=== PATIENT | female | born 1945 | race Caucasian/White ===

== ENCOUNTER 2016-12-24 16:52 | Observation (INO) | payer MEDICARE ==
[2016-12-24] MEDS ORDERED: NS 0.9% 1000 ML* 1,000 ML IV ONE (17:32)
[2016-12-24 18:03] LABS: Hematocrit 44 % (35-47); Hemoglobin 14.5 g/dl (12.0-16.0); Mean Corpuscular HGB Conc 33 g/dl (31-36); Mean Corpuscular Hemoglobin 28 pg (27-31); Mean Corpuscular Volume 85 fL (80-97); Mean Platelet Volume 8 um3 (7.4-10.4); Red Blood Count 5.19 10^6/ul (4.0-5.4); Red Cell Distribution Width 13 % (10.5-15); White Blood Count 16.7 10^3/ul (3.5-10.8)
[2016-12-24 18:29] LABS: Albumin 3.4 g/dL (3.2-5.2); BUN/Creatinine Ratio 20.8 (8-20); C Reactive Protein 51.4 mg/L (< 5.00); Calcium 8.9 mg/dL (8.6-10.3); Potassium 3.7 mmol/L (3.5-5.0); Total Bilirubin 0.5 mg/dL (0.2-1.0); Total Protein 7.4 g/dL (6.4-8.9)
[2016-12-24 18:31] LABS: Troponin I 0.01 ng/mL (<0.04)
--- NOTE | 2016-12-24 18:54 | RAD ---
Indication: Shortness of breath. Comparison is made with previous exam dated August 31, 2016. 2 views of the chest including dual energy PA views demonstrates no mediastinal shift. Heart is of normal size and configuration. Moderate-sized left pleural effusion is noted. Right lung field is clear. IMPRESSION: Small to moderate-sized left pleural effusion is noted. No definite pneumonia is identified.
[2016-12-24] MEDS ORDERED: Iodixanol* (CONTRAST) 320 MG/ML 100 ML SDV IV ONE (19:01)
--- NOTE | 2016-12-24 19:44 | RAD ---
Indication: Shortness of breath, tachycardia. Contrast: Administered 69.8 ml of VISAPAQUE 320 mgi/ml. CTA of the chest was performed after IV contrast administration. Coronal and sagittal reconstructed images were obtained. The pulmonary arterial tree is well opacified. There are no filling defects present to suggest pulmonary embolus. No mediastinal or hilar adenopathy is noted. The heart demonstrates no pericardial effusion. Trachea and major bronchi appear patent. Lung talley demonstrate no evidence of alveolar consolidation. Moderate-sized left pleural effusion with left lower lobe atelectasis is noted. The heart demonstrates no pericardial effusion. The axilla demonstrates no evidence of abnormal adenopathy. The visualized abdominal organs are grossly unremarkable. IMPRESSION: NO EVIDENCE OF PULMONARY EMBOLUS IS NOTED. MODERATE-SIZED LEFT PLEURAL EFFUSION WITH LEFT BASILAR ATELECTASIS. NO FOCAL AREAS OF CONSOLIDATION IS NOTED.
[2016-12-24] MEDS ORDERED: Acetaminop/Codeine 30 MG TAB* 1 TAB (300 MG/30 MG) PO PRN (20:31)
[2016-12-24] MEDS ORDERED: ALPRAZolam TAB* 0.25 MG PO PRN (20:31)
[2016-12-24] MEDS ORDERED: Acetaminophen TAB* 325 MG PO PRN (20:31)
[2016-12-24] MEDS ORDERED: Albuterol HFA INHALER* 8 gm MDI INH PRN (20:31)
[2016-12-24] MEDS ORDERED: Dextrose 50% Syringe 50 ML* 25 GM/50 ML SYRINGE IV PUSH PRN (20:32)
[2016-12-24] MEDS: Insulin GLARGINE(*) 1 UNITS UNIT SUBCUT SCH (22:00)
[2016-12-24] MEDS: Heparin VIAL(*) 5000 UNITS/ML VIAL (FIVE THOUSAND) SUBCUT SCH (22:03)
[2016-12-25 02:06] LABS: Urine Bilirubin Negative (Negative); Urine Glucose 1+(50 mg/dL) (Negative); Urine Nitrite Negative (Negative)
--- NOTE | 2016-12-25 02:34 | HP ---
HOSPITAL MEDICINE HISTORY AND PHYSICAL: DATE OF ADMISSION: 12/24/16 PRIMARY CARE PHYSICIAN: Trey Perez MD ATTENDING PHYSICIAN: Go August MD* (dictation provided by Caryl Lux NP) CHIEF COMPLAINT: Chest pain and shortness of breath. HISTORY OF PRESENT ILLNESS: Ms. Gonsalves is a 71-year-old female with a past medical history of depression, anxiety, insulin-dependent diabetes, and hypothyroidism as well as concern for asthma versus COPD who presents today to the hospital with concern for chest pain and shortness of breath. Ms. Gonsalves was last seen in our hospital in August 2016 at which time, she had concern for tachycardia. During that hospitalization, she had a cardiac stress test that was normal. On consultation with Dr. Decker, there was no clear etiology for her tachycardia determined and patient has continued to follow with Dr. Perez and Dr. Decker since that time. She reports that she has had ongoing shortness of breath. She is a bit of a difficult historian but it seems that the shortness of breath has been a longstanding issue for her. She has seen Dr. ePrez and followed up with Pulmonology. Per her report, she does believe that she has a mild case of COPD. She went to see Dr. Perez 2 weeks ago to review the most recent Pulmonology report. She states that since that time, she has been in "bed." She states she has been having significant shortness of breath with any activity. She also reports chest pain. There is pain into her left side and arm. Description of the pain is hard to elicit, but she says that she does have pain with deep inspiration in the middle of her chest. She also has pain in her left back and shoulder with deep inspiration. She also has pain with palpation around the left shoulder and left anterior wall of the chest. She says the pain is fairly constant. It seems that the pain was probably worse earlier over this past 2 weeks and seems to be better but she is continuing to complain of pain in the emergency room. At this time, it is primarily with deep inspiration in her left back and then with palpation along the anterior chest wall. She denies any cough. She denies any fever. She states she has been having poor oral intake, but has not had no nausea, vomiting, or diarrhea. Her last bowel movement was today. In the emergency room, Ms. Tafoya has leukocytosis with a white blood cell count of 16.7. I will note, however, that her white blood cell count has been elevated over the past few years, but this is highest that we have seen. Hemoglobin and hematocrit are within normal limits. She did have an elevated D - dimer greater than 1050 and then went on for a CT of the chest, which did not show any pulmonary embolism or other infiltrate, process, or mass in the lungs, but did show a left-sided pleural effusion that was mild. Her labs showed an elevated BUN and creatinine with acute kidney injury, which is mild and a mild lactic acidosis of 2.3. Her CRP is also mildly elevated at 51.40. PAST MEDICAL HISTORY: 1. Asthma versus COPD. 2. Depression. 3. Hypertension. 4. Hyperlipidemia. 5. Type 2 diabetes, insulin dependent. 6. Hypothyroidism. 7. History of tachycardia in August 2016, no clear etiology determined. MEDICATIONS: 1. Advair daily. 2. Venlafaxine 150 mg p.o. q.a.m. 3. Levothyroxine 75 mcg p.o. q.a.m. 4. Levemir insulin 15 units subcutaneously b.i.d. 5. Diltiazem CD 180 mg p.o. daily. 6. Bupropion XL 150 mg p.o. daily. 7. Albuterol sulfate 1 puff inhaled q.6 hours p.r.n. 8. Tylenol p.r.n. 9. Tylenol with Codeine p.r.n. 10. Alprazolam 0.25 mg p.o. b.i.d. p.r.n. ALLERGIES: To ASPIRIN, DOXYCYCLINE, SULFA DRUGS, and NSAIDs. FAMILY HISTORY: The patient reports that her mom related to an undiagnosed vulvar cancer and her dad related to heart attack. SOCIAL HISTORY: No reported alcohol, tobacco, or drug use. She lives alone and states that her sister, Lisa, would be the health care proxy. REVIEW OF SYSTEMS: A 14-point review of systems was completed with Ms. Tafoya and all those not mentioned above were negative. PHYSICAL EXAM: GENERAL: Ms. Tafoya is lying in the bed. She is in no acute distress. She is calm and cooperative to my examination. VITAL SIGNS: Temperature 97.5, heart rate 104, respiratory rate 25, O2 saturation 97% on room air, and blood pressure 115/69. LUNGS: Clear to auscultation bilaterally with no accessory muscle use and good aeration. HEART: S1, S2. No murmur, rub, or gallop and regular. ABDOMEN: The abdomen is soft and nontender with bowel sounds positive x4. EXTREMITIES: No cyanosis or edema. NEUROLOGIC: She is alert and oriented x3. She moves all extremities equally. There is no facial asymmetry or focal weakness. Extraocular movements are intact. SKIN: Intact. DIAGNOSTIC STUDIES/LAB DATA: Sodium 135, potassium 3.7, chloride 98, serum bicarbonate 26, BUN 26, creatinine 1.25, glucose 258, and lactic acid 2.3. Troponin 0.01. CRP 51.40. WBC 16.7, hemoglobin 14.5, hematocrit 44, and platelet count 497. D-dimer greater than 1050. Chest, thorax CTA is read as follows: "Moderate sized left pleural effusion with left basilar atelectasis. No focal areas of consolidation are noted." Chest x-ray shows the following: " Rimop-[id number] sized left pleural effusion is noted. No definite pneumonia is identified." EKG, the patient has T-wave inversions in V2 through V6. These inversions were present on V2, V3 at least and then previous EKG were more pronounced in the 4 through 6 leads. She also has a more pronounced in inversion in 2, 3, and aVF. ASSESSMENT: Ms. Tafoya is a 71-year-old female with a past medical history of diabetes, hypertension, and chronic obstructive pulmonary disease who presents today to the emergency room with concern for her [id number] shortness of breath and chest pain. Our plans are for inpatient admission as I expect her length of stay to be greater than 2 days for the followin. Chest pain with shortness of breath: I do not have a clear etiology for these symptoms as in part her description of the symptoms are difficult to interpret. She does have some EKG changes with some T-wave inversions. She has a normal troponin. Clearly this could be related to acute coronary syndrome. Plan to repeat troponins x2. I will have another EKG at 2100 hours along with her second troponin. She also has a new pleural effusion. She has no known history of congestive heart failure. I will order a transthoracic echocardiogram. This could also could be related to infection. She does have an elevated white blood cell count, but this is hard to interpret given her white blood cell count has been elevated in the past. She also has a mild elevation in her CRP. This has been elevated somewhat in the past but again not to this level. She has no fever and reports no fever at home. She has no cough. At this point, I am not convinced that antibiotics are due. It may be necessary to obtain to do a diagnostic thoracentesis with Interventional Radiology, which would be available on Tuesday. She has no evidence of chronic obstructive pulmonary disease exacerbation. There is no clear evidence of any pneumonia based on the CTA. The pleural effusion could be related to carcinoma. I do note that back in August it was noted that the patient had had a significant weight loss over the past couple of years. 2. Type 2 diabetes: I am going to proceed with Lantus at a slightly lower dose given that her oral intake has been very poor. She will have lispro sliding scale, insulin with meals. She will have a consistent carbohydrate diet. 3. Hypothyroidism: Continue levothyroxine. 4. Anxiety/depression: Continue bupropion, venlafaxine, and alprazolam. 5. DVT prophylaxis: With heparin subcu. 6. Disposition: To telemetry floor. TIME SPENT: Approximately 60 minutes was spent in the admission of this patient , more than half of the time was spent with the patient at the bedside reviewing the events leading up to this hospitalization, performing the physical examination, and reviewing my plan of care. CARYL LUX NP CC: Dr. Perez* [id number]/CPS #: [id number] JAIMIE
[2016-12-25] MEDS ORDERED: Levothyroxine TAB* 75 MCG TAB PO SCH (06:00)
[2016-12-25] MEDS: Heparin VIAL(*) 5000 UNITS/ML VIAL (FIVE THOUSAND) SUBCUT SCH (06:10)
[2016-12-25] MEDS: Insulin LISPRO* 1 UNITS UNIT SUBCUT SCH ×2 (07:47→12:32)
[2016-12-25] MEDS: Insulin GLARGINE(*) 1 UNITS UNIT SUBCUT SCH (08:44)
--- NOTE | 2016-12-25 08:53 | ED ---
Jean Claude Bullock Matthew, scribed for Evelio Campos MD on 12/24/16 at 1728 . Shortness of Breath - HPI Summary HPI Summary: A 71 y/o female presents to the ED with SOB since a week ago. The SOB is worse with minimal exertion. Associated symptoms include left lateral chest pain that is worse with sitting up and exertion. The pain is described as pressure. She's also c/o of sharp left shoulder pain that worsens when she sits up. The patient has been in bed the last week from the pain and SOB. She denies cough and wheezing. She states that she's had a full cardiac work-up in the past, which returned normal. She was seen by Dr. Perez who was unable to elucidate her condition. - History of Current Complaint Chief Complaint: EDRespiratoryDistress Time Seen by Provider: 12/24/16 17:24 Hx Obtained From: Patient Onset/Duration: Gradual Onset, Lasting Weeks - 1, Still Present Timing: Constant Current Severity: Moderate Dyspnea At: Exertion Associated Signs & Symptoms: Negative - Allergy/Home Medications Allergies/Adverse Reactions: Allergies Allergy/AdvReac Type Severity Reaction Status Date / Time Aspirin [ASA] Allergy Severe Anaphylatic Verified 09/16/15 18:17 Shock Doxycycline Allergy Severe Anaphylatic Verified 09/16/15 18:17 Shock Sulfa Drugs Allergy Severe Anaphylatic Verified 09/16/15 18:17 Shock NSAIDs AdvReac Intermediate Bleeding Verified 09/16/15 18:17 PMH/Surg Hx/FS Hx/Imm Hx Endocrine/Hematology History: Reports: Hx Diabetes, Hx Thyroid Disease - hypothyroidism Denies: Hx Anemia Cardiovascular History: Reports: Hx Angina, Hx Hypercholesterolemia, Hx Hypertension Denies: Hx Coronary Artery Disease, Hx Myocardial Infarction, Hx Valvular Heart Disease Respiratory History: Reports: Hx Asthma Denies: Hx Chronic Obstructive Pulmonary Disease (COPD) GI History: Reports: Hx Gall Bladder Disease - removed, Hx Gastroesophageal Reflux Disease Denies: Hx Hiatal Hernia, Hx Jaundice History: Reports: Other Problems/Disorders - HX OF BLADDER INFECTIONS, NONE NOW Musculoskeletal History: Reports: Hx Arthritis, Hx Back Problems - C spine herniated disc, Hx Bursitis - HX OF LEFT SHOULDER, Hx Tendonitis - HX OF LEFT SHOULDER, Other Musculoskeletal History - R knee arthroscopy Sensory History: Reports: Hx Cataracts - BILATERAL, Hx Contacts or Glasses - GLASSES Denies: Hx Hearing Aid Opthamlomology History: Reports: Hx Cataracts - BILATERAL, Hx Contacts or Glasses - GLASSES Neurological History: Reports: Hx Headaches - tension headaches, Other Neuro Impairments/Disorders - peripheral neuropathy in feet Psychiatric History: Reports: Hx Anxiety, Hx Depression Denies: Hx Eating Disorder, Hx of Violent Episodes Against Others - Cancer History Hx Chemotherapy: No Hx Radiation Therapy: No - Surgical History Surgery Procedure, Year, and Place: Cholecystectomy, ruptured ovarian cyst, appendix out at same time, COMPLETE HYSTERECTOMY Hx Anesthesia Reactions: No Infectious Disease History: No Infectious Disease History: Denies: Traveled Outside the [place] in Last 30 Days - Family History Known Family History: Positive: Cardiac Disease - father's side - Social History Alcohol Use: None Substance Use Type: Reports: None Smoking Status (MU): Never Smoked Tobacco Review of Systems Constitutional: Negative Eyes: Negative ENT: Negative Positive: Chest Pain Positive: Shortness Of Breath Gastrointestinal: Negative Genitourinary: Negative Positive: Myalgia - left shoulder pain Skin: Negative Neurological: Negative Psychological: Normal All Other Systems Reviewed And Are Negative: Yes Physical Exam Vital Signs On Initial Exam: Initial Vitals Temp Pulse Resp BP Pulse Ox 97.5 F 119 18 122/97 97 12/24/16 16:54 12/24/16 16:54 12/24/16 16:54 12/24/16 16:54 12/24/16 16:54 Diagnostics - Vital Signs Vital Signs Temp Pulse Resp BP Pulse Ox 12/24/16 17:01 97.5 F 119 18 122/91 97 12/24/16 16:54 97.5 F 119 18 122/97 97 - Laboratory Lab Results: Lab Results 12/24/16 12/24/16 12/24/16 Range/Units 17:53 17:53 17:53 WBC 16.7 H (3.5-10.8) 10^3/ul RBC 5.19 (4.0-5.4) 10^6/ul Hgb 14.5 (12.0-16.0) g/dl Hct 44 (35-47) % MCV 85 (80-97) fL MCH 28 (27-31) pg MCHC 33 (31-36) g/dl RDW 13 (10.5-15) % Plt Count 497 H (150-450) 10^3/ul MPV 8 (7.4-10.4) um3 Neut % (Auto) 80.4 (38-83) % Lymph % (Auto) 13.1 L (25-47) % [place] % (Auto) 4.4 (1-9) % Eos % (Auto) 1.3 (0-6) % Baso % (Auto) 0.8 (0-2) % Absolute Neuts (auto) 13.4 H (1.5-7.7) 10^3/ul Absolute Lymphs (auto) 2.2 (1.0-4.8) 10^3/ul Absolute Monos (auto) 0.7 (0-0.8) 10^3/ul Absolute Eos (auto) 0.2 (0-0.6) 10^3/ul Absolute Basos (auto) 0.1 (0-0.2) 10^3/ul Absolute Nucleated RBC 0.01 10^3/ul Nucleated RBC % 0.1 APTT (26.0-36.3) seconds D-Dimer, Quantitative (Less Than 230) ng/mL Sodium 135 (133-145) mmol/L Potassium 3.7 (3.5-5.0) mmol/L Chloride 98 L (101-111) mmol/L Carbon Dioxide 26 (22-32) mmol/L Anion Gap 11 (2-11) mmol/L BUN 26 H (6-24) mg/dL Creatinine 1.25 H (0.51-0.95) mg/dL Est GFR ( Amer) 54.0 (>60) Est GFR (Non-Af Amer) 42.0 (>60) BUN/Creatinine Ratio 20.8 H (8-20) Glucose 258 H (70-100) mg/dL Lactic Acid 2.3 H* (0.5-2.0) mmol/L Calcium 8.9 (8.6-10.3) mg/dL Total Bilirubin 0.50 (0.2-1.0) mg/dL AST 33 (13-39) U/L ALT 33 (7-52) U/L Alkaline Phosphatase 73 (34-104) U/L Total Creatine Kinase 41 (10-223) U/L CK-MB (CK-2) 2.2 (0.6-6.3) ng/mL Troponin I 0.01 (<0.04) ng/mL C-Reactive Protein 51.40 H (< 5.00) mg/L B-Natriuretic Peptide ( - 100) pg/mL Total Protein 7.4 (6.4-8.9) g/dL Albumin 3.4 (3.2-5.2) g/dL Globulin 4.0 (2-4) g/dL Albumin/Globulin Ratio 0.9 L (1-3) 12/24/16 12/24/16 Range/Units 17:53 17:53 WBC (3.5-10.8) 10^3/ul RBC (4.0-5.4) 10^6/ul Hgb (12.0-16.0) g/dl Hct (35-47) % MCV (80-97) fL MCH (27-31) pg MCHC (31-36) g/dl RDW (10.5-15) % Plt Count (150-450) 10^3/ul MPV (7.4-10.4) um3 Neut % (Auto) (38-83) % Lymph % (Auto) (25-47) % [place] % (Auto) (1-9) % Eos % (Auto) (0-6) % Baso % (Auto) (0-2) % Absolute Neuts (auto) (1.5-7.7) 10^3/ul Absolute Lymphs (auto) (1.0-4.8) 10^3/ul Absolute Monos (auto) (0-0.8) 10^3/ul Absolute Eos (auto) (0-0.6) 10^3/ul Absolute Basos (auto) (0-0.2) 10^3/ul Absolute Nucleated RBC 10^3/ul Nucleated RBC % APTT 27.8 (26.0-36.3) seconds D-Dimer, Quantitative > 1050 H (Less Than 230) ng/mL Sodium (133-145) mmol/L Potassium (3.5-5.0) mmol/L Chloride (101-111) mmol/L Carbon Dioxide (22-32) mmol/L Anion Gap (2-11) mmol/L BUN (6-24) mg/dL Creatinine (0.51-0.95) mg/dL Est GFR ( Amer) (>60) Est GFR (Non-Af Amer) (>60) BUN/Creatinine Ratio (8-20) Glucose (70-100) mg/dL Lactic Acid (0.5-2.0) mmol/L Calcium (8.6-10.3) mg/dL Total Bilirubin (0.2-1.0) mg/dL AST (13-39) U/L ALT (7-52) U/L Alkaline Phosphatase (34-104) U/L Total Creatine Kinase (10-223) U/L CK-MB (CK-2) (0.6-6.3) ng/mL Troponin I (<0.04) ng/mL C-Reactive Protein (< 5.00) mg/L B-Natriuretic Peptide 116 H ( - 100) pg/mL Total Protein (6.4-8.9) g/dL Albumin (3.2-5.2) g/dL Globulin (2-4) g/dL Albumin/Globulin Ratio (1-3) Result Diagrams: 12/24/16 17:53 12/24/16 17:53 Lab Statement: Any lab studies that have been ordered have been reviewed, and results considered in the medical decision making process. - Radiology CXR Xray Interpretation: Positive (See Comments) - IMPRESSION: Small to moderate- sized left pleural effusion is noted. No definite pneumonia is identified. Radiology Interpretation Completed By: Radiologist - EKG 17:04 Cardiac Rate: Tachycardia - 108 bpm EKG Rhythm: Sinus Tachycardia EKG Interpretation: TWI in II,III,AvF, V2-V6; No STEMI; Normal [place] EKG Comparison: Other - TWI in V2-V6, which is more pronounced than previous EKGs Course/Dx - Course Assessment/Plan: A 71 y/o female presents to the ED with SOB since a week ago. The SOB is worse with minimal exertion. Associated symptoms include left lateral chest pain that is worse with sitting up and exertion. The pain is described as pressure. She's also c/o of sharp left shoulder pain that worsens when she sits up. The patient has been in bed the last week from the pain and SOB. She denies cough and wheezing. She states that she's had a full cardiac work-up in the past, which returned normal. She was seen by Dr. Perez who was unable to elucidate her condition. WBC of 16.7. Pt count of 497. Chloride 98, BUN 20.8, Creatinine 1.25 , Glucose 258, lactic acid 2.3, BNP 116, CRP 51.4, CXR shows no acute cardiopulmonary pathology except left sided pleural effusion. In the ED course, the patient continues to be tachycardic and c/o of SOB. Because of the D-dimer, SOB on excretion I decided to do a Chest CT to r/o PE. The patient is awaiting the chest CT therefore the patient will be signed out to DR. Aquino pending CT and further assessment. - Diagnoses Differential Diagnosis/HQI/PQRI: Positive: Bronchitis, CHF, Chest Wall Pain, COPD Exacerbation, Pneumonia, Pulmonary Embolism Provider Diagnoses: Chest pain, SOB (shortness of breath) Discharge - Discharge Plan Condition: Guarded Disposition: ADMITTED TO [facility] Discharge Disposition Comment: The patient is signed out to Dr. Aquino pending Chest CT. The documentation as recorded by the Jean Claude hawkins Matthew accurately reflects the service I personally performed and the decisions made by , Evelio Campos MD.
[2016-12-25] MEDS ORDERED: Diltiazem CD CAP* 180 MG PO SCH (09:00)
[2016-12-25] MEDS ORDERED: Venlafaxine EXT RELEASE CAP* 75 MG PO SCH (09:00)
[2016-12-25 11:42] VITALS: BP 126/60
--- NOTE | 2016-12-25 12:05 | PN ---
Subjective - Subjective Reason for Note: Discharge Note History: DISCHARGE SUMMARY She was bought in for observation overnight to rule out acute CO. She presented with atypical chest pain. She has had no further chest pain overnight. She denies coughing/sputum. She has her usual dyspnea. She has managed to walk this morning. She has a normal appetite. Active Problems: Active Problems Atypical chest pain (Acute) R07.89 Type 2 diabetes mellitus, uncontrolled (Chronic) E11.65 Current Medications: Current Medications Acetaminophen (Tylenol Tab*) 650 mg PO Q4H PRN PRN Reason: HEADACHE Acetaminophen/Codeine Phosphate (Tylenol/Codeine 30 Mg Tab*) 1 tab PO Q6H PRN PRN Reason: PAIN Albuterol (Ventolin Hfa Inhaler*) 1 puff INH Q6HR PRN PRN Reason: SHORTNESS OF BREATH Alprazolam (Xanax Tab*) 0.25 mg PO BID PRN PRN Reason: ANXIETY Dextrose (D50w Syringe 50 Ml*) 12.5 gm IV PUSH .FOR FS < 60 - SS PRN PRN Reason: FS < 60 Diltiazem HCl (Cardizem Cd Cap*) 180 mg PO DAILY [facility] Last Admin: 12/25/16 08:44 Dose: 180 mg Heparin Sodium (Porcine) (Heparin Vial(*)) 5,000 units SUBCUT Q8HR [facility] Last Admin: 12/25/16 06:10 Dose: 5,000 units Insulin Glargine (Lantus(*)) 40 units SUBCUT BID [facility] Last Admin: 12/25/16 08:44 Dose: 40 units Insulin Human Lispro (Humalog*) 0 units SUBCUT AC [facility] PRN Reason: Protocol Last Admin: 12/25/16 07:47 Dose: Not Given Levothyroxine Sodium (Synthroid Tab*) 75 mcg PO DAILY@0600 [facility] Last Admin: 12/25/16 06:08 Dose: 75 mcg Venlafaxine HCl (Effexor Xr Cap*) 150 mg PO QAM [facility] Last Admin: 12/25/16 08:44 Dose: 150 mg Home Medications: Home Medications Medication Instructions Recorded Confirmed Type Levothyroxine TAB* [Synthroid 75 75 mcg PO QAM 07/18/12 12/24/16 History MCG TAB*] Venlafaxine EXT RELEASE CAP* 150 mg PO QAM 07/18/12 12/24/16 History [Effexor Xr CAP*] ALPRAZolam TAB* [Xanax TAB*] 0.25 mg PO BID PRN #0 09/16/15 12/24/16 History Acetaminophen TAB* [Tylenol TAB*] 650 mg PO Q4H PRN #0 tab 09/20/15 12/24/16 Rx Acetaminop/Codeine 30 MG TAB* 1 tab PO Q6H PRN 08/23/16 12/24/16 History [Tylenol/Codeine 30 MG TAB*] Albuterol Sulfate [Proventil Hfa] 1 puff INH Q6HR PRN 08/23/16 12/24/16 History Bupropion XL* [Wellbutrin XL *] 150 mg PO DAILY 08/23/16 12/24/16 History Insulin Detemir (NF) [Levemir (NF)] 50 unit SUBCUT BID MDD 120 units 08/23/16 History Diltiazem HCl Coated Beads 180 mg PO DAILY #90 cap 08/25/16 12/24/16 Rx [Diltiazem Cd] Fluticas/Salmet 115/21 HFA(NF) 1 puff INH BID 12/24/16 12/24/16 History [Advair HFA 115/21 (NF)] Allergies: Allergies Allergy/AdvReac Type Severity Reaction Status Date / Time Aspirin [ASA] Allergy Severe Anaphylatic Verified 09/16/15 18:17 Shock Doxycycline Allergy Severe Anaphylatic Verified 09/16/15 18:17 Shock Sulfa Drugs Allergy Severe Anaphylatic Verified 09/16/15 18:17 Shock NSAIDs AdvReac Intermediate Bleeding Verified 09/16/15 18:17 Objective - Vital Signs Vital Signs: Vital Signs 12/24/16 12/24/16 12/24/16 20:30 20:39 21:00 Temperature Pulse Rate 75 74 72 Respiratory 17 17 17 Rate Blood Pressure 131/82 129/69 (mmHg) O2 Sat by Pulse 97 96 96 Oximetry 12/24/16 12/24/16 12/25/16 21:23 23:09 03:13 Temperature 98.4 F 98.3 F 98.4 F Pulse Rate 77 74 65 Respiratory 20 20 20 Rate Blood Pressure 149/72 132/62 109/51 (mmHg) O2 Sat by Pulse 100 98 94 Oximetry 12/25/16 12/25/16 12/25/16 07:48 08:00 11:12 Temperature 97.6 F 97.0 F Pulse Rate 62 71 Respiratory 20 20 20 Rate Blood Pressure 113/56 126/60 (mmHg) O2 Sat by Pulse 95 96 Oximetry - Intake and Output Intake and Output: Intake & Output 12/22/16 12/23/16 12/24/16 12/25/16 11:59 11:59 11:59 11:59 Intake Total 1217 Output Total 900 Balance 317 Weight 153 lb 3.2 oz Intake: IV Fluids 1097 LR 391 NS (0.9%) 706 Oral 120 Output: Urine 900 Other: # Bowel Movements 0 Estimated Stool Amount Medium ADLs: Meal Record Start: 12/24/16 21: 23 Freq: DAILY@0900,1400,1800 Status: Active Created 12/24/16 21:23 System (Rec: 12/24/16 21:23 System [email or web address]) Document 12/25/16 09:02 [id number] (Rec: 12/25/16 09:02 [id number] [email or web address]) Intake and Output Start: 12/24/16 21: 23 Freq: DAILY@0600,1400,2200 Status: Active Created 12/24/16 21:23 System (Rec: 12/24/16 21:23 System [id number]) Document 12/25/16 05:31 [id number] (Rec: 12/25/16 05:33 [id number] [place] [id number]) - Physical Exam General: No Cyanosis, No Jaundice, No Lymphadenopathy, No Clubbing Lungs and Chest: Yes: Chest Expansion Full, Chest Expansion Symetrica, Percussion Note Resonant, Vessicular Breath Sounds. No: Crackles, Wheezes, Respiratory Distress, Use of Accessory Muscles Heart Rate and Rhythm: Regular JVP: Not Elevated Additional Cardiovascular: Yes: Normal Heart Sounds. No: Heart Murmur, Carotid Bruits, Pedal Edema Abdominal Exam: Yes: Soft. No: Distention, Abdominal Mass, Abdominal Tenderness , Bowel Sounds Present - Extremities Cranial Nerves II-XII Intact: Yes Limbs: Normal Power, Normal Tone - Neuro Orientation: A/O x3 Speech: Normal Results - Results Lab Results: Laboratory Results - last 24 hr 12/24/16 12/24/1612/25/17 21:04 21:04 00:30 POC Glucose (mg/dL) Lactic Acid 1.3 Troponin I 0.01 0.01 Urine Color Urine Appearance Urine pH Ur Specific [place] Urine Protein Urine Ketones Urine Blood Urine Nitrate Urine Bilirubin Urine Urobilinogen Ur Leukocyte Esterase Urine Glucose Urine Ascorbic Acid 12/25/16 12/25/16 12/25/16 01:55 07:40 11:39 POC Glucose (mg/dL) 109 H 171 H Lactic Acid Troponin I Urine Color Yellow Urine Appearance Clear Urine pH 5.0 Ur Specific [place] 1.043 H Urine Protein Negative Urine Ketones Trace H Urine Blood Negative Urine Nitrate Negative Urine Bilirubin Negative Urine Urobilinogen Negative Ur Leukocyte Esterase Negative Urine Glucose 1+(50 mg/dl) H Urine Ascorbic Acid * H Radiology Results: Patient Name: HOMERO BILL Medical Record#: [id number] Ordering Physician: Evelio Campos MD Acct.#: [id number] : 1945 Age: 71 Sex: F Location: EMERGENCY DEPARTMENT Exam Date: 12/24/161856 ADM Status: [facility] ER Order Information: CTA CHEST Accession Number: [id number] CPT: 01185 Indication: Shortness of breath, tachycardia. Contrast: Administered 69.8 ml of VISAPAQUE 320 mgi/ml. CTA of the chest was performed after IV contrast administration. Coronal and sagittal reconstructed images were obtained. The pulmonary arterial tree is well opacified. There are no filling defects present to suggest pulmonary embolus. No mediastinal or hilar adenopathy is noted. The heart demonstrates no pericardial effusion. Trachea and major bronchi appear patent. Lung talley demonstrate no evidence of alveolar consolidation. Moderate-sized left pleural effusion with left lower lobe atelectasis is noted. The heart demonstrates no pericardial effusion. The axilla demonstrates no evidence of abnormal adenopathy. The visualized abdominal organs are grossly unremarkable. IMPRESSION: NO EVIDENCE OF PULMONARY EMBOLUS IS NOTED. MODERATE-SIZED LEFT PLEURAL EFFUSION WITH LEFT BASILAR ATELECTASIS. NO FOCAL AREAS OF CONSOLIDATION IS NOTED. <Electronically signed by Katiuska Lai MD in [place]> 12/24/161939 Dictated By: Katiuska Lai MD Dictated Date/Time: 12/24/161939 Transcribed Date/Time: 12/24/161937 Copy to: CC:Trey Perez MD; Evelio Campos MD Imaging - [facility] Imaging - [facility] Imaging - [facility] [address] [place], [place] [address] [place] [id number] [place] [id number] ph ([phone]) ph ([phone]) ph ([phone]) EKG Report: Sinus tachycardia: rate 108 OR 126 QTc 499 QRS axis 54 Widespread T wave inversions in lateral leads. This is chronic. Assessment - Problem List Assessment: Patient Problems Atypical chest pain (Acute) Type 2 diabetes mellitus, uncontrolled (Chronic) Asthma (Chronic) Depression (Chronic) Dyspnea on exertion (Chronic) Hyperlipidemia (Chronic) Hypertension (Chronic) Hypothyroidism (Chronic) Plan: Atypical chest pain (Acute) She has had risk stratification: troponin I series negative, CTA negative. She had a recent stress test. I don't think her pain was cardiac. She has a left pleural effusion - I will follow this up as an outpatient. Type 2 diabetes mellitus, uncontrolled (Chronic) stable Asthma (Chronic) not exacerbated Depression (Chronic) ongoing Dyspnea on exertion (Chronic) ongoing - she has seen cardiology and pulmonology - no obvious reversible cause Hyperlipidemia (Chronic) continue current Rx Hypertension (Chronic) continue current Rx Hypothyroidism (Chronic) continue current Rx I discussed the above with the patient. She is feeling fine today and I have discharged her. She will follow with me as an outpatient for the pleural effusion.
== END 2016-12-25 13:20 | disposition home or self-care (01) ==
LOC: ED 16:52 → MEDTELE 20:28 → INTOOBSV 20:28
PROVIDERS: ADMIT Hospitalist; ATTEND Internal Medicine
DX: R07.9 Chest pain, unspecified (principal); R06.02 Shortness of breath; I10 Essential (primary) hypertension; E78.5 Hyperlipidemia, unspecified; E11.9 Type 2 diabetes mellitus without complications; Z79.4 Long term (current) use of insulin; E03.9 Hypothyroidism, unspecified; J45.909 Unspecified asthma, uncomplicated; Z79.899 Other long term (current) drug therapy; R00.0 Tachycardia, unspecified; R94.31 Abnormal electrocardiogram [ECG] [EKG]
CPT/HCPCS: 36415; 71020; 71275; 80053; 81003; 82550; 82553; 83605; 83880; 84484; 85025; 85379; 85730; 86140; 87040; 93005; 96360; 96372; 99285; A9270-GY; G0378; J1644; Q9967

== ENCOUNTER 2017-07-28 13:24 | Inpatient (IN) | payer BC ==
[2017-07-28] MEDS ORDERED: Heparin for STEMI(*) 5,000 UNITS/ML 1 ML VIAL IV ONE ×2 (13:32→13:35)
[2017-07-28] MEDS ORDERED: Ticagrelor* 90 MG TAB PO ONE ×2 (13:32→14:30)
[2017-07-28] MEDS ORDERED: Nitroglycerin TAB 0.4 MG* 0.4 MG TAB ONE (13:35)
[2017-07-28] MEDS ORDERED: Iohexol 350 (CONTRAST) 200 ML MDV IV ONE (13:39)
[2017-07-28] MEDS ORDERED: Heparin 2 UNITS/ML IVPREMIX* 2,000 ML IV ONE (13:39)
[2017-07-28] MEDS ORDERED: Lidocaine 1% INJ* 10 MG/ML 30 ML SDV ONE (13:40)
[2017-07-28] MEDS ORDERED: Iodixanol* (CONTRAST) 320 MG/ML 100 ML SDV ONE ×2 (13:41→15:06)
[2017-07-28] MEDS ORDERED: Ondansetron INJ* 2 MG/ML VIAL IV ONE (13:41)
[2017-07-28] MEDS ORDERED: Ondansetron INJ* 2 MG/ML VIAL ONE (13:42)
[2017-07-28] MEDS ORDERED: nitroGLYCERIN DRIP* 25,000 MCG/250 ML BTL ONE (13:45)
[2017-07-28] MEDS ORDERED: Heparin(*) 1000 UNIT/ML 10 ML VIAL CATH LAB IV ONE (13:45)
[2017-07-28] MEDS ORDERED: VERAPAMIL 2.5 MG/ML 4 ML VIAL ONE (13:45)
[2017-07-28 13:48] LABS: Hematocrit 46 % (35-47); Hemoglobin 15.4 g/dl (12.0-16.0); Mean Corpuscular HGB Conc 34 g/dl (31-36); Mean Corpuscular Hemoglobin 29 pg (27-31); Mean Corpuscular Volume 87 fL (80-97); Mean Platelet Volume 9 um3 (7.4-10.4); Red Blood Count 5.25 10^6/ul (4.0-5.4); Red Cell Distribution Width 14 % (10.5-15); White Blood Count 15.3 10^3/ul (3.5-10.8)
[2017-07-28 14:03] LABS: Albumin 4.1 g/dL (3.2-5.2); BUN/Creatinine Ratio 20.5 (8-20); Calcium 10.2 mg/dL (8.6-10.3); EGFR African American 41.8 (>60); EGFR Non-African American 32.5 (>60); Globulin 4.7 g/dL (2-4); Potassium 4.6 mmol/L (3.5-5.0); Total Bilirubin 0.6 mg/dL (0.2-1.0); Total Protein 8.8 g/dL (6.4-8.9)
[2017-07-28] MEDS ORDERED: fentaNYL* 50 MCG/ML 2 ML VIAL (100 MCG VIAL) ONE (14:04)
[2017-07-28] MEDS ORDERED: Midazolam* 1 MG/ML 5 ML VIAL (5 MG) ONE (14:04)
[2017-07-28 14:07] LABS: Troponin I 2.01 ng/mL (<0.04)
[2017-07-28] MEDS ORDERED: Eptifibatide IV (Load dose)(*) 2 MG/ML 10 ml VIAL ONE (14:55)
[2017-07-28] MEDS ORDERED: Eptifibatide (*) 100 ML ONE (15:04)
[2017-07-28] MEDS ORDERED: Nitroglycerin TAB 0.4 MG* 0.4 MG TAB SL PRN (15:37)
[2017-07-28] MEDS ORDERED: Acetaminophen TAB* 325 MG PO PRN (15:43)
[2017-07-28] MEDS ORDERED: NS 0.9% 1000 ML* 1,000 ML IV SCH (15:45)
[2017-07-28] MEDS ORDERED: Albuterol HFA INHALER* 8 gm MDI INH PRN (15:53)
[2017-07-28] MEDS ORDERED: Acetaminop/Codeine 30 MG TAB* 1 TAB (300 MG/30 MG) PO PRN (15:53)
[2017-07-28] MEDS ORDERED: ALPRAZolam TAB* 0.25 MG PO PRN (15:53)
[2017-07-28] MEDS: Eptifibatide (*) 100 ML IV SCH (17:56)
[2017-07-28] MEDS: Atorvastatin* 80 MG TAB PO SCH (18:20)
[2017-07-28] MEDS: Metoprolol Tartrate TAB* 25 MG PO SCH (18:20)
--- NOTE | 2017-07-28 19:00 | ED ---
Kwadwo Bullock Angela, scribed for Evelio Campos MD on 07/28/17 at 1332 . HPI Chest Pain - HPI Summary HPI Summary: This pt is a 71 y/o female presenting to [facility] via EMS from PCP's office c/o chest pain that began today at 11:30 AM. She describes her pain as non- radiating constant mid sternal and pressure pain. Pt rates her pain 6/10 in severity. Pt additionally c/o diaphoresis, dizziness, SOB, and nausea. She denies vomiting. Per EMS, chest pain is aggravated with deep breaths. Pt reports that she has had chest pain for 3 years but notes this is different. Usually she notes her chest pain is on the left side. Pt states she was discharged from the hospital 2 weeks ago on 07/10. She was admitted to the hospital on 07/02 with a diagnosis of sepsis, UTI vs pneumonia, her symptoms included chest pain and SOB. Pt was put on oral antibiotics. Pt saw Dr. marion 1 week ago in his office for a follow up. Pt denies any PMHx of heart attacks. Pt is not on any anticoagulants or NTG. PMHx includes diabetes, HTN, osteoporosis. Allergies include aspirin. - History of Current Complaint Hx Obtained From: Patient, EMS Onset/Duration: Started Hours Ago, Still Present Timing: Lasting Hours Current Severity: Moderate Pain Intensity: 6 Pain Scale Used: 0-10 Numeric Chest Pain Location: Mid Sternal Chest Pain Radiates: No Character: Pressure/Squeezing Aggravating Factor(s): Deep Breaths Alleviating Factor(s): Nothing Associated Signs and Symptoms: Positive: Chest Pain, Dizziness, Shortness of Breath, Diaphoresis, Nausea. Negative: Vomiting - Additional Pertinent History Primary Care Physician: [id number] - Allergy/Home Medications Allergies/Adverse Reactions: Allergies Allergy/AdvReac Type Severity Reaction Status Date / Time Aspirin [ASA] Allergy Severe Anaphylatic Verified 12/30/16 13:59 Shock Doxycycline Allergy Severe Anaphylatic Verified 12/30/16 13:59 Shock Sulfa Drugs Allergy Severe Anaphylatic Verified 12/30/16 13:59 Shock Pentazocine Allergy Hallucinati Verified 12/30/16 13:59 [From Talwin Compound] ons NSAIDs AdvReac Intermediate Bleeding Verified 12/30/16 13:59 Home Medications: Home Medications Albuterol HFA INHALER* [Ventolin HFA Inhaler*] 1 puff INH Q6H PRN 07/28/17 [ History Confirmed 07/28/17] Bupropion XL* [Wellbutrin XL *] 150 mg PO DAILY 07/28/17 [History Confirmed ] Diltiazem HCl Coated Beads [Cartia Xt] 180 mg PO DAILY 07/28/17 [History Confirmed 07/28/17] Meclizine TAB* [Antivert 12.5 TAB*] 12.5 mg PO DAILY PRN 07/28/17 [History Confirmed 07/28/17] Multivitamins/Minerals TAB* [Theragran/minerals TAB*] 1 tab PO DAILY 07/28/17 [ History Confirmed 07/28/17] PMH/Surg Hx/FS Hx/Imm Hx Endocrine/Hematology History: Reports: Hx Diabetes, Hx Thyroid Disease - hypothyroidism Denies: Hx Anemia Cardiovascular History: Reports: Hx Angina, Hx Hypercholesterolemia, Hx Hypertension Denies: Hx Coronary Artery Disease, Hx Myocardial Infarction, Hx Valvular Heart Disease Respiratory History: Reports: Hx Asthma, Hx Seasonal Allergies, Other Respiratory Problems/Disorders - PLEURAL EFFUSION. 01/2017 USES ADVAIR RX DAILY X2 PUFFS Denies: Hx Chronic Obstructive Pulmonary Disease (COPD) GI History: Reports: Hx Gall Bladder Disease - removed, Hx Gastroesophageal Reflux Disease Denies: Hx Hiatal Hernia, Hx Jaundice History: Reports: Hx Chronic Renal Failure - Stage III per Dr. 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 Psychiatric History: Reports: Hx Anxiety, Hx Depression Denies: Hx Eating Disorder, Hx of Violent Episodes Against Others - Cancer History Hx Chemotherapy: No Hx Radiation Therapy: No - Surgical History Surgery Procedure, Year, and Place: Cholecystectomy, ruptured ovarian cyst, appendix out at same time, COMPLETE HYSTERECTOMY Hx Anesthesia Reactions: No - Family History Known Family History: Positive: Cardiac Disease - father's side - Social History Alcohol Use: None Substance Use Type: Reports: None Hx Tobacco Use: No Smoking Status (MU): Never Smoked Tobacco Review of Systems Positive: Skin Diaphoresis. Negative: Fever, Chills Positive: Chest Pain Positive: Shortness Of Breath Positive: Nausea. Negative: Vomiting Neurological: Other - dizziness All Other Systems Reviewed And Are Negative: Yes Physical Exam - Summary Physical Exam Summary: VITAL SIGNS: Reviewed. GENERAL: Patient is a well-developed and nourished female who is lying comfortable in the stretcher. Patient is not in any acute respiratory distress. HEAD AND FACE: No signs of trauma. No ecchymosis, hematomas or skull depressions. No sinus tenderness. EYES: PERRLA, EOMI x 2, No injected conjunctiva, no nystagmus. EARS: Hearing grossly intact. Ear canals and tympanic membranes are within normal limits. MOUTH: Oropharynx within normal limits. NECK: Supple, trachea is midline, no adenopathy, no JVD, no carotid bruit, no c- spine tenderness, neck with full ROM. CHEST: Symmetric, no tenderness at palpation LUNGS: Clear to auscultation bilaterally. No wheezing or crackles. CVS: Regular rate and rhythm, S1 and S2 present, no murmurs or gallops appreciated. ABDOMEN: Soft, non-tender. No signs of distention. No rebound no guarding, and no masses palpated. Bowel sounds are normal. EXTREMITIES: FROM in all major joints, no edema, no cyanosis or clubbing. NEURO: Alert and oriented x 3. No acute neurological deficits. Speech is normal and follows commands. SKIN: Dry and warm Triage Information Reviewed: Yes Vital Signs Reviewed: Yes Diagnostics - Laboratory Result Diagrams: 07/28/17 13:39 07/28/17 13:39 Lab Statement: Any lab studies that have been ordered have been reviewed, and results considered in the medical decision making process. - EKG 1330 Cardiac Rate: NL EKG Rhythm: Sinus Rhythm EKG Interpretation: ST elevation in leads aVL, V2, V3. ST depression in II, III and aVF. Chest Pain Course/Dx - Course Assessment/Plan: This pt is a 71 y/o female presenting to [facility] via EMS from PCP 's office c/o chest pain that began today at 11:30 AM. She describes her pain as non-radiating constant mid sternal and pressure pain. Pt rates her pain 6/10 in severity. Pt additionally c/o diaphoresis, dizziness, SOB, and nausea. She denies vomiting. Per EMS, chest pain is aggravated with deep breaths. Pt reports that she has had chest pain for 3 years but notes this is different. Usually she notes her chest pain is on the left side. Pt states she was discharged from the hospital 2 weeks ago on 07/10. She was admitted to the hospital on 07/02 with a diagnosis of sepsis, UTI vs pneumonia, her symptoms included chest pain and SOB. Pt was put on oral antibiotics. Pt saw Dr. marion 1 week ago in his office for a follow up. Pt denies any PMHx of heart attacks. Pt is not on any anticoagulants or NTG. PMHx includes diabetes, HTN, osteoporosis. Allergies include aspirin. Test results show WBC of 15.3, renal failure, lactic acid o 2.3, glucose of 314, troponin of 2.01, EKG shows ST elevation in leads aVL, V2, V3, and ST depression in II, III, and aVF. We called a STEMI code. Dr. Pierce came and assessed the pt and agrees that the pt will be given Brilinta and Heparin. The pt will be taken to the recyclable materials collector. Pt is hemodynamically stable, alert and oriented x3. Critical care time is less than 30 minutes. - Diagnoses Provider Diagnoses: STEMI (ST elevation myocardial infarction) During the Visit The Following Alert/Code Occurred: STEMI - at 13:30 - Provider Notifications Discussed Care Of Patient With: Violeta Romano Time Discussed With Above Provider: 13:42 Instructed by Provider To: Other - I discussed the pt's case with Dr. Romano, who accepted the pt for admission. Discharge - Discharge Plan Condition: Stable Disposition: ADMITTED TO [facility] The documentation as recorded by the Kwadwo hawkins Angela accurately reflects the service I personally performed and the decisions made by me, Evelio Campos MD.
[2017-07-28] MEDS ORDERED: Insulin GLARGINE(*) 1 UNITS UNIT SUBCUT SCH (21:00)
[2017-07-28] MEDS: Ticagrelor* 90 MG TAB PO SCH (21:10)
[2017-07-28] MEDS: Ondansetron INJ* 2 MG/ML VIAL IV PRN (21:11)
[2017-07-29] MEDS: Mometasone/Formoter 200/5 MDI INH SCH ×3 (03:19→23:07)
[2017-07-29] MEDS: Metoprolol Tartrate TAB* 25 MG PO SCH ×4 (03:19→17:44)
[2017-07-29] MEDS: Ondansetron INJ* 2 MG/ML VIAL IV PRN (03:20)
[2017-07-29] MEDS: Levothyroxine TAB* 75 MCG TAB PO SCH (05:58)
[2017-07-29] MEDS: Eptifibatide (*) 100 ML IV SCH (05:58)
[2017-07-29 07:36] LABS: BUN/Creatinine Ratio 21.5 (8-20); Blood Urea Nitrogen 28 mg/dL (6-24); CO2 Carbon Dioxide 31 mmol/L (22-32); Calcium 9.3 mg/dL (8.6-10.3); Chloride 97 mmol/L (101-111); Creatine Kinase 1082 U/L (10-223); EGFR African American 51.6 (>60); EGFR Non-African American 40.2 (>60); Glucose 193 mg/dL (70-100); Sodium 133 mmol/L (133-145)
[2017-07-29 07:45] LABS: Anion Gap 5 mmol/L (2-11)
--- NOTE | 2017-07-29 08:17 | PN ---
Subjective - Subjective Reason for Note: Consultation Note History: Internal medicine/endocrinology. I have obtained the history from Brian Tafoya, Mauricio May NP and Dr. Florencia Pierce. She had a recurrent UTI treated with Levofloxacin as an out patient on 07/21. This caused some nausea. She came to my office yesterday for a routine visit - she had been weak for the previous week and had her usual shortness of breath with exertion. During her visit she developed central chest pain and intense diaphoresis. She was reluctant at first to allow Dyan May NP to call an ambulance. She had an acute ligia-lateral NM on EKG and an initial troponin I of 2.1 and a CPK of 265 and %MB 33.7. Dr. Pierce took her to the cardiac catheterization lab, removed clot from the LAD and placed 2 stents, but tells me there is an additional stenosis that will require attention later (she has CKD and he didn't want too much contrast). She had some chest pain that was relieved by NTG. This morning she has mild nausea. She denies dyspnea, palpitations. From a general medical point of view: T2D: her glucose yesterday morning was 150 mg/dl. It has been labile in the hospital, but is improved this morning. She denies further symptoms from her UTI. She denies any adverse effects from the antibacterial - she has no diarrhea. Recent hospitalizations: 08/23 - 08/25/2016 - Tachycardia, dyspnea. Negative NM stress test 07/02 - 07/10/2017 - right sided pneumonia/pleural effusion/UTI Active Problems: Active Problems Acute myocardial infarction (Acute) I21.9 Pleural effusion, right (Acute) J90 Stented coronary artery (Acute) Z95.5 History of UTI (Chronic) Z87.440 Current Medications: Current Medications Acetaminophen (Tylenol Tab*) 650 mg PO Q4H PRN PRN Reason: HEADACHE/PAIN Acetaminophen/Codeine Phosphate (Tylenol/Codeine 30 Mg Tab*) 1 tab PO Q6H PRN PRN Reason: PAIN Albuterol (Ventolin Hfa Inhaler*) 1 puff INH Q6H PRN PRN Reason: SHORTNESS OF BREATH Alprazolam (Xanax Tab*) 0.25 mg PO BID PRN PRN Reason: ANXIETY Atorvastatin Calcium (Lipitor*) 80 mg PO 1700 [facility] Last Admin: 07/28/17 18:20 Dose: 80 mg Insulin Glargine (Lantus(*)) 50 units SUBCUT BID [facility] Last Admin: 07/28/17 21:10 Dose: 50 units Levothyroxine Sodium (Synthroid Tab*) 75 mcg PO QAM@0600 [facility] Last Admin: 07/29/17 05:58 Dose: 75 mcg Metoprolol Tartrate (Lopressor Tab*) 25 mg PO Q8H [facility] Last Admin: 07/29/17 03:19 Dose: 25 mg Mometasone Furoate/Formoterol Fumar (Dulera 200/5 Mdi*) 1 puff INH BID [facility] Last Admin: 07/29/17 03:19 Dose: Not Given Nitroglycerin (Nitroglycerin Tab 0.4 Mg*) 0.4 mg SL Q5M PRN PRN Reason: ANGINA Last Admin: 07/29/17 06:14 Dose: 0.4 mg Ondansetron HCl (Zofran Inj*) 4 mg IV Q4H PRN PRN Reason: NAUSEA Last Admin: 07/29/17 03:20 Dose: 4 mg Ticagrelor (Brilinta*) 90 mg PO BID [facility] Last Admin: 07/28/17 21:10 Dose: 90 mg Venlafaxine HCl (Effexor Xr Cap*) 150 mg PO QAM [facility] Home Medications: Home Medications Medication Instructions Recorded Confirmed Type Levothyroxine TAB* [Synthroid 75 75 mcg PO QAM 07/18/12 07/28/17 History MCG TAB*] Venlafaxine EXT RELEASE CAP* 150 mg PO QAM 07/18/12 07/28/17 History [Effexor Xr CAP*] ALPRAZolam TAB* [Xanax TAB*] 0.25 mg PO BID PRN #0 09/16/15 07/28/17 History Acetaminophen TAB* [Tylenol TAB*] 650 mg PO Q4H PRN #0 tab 09/20/15 07/28/17 Rx Acetaminop/Codeine 30 MG TAB* 1 tab PO Q6H PRN MDD 4 tabs 08/23/16 07/28/17 History [Tylenol/Codeine 30 MG TAB*] Insulin Detemir (NF) [Levemir (NF)] 50 unit SUBCUT BID MDD 120 units 08/23/16 History Fluticas/Salmet 115/21 HFA(NF) 1 puff INH BID 12/24/16 07/28/17 History [Advair HFA 115/21 (NF)] Albuterol HFA INHALER* [Ventolin 1 puff INH Q6H PRN 07/28/17 07/28/17 History HFA Inhaler*] Bupropion XL* [Wellbutrin XL *] 150 mg PO DAILY 07/28/17 07/28/17 History Diltiazem HCl Coated Beads [Cartia 180 mg PO DAILY 07/28/17 07/28/17 History Xt] Meclizine TAB* [Antivert 12.5 TAB*] 12.5 mg PO DAILY PRN 07/28/17 07/28/17 History Multivitamins/Minerals TAB* 1 tab PO DAILY 07/28/17 07/28/17 History [Theragran/minerals TAB*] Allergies: Allergies Allergy/AdvReac Type Severity Reaction Status Date / Time Aspirin [ASA] Allergy Severe Anaphylatic Verified 12/30/16 13:59 Shock Doxycycline Allergy Severe Anaphylatic Verified 12/30/16 13:59 Shock Sulfa Drugs Allergy Severe Anaphylatic Verified 12/30/16 13:59 Shock Pentazocine Allergy Hallucinati Verified 12/30/16 13:59 [From Talwin Compound] ons NSAIDs AdvReac Intermediate Bleeding Verified 12/30/16 13:59 Objective - Vital Signs Vital Signs: Vital Signs 07/28/17 07/28/17 07/28/17 15:37 15:38 15:45 Temperature 98.1 F Pulse Rate 73 66 Respiratory 20 10 Rate Blood Pressure 131/87 140/79 (mmHg) O2 Sat by Pulse 94 97 Oximetry 07/28/17 07/28/17 07/28/17 15:46 15:52 16:00 Temperature 98.2 F 98.2 F Pulse Rate 73 66 Respiratory 20 21 Rate Blood Pressure 131/87 101/87 (mmHg) O2 Sat by Pulse 92 96 Oximetry 07/28/17 07/28/17 07/28/17 16:07 16:16 16:22 Temperature 98.1 F 98.1 F Pulse Rate 73 Respiratory 23 Rate Blood Pressure 140/93 (mmHg) O2 Sat by Pulse 98 Oximetry 07/28/17 07/28/17 07/28/17 16:30 16:46 16:52 Temperature 98.1 F Pulse Rate 75 72 Respiratory 13 15 Rate Blood Pressure 134/89 137/87 (mmHg) O2 Sat by Pulse 93 98 Oximetry 07/28/17 07/28/17 07/28/17 17:00 17:01 17:15 Temperature Pulse Rate 74 75 70 Respiratory 13 18 17 Rate Blood Pressure 150/85 142/89 (mmHg) O2 Sat by Pulse 98 97 98 Oximetry 07/28/17 07/28/17 07/28/17 17:22 17:30 17:46 Temperature 98.4 F Pulse Rate 69 79 Respiratory 21 19 Rate Blood Pressure 134/75 126/90 (mmHg) O2 Sat by Pulse 97 90 Oximetry 07/28/17 07/28/17 07/28/17 18:00 18:15 18:22 Temperature 98.4 F Pulse Rate 88 83 Respiratory 20 16 Rate Blood Pressure 119/71 131/81 (mmHg) O2 Sat by Pulse 97 97 Oximetry 07/28/17 07/28/17 07/28/17 18:30 18:45 19:00 Temperature Pulse Rate 67 72 69 Respiratory 16 17 19 Rate Blood Pressure 127/71 139/86 124/80 (mmHg) O2 Sat by Pulse 98 98 98 Oximetry 07/28/17 07/28/17 07/28/17 19:22 19:30 19:37 Temperature 97.8 F 97.8 F Pulse Rate 65 Respiratory 17 Rate Blood Pressure 122/76 (mmHg) O2 Sat by Pulse 98 Oximetry 07/28/17 07/28/17 07/28/17 20:00 21:00 21:30 Temperature Pulse Rate 64 68 61 Respiratory 18 24 22 Rate Blood Pressure 120/73 124/75 116/76 (mmHg) O2 Sat by Pulse 98 97 98 Oximetry 07/28/17 07/28/17 07/28/17 22:00 22:01 22:30 Temperature Pulse Rate 60 61 69 Respiratory 20 23 16 Rate Blood Pressure 117/73 117/78 (mmHg) O2 Sat by Pulse 97 97 97 Oximetry 07/28/17 07/28/17 07/28/17 23:00 23:01 23:30 Temperature 97.1 F Pulse Rate 57 58 59 Respiratory 21 21 20 Rate Blood Pressure 121/71 116/68 (mmHg) O2 Sat by Pulse 98 98 98 Oximetry 07/28/17 07/29/17 07/29/17 23:53 00:00 00:01 Temperature Pulse Rate 58 59 72 Respiratory 19 20 20 Rate Blood Pressure 120/73 (mmHg) O2 Sat by Pulse 98 98 98 Oximetry 07/29/17 07/29/17 07/29/17 00:30 01:00 01:01 Temperature Pulse Rate 62 59 60 Respiratory 22 19 15 Rate Blood Pressure 115/67 120/70 (mmHg) O2 Sat by Pulse 95 97 97 Oximetry 07/29/17 07/29/17 07/29/17 01:30 02:00 02:01 Temperature Pulse Rate 57 58 58 Respiratory 20 23 21 Rate Blood Pressure 127/71 124/69 (mmHg) O2 Sat by Pulse 98 99 99 Oximetry 07/29/17 07/29/17 07/29/17 02:30 03:00 03:01 Temperature Pulse Rate 56 58 63 Respiratory 23 20 23 Rate Blood Pressure 126/67 129/68 (mmHg) O2 Sat by Pulse 98 98 98 Oximetry 07/29/17 07/29/17 07/29/17 03:30 04:00 04:01 Temperature 97.0 F Pulse Rate 67 62 57 Respiratory 16 20 20 Rate Blood Pressure 115/67 125/75 (mmHg) O2 Sat by Pulse 96 99 98 Oximetry 07/29/17 07/29/17 07/29/17 04:30 05:00 05:01 Temperature Pulse Rate 66 58 58 Respiratory 22 20 20 Rate Blood Pressure 121/75 123/71 (mmHg) O2 Sat by Pulse 98 98 98 Oximetry 07/29/17 07/29/17 07/29/17 05:30 06:00 06:01 Temperature Pulse Rate 64 62 63 Respiratory 20 20 20 Rate Blood Pressure 126/71 110/67 (mmHg) O2 Sat by Pulse 99 97 97 Oximetry 07/29/17 07/29/17 07/29/17 06:30 06:53 07:00 Temperature Pulse Rate 65 60 59 Respiratory 21 14 19 Rate Blood Pressure 101/62 107/64 109/67 (mmHg) O2 Sat by Pulse 91 96 96 Oximetry 07/29/17 07/29/17 07:01 07:39 Temperature 98.7 F Pulse Rate 62 Respiratory 16 Rate Blood Pressure (mmHg) O2 Sat by Pulse 96 Oximetry - Intake and Output Intake and Output: Intake & Output 07/26/17 07/27/17 07/28/17 11/17/17 11:59 11:59 11:59 11:59 Intake Total 1279.1 Balance 1279.1 Weight 155 lb 10.342 oz Intake: IV Fluids 753 NS (0.9%) 753 Medicated IV 86.1 CC - Eptifibatide/ 86.1 Integrilin Oral 440 Other: Estimated Void Large # Voids 1 ADLs: Meal Record Start: 07/28/17 15: 46 Freq: 09,13,18 Status: Active Protocol: Created 07/28/17 15:46 System (Rec: 07/28/17 15:46 System [id number]) Document 07/28/17 18:00 [id number] (Rec: 07/28/17 18:29 [id number]) Intake and Output Start: 07/28/17 13: 35 Freq: Status: Active Protocol: Created 07/28/17 13:35 System (Rec: 07/28/17 13:35 System [id number]) Intake and Output Start: 07/28/17 15: 46 Freq: 06,14,22 Status: Active Protocol: Created 07/28/17 15:46 System (Rec: 07/28/17 15:46 System [id number]) Document 07/28/17 20:34 [id number] (Rec: 07/28/17 20:34 [id number]) Document 07/29/17 06:00 [id number] (Rec: 07/29/17 06:37 [id number]) - Physical Exam General Physical Exam Comment: She was having a transthoracic echocardiogram when I entered. She is warm and well perfused and in no acute distress. General: No Cyanosis, No Anemia, No Jaundice, No Clubbing Lungs and Chest: Yes: Chest Expansion Full, Chest Expansion Symetrica, Percussion Note Resonant, Vessicular Breath Sounds, Other - Anterior chest examined. No: Crackles, Wheezes, Respiratory Distress, Use of Accessory Muscles Heart Rate and Rhythm: Regular Additional Cardiovascular: Yes: Normal Heart Sounds. No: Heart Murmur, Pedal Edema Abdominal Exam: Yes: Soft, Bowel Sounds Present. No: Distention, Abdominal Tenderness - Extremities Cranial Nerves II-XII Intact: Yes Limbs: Normal Power - Neuro Orientation: A/O x3 Psychiatric: Normal Speech: Normal Results - Results Lab Results: Laboratory Results - last 24 hr 07/28/17 07/28/17 07/28/17 18:06 19:10 21:09 Sodium Potassium Chloride Carbon Dioxide Anion Gap BUN Creatinine Est GFR ( Amer) Est GFR (Non-Af Amer) BUN/Creatinine Ratio Glucose POC Glucose (mg/dL) 192 H 291 H Calcium Total Creatine Kinase 3051 H CK-MB (CK-2) 696.8 H 07/28/17 07/29/17 21:45 06:59 Sodium 133 Potassium TNP Chloride 97 L Carbon Dioxide 31 Anion Gap 5 BUN 28 H Creatinine 1.30 H Est GFR ( Amer) 51.6 Est GFR (Non-Af Amer) 40.2 BUN/Creatinine Ratio 21.5 H Glucose 193 H POC Glucose (mg/dL) Calcium 9.3 Total Creatine Kinase 1438 H 1082 H CK-MB (CK-2) 269.1 H Assessment - Problem List Assessment: Patient Problems Acute myocardial infarction (Acute) Pleural effusion, right (Acute) Stented coronary artery (Acute) History of UTI (Chronic) Asthma (Chronic) COPD (chronic obstructive pulmonary disease) (Chronic) Depression (Chronic) Dyspnea on exertion (Chronic) Hyperlipidemia (Chronic) Hypertension (Chronic) Hypothyroidism (Chronic) Stage 3 chronic kidney disease (Chronic) 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 She has had some chest pain overnight relieved by NTG. Dr. Pierce is her attending physician and trustee of estate during this admission History of UTI (Chronic) I will check a U/A and reflex C and S to determine if this has resolved. Asthma (Chronic) /COPD (chronic obstructive pulmonary disease) (Chronic) This is not exacerbated at present Pleural effusion - she has a history of a right pleural effusion. She will have a CXR to establish the current degree of this. She had a right thoracocentesis on 01/03/2017 - microbiology and cytology were negative, She had a CTA 07/04/17 - no evidence of PE - evidence of bilateral pleural effusions right>left. Depression (Chronic) This a longstanding problem and it has created a loss of executive function. She has difficulty coping with her home on the [place] and has been planning to move for years, but has not been able to achieve this. Her house has been in foreclosure - she requires a social work consult to help with this situation and discharge planning Dyspnea on exertion (Chronic) see above Hyperlipidemia (Chronic) This is longstanding - she has not tolerated statins or fibric acid derivatives in the past. This likely requires revisiting. Hypertension (Chronic) This is controlled at present Hypothyroidism (Chronic) Continue current Rx Stage 3 chronic kidney disease (Chronic) This appears improved this morning compared with her admission labs. 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 Her usual dose at home is levemir 50 units twice daily. She is currently under stress, but glargine (lantus) insulin is more potent. I will cut down the lantus despite her current insulin resistance from her acute NM as hypoglycemia needs to be avoided. I have added in Lispro coverage at meal times using carb counting - 1 unit for every 10 grams of carbs plus 2 units for very 50 mg/dl > 150 mg/dl. I prefer to maintain her glucose between 120 - 200 mg/dl I discussed the above with the patient and she understands her acute medical problems.
[2017-07-29] MEDS ORDERED: Dextrose 50% Syringe 50 ML* 25 GM/50 ML SYRINGE IV PUSH PRN ×2 (08:51→08:53)
--- NOTE | 2017-07-29 09:01 | ECHO ---
Patient: HOMERO BILL [facility] Rec#: [id number] : 1945 Date: 07/29/2017 Age: 71y Height: 157.48 cm / 62.0 in Weight: 72.57 kg / 159.9 lbs Sex: F BSA: 1.74 Room#: [facility]8 Admit Date#: 07/28/2017 Type: Inpatient Referring: Florencia Pierce MD Reading: Luca Crain DO Job Press Feeder: Liz Purcell RDCS CC: Trey Perez MD Transthoracic Echocardiogram Indication: STEMI, s/p PCI BP: 109/67 HR: 61 Rhythm: NSR Findings History: COPD, asthma, HTN, HLD, DM, hypothyroidism, chronic pleural effusions, CKD III. Technical Comments: The study quality is fair. The study is technically limited due to poor parasternal windows. Completed at 0845. Left Ventricle: The left ventricular chamber size is normal. Mild concentric left ventricular hypertrophy is observed. There are multiple regional wall motion abnormalities. There is severely decreased left ventricular systolic function. The estimated ejection fraction is 20-25%. Abnormal left ventricular diastolic filling is observed, consistent with impaired relaxation. The basal anteroseptal, mid anterior, mid anterolateral, mid inferior, and mid inferoseptal wall segments are hypokinetic (score 2). The mid anteroseptal, apical septal, apical anterior, apical lateral, and apical inferior wall segments are akinetic (score 3). Overall wallmotion score index is 1.94 Left Atrium: The left atrium is mildly dilated. Right Ventricle: The right ventricular chamber size and systolic function are within normal limits. Right Atrium: The right atrium is mildly dilated. Aortic Valve: The aortic valve is trileaflet. The aortic valve leaflets are mildly thickened. There is trace to mild aortic regurgitation. There is no evidence of aortic stenosis. Mitral Valve: The mitral valve leaflets are mildly thickened. There is trace to mild mitral regurgitation. There is no evidence of mitral stenosis. Tricuspid Valve: The tricuspid valve leaflets are normal. There is mild tricuspid regurgitation. No pulmonary hypertension is noted. There is no tricuspid stenosis. Pulmonic Valve: The pulmonic valve appears normal. There is a trace pulmonic regurgitation. There is no pulmonic stenosis. Pericardium: There is no significant pericardial effusion. Aorta: There is mild dilatation of the ascending aorta. The aortic arch is not well visualized. The aortic root is normal in size. Pulmonary Artery: The main pulmonary artery is not well visualized. Venous: The inferior vena cava appears normal in size. There is a greater than 50% respiratory change in the inferior vena cava dimension. Conclusions The left ventricular chamber size is normal. Mild concentric left ventricular hypertrophy is observed. There are multiple regional wall motion abnormalities as described within report. There is severely decreased left ventricular systolic function. The estimated ejection fraction is 25%. Mild LA dilation The right ventricular chamber size and systolic function are within normal limits. No more than mild valvular regurgitation noted. Compared to prior study from 07/06/2017, the LVEF is now severely reduced (was normal previously) Measurements Name Value Normal Range RVIDd (AP) 2D 3 cm (0.9 - 2.6) RVDdMajor (2D) 4.8 cm (2.2 - 4.4) RVAW (2D) 0.6 cm (0.2 - 0.5) RAd ISD 4CH 5 cm (3.4 - 4.9) RA (A4C)W 3.6 cm (2.9 - 4.6) IVSd (2D) 1.1 cm (0.6 - 1) LVPWd (2D) 1.1 cm (0.6 - 1) LVIDd (2D) 4.5 cm (3.6 - 5.4) LVIDs (2D) 2.8 cm - LV FS (2D) 37 % (25 - 45) Aortic Annulus 1.9 cm (1.4 - 2.6) Ao root diameter (2D) 2.9 cm (2.1 - 3.5) Ascending Ao 3.7 cm (2.1 - 3.4) LA dimension (AP) 2D 3.7 cm (2.3 - 3.8) LAd ISD 4CH 4.6 cm (2.9 - 5.3) LA ISD 4CH W 3.5 cm (2.5 - 4.5) Name Value Normal Range LA ESV SP 4CH (A/L) 49 ml - LA ESV SP 2CH (A/L) 79 ml - LA ESV BP (A/L) 65 ml - LA ESV BP (A/L) index 37 ml/m2 - LA ESV SP 4CH (MOD) 45 ml - LA ESV SP 2CH (MOD) 75 ml - Name Value Normal Range MV E-wave Vmax 0.47 m/sec - MV deceleration time 334.9 msec - MV A-wave Vmax 0.67 m/sec - MV E:A ratio 0.7 ratio - LV septal e' Vmax 0.04 m/sec - LV lateral e' Vmax 0.04 m/sec - LV E:e' septal ratio 11.75 ratio - LV E:e' lateral ratio 11.75 ratio - Name Value Normal Range AV Vmax 1.1 m/sec - AV VTI 20.42 cm - AV peak gradient 4.71 mmHg - AV mean gradient 2.5 mmHg - LVOT Vmax 0.82 m/sec - LVOT VTI 15.66 cm - LVOT peak gradient 2.72 mmHg - LVOT mean gradient 1.24 mmHg - AR PHT 717.1 msec - AR peak gradient 29.5 mmHg - Name Value Normal Range TR Vmax 2.8 m/sec - TR peak gradient 31 mmHg - RAP 3 mmHg - IVC diameter 1.8 cm - Name Value Normal Range PV Vmax 0.67 m/sec - PV peak gradient 1.79 mmHg - [place] end-diastolic Vmax 1.18 m/sec - Wallmotion BAS Hypokinetic BA Normal BAL Normal DREW Normal BI Normal BIS Normal MAS Akinetic MA Hypokinetic MAL Hypokinetic MIL Normal DC Hypokinetic MIS Hypokinetic Akinetic AA Akinetic AL Akinetic AI Akinetic APEX Akinetic
--- NOTE | 2017-07-29 09:37 | RAD ---
HISTORY: History of right pleural effusion COMPARISONS: July 07, 2017 VIEWS: 1: frontal portable view of the chest at 9:00 AM FINDINGS: LINES AND TUBES: None. CARDIOMEDIASTINAL SILHOUETTE: The cardiomediastinal silhouette is normal for portable technique. PLEURA: There is blunting of left costophrenic angle LUNG PARENCHYMA: The lungs are clear. ABDOMEN: The upper abdomen is clear. There is no subphrenic gas. BONES AND SOFT TISSUES: No bone or soft tissue abnormalities are noted. IMPRESSION: SMALL LEFT PLEURAL EFFUSION VERSUS CHRONIC PLEURAL THICKENING.
[2017-07-29] MEDS: Venlafaxine EXT RELEASE CAP* 75 MG PO SCH (10:21)
[2017-07-29] MEDS: Ticagrelor* 90 MG TAB PO SCH ×2 (10:21→22:37)
[2017-07-29 13:37] LABS: Cholesterol 222 mg/dL; HDL Cholesterol 25.4 mg/dL; LDL Cholesterol 167 mg/dL; Triglycerides 148 mg/dL
[2017-07-29] MEDS: Captopril TAB* 12.5 MG PO SCH ×2 (13:49→22:37)
[2017-07-29] MEDS: Insulin GLARGINE(*) 1 UNITS UNIT SUBCUT SCH ×2 (13:50→22:37)
[2017-07-29] MEDS: Insulin LISPRO* 1 UNITS UNIT SUBCUT SCH ×7 (13:51→23:08)
[2017-07-29] MEDS: Enoxaparin(*) 60 MG/0.6 ML SYR SUBCUT SCH (13:53)
[2017-07-29] MEDS ORDERED: Metoprolol Tartrate TAB* 25 MG PO SCH (15:53)
[2017-07-29] MEDS: Atorvastatin* 80 MG TAB PO SCH (16:49)
[2017-07-29 18:47] LABS: Urine Bilirubin Negative (Negative); Urine Glucose 2+(150 mg/dL) (Negative); Urine Nitrite Negative (Negative)
--- NOTE | 2017-07-29 21:32 | HP ---
CC: Trey Perez MD; Dr. Decker; Dr. Garrison HISTORY AND PHYSICAL: DATE OF ADMISSION: 07/28/17 PRIMARY CARE PHYSICIAN: Trey Perez MD DECORATING MACHINE OPERATOR: Dr. Decker. PLASTER AND STUCCO WORKER: Dr. Garrison. HISTORY OF PRESENT ILLNESS: A 71-year-old woman presented to the ER with acute lateral ST-elevation infarct. She has an extensive past medical history, I reviewed [facility], prior imaging. She had a catheteriza tion via the femoral approach many years ago in [place] for an abnormal, presumably stress test, report s that she had no coronary artery disease. For the past 3 years, she has had exertional dyspnea, whic h has been progressive, rarely accompanied by precordial chest discomfort with discomfort in her arm, different from her longstanding primarily right-sided pleuritic type chest pain. Last December, she was found to have an eosinophilic exudative left pleural effusion, at that time she had total protein in the pleural fluid of 4.3 with LDH of 270, serum total protein was 7.4. Dr. Garrison mentioned the pos sibility that this was post hemorrhage. In June of this year, she was admitted with UTI, was susp ected to have right-sided pneumonia with a right-sided effusion, although imaging on CT on presentati on did not show a parenchymal infiltrate. Her BNP was elevated in the 300 to 400s, echo that admissi on showed RV systolic pressure estimated at 41, LVH, EF of 55% to 60%. She had a previous Lexiscan i n August 2016, which showed no ischemia, it was almost a year ago. On detailed questioning, her main symptom has been progressively worsening exertional dyspnea with ve ry infrequent episodes of associated precordial chest discomfort and discomfort in her arm with left arm heaviness. She presented to Dr. Perez's office yesterday after being treated as an outpatient for UTI, while there complained of chest discomfort. She was brought by ambulance to the ER where EKG co nfirmed high lateral ST elevation infarct with precordial anterolateral ST depression, she underwent emergent catheterization. 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 MEDICATIONS: Prehospital medications, see intake data. ALLERGIES: Include ASPIRIN, which caused anaphylaxis. FAMILY HISTORY: Positive for coronary disease. SOCIAL HISTORY: She is a nonsmoker, lives alone, is having social issues with finances and keeping h er home. REVIEW OF SYSTEMS: General: She is limited by exertional dyspnea, but lives independently, does hav e some gait instability, but cares for herself. Pulmonary: See HPI. GI: No peptic ulcer disease or bleeding. Heme: No history of malignancy or anemia. Circulatory: No claudication. Remainder of 14-point review of systems negative. PHYSICAL EXAMINATION VITAL SIGNS: ER BP 157/87, pulse 70, afebrile. Sat 98%. HEENT: No xanthelasma, poor dentition. No scleral injection or jaundice. EOMs normal. Cranial ner ves grossly intact. NECK: Neck JVP was not visible. Carotids normal. No bruits. LUNGS: Reveal some decreased breath sounds at the left base, but no audible rales or wheezes. Her t idal volume seems small. CARDIAC: [place] and RV are not palpable, normal heart sounds, regular rhythm, no gallop, murmur, or ru b. ABDOMEN: Soft, nontender, normal bowel sounds, aorta not palpable. No abdominal bruit. EXTREMITIES: Radial, femoral, and pedal pulses are palpable. She has no cyanosis, clubbing, or anastasia a. She had normal right radial Anthony. SKIN: Warm and perfused. DIAGNOSTIC STUDIES/LAB DATA: EKG at [address] elevation in 1 and aVL, with slight ST corbin vation in V2 and V3, and inferior ST depression. White count 14.3000, hemoglobin 12.4, platelet count 496,000. Sodium 132, normal potassium, BUN 32, creatinine 1.56 with baseline of 1.25. First troponin elevated at 2.01. Lactic acid 2.3. BNP of 39 . IMPRESSION: 1. Acute anterolateral ST elevation infarct. She underwent emergent catheterization after review of the procedure, possible percutaneous revascularization with associated risks. 2. Chronic exertional dyspnea with negative stress imaging 1 year ago, and history of lung disease w ith nocturnal hypoxemia, previous eosinophilic exudative left pleural effusion, all followed by Dr. Fly reeves. 3. Hypertension. 4. Diabetes type 2. 5. Hypothyroidism. 6. Chronic kidney disease, stage 3. [id number] #: [id number]
[2017-07-30] MEDS: Metoprolol Tartrate TAB* 25 MG PO SCH ×3 (00:07→21:26)
[2017-07-30] MEDS: Enoxaparin(*) 60 MG/0.6 ML SYR SUBCUT SCH ×2 (05:57→17:31)
[2017-07-30] MEDS: Levothyroxine TAB* 75 MCG TAB PO SCH (05:58)
[2017-07-30 07:08] LABS: BUN/Creatinine Ratio 18.5 (8-20); Calcium 8.9 mg/dL (8.6-10.3); EGFR African American 41.5 (>60); EGFR Non-African American 32.3 (>60); Potassium 3.9 mmol/L (3.5-5.0)
[2017-07-30] MEDS: Insulin LISPRO* 1 UNITS UNIT SUBCUT SCH ×9 (08:07→21:29)
[2017-07-30] MEDS: Captopril TAB* 12.5 MG PO SCH ×2 (09:24→21:28)
[2017-07-30] MEDS: Venlafaxine EXT RELEASE CAP* 75 MG PO SCH (09:50)
[2017-07-30] MEDS: Ticagrelor* 90 MG TAB PO SCH ×2 (09:51→21:27)
[2017-07-30] MEDS: Insulin GLARGINE(*) 1 UNITS UNIT SUBCUT SCH ×2 (09:52→21:27)
[2017-07-30] MEDS: Mometasone/Formoter 200/5 MDI INH SCH ×2 (10:03→21:30)
[2017-07-30] MEDS: Atorvastatin* 80 MG TAB PO SCH (17:30)
[2017-07-31] MEDS: Levothyroxine TAB* 75 MCG TAB PO SCH (05:49)
[2017-07-31] MEDS: Enoxaparin(*) 60 MG/0.6 ML SYR SUBCUT SCH ×3 (05:49→18:02)
[2017-07-31 06:54] LABS: BUN/Creatinine Ratio 20.5 (8-20); Calcium 8.5 mg/dL (8.6-10.3); EGFR African American 45.2 (>60); EGFR Non-African American 35.1 (>60)
[2017-07-31] MEDS: Insulin LISPRO* 1 UNITS UNIT SUBCUT SCH ×9 (08:05→21:37)
[2017-07-31] MEDS: Mometasone/Formoter 200/5 MDI INH SCH ×3 (09:48→21:41)
[2017-07-31] MEDS: Insulin GLARGINE(*) 1 UNITS UNIT SUBCUT SCH ×2 (10:09→21:21)
[2017-07-31] MEDS: Metoprolol Tartrate TAB* 25 MG PO SCH ×2 (10:12→21:16)
[2017-07-31] MEDS: Ticagrelor* 90 MG TAB PO SCH ×2 (10:12→21:16)
[2017-07-31] MEDS: Venlafaxine EXT RELEASE CAP* 75 MG PO SCH (10:12)
[2017-07-31] MEDS: Captopril TAB* 12.5 MG PO SCH ×2 (10:12→21:19)
[2017-07-31] MEDS ORDERED: Perflutren Lipid Microsphere* 3 ML VIAL ONE (13:25)
--- NOTE | 2017-07-31 14:33 | ECHO ---
Patient: HOMERO BILL [facility] Rec#: [id number] : 1945 Date: 07/31/2017 Age: 71y Height: 157.5 cm / 62.0 in Weight: 72.6 kg / 160.0 lbs Sex: F BSA: 1.7 Room#: ICU 8 Admit Date#: 07/28/2017 Type: Inpatient Referring: Florencia Pierce MD Reading: Anjelica Wallis MD Pack Worker Supervisor: Bianca Fernández RN RDCS CC: Trey Perez MD Transthoracic Echocardiogram Indication: STEMI, S/P PCI BP: 96/64 HR: 64 Rhythm: NSR Findings History: COPD, asthma, HTN, HLD, DM, hypothyroidism, chronic pleural effusions, CKD. This is a LIMITED exam to reassess the EF. Technical Comments: The study is technically limited due to poor acoustic windows. The study is technically limited due to the patient's history of COPD. Left Ventricle: There are multiple regional wall motion abnormalities. The very base of the lateral, inferior and posterior burrows moves well. All other regions severely hypokineitic to akinetic. There is severely decreased left ventricular systolic function. The estimated ejection fraction is 25-30%. No thrombus is visualized within the left ventricle. Right Ventricle: The right ventricular global systolic function is low normal. Contrast: Definity was used to optimize study. A total of 5 ml of diluted Definity was given IV to enhance endocardial visualization. Conclusions Limited study to evaluate left ventricular function post ND. The estimated ejection fraction is 25-30%. There are multiple regional wall motion abnormalities. The very base of the lateral, inferior and posterior burrows moves well. All other regions severely hypokineitic to akinetic. No thrombus is visualized within the left ventricle. The right ventricular global systolic function is low normal, best seen on subcostal view. Compared with prior echo of 07/29/17 EF and wall motion not changed.
[2017-07-31] MEDS: Atorvastatin* 80 MG TAB PO SCH (18:02)
[2017-08-01] MEDS: Levothyroxine TAB* 75 MCG TAB PO SCH (05:41)
[2017-08-01] MEDS: Enoxaparin(*) 60 MG/0.6 ML SYR SUBCUT SCH ×2 (05:41→17:53)
[2017-08-01 06:26] LABS: BUN/Creatinine Ratio 21.7 (8-20); Calcium 8.6 mg/dL (8.6-10.3); EGFR African American 48.2 (>60); EGFR Non-African American 37.5 (>60); Potassium 3.9 mmol/L (3.5-5.0)
[2017-08-01] MEDS: Insulin LISPRO* 1 UNITS UNIT SUBCUT SCH ×6 (07:42→18:47)
[2017-08-01] MEDS: Ondansetron INJ* 2 MG/ML VIAL IV PRN (07:49)
[2017-08-01] MEDS: Ticagrelor* 90 MG TAB PO SCH ×2 (08:23→20:40)
[2017-08-01] MEDS: Metoprolol Tartrate TAB* 25 MG PO SCH ×2 (08:24→20:39)
[2017-08-01] MEDS: Venlafaxine EXT RELEASE CAP* 75 MG PO SCH (08:24)
[2017-08-01] MEDS: Captopril TAB* 12.5 MG PO SCH ×2 (08:25→20:38)
[2017-08-01] MEDS: Insulin GLARGINE(*) 1 UNITS UNIT SUBCUT SCH ×2 (08:28→20:40)
[2017-08-01] MEDS: Mometasone/Formoter 200/5 MDI INH SCH ×2 (13:40→20:45)
[2017-08-01] MEDS: Benzocaine (DENTAL) 10%* TOP.GEL TOPICAL PRN ×2 (17:53→20:47)
[2017-08-01] MEDS: Atorvastatin* 80 MG TAB PO SCH (17:53)
[2017-08-02] MEDS: Levothyroxine TAB* 75 MCG TAB PO SCH (05:50)
[2017-08-02] MEDS: Enoxaparin(*) 60 MG/0.6 ML SYR SUBCUT SCH ×2 (05:50→17:19)
[2017-08-02] MEDS: Metoprolol Tartrate TAB* 25 MG PO SCH ×2 (08:05→21:36)
[2017-08-02] MEDS: Venlafaxine EXT RELEASE CAP* 75 MG PO SCH (08:05)
[2017-08-02] MEDS: Captopril TAB* 12.5 MG PO SCH ×2 (08:06→21:34)
[2017-08-02] MEDS: Ticagrelor* 90 MG TAB PO SCH ×2 (08:08→21:10)
[2017-08-02] MEDS: Insulin LISPRO* 1 UNITS UNIT SUBCUT SCH ×6 (08:15→19:11)
[2017-08-02] MEDS: Insulin GLARGINE(*) 1 UNITS UNIT SUBCUT SCH ×2 (08:20→21:36)
[2017-08-02] MEDS: Mometasone/Formoter 200/5 MDI INH SCH ×2 (12:14→20:00)
[2017-08-02] MEDS: Atorvastatin* 80 MG TAB PO SCH (17:19)
[2017-08-02] MEDS: Benzocaine (DENTAL) 10%* TOP.GEL TOPICAL PRN (19:13)
[2017-08-03] MEDS: Enoxaparin(*) 60 MG/0.6 ML SYR SUBCUT SCH (05:52)
[2017-08-03] MEDS: Levothyroxine TAB* 75 MCG TAB PO SCH (06:06)
[2017-08-03] MEDS: Insulin LISPRO* 1 UNITS UNIT SUBCUT SCH ×3 (08:47→09:28)
[2017-08-03] MEDS: Captopril TAB* 12.5 MG PO SCH (09:28)
[2017-08-03] MEDS: Venlafaxine EXT RELEASE CAP* 75 MG PO SCH (09:28)
[2017-08-03] MEDS: Insulin GLARGINE(*) 1 UNITS UNIT SUBCUT SCH (09:28)
[2017-08-03] MEDS: Ticagrelor* 90 MG TAB PO SCH (09:29)
[2017-08-03] MEDS: Metoprolol Tartrate TAB* 25 MG PO SCH (09:29)
[2017-08-03 14:44] VITALS: BP 114/62
--- NOTE | 2017-08-04 03:41 | DS ---
CC: Dr. Trey Perez; Dr. Vikram Decker; Dr. Trupti Garrison * DISCHARGE SUMMARY: DATE OF ADMISSION: 07/28/17 DATE OF DISCHARGE: 08/03/17 FINAL DIAGNOSES: 1. Acute ST-segment elevation lateral wall myocardial infarction. 2. Significant ischemic cardiomyopathy. SECONDARY DIAGNOSES: Include, 1. Asthma. 2. Hypertension. 3. Hyperlipidemia. 4. Diabetes type 2. 5. Hypothyroidism. 6. Depression. 7. 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 8. Chronic kidney disease stage 3. 9. Nocturnal resting hypoxia. DISCHARGE MEDICATIONS: 1. Atorvastatin 80 mg daily. 2. Captopril 3.125 mg twice a day. 3. Metoprolol tartrate 12.5 mg twice a day. 4. Ticagrelor 90 mg twice a day. 5. Albuterol inhaler as at home. 6. Xanax as at home. 7. Insulin detemir 50 units subcutaneous b.i.d. 8. Levothyroxine 75 mg a day. 9. Effexor XR 150 mg in the morning as at home. 10. Bupropion 150 mg daily as at home. 11. MultiVites as at home. 12. Sublingual nitroglycerin. ALLERGIES: The patient has reportedly an anaphylactic allergy to ASPIRIN. HOSPITAL COURSE: The patient is a pleasant 71-year-old female who presented on 07/28/17 in the throes of an acute ST-segment elevation lateral wall myocardial infarction. She had preceding symptoms of worsening dyspnea on exertion with infrequent precordial chest discomfort and bilateral arm discomfort with heaviness. She was brought in by ambulance from Dr. Trey Perez's office with a confirmed lateral ST-segment elevation infarct with precordial anterolateral ST- segment depression. Emergent cardiac catheterization was performed by Dr. Florencia Pierce with subsequent placement of a 2.5 x 12 mm long Synergy drug- eluting stent in the mid LAD with also placement of a 2.5 x 20 mm Synergy drug- eluting stent in the mid LAD as well. Post- balloon dilatations were made utilizing high-pressure balloon, 2.5 x 12 mm. Extraction atherectomy was also performed due to heavy clot burden within left anterior descending artery. During the hospitalization, the presenting troponin was 2.0 with a total CPK of 265 and an MB of 33. The next CPK showed early washout at 3051 with an MB of 696 followed by a downward course in the enzymes. Her total cholesterol was found to be 222 with an LDL of 167. During the course of the hospitalization, she underwent two transthoracic echocardiograms; the first one on 07/29/17, which demonstrated significant left ventricular systolic dysfunction with an EF of 20% to 25% with severe wall motion abnormality involving the mid to distal anterior wall apical, mid anterior apical lateral, and mid inferior to distal inferior wall. The patient had a repeat echocardiogram performed on 07/31/17, which showed minimal improvement with ejection fraction of 25% to 30%. Given these findings, the patient had a LifeVest placed. Extensive conversations were held with the patient about having support systems in place. Her sister who lives in [place] would not be able to come up and stay with her. We tried to arrange for the [employer] to get involved and she refused on multiple discussions to have them come, yet she is going to have a different group coming to pursue visits with her, which she agreed to have. She is scheduled to see Dr. Vikram Decker within 1 week's time in followup who will provide primary cardiac care. She also will be following up with Dr. Trey Perez for discussions on continued medical issues. PHYSICAL EXAMINATION: On the day of discharge, she was stable with no specific chest, jaw, or arm discomforts. Vital signs revealed a blood pressure of 107/60 , pulse 78, respirations 21, O2 saturation 95%. Neck was supple with no obvious increased JVP. Carotid had good upstroke and volume. No significant bruits. Conjunctivae were pink. Sclerae were clear. Lungs revealed no accessory muscle usage. There was good excursion. Lungs were clear with no active rales, rhonchi, or wheezes. Heart revealed no visible heaves, no palpable heaves, no thrills. Normal S1 and S2 with no significant systolic or diastolic murmur. Abdomen was soft, nontender without organomegaly. Extremities were without clubbing, cyanosis, or cassidy pitting edema. The right radial artery site was well healed with good antegrade flow. Neuro, the patient is alert and oriented with normal mentation. Musculoskeletal, the patient with normal gait using a walker. Psychiatric, the patient with normal affect. LABORATORY DATA: The last laboratory results of record were from 08/01/17 with a sodium 137, potassium 3.9, chloride 107, bicarb 23, BUN and creatinine of 30 and 1.38. Hemoglobin and hematocrit was from admission at 15.4 and 46 with a platelet count of 408,000. DIAGNOSTICS: Her last EKG performed was on 07/30/17 and revealed normal sinus rhythm, heart rate 75, [place] interval 0.14, QRS 0.09, QT 0.46, axis was +29 degrees. There was T-wave inversion seen in I, aVL, and V2 through V6 with mild ST-segment depression in III and aVF. Poor R-wave was noted in the precordial leads in I and aVL. The patient had gotten a cardiac education booklet in addition to her stent card in addition to her bottle of Brilinta for one month. Prescriptions were sent in to her pharmacy as well. [id number]/[facility] #: [id number] MTDD
== END 2017-08-03 14:30 | disposition home or self-care (01) | DRG 174 ==
LOC: ED 13:24 → CHICATH 13:33 → ICU 15:35
PROVIDERS: ADMIT Internal Medicine Cardiovascular Disease; ATTEND Internal Medicine Cardiovascular Disease
PROC: 027035Z Dilation of Coronary Artery, One Artery with Two Drug-eluting Intraluminal Devices, Percutaneous Approach (ICD-10-PCS; 2017-07-28)
PROC: 02C03ZZ Extirpation of Matter from Coronary Artery, One Artery, Percutaneous Approach (ICD-10-PCS; 2017-07-28)
PROC: B211YZZ Fluoroscopy of Multiple Coronary Arteries using Other Contrast (ICD-10-PCS; 2017-07-28)
PROC: 4A023N7 Measurement of Cardiac Sampling and Pressure, Left Heart, Percutaneous Approach (ICD-10-PCS; principal; 2017-07-28 13:45)
DX: I21.29 ST elevation (STEMI) myocardial infarction involving other sites (principal); J90 Pleural effusion, not elsewhere classified; E11.22 Type 2 diabetes mellitus with diabetic chronic kidney disease; E11.42 Type 2 diabetes mellitus with diabetic polyneuropathy; N18.3 Chronic kidney disease, stage 3 (moderate); E03.9 Hypothyroidism, unspecified; E78.5 Hyperlipidemia, unspecified; I25.5 Ischemic cardiomyopathy; J45.909 Unspecified asthma, uncomplicated; I12.9 Hypertensive chronic kidney disease with stage 1 through stage 4 chronic kidney disease, or unspecified chronic kidney disease; F32.9 Major depressive disorder, single episode, unspecified; R09.02 Hypoxemia; M81.0 Age-related osteoporosis without current pathological fracture; K21.9 Gastro-esophageal reflux disease without esophagitis; M19.90 Unspecified osteoarthritis, unspecified site; H26.9 Unspecified cataract; F41.9 Anxiety disorder, unspecified; E11.65 Type 2 diabetes mellitus with hyperglycemia; Z79.01 Long term (current) use of anticoagulants; Z79.4 Long term (current) use of insulin; Z88.8 Allergy status to other drugs, medicaments and biological substances; Z82.49 Family history of ischemic heart disease and other diseases of the circulatory system; Z87.01 Personal history of pneumonia (recurrent); Z87.440 Personal history of urinary (tract) infections; Z88.1 Allergy status to other antibiotic agents; Z88.2 Allergy status to sulfonamides; Z88.6 Allergy status to analgesic agent; Z80.49 Family history of malignant neoplasm of other genital organs; Z90.710 Acquired absence of both cervix and uterus
CPT/HCPCS: 36415; 71010; 80048; 80053; 80061; 81003; 82550; 82553; 83605; 83721; 83880; 84484; 85025; 85610; 85730; 87641; 93005; 93306; 93308; 94640; 99156; 99157; A9270-GY; C1725; C1757; C1769; C1876; C1887; C8924; C9606-LD; J1327; J1644; J1650; J2250; J2405; J3010

== ENCOUNTER 2017-09-14 18:12 | Inpatient (IN) | payer BC ==
[2017-09-14 18:54] LABS: ABS Basophils 0 10^3/ul (0-0.2); ABS Eosinophils 0 10^3/ul (0-0.6); ABS Monocytes 0.6 10^3/ul (0-0.8); ABS Neutrophils 9.9 10^3/ul (1.5-7.7); ABS Nucleated RBC 0 10^3/ul; Eosinophil % 0.1 % (0-6); Hematocrit 43 % (35-47); Hemoglobin 13.9 g/dl (12.0-16.0); Lymphocyte % 8.9 % (25-47); Mean Corpuscular HGB Conc 32 g/dl (31-36); Mean Corpuscular Hemoglobin 28 pg (27-31); Mean Corpuscular Volume 86 fL (80-97); Mean Platelet Volume 9 um3 (7.4-10.4); Nucleated Red Blood Cells % 0; Platelet Count 409 10^3/ul (150-450); Red Blood Count 5.05 10^6/ul (4.0-5.4); Red Cell Distribution Width 15 % (10.5-15); White Blood Count 11.5 10^3/ul (3.5-10.8)
[2017-09-14] MEDS ORDERED: Lidocaine 1% INJ* 10 MG/ML 30 ML SDV ONE (19:05)
[2017-09-14] MEDS ORDERED: nitroGLYCERIN DRIP* 25,000 MCG/250 ML BTL ONE (19:05)
[2017-09-14 19:06] LABS: INR 1.15 (0.77-1.02)
[2017-09-14 19:09] LABS: EGFR Non-African American 27.4 (>60)
[2017-09-14] MEDS ORDERED: Heparin(*) 1000 UNIT/ML 10 ML VIAL CATH LAB IV ONE (19:13)
[2017-09-14] MEDS ORDERED: Iodixanol* (CONTRAST) 320 MG/ML 100 ML SDV ONE (19:18)
--- NOTE | 2017-09-14 20:02 | RAD ---
Indication: STEMI. Comparison: July 29, 2017 Technique: Upright AP 1905 hours Report: Clear lungs and pleural spaces. Negative for pneumothorax. The heart, pulmonary vasculature, and mediastinal contours are unremarkable. Unremarkable osseous structures and soft tissue contours. IMPRESSION: No evidence for acute intrathoracic disease.
--- NOTE | 2017-09-14 20:08 | ED ---
Preeti Bullock Gabriel, scribed for Adarsh Rodriguez MD on 09/14/17 at 2007 . Progress - Progress Note Progress Note: Patient was evaluated by cardiac cath lab manager and he recommend admitting her to ICU. The patent will be transfer to ICU with follow up by the hospitalist. The documentation as recorded by the Preeti hawkins Gabriel accurately reflects the service I personally performed and the decisions made by Jennifer zhu Abdul, MD.
[2017-09-14] MEDS ORDERED: Ondansetron INJ* 2 MG/ML VIAL IV PRN (20:42)
[2017-09-14] MEDS ORDERED: Dextrose 50% Syringe 50 ML* 25 GM/50 ML SYRINGE IV PUSH PRN (20:42)
[2017-09-14] MEDS ORDERED: Albuterol 2.5 MG/3 ML NEB.SOL* (0.083%) INH PRN (20:58)
[2017-09-14] MEDS ORDERED: Insulin GLARGINE(*) 1 UNITS UNIT SUBCUT SCH (21:00)
[2017-09-14] MEDS ORDERED: Heparin VIAL(*) 5000 UNITS/ML VIAL (FIVE THOUSAND) IV SCH (21:00)
[2017-09-14] MEDS ORDERED: Insulin LISPRO* 1 UNITS UNIT SUBCUT ONE (21:05)
[2017-09-14] MEDS: NS 0.9% 1000 ML* 1,000 ML IV SCH ×2 (21:17→22:01)
[2017-09-14] MEDS: Ticagrelor* 90 MG TAB PO SCH (21:46)
[2017-09-14] MEDS: Heparin DRIP 25,000 UNITS(*) 25,000 UNITS/500 ML BAG IVPB SCH (21:46)
[2017-09-14] MEDS: Metoprolol Tartrate TAB* 25 MG PO SCH (23:30)
[2017-09-14] MEDS: Acetaminophen TAB* 325 MG PO PRN (23:30)
[2017-09-14] MEDS: ALPRAZolam TAB* 0.25 MG PO PRN (23:30)
--- NOTE | 2017-09-15 00:14 | HP ---
CC: Dr. Perez; Dr. Gallagher; Dr. Wallis * HISTORY AND PHYSICAL: DATE OF ADMISSION: 09/14/17 PRIMARY CARE PROVIDER: Dr. Perez. ATTENDING PHYSICIAN WHILE IN THE HOSPITAL: Go August MD * (report dictated by Rob Gregory NP) CONSULTING JOURNEYMAN PRESSMAN: Dr. Gallagher. CONSULTING COMMODITY DIRECTOR: Dr. Wallis. CHIEF COMPLAINT: 1. Fatigue. 2. "My LifeVest was going to shock me." HISTORY OF PRESENT ILLNESS: Ms. Tafoya is a 71-year-old female patient with multiple medical problems. She has a history of CAD; ischemic cardiomyopathy, her last EF was right around 20% to 25%; asthma; hypertension. She carries a history of hypertension, hyperlipidemia, diabetes, hypothyroidism, depression. She has had a history of pleural effusion that was eosinophilic presumably, history of CKD, and a history of an SC recently, status post stenting to her LAD. She comes in to our ER today stating that this morning she got up and she was going to get ready for a storm that is coming. She was going to prep for this. She was going up her driveway when she noticed that she was getting really short of breath, really fatigued. She had no chest pain. She was having some arm pain in the left arm that she cannot really describe. She described it as a tightness, just did not feel right. She was concerned when she started going up the hill and then she started noticing that her LifeVest was flashing lights. It was making a noise like it was going to shock her. This happened 4 times and she pressed the button 4 times she said to abort the shock. She did not feel like she was going to faint. She denied any lightheadedness. She called [facility], they recommended her that she be evaluated. She was unable to disarm the vest according to the patient. She, despite coming to the ER, decided to go to [employer], have a hot dog fries and drink a coke. She said to me that she she should not have done that because she is diabetic, but she was there though, she just felt very fatigued. She was not feeling herself. She had no chest pain, but this arm pain was still persisting. She at that point, decided to go to [employer] to try to run some errands, but each time she got to these stores, she just felt fatigued , felt like she was not doing well. She called [facility] again and explained to them that she was going to the ER and she came here. She said she has not had any fevers recently. She denied having any chest pain. There has been no coughing. No shortness of breath. There has been no nausea. No vomiting. No abdominal pain. She denied having any diarrhea. She does state that her urine is concentrated, but she denied any urinary symptoms. She does state that she has a rash to her back from the vest and she does state that she has a rash under her left breast. She denied any facial drooping. No change in vision. No weakness to 1 extremity. No troubles with word finding and no weakness to the lower extremities and no trouble with gait. She just was feeling dyspneic on exertion. She came into the ED. Initial EKG was concerning for STEMI. STEMI was called. Dr. Gallagher evaluated. It was felt not to be a STEMI. The trop was 0.43. Lactic was 74. Glucose was 403 and we were asked to evaluate for admission. PAST MEDICAL HISTORY: Significant for: 1. CAD. 2. Cardiomyopathy. 3. Asthma. 4. Hypertension. 5. Hyperlipidemia. 6. Diabetes. 7. Hypothyroidism. 8. Depression. 9. History of pleural effusion. 10. CKD stage 3. 11. History of SC. PAST SURGICAL HISTORY: She has had heart catheterization. She has had a hysterectomy. MEDICATIONS: Her home meds according to the list that we obtained include: 1. Lipitor 80 mg daily which she is taking sporadically. 2. Tylenol 650 mg every 4 hours as needed. 3. Nitro 0.4 mg sublingual every 5 minutes p.r.n. chest pain. 4. Multivitamin 1 tablet daily. 5. Lopressor 12.5 mg p.o. b.i.d., which apparently had been stopped due to hypotension. 6. Captopril 3.125 mg p.o. b.i.d., again which apparently had been stopped due to hypotension. 7. Effexor 150 mg p.o. daily with meal. 8. Wellbutrin 150 mg p.o. daily. 9. Insulin detemir 50 units subcu b.i.d. 10. Xanax 0.25 mg p.o. b.i.d. as needed. 11. Brilinta 90 mg p.o. b.i.d. ALLERGIES: To medications include ASPIRIN, DOXYCYCLINE, SULFA, PENTAZOCINE, and NSAIDs. FAMILY HISTORY: Her mother had a history vulvar cancer. Father had a history of SC. SOCIAL HISTORY: She does not smoke. She does not drink. She lives alone. Surrogate decision maker is not appointed at this point. She has no close relatives or family that she would entrust with this. REVIEW OF SYSTEMS: There is no documented fever. She denied any significant weight gain change to me. She denies having any double vision. No ear discharge. She denied having any rhinorrhea. No sore throat. No thyroid enlargement. Denies having any chest pain. There is no orthopnea. There is no nocturnal dyspnea. There was no abdominal pain. No nausea, no vomiting. No dysuria, no frequency. There was no seizure. There was no loss of consciousness. No pruritus. No skin ulcerations. Review of 14 systems completed, all others negative. PHYSICAL EXAMINATION GENERAL: At this time, Ms. Tafoya is a 71-year-old female patient. She is disheveled appearing. She appears to be unkempt. She does not appear to be in any acute distress. She is sitting in the ED stretcher. VITAL SIGNS: Blood pressure 124/70, pulse 105, respirations 20, O2 sat 99%, temperature 98.9. HEENT: Head: Atraumatic, normocephalic. Eyes: EOMs are intact. Sclerae anicteric and not pale. NECK: Supple. Throat: Oral mucosa does appear to be dry. No oropharyngeal erythema. LUNGS: Clear to auscultation bilaterally. No wheezes, rales, or rhonchi. HEART: Sounds S1, S2. Regular rate and rhythm. No murmurs, rubs, or gallops. ABDOMEN: Soft. It was flat. It was nontender. Bowel sounds were present. EXTREMITIES: Pulses were 2+ throughout. She is able to move all 4 extremities with 5/5 strength. No peripheral edema. NEUROLOGIC: She is awake, she is alert, she is oriented x3. Her speech is clear. Her tongue is midline. Her rn clinical are equal. [id number] and heel-to- jaffe intact bilaterally. She had no gross focal deficits. SKIN: Again, she does have what appeared to be a fungal type rash underneath the left breast into her left shoulder blade. Otherwise intact. DIAGNOSTIC STUDIES/LAB DATA: WBC of 11.5, RBC of 5.05, hemoglobin of 13.9, hematocrit 43, platelet count of 409,000. INR 1.15. PTT 27.1. Sodium of 137, potassium of 3.9, chloride of 100, bicarb 21, BUN 21, creatinine 1.81, glucose 403, lactic 74, calcium 9.7. Total bili 0.6, AST 37, ALT 24, alk phos 52. CK 360, CK- MB 0.2. Troponin 0.43. BNP is 752. Albumin of 3.7. She did have a chest x-ray obtained today. Impression: No evidence of acute intrathoracic disease. She had an EKG initially. Her EKG does show ST elevation in V2, V3 and slight in V1. Repeat EKG, the ST elevations have resolved. The rate initially was 109, it is now 99. Old medical records were reviewed. Her last EF was 20% to 25%. ASSESSMENT AND PLAN: Ms. Tafoya is a 71-year-old female patient with multiple medical problems, coming into the ED today with complaints of not feeling well, dyspnea on exertion, fatigue. On evaluation today, was noted to have an elevated troponin, question of a ST-elevated myocardial infarction, and a lactic of 74. We were asked to evaluate for admission. She will be admitted under inpatient status for: 1. Non-ST elevated myocardial infarction. Again, the troponin now is 0.43 and my plan will be to trend these. Dr. Gallagher did evaluate the patient in the ED. I will refer you to his note for further details. It was felt this did not appear to be a ST-elevated myocardial infarction and with her creatinine at 1.8 , he felt there was not enough evidence that she was actively infarcting to take her to the flower shop laborer/designer given the risk of her kidney dysfunction and being the fact that the EKG did change and she was asymptomatic when we evaluated her. At this point, we will go ahead and continue the Brilinta. I am going to put her back on her beta- farrah, though I would like to keep her heart rate down, preferably close to 60, but certainly less than 100, so I am going to start her back on her Lopressor if her blood pressure tolerates. She is not having any chest discomfort now. I will get her on a heparin drip, cycle her troponins, and CK, CK-MB. In addition to this, we also will get an echocardiogram in the morning. I questioned if she did have an arrhythmia and that may have certainly caused demand ischemia in the setting of recent heart attack, so the plan is to try to get in touch with [facility], which Dr. Gallagher had attempted and try to get the vest interrogated to see if she had an arrhythmia, which certainly could explain the elevated troponin and lactic acid if she hyperperfused. 2. Lactic acidosis. Again, etiology is unclear. She does appear to be significantly dehydrated. I am going to send off blood cultures and flu swab and urine just to make sure there is no underlying infection. I cannot elicit any focal infections on exam or with interviewing the patient. We will casillas culture her. If she spikes a fever, she gets antibiotics. We will repeat the lactic. We will follow this closely. It could be secondary to hyperperfusion if she had an arrhythmia and it certainly could bump the lactic to 7.4, but there was again no obvious reason as to why this is elevated. We will follow. 3. Coronary artery disease. Again, Brilinta, statin, beta-farrah will be continued. 4. Ischemic cardiomyopathy. She actually appears to be quite dehydrated. We will hydrate the patient slowly with normal saline 100 an hour. We will follow. Repeat the echo in the morning. 5. Asthma. Continue p.r.n. nebs. 6. Hypertension. Again, I am just going to put her back on her beta-farrah. 7. Hyperlipidemia. Statin therapy. 8. Diabetes. Not well controlled. She was at [employer] today, had fries, hot dog, and coke which certainly could explain the sugar of 406. I will give her detemir, give her a one-time dose of lispro. We will check her sugars a.c. and will follow. 9. Hypothyroidism. Continue her current medical regimen. 10. Depression. Continue meds as prescribed. 11. History of pleural effusion. Chest x-ray is clear. Follow with primary. 12. Chronic kidney disease. Creatinine is right around her baseline. We are going to hydrate her and will monitor. 13. DVT prophylaxis. She is going to be on a heparin drip. 14. Code status, full code. 15. Fluids, electrolytes, and nutrition. She can have a clear liquid diet. TIME SPENT: Time spent on the admission was approximately 70 minutes, greater than half of the time was spent [id number] with the patient obtaining my history and physical, other time spent going over the plan of care with the patient and implementing the plan of care. I did discuss the plan of care with my attending, Dr. August; he is in agreement. ROB GREGORY, JAMARI [id number]/[facility] #: [id number] JAIMIE
[2017-09-15] MEDS: Nystatin TOP POWDER* 15 GM BTL TOPICAL SCH ×4 (00:23→22:37)
[2017-09-15 05:40] LABS: ABS Basophils 0.1 10^3/ul (0-0.2); ABS Eosinophils 0.1 10^3/ul (0-0.6); ABS Lymphocytes 4.3 10^3/ul (1.0-4.8); ABS Monocytes 0.7 10^3/ul (0-0.8); ABS Neutrophils 7.1 10^3/ul (1.5-7.7); ABS Nucleated RBC 0.01 10^3/ul; Hematocrit 35 % (35-47); Hemoglobin 11.5 g/dl (12.0-16.0); Lymphocyte % 34.5 % (25-47); Mean Corpuscular HGB Conc 33 g/dl (31-36); Mean Corpuscular Hemoglobin 28 pg (27-31); Mean Corpuscular Volume 85 fL (80-97); Mean Platelet Volume 9 um3 (7.4-10.4); Nucleated Red Blood Cells % 0.1; Platelet Count 348 10^3/ul (150-450); Red Blood Count 4.11 10^6/ul (4.0-5.4); Red Cell Distribution Width 15 % (10.5-15); White Blood Count 12.4 10^3/ul (3.5-10.8)
--- NOTE | 2017-09-15 07:28 | ED ---
Kwadwo Bullock Angela, scribed for Jim Cruz MD on 09/14/17 at 1837 . Palpitations / Dysrhythmia - HPI Summary HPI Summary: This pt is a 71 y/o female presenting to [facility] for defibrillator life vest going off today. Pt's defibrillator has been going off multiple times, approximately 5-6 times, and now the battery is . She c/o pain down left arm since this morning, SOB, fatigue. Denies chest pain, diaphoresis, nausea. Pt notes she didn't feel well and had some chest pain during her past CT. She last saw Dr. Gallagher when she was in the ED on 07/28/17 for a STEMI. Pt notes she was supposed to have an echocardiogram yesterday but did not make it as it was so cold and she didn't want to go out. Pt's women's studies lecturer is Dr. decker and is supposed to see Dr. Decker today. Pt is allergic to aspirin. She is currently on Brilinta (for the stents) and on statin. - History of Current Complaint Chief Complaint: EDDysrhythmPalp Time Seen by Provider: 09/14/17 18:31 Hx Obtained From: Patient Onset/Duration: Lasting Hours, Still Present Severity Currently: Moderate - left arm pain Aggravating: Exertion Alleviating: Nothing Associated Signs & Symptoms: Shortness of Breath - Allergy/Home Medications Allergies/Adverse Reactions: Allergies Allergy/AdvReac Type Severity Reaction Status Date / Time Aspirin [ASA] Allergy Severe Anaphylatic Verified 12/30/16 13:59 Shock Doxycycline Allergy Severe Anaphylatic Verified 12/30/16 13:59 Shock Sulfa Drugs Allergy Severe Anaphylatic Verified 12/30/16 13:59 Shock Pentazocine Allergy Hallucinati Verified 12/30/16 13:59 [From Talwin Compound] ons NSAIDs AdvReac Intermediate Bleeding Verified 12/30/16 13:59 PMH/Surg Hx/FS Hx/Imm Hx Endocrine/Hematology History: Reports: Hx Diabetes, Hx Thyroid Disease - hypothyroidism Denies: Hx Anemia Cardiovascular History: Reports: Hx Angina, Hx Hypercholesterolemia, Hx Hypertension, Hx Myocardial Infarction Denies: Hx Coronary Artery Disease, Hx Valvular Heart Disease Respiratory History: Reports: Hx Asthma, Hx Seasonal Allergies, Other Respiratory Problems/Disorders - PLEURAL EFFUSION. 01/2017 USES ADVAIR RX DAILY X2 PUFFS Denies: Hx Chronic Obstructive Pulmonary Disease (COPD) GI History: Reports: Hx Gall Bladder Disease - removed, Hx Gastroesophageal Reflux Disease Denies: Hx Hiatal Hernia, Hx Jaundice History: Reports: Hx Chronic Renal Failure - Stage III per Dr. 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 Psychiatric History: Reports: Hx Anxiety, Hx Depression Denies: Hx Eating Disorder, Hx of Violent Episodes Against Others - Cancer History Hx Chemotherapy: No Hx Radiation Therapy: No - Surgical History Surgery Procedure, Year, and Place: Cholecystectomy, ruptured ovarian cyst, appendix out at same time, COMPLETE HYSTERECTOMY Hx Anesthesia Reactions: No Infectious Disease History: No Infectious Disease History: Denies: Traveled Outside the [place] in Last 30 Days - Family History Known Family History: Positive: Cardiac Disease - father's side - Social History Alcohol Use: None Substance Use Type: Reports: None Hx Tobacco Use: No Smoking Status (MU): Never Smoked Tobacco Review of Systems Positive: Fatigue. Negative: Fever, Skin Diaphoresis Negative: Chest Pain Positive: Shortness Of Breath Negative: Nausea Musculoskeletal: Other - left arm pain All Other Systems Reviewed And Are Negative: Yes Physical Exam - Summary Physical Exam Summary: Appearance: The patient is well-nourished in no acute distress and in no acute pain. Skin: The skin is warm and dry and skin color reflects adequate perfusion. HEENT: The head is normocephalic and atraumatic. The pupils are equal and reactive. The conjunctivae are clear and without drainage. Nares are patent and without drainage. Mouth reveals moist mucous membranes and the throat is without erythema and exudate. The external ears are intact. The ear canals are patent and without drainage. The tympanic membranes are intact. Neck: the neck is supple with full range of motion and non-tender. There are no carotid bruits. There is no neck vein distension. Respiratory: Chest is non-tender. Lungs are clear to auscultation and breath sounds are symmetrical and equal. Cardiovascular: Heart is regular rate and rhythm. There is no murmur or rub auscultated. There is no peripheral edema and pulses are symmetrical and equal. Abdomen: The abdomen is soft and non-tender. There are normal bowel sounds heard in all four quadrants and there is no organomegaly palpated. Musculoskeletal: There is no back tenderness noted. Extremities are non-tender with full range of motion. There is good capillary refill. There is no peripheral edema or calf tenderness elicited. Neurological: Patient is alert and oriented to person, place and time. The patient has symmetrical motor strength in all four extremities. Cranial nerves are grossly intact. Deep tendon reflexes are symmetrical and equal in all four extremities. Psychiatric: The patient has an appropriate affect and does not exhibit any anxiety or depression. Triage Information Reviewed: Yes Vital Signs On Initial Exam: Initial Vitals Temp Pulse Resp BP Pulse Ox 98.4 F 114 20 99/63 99 09/14/17 18:14 09/14/17 18:14 09/14/17 18:14 09/14/17 18:14 09/14/17 18:14 Vital Signs Reviewed: Yes Diagnostics - Vital Signs Vital Signs Temp Pulse Resp BP Pulse Ox 09/14/17 18:14 98.4 F 114 20 99/63 99 - Laboratory Lab Results: Lab Results 09/14/17 09/14/17 09/14/17 Range/Units 18:46 18:46 18:46 WBC (3.5-10.8) 10^3/ul RBC (4.0-5.4) 10^6/ul Hgb (12.0-16.0) g/dl Hct (35-47) % MCV (80-97) fL MCH (27-31) pg MCHC (31-36) g/dl RDW (10.5-15) % Plt Count (150-450) 10^3/ul MPV (7.4-10.4) um3 Neut % (Auto) (38-83) % Lymph % (Auto) (25-47) % [place] % (Auto) (1-9) % Eos % (Auto) (0-6) % Baso % (Auto) (0-2) % Absolute Neuts (auto) (1.5-7.7) 10^3/ul Absolute Lymphs (auto) (1.0-4.8) 10^3/ul Absolute Monos (auto) (0-0.8) 10^3/ul Absolute Eos (auto) (0-0.6) 10^3/ul Absolute Basos (auto) (0-0.2) 10^3/ul Absolute Nucleated RBC 10^3/ul Nucleated RBC % INR (Anticoag Therapy) 1.15 H (0.77-1.02) APTT 27.1 (26.0-36.3) seconds Sodium 137 (133-145) mmol/L Potassium 3.9 (3.5-5.0) mmol/L Chloride 100 L (101-111) mmol/L Carbon Dioxide 21 L (22-32) mmol/L Anion Gap 16 H (2-11) mmol/L BUN 21 (6-24) mg/dL Creatinine 1.81 H (0.51-0.95) mg/dL Est GFR ( Amer) 35.2 (>60) Est GFR (Non-Af Amer) 27.4 (>60) BUN/Creatinine Ratio 11.6 (8-20) Glucose 403 H (70-100) mg/dL Lactic Acid (0.5-2.0) mmol/L Calcium 9.7 (8.6-10.3) mg/dL Magnesium 1.9 (1.9-2.7) mg/dL Total Bilirubin 0.60 (0.2-1.0) mg/dL AST 37 (13-39) U/L ALT 24 (7-52) U/L Alkaline Phosphatase 62 (34-104) U/L Total Creatine Kinase 360 H (10-223) U/L CK-MB (CK-2) 8.2 H (0.6-6.3) ng/mL Troponin I 0.43 H* (<0.04) ng/mL B-Natriuretic Peptide 752 H ( - 100) pg/mL Total Protein 7.4 (6.4-8.9) g/dL Albumin 3.7 (3.2-5.2) g/dL Globulin 3.7 (2-4) g/dL Albumin/Globulin Ratio 1.0 (1-3) LDL Cholesterol Direct 91 mg/dL TSH 2.15 (0.34-5.60) mcIU/mL 01/03/18 01/03/18 Range/Units 18:46 18:46 WBC 11.5 H (3.5-10.8) 10^3/ul RBC 5.05 (4.0-5.4) 10^6/ul Hgb 13.9 (12.0-16.0) g/dl Hct 43 (35-47) % MCV 86 (80-97) fL MCH 28 (27-31) pg MCHC 32 (31-36) g/dl RDW 15 (10.5-15) % Plt Count 409 (150-450) 10^3/ul MPV 9 (7.4-10.4) um3 Neut % (Auto) 85.6 H (38-83) % Lymph % (Auto) 8.9 L (25-47) % [place] % (Auto) 5.0 (1-9) % Eos % (Auto) 0.1 (0-6) % Baso % (Auto) 0.4 (0-2) % Absolute Neuts (auto) 9.9 H (1.5-7.7) 10^3/ul Absolute Lymphs (auto) 1.0 (1.0-4.8) 10^3/ul Absolute Monos (auto) 0.6 (0-0.8) 10^3/ul Absolute Eos (auto) 0 (0-0.6) 10^3/ul Absolute Basos (auto) 0 (0-0.2) 10^3/ul Absolute Nucleated RBC 0 10^3/ul Nucleated RBC % 0 INR (Anticoag Therapy) (0.77-1.02) APTT (26.0-36.3) seconds Sodium (133-145) mmol/L Potassium (3.5-5.0) mmol/L Chloride (101-111) mmol/L Carbon Dioxide (22-32) mmol/L Anion Gap (2-11) mmol/L BUN (6-24) mg/dL Creatinine (0.51-0.95) mg/dL Est GFR ( Amer) (>60) Est GFR (Non-Af Amer) (>60) BUN/Creatinine Ratio (8-20) Glucose (70-100) mg/dL Lactic Acid 7.4 H* (0.5-2.0) mmol/L Calcium (8.6-10.3) mg/dL Magnesium (1.9-2.7) mg/dL Total Bilirubin (0.2-1.0) mg/dL AST (13-39) U/L ALT (7-52) U/L Alkaline Phosphatase (34-104) U/L Total Creatine Kinase (10-223) U/L CK-MB (CK-2) (0.6-6.3) ng/mL Troponin I (<0.04) ng/mL B-Natriuretic Peptide ( - 100) pg/mL Total Protein (6.4-8.9) g/dL Albumin (3.2-5.2) g/dL Globulin (2-4) g/dL Albumin/Globulin Ratio (1-3) LDL Cholesterol Direct mg/dL TSH (0.34-5.60) mcIU/mL Result Diagrams: 09/15/17 05:25 09/15/17 02:37 Lab Statement: Any lab studies that have been ordered have been reviewed, and results considered in the medical decision making process. - Radiology Chest XR Radiology Interpretation Completed By: Radiologist - Official radiology report is pending, please see [facility]. - EKG 18:20 Cardiac Rate: Tachycardia EKG Rhythm: Atrial Flutter - at 109 bpm EKG Interpretation: anterior STEMI Course/Dx - Course Course Of Treatment: Ms. Tafoya presented concerned that her life vest has been going off half a dozen times today. She has also had left arm pain all day and extreme fatigue. An ecg on arrival showed ST elevations in leads V2 and V3 and met STEMI criteria. She had an LAD STEMI and stenting in July and she has Q'w in the anteroseptal leads already. It is unclear of the significance so I called a STEMI alert and Dr. Batres and the team took over her care. She is being admitted to the hospitalist service. - Diagnoses Provider Diagnoses: STEMI (ST elevation myocardial infarction) During the Visit The Following Alert/Code Occurred: STEMI - at 18:40 - Physician Notifications Discussed Care Of Patient With: Kash Gallagher Time Discussed With Above Provider: 18:49 Instructed by Provider To: Other - I discussed pt care with Dr. Gallagher, women's studies lecturer. - Critical Care Time Critical Care Time: 30-74 min Discharge - Discharge Plan Condition: Stable Disposition: ADMITTED TO [facility] The documentation as recorded by the Kwadwo hawkins Angela accurately reflects the service I personally performed and the decisions made by , Jim Cruz MD.
--- NOTE | 2017-09-15 08:03 | PN ---
Subjective - Subjective Reason for Note: Progress Note History: I obtained Lorena Bill's presentation from the patient, Rob Gregory, DEPUTY [facility] and Dr. Gallagher. She has been wearing a monitor vest owing to her ischemic cardiomyopathy and low ejection fraction. She was due for a re-test echocardiogram to determine if she requires an implanted defibrillator. She has not taken this vest off and has problems with the skin on her back from lying at night on the wires. She admits to non-compliance with her medication, including insulin. Yesterday she had numbness in her left arm. She had some warning lights on her vest. She lives in a house on [facility] and walked up the steps, went shopping. Had a high carb meal including soda. Margie terrible and eventually came to the hospital. She was dehydrated, hyperglycemic and had a high lactic acid and troponin I level. She had no chest pain, palpitations, nausea or vomiting, diaphoresis, light headedness, syncope. She states she did not feel like she was having a heart attack as in the past. She feels much better this morning after rehydration. I note she was hypotensive because of her cardiomyopathy and I had to stop her beta blockers/ALEAH inhibitors. 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 Type 2 diabetes mellitus, uncontrolled (Chronic) E11.65 Current Medications: Current Medications Acetaminophen (Tylenol Tab*) 650 mg PO Q4H PRN PRN Reason: FEVER/PAIN Last Admin: 09/14/17 23:30 Dose: 650 mg Albuterol (Ventolin 2.5 Mg/3 Ml Neb.Kati*) 2.5 mg INH Q2H PRN PRN Reason: SOB/WHEEZING Alprazolam (Xanax Tab*) 0.25 mg PO BID PRN PRN Reason: ANXIETY Last Admin: 09/14/17 23:30 Dose: 0.25 mg Atorvastatin Calcium (Lipitor*) 80 mg PO 1700 [facility] Bupropion HCl (Wellbutrin Xl *) 150 mg PO DAILY [facility] PRN Reason: Protocol Dextrose (D50w Syringe 50 Ml*) 12.5 gm IV PUSH .FOR FS < 60 - SS PRN PRN Reason: FS < 60 Heparin Sodium (Porcine) (Heparin Vial(*)) 0 units IV .PER PROTOCOL MAT PRN Reason: Protocol Last Admin: 09/14/17 21:45 Dose: 5,100 units Heparin Sodium/Dextrose (Heparin Drip 25,000 Units(*)) 25,000 units in 500 mls @ 0 mls/hr IVPB .PER RATE [facility]; Per Protocol PRN Reason: Protocol Last Admin: 09/14/17 21:46 Dose: 19 mls/hr Insulin Glargine (Lantus(*)) 50 units SUBCUT BID [facility] Last Admin: 09/14/17 23:29 Dose: 50 units Insulin Human Lispro (Humalog*) 0 units SUBCUT AC [facility] PRN Reason: Protocol Metoprolol Tartrate (Lopressor Tab*) 12.5 mg PO Q12HR [facility] Last Admin: 09/14/17 23:30 Dose: 12.5 mg Nystatin (Nystatin Top Powder*) 1 applic TOPICAL TID [facility] Last Admin: 09/15/17 00:23 Dose: 1 applic Ondansetron HCl (Zofran Inj*) 4 mg IV Q6H PRN PRN Reason: NAUSEA Ticagrelor (Brilinta*) 90 mg PO BID [facility] Last Admin: 09/14/17 21:46 Dose: 90 mg Venlafaxine HCl (Effexor Xr Cap*) 150 mg PO DAILY WITH MEAL [facility] - Review of Systems Constitutional Symptoms: No: Fever, Night Sweats Dermatology: Rash: Yes - on back Pulmonary: Positive: Shortness of Breath Negative: Cough, Sputum, Hemoptysis Cardiology: Positive: Shortness of Breath Negative: Chest Pain, Palpitations, Swelling of Ankles Gastroenterology: Negative: Abdominal Pain, Nausea, Vomiting, Anorexia, Constipation, Diarrhea Genital - Urinary: Negative: Dysuria, Hematuria Neurology: Negative: Headache Home Medications: Home Medications Medication Instructions Recorded Confirmed Type Venlafaxine EXT RELEASE CAP* 150 mg PO DAILY WITH MEAL 07/18/12 09/14/17 History [Effexor Xr CAP*] ALPRAZolam TAB* [Xanax TAB*] 0.25 mg PO BID PRN #0 09/16/15 09/14/17 History Acetaminophen TAB* [Tylenol TAB*] 650 mg PO Q4H PRN #0 tab 09/20/15 09/14/17 Rx Insulin Detemir (NF) [Levemir (NF)] 50 unit SUBCUT BID MDD 120 units 08/23/16 History Bupropion XL* [Wellbutrin XL *] 150 mg PO DAILY 07/28/17 09/14/17 History Multivitamins/Minerals TAB* 1 tab PO DAILY 07/28/17 09/14/17 History [Theragran/minerals TAB*] Atorvastatin* [Lipitor 80 MG*] 80 mg PO 1700 #30 tab 08/02/17 09/14/17 Rx Captopril TAB* [Capoten TAB*] 3.125 mg PO BID #30 tab 08/02/17 09/14/17 Rx Metoprolol Tartrate TAB* 12.5 mg PO BID #30 tab 08/02/17 09/14/17 Rx [Lopressor TAB*] Nitroglycerin TAB 0.4 MG* 0.4 mg SL Q5M PRN #15 tab 08/02/17 09/14/17 Rx Ticagrelor* [Brilinta 90 MG*] 90 mg PO BID #60 tab 08/02/17 09/14/17 Rx Allergies: Allergies Allergy/AdvReac Type Severity Reaction Status Date / Time Aspirin [ASA] Allergy Severe Anaphylatic Verified 12/30/16 13:59 Shock Doxycycline Allergy Severe Anaphylatic Verified 12/30/16 13:59 Shock Sulfa Drugs Allergy Severe Anaphylatic Verified 12/30/16 13:59 Shock Pentazocine Allergy Hallucinati Verified 12/30/16 13:59 [From Talwin Compound] ons NSAIDs AdvReac Intermediate Bleeding Verified 12/30/16 13:59 Objective - Vital Signs Vital Signs: Vital Signs 09/14/17 09/14/17 09/14/17 21:43 21:45 22:00 Temperature 98.1 F Pulse Rate 99 93 95 Respiratory 16 17 17 Rate Blood Pressure 115/55 123/58 103/62 (mmHg) O2 Sat by Pulse 96 99 98 Oximetry 09/14/17 09/14/17 09/14/17 22:01 22:30 22:42 Temperature Pulse Rate 92 91 93 Respiratory 16 23 18 Rate Blood Pressure 109/74 (mmHg) O2 Sat by Pulse 97 98 99 Oximetry 09/14/17 09/14/17 09/14/17 23:00 23:01 23:30 Temperature Pulse Rate 89 92 89 Respiratory 18 21 20 Rate Blood Pressure 101/43 110/60 (mmHg) O2 Sat by Pulse 98 98 97 Oximetry 09/14/17 09/14/17 09/15/17 23:48 23:49 00:00 Temperature 97.7 F Pulse Rate 92 86 88 Respiratory 22 22 24 Rate Blood Pressure 112/59 (mmHg) O2 Sat by Pulse 97 98 96 Oximetry 09/15/17 09/15/17 09/15/17 00:01 00:30 01:00 Temperature Pulse Rate 88 92 81 Respiratory 17 19 19 Rate Blood Pressure 106/64 91/52 (mmHg) O2 Sat by Pulse 97 97 95 Oximetry 09/15/17 09/15/17 09/15/17 01:01 01:30 02:00 Temperature Pulse Rate 75 79 Respiratory 27 20 16 Rate Blood Pressure 99/52 86/50 (mmHg) O2 Sat by Pulse 97 96 Oximetry 09/15/17 09/15/17 09/15/17 02:01 02:30 03:00 Temperature Pulse Rate 77 74 76 Respiratory 14 17 15 Rate Blood Pressure 94/54 95/55 (mmHg) O2 Sat by Pulse 95 97 97 Oximetry 09/15/17 09/15/17 09/15/17 03:01 03:30 03:36 Temperature 98.2 F Pulse Rate 78 77 Respiratory 16 17 Rate Blood Pressure 92/55 (mmHg) O2 Sat by Pulse 96 98 Oximetry 09/15/17 09/15/17 09/15/17 04:00 04:01 04:30 Temperature Pulse Rate 68 74 64 Respiratory 17 17 15 Rate Blood Pressure 95/51 95/51 (mmHg) O2 Sat by Pulse 95 96 97 Oximetry 09/15/17 09/15/17 09/15/17 04:40 05:00 05:01 Temperature Pulse Rate 73 67 65 Respiratory 20 16 16 Rate Blood Pressure 100/59 98/48 (mmHg) O2 Sat by Pulse 97 97 96 Oximetry 01/0409/15/17 09/15/17 05:30 06:00 06:01 Temperature Pulse Rate 63 57 59 Respiratory 21 17 14 Rate Blood Pressure 97/50 103/55 (mmHg) O2 Sat by Pulse 95 97 96 Oximetry - Intake and Output Intake and Output: Intake & Output 09/12/17 09/13/17 09/14/17 09/15/17 11:59 11:59 11:59 11:59 Intake Total 1070 Balance 1070 Weight 147 lb 14.883 oz Intake: IV Fluids 823 NS (0.9%) 823 Heparin 147 Oral 100 ADLs: Meal Record Start: 09/14/17 21: 43 Freq: 09,13,18 Status: Active Protocol: Created 09/14/17 21:43 System (Rec: 09/14/17 21:43 System [id number]) Intake and Output Start: 09/14/17 21: 43 Freq: 06,14,22 Status: Active Protocol: Created 09/14/17 21:43 System (Rec: 09/14/17 21:43 System [id number]) Document 09/14/17 22:00 [id number] (Rec: 09/14/17 22:43 [id number]) Document 09/15/17 06:00 [id number] (Rec: 09/15/17 06:29 [id number]) - Physical Exam General Physical Exam Comment: She has a rash on her back from where the wires of the vest compressed her skin at night General: No Cyanosis, No Anemia, No Jaundice, No Clubbing Eye Exam: bilateral: EOMI Lungs and Chest: Yes: Chest Expansion Full, Chest Expansion Symetrica, Percussion Note Resonant, Vessicular Breath Sounds. No: Crackles, Respiratory Distress, Use of Accessory Muscles Heart Rate and Rhythm: Regular JVP: Not Elevated Additional Cardiovascular: Yes: Present Pedal Pulse. No: Normal Heart Sounds, Heart Murmur, Pedal Edema Abdominal Exam: Yes: Soft, Bowel Sounds Present. No: Distention, Abdominal Mass , Hepatomegaly, Abdominal Tenderness - Extremities Cranial Nerves II-XII Intact: Yes Limbs: Normal Power, Normal Tone - Neuro Orientation: A/O x3 Speech: Normal Results - Results Lab Results: Laboratory Results - last 24 hr 09/14/17 09/14/17 09/14/17 22:35 22:35 22:35 WBC RBC Hgb Hct MCV MCH MCHC RDW Plt Count MPV Neut % (Auto) Lymph % (Auto) Wirt % (Auto) Eos % (Auto) Baso % (Auto) Absolute Neuts (auto) Absolute Lymphs (auto) Absolute Monos (auto) Absolute Eos (auto) Absolute Basos (auto) Absolute Nucleated RBC Nucleated RBC % APTT > 212.0 H* BUN Lactic Acid 4.1 H* Total Creatine Kinase 265 H CK-MB (CK-2) 6.9 H Troponin I 0.40 H* Influenza A (Rapid) Influenza B (Rapid) 09/14/17 09/15/17 09/15/17 22:50 02:37 05:25 WBC RBC Hgb Hct MCV MCH MCHC RDW Plt Count MPV Neut % (Auto) Lymph % (Auto) Wirt % (Auto) Eos % (Auto) Baso % (Auto) Absolute Neuts (auto) Absolute Lymphs (auto) Absolute Monos (auto) Absolute Eos (auto) Absolute Basos (auto) Absolute Nucleated RBC Nucleated RBC % APTT BUN 21 Lactic Acid 1.4 Total Creatine Kinase 215 CK-MB (CK-2) 5.2 Troponin I 0.38 H* Influenza A (Rapid) Negative Influenza B (Rapid) Negative 09/15/17 09/15/17 05:25 05:25 WBC 12.4 H RBC 4.11 Hgb 11.5 L Hct 35 MCV 85 MCH 28 MCHC 33 RDW 15 Plt Count 348 MPV 9 Neut % (Auto) 57.7 Lymph % (Auto) 34.5 Wirt % (Auto) 6.0 Eos % (Auto) 1.0 Baso % (Auto) 0.8 Absolute Neuts (auto) 7.1 Absolute Lymphs (auto) 4.3 Absolute Monos (auto) 0.7 Absolute Eos (auto) 0.1 Absolute Basos (auto) 0.1 Absolute Nucleated RBC 0.01 Nucleated RBC % 0.1 APTT 78.8 H BUN Lactic Acid Total Creatine Kinase CK-MB (CK-2) Troponin I Influenza A (Rapid) Influenza B (Rapid) Radiology Results: Patient Name: LORENA IBLL Medical Record#: [id number] Ordering Physician: Jim Cruz MD Acct.#: [id number] : 1945 Age: 71 Sex: F Location: CARDIAC CATHETER[facility] LAB Exam Date: 09/14/17 1841 [place] [facility] [place] Information: CHEST AP PORTABLE Accession Number: [id number] CPT: 12474 Indication: STEMI. Comparison: July 29, 2017 Technique: Upright AP 1905 hours Report: Clear lungs and pleural spaces. Negative for pneumothorax. The heart, pulmonary vasculature, and mediastinal contours are unremarkable. Unremarkable osseous structures and soft tissue contours. IMPRESSION: No evidence for acute intrathoracic disease. <Electronically signed by Evelio Tillman MD in OV> 09/14/171957 Dictated By: Evelio Tillman MD Dictated Date/Time: 09/14/171957 Transcribed Date/Time: 09/14/171956 Copy to: CC:Trey Perez MD; Kash Gallagher MD; Jim Cruz MD Imaging - [facility] - [place] [facility] [address] [place] [address] ph [phone]) ph ([phone]) ph ([phone]) 1 of EKG Report: 09/15/2017 65 sinus rhythm [place] 1236 QTc 453 QRS axis 113 Anterolateral changes suggesting previous infarct Assessment - Problem List Assessment: Patient Problems Cardiac rhythm disturbance (Acute) Cardiomyopathy, ischemic (Acute) Elevated troponin I level (Acute) Lactic acidemia (Acute) Asthma (Chronic) COPD (chronic obstructive pulmonary disease) (Chronic) Depression (Chronic) Hyperlipidemia (Chronic) Hypertension (Chronic) Hypothyroidism (Chronic) Stage 3 chronic kidney disease (Chronic) 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 She had shortness of breath from exertion and had left arm numbness all day yesterday. She denies symptoms that are typical of acute myocardial infarction. She may have had demand ischemia from uncontrolled tachycardia from exertion or due to a dysrhythmia. We need to interrogate the vest recorder. Her troponin I levels have peaked. Cardiology are following her. They are checking her echocardiogram to determine if she requires a watermaster implanted cardiac defibrillator. She requires telemetry for the moment. Lactic acidemia (Acute) She was dehydrated and hyperglycemic on entry. This has recovered to a large extent overnight. Her lactic acid is normal and her glucose is on target again. She doesn't appear to have an infection Asthma (Chronic) secondary diagnosis COPD (chronic obstructive pulmonary disease) (Chronic) secondary diagnosis Depression (Chronic) She demonstrates longstanding lack of executive function regarding any planning of her life and repeated attempts to program counselor her. Hyperlipidemia (Chronic) She has been non-compliant with medication Hypertension (Chronic) She remains hypotensive Hypothyroidism (Chronic) ongoing - ? 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 This relates to her mental state Dyspnea on exertion (Chronic) This is longstanding and is a mixture of cardiac and respiratory disedase Noncompliance (Chronic) This is a major chronic problem -it is due to her depression Stented coronary artery (Chronic) The remaining question is if she had a subendocardial DE or if this increase in troponin I was due to demand ischemia. Cardiology will address this. I discussed the above with the patient. She agrees to a outreach and education social worker visit. She may also need a psychiatric assessment.
[2017-09-15] MEDS ORDERED: Perflutren Lipid Microsphere* 3 ML VIAL ONE (09:02)
[2017-09-15] MEDS: Insulin LISPRO* 1 UNITS UNIT SUBCUT SCH ×3 (09:20→16:35)
[2017-09-15] MEDS: Ticagrelor* 90 MG TAB PO SCH ×2 (09:36→22:37)
[2017-09-15] MEDS: BuPROPion XL* 150 MG TAB.XL PO SCH (09:36)
[2017-09-15] MEDS: Venlafaxine EXT RELEASE CAP* 75 MG PO SCH (09:36)
[2017-09-15] MEDS: Insulin GLARGINE(*) 1 UNITS UNIT SUBCUT SCH ×2 (09:36→22:37)
[2017-09-15] MEDS: Metoprolol Tartrate TAB* 25 MG PO SCH (09:37)
[2017-09-15 10:19] LABS: EGFR Non-African American 43.2 (>60)
--- NOTE | 2017-09-15 10:20 | PN ---
Progress Note - Progress Note Date of Service: 09/15/17 Note: Discussion with Dr. Luca Crain for cardiology He thinks that she is at risk for an embolization from left ventricular thrombus. He wonders if her left arm numbness was due to an embolic CVA * MRI brain * Heparin to warfarin * maintain the defibrillator vest for 3 months to see if her LV remodels and if she needs an ICD * Can go to telemetry bed in 4S
[2017-09-15] MEDS ORDERED: Magnesium Sulfate 2 GM IV* 2 GM/50 ML BAG IVPB ONE (10:21)
[2017-09-15] MEDS ORDERED: Potassium Chlor TAB* 10 MEQ TAB.ER PO ONE (10:21)
--- NOTE | 2017-09-15 10:24 | CONSULT ---
Subjective Date of Service: 09/15/17 Interval History: Date of admission 09/14/2017 Date of consult: 09/15/2017 PMD/Service: Dr. Perez Board Finisher: Dr. Decker CC: Livevest alarm, fatigue, left arm and finger tingling/numbess Reason for consult: same as CC HPI: Lorena Tafoya is a 71 year old woman with a history as below including but not limited ischemic cardiomyopathy s/p recent anterior wall CO 07/28/2017 with most recent LVEF 25%. She is on brillinta 90 mg po bid alone due to anaphylaxis to aspirin. She has been wearing a zoll lifevest, having difficulty with this and having skin breakdown on her back related to wearing this. She has chronic CAMPOS that has worsened since the CO but has been relatively stable. Yesterday in the morning developed left arm and finger tingling/numbness which has persisted. This is not similar to her CO symptoms. No weakness in that extremity and no other focal neurologic changes. She felt generalized fatigue as well. She denies any CP, palpitations or syncope. She had to deactivate her lifevest alarm 4 times to abort a shock while walking. Interrogation today showed false alarms related to sinus tachycardia from exertion and artifact. She had no chest discomfort or palpitations during that, just her chronic dyspnea on exertion. She was found with hyperglycemia glucose 403, elevated lactic acid and acute kidney injury which have all improved with glucose management and IVF. There was initially concern for ACS although after further evaluation it was felt the EKG just shows evolution of an anterior wall CO from prior and has a multifactorial troponin elevation due to known CAD, cardiomyopathy, renal failure and probable dehydration. An echocardiogram showed a severely reduced LVEF of 20-25% with an apical thrombus. Brain MRI has been negative for acute findings. PAST MEDICAL HISTORY: Significant for: 1. CAD/CO 2. Ischemic cardiomyopathy. 3. Asthma/reactive lung disease 4. Hypertension. 5. Hyperlipidemia. 6. Diabetes. 7. Hypothyroidism. 8. Depression. 9. History of pleural effusion. 10. CKD s Allergies: Doxycycline 08/23/16 Aspirin 08/23/16 Sulfa Antibiotics 08/23/16 Environmental 06/22/17 - Cats allergy list reviewed on 08/10/2017 Surgical Hx: Hysterectomy BSO - in her 30's wisdom teeth extraction years ago Cataract Removal, Arthroscopic, Knee cardiac catheterization/pci FH: Father: CABG - Quadruple CO, Diabetes. due to CO. Mother: Congestive Heart Failure (CHF), Cancer. due to Cancer. SH: Marital: .Lives With: Alone.Occupation: Retired. Personal Habits: Smoking: Patient has never smoked.Cigarette Use: Never Smoked Cigarettes - Exposed to secondhand smoke -- mother and ex- smoked.Alcohol : Denies alcohol use.Drug Use: Denies Drug Use.Daily Caffeine: Consumes on average 3 sodas per day.Exercise Type: Does not exercise. Medications Active Medications: Acetaminophen (Tylenol Tab*) 650 mg PO Q4H PRN PRN Reason: FEVER/PAIN Last Admin: 09/14/17 23:30 Dose: 650 mg Albuterol (Ventolin 2.5 Mg/3 Ml Neb.Kati*) 2.5 mg INH Q2H PRN PRN Reason: SOB/WHEEZING Alprazolam (Xanax Tab*) 0.25 mg PO BID PRN PRN Reason: ANXIETY Last Admin: 09/14/17 23:30 Dose: 0.25 mg Atorvastatin Calcium (Lipitor*) 80 mg PO 1700 MAT Bupropion HCl (Wellbutrin Xl *) 150 mg PO DAILY MAT PRN Reason: Protocol Last Admin: 09/15/17 09:36 Dose: 150 mg Dextrose (D50w Syringe 50 Ml*) 12.5 gm IV PUSH .FOR FS < 60 - SS PRN PRN Reason: FS < 60 Heparin Sodium (Porcine) (Heparin Vial(*)) 0 units IV .PER PROTOCOL MAT PRN Reason: Protocol Last Admin: 09/14/17 21:45 Dose: 5,100 units Heparin Sodium/Dextrose (Heparin Drip 25,000 Units(*)) 25,000 units in 500 mls @ 0 mls/hr IVPB .PER RATE MAT; Per Protocol PRN Reason: Protocol Last Admin: 09/14/17 21:46 Dose: 19 mls/hr Magnesium Sulfate (Magnesium Sulfate 2 Gm Iv*) 2 gm in 50 mls @ 50 mls/hr IVPB ONCE ONE Stop: 09/15/17 11:20 Insulin Glargine (Lantus(*)) 25 units SUBCUT BID [facility] Last Admin: 09/15/17 09:36 Dose: 25 units Insulin Human Lispro (Humalog*) 0 units SUBCUT AC MAT PRN Reason: Protocol Last Admin: 09/15/17 09:20 Dose: Not Given Metoprolol Succinate (Toprol Xl Tab*) 25 mg PO DAILY [facility] Nystatin (Nystatin Top Powder*) 1 applic TOPICAL TID [facility] Last Admin: 09/15/17 00:23 Dose: 1 applic Ondansetron HCl (Zofran Inj*) 4 mg IV Q6H PRN PRN Reason: NAUSEA Ticagrelor (Brilinta*) 90 mg PO BID [facility] Last Admin: 09/15/17 09:36 Dose: 90 mg Venlafaxine HCl (Effexor Xr Cap*) 150 mg PO DAILY WITH MEAL [facility] Last Admin: 09/15/17 09:36 Dose: 150 mg Home Medications: Venlafaxine EXT RELEASE CAP* [Effexor Xr CAP*] 150 mg PO DAILY WITH MEAL [History Confirmed 09/14/17] ALPRAZolam TAB* [Xanax TAB*] 0.25 mg PO BID PRN #0 09/16/15 [History Confirmed 09/14/17] Acetaminophen TAB* [Tylenol TAB*] 650 mg PO Q4H PRN #0 tab 09/20/15 [Rx Confirmed 09/14/17] Insulin Detemir (NF) [Levemir (NF)] 50 unit SUBCUT BID MDD 120 units 08/23/16 [ History Confirmed 09/14/17] Bupropion XL* [Wellbutrin XL *] 150 mg PO DAILY 07/28/17 [History Confirmed 11/27] Multivitamins/Minerals TAB* [Theragran/minerals TAB*] 1 tab PO DAILY 07/28/17 [ History Confirmed 09/14/17] Atorvastatin* [Lipitor 80 MG*] 1/2 tablet 40 mgg PO 1700 #30 tab 08/02/17 [Rx Confirmed 09/14/17] lisinopril 2.5 mg po daily Nitroglycerin TAB 0.4 MG* 0.4 mg SL Q5M PRN #15 tab 08/02/17 [Rx Confirmed 09/14] Ticagrelor* [Brilinta 90 MG*] 90 mg PO BID #60 tab 08/02/17 [Rx Confirmed ] toprol xl 25 mg po daily Review of Systems - Measurements Intake and Output: Intake and Output Last 24 Hours 09/13/17 09/14/17 09/15/17 09/16/17 06:59 06:59 06:59 06:59 Intake Total 1070 Balance 1070 Weight 147 lb 14.883 oz Intake: IV Fluids 823 NS (0.9%) 823 Heparin 147 Oral 100 - Review of Systems Constitutional Symptoms: Positive: Weakness, Fatigue Negative: Weight Gain, Weight Loss, Fever, Night Sweats Dermatology: Negative: Rash, Skin Lesions HEENT: Negative: Change in Hearing, Vertigo, Dental Problems Eyes: Negative: Change in Vision, Double Vision, Eye Pain Thyroid: Negative: Heat Intolerance, Sweatiness, Tremor, Frequent Defecation, Constipation, Palpitations, Weight Loss, Weight Gain, Change in Skin/Hair Pulmonary: Positive: Shortness of Breath, COPD, Exercise Intolerance Negative: Cough, Sputum, Hemoptysis, Wheezing, Respiratory Distress, Home Oxygen Cardiology: Positive: Shortness of Breath Negative: Chest Pain, Palpitations, Swelling of Ankles, Peripheral Vascular Dis, Edema, Faintness, Syncope, Claudication, Paroxysmal Nocturnal Dyspnea, Orthopnea Gastroenterology: Negative: Abdominal Pain, Nausea, Vomiting, Anorexia, Indigestion, Difficulty Swallowing, Heartburn, Constipation, Diarrhea Genital - Urinary: Negative: Dysuria, Hematuria, Polyuria Musculoskeletal: Negative: Joint Pain, Joint Stiffness, Osteoporosis, Low Back Pain Endocrinology: Positive: Family Hx Endocrine Disorders, Diabetes, Hyperglycemia Negative: Thyroid Problems, Obesity, Hypoglycemia, Calluses, Polydipsia, Polyuria Hematologic/Lymphatic: Positive: Use of Antiplatelet Drugs Negative: Anemia, Easy Brusing, Hx Leukemia, Hx Lymphoma, Use of Anticoagulant Neurology: Positive: Numbness\Paresthesiae Negative: Headaches, Migraines, Change in Vision, Diplopia, Dizziness, Change in Balancing, Change in Coordination, Change in Memory, Change in Speech , Change in Sphincter Function, Change in Walking, Unexplained Weakness, Hx of Stroke\TIA, Hx Seizures Psychiatry: Negative: Sexual Dysfunction, Weight Change, Guilt Feelings, Unusual Anxiety , Suicidal Ideation Allergic/Immunologic: Negative: Hx HIV, Immunocompromise Review of Systems Statement: All other review of systems negative, unless stated above. Objective Vital Signs: Temp Pulse Resp BP Pulse Ox 97.7 F 68 21 102/59 96 09/15/17 08:00 09/15/17 09:30 09/15/17 09:30 09/15/17 09:30 09/15/17 09:30 Oxygen Devices in Use Now: None Appearance: nad, pleasant Ears/Nose/Mouth/Throat: Clear Oropharnyx, Mucous Membranes Moist Neck: NL Appearance and Movements; NL JVP Respiratory: Symmetrical Chest Expansion and Respiratory Effort, Clear to Auscultation Cardiovascular: NL Sounds; No Murmurs; No JVD, RRR, No Edema Abdominal: NL Sounds; No Tenderness; No Distention Extremities: No Edema Skin: No Rash or Ulcers, - - significant skin breakdown and ulceration on back Neurological: Alert and Oriented x 3 Laboratory Results: 09/15/17 05:25 09/15/17 09:30 INR (Anticoag Therapy) 1.15 (0.77-1.02) H 09/14/17 18:46 APTT 78.8 seconds (26.0-36.3) H 09/15/17 05:25 Total Bilirubin 0.60 mg/dL (0.2-1.0) 09/14/17 18:46 AST 37 U/L (13-39) 09/14/17 18:46 ALT 24 U/L (7-52) 09/14/17 18:46 Alkaline Phosphatase 62 U/L (34-104) 09/14/17 18:46 CK-MB (CK-2) 5.2 ng/mL (0.6-6.3) 09/15/17 02:37 B-Natriuretic Peptide 752 pg/mL (-100) H 09/14/17 18:46 Total Protein 7.4 g/dL (6.4-8.9) 09/14/17 18:46 Albumin 3.7 g/dL (3.2-5.2) 09/14/17 18:46 Globulin 3.7 g/dL (2-4) 09/14/17 18:46 Albumin/Globulin Ratio 1.0 (1-3) 09/14/17 18:46 TSH 2.15 mcIU/mL (0.34-5.60) 09/14/17 18:46 09/14/17 09/14/17 09/15/17 18:46 22:35 02:37 Troponin I 0.43 H* 0.40 H* 0.38 H* Diagnostic Imaging: Cardiac Testing: Echocardiogram - (08/24/2016) Normal LV function EF 60% Mild AR Trace MR and TR Stress Test - (08/25/2016) Normal perfusion Normal LV function EF 63% TID 1.13 Echocardiogram - (07/06/2017) Normal LV size and function EF 60% Mild AR, MR and TR Mild Pulm HTN Cardiac Procedures: Cardiac Catheterization - (07/28/2017) Acute anterior CO LM: Normal LAD: Mid 100% occlusion RCA: Mid discreet 40% and distal 80% stenosis LCx: Normal STENTS to Mid LAD: 2.5 X 12 mm and 2.5 X 20 mm Synergy JAYA 07/31/2017 25-30% echo 09/15/2017: LVEF 20-25% with apical thrombus EKG Data: EKG 09/14/2017: sinsu tachcyardia, anterior wall CO, age indeterminate with associated ST depression inferior leads 09/15/2017: SR, anterior CO, age indeterminate, ST depression inferior leads. Assessment/Plan Lorena Tafoya is a 71 year old woman with a history of CO/CAD/Ischemic cardiomyopathy LVEF admitted multiple issues as described with HPI now improving on medical therapy. Her echo shows worsening of LV function on maximally tolerated medical therapy along with a new LV apical thrombus - Give 2 grams IV magnesium and 40 meq K oral x 1 now (ordered) - Continue brillinta 90 mg po bid - Has aspirin anaphylaxis - Stop metoprolol tartrate, start toprol xl 25 mg po daily, uptitrate as tolerated - Not on AceI currently due to labile renal function and BP - Continue intensive dose statin - DM management per Primary service Patient will need therapeutic heparin or lovenox bridge to warfarin goal INR at least 2 for her apical thrombus (NOACs not studied in this situation). She remains at relatively high risk for sudden cardiac and is unable to tolerate continued external wearable defibrillator due to skin breakdown. She has worsening LV function on maximally tolerated therapy and in my best judgment her LVEF will not recovery to above 35% with medical therapy. It has been at least 6 weeks since revascularization of her CO. I discussed with her regular tire center manager Dr. Decker and will arrange for a primary prevention ICD early next week. Would leave on therapeutic anticoagulation with heparin or lovenox until then. Discussed with Dr. Perez and patient plan of care Thank you for allowing me to participate in the cardiovascular care of this patient. Please do not hesitate to contact me with questions or concerns.
[2017-09-15] MEDS: Metoprolol Succinate XL TAB* 25 MG PO SCH (10:44)
--- NOTE | 2017-09-15 13:22 | RAD ---
HISTORY: Left arm numbness, question embolic infarct COMPARISONS: September 16, [address], CTA dated September 17, 2015 TECHNIQUE: The following sequences were obtained of the head: Sagittal T1-weighted images, axial T2-weighted images, axial FLAIR images, axial susceptibility weighted images, axial T1-weighted images. Additionally, axial diffusion-weighted images were obtained with calculated apparent diffusion coefficients. FINDINGS: HEMORRHAGE/INFARCT: There is no hemorrhage or acute infarct. MASSES/SHIFT: There is no mass or shift. EXTRA-AXIAL SPACES/MENINGES: There are no extra-axial fluid collections. SULCI AND VENTRICLES: The sulci and ventricles are normal in size and position for the patient's stated age. CEREBRUM: There are no focal parenchymal abnormalities. BRAINSTEM: There are no focal parenchymal abnormalities. CEREBELLUM: There is a chronic appearing wedge-shaped infarct of the left inferior cerebellum. This is developed when compared to the previous CT examinations of September 16, 2015 The cerebellar tonsils are normal in size and position. SELLA: The sella is normal. PINEAL: The pineal region is clear. CP ANGLE/TEMPORAL BONES: The labyrinthine structures are grossly normal. VESSELS: Normal flow-voids are noted within the visualized vertebral vasculature. DIFFUSION ABNORMALITIES: There are no diffusion abnormalities. PARANASAL SINUSES/MASTOIDS: The paranasal sinuses are clear. ORBITS: The orbits are unremarkable. BONES AND SOFT TISSUE: No bone or soft tissue abnormalities are noted. 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 NO RESTRICTED DIFFUSION TO SUGGEST ACUTE INFARCT.
[2017-09-15] MEDS: Atorvastatin* 80 MG TAB PO SCH (16:39)
[2017-09-15] MEDS ORDERED: Warfarin TAB(*) 7.5 MG PO ONE (17:00)
[2017-09-15 19:44] LABS: Urine Appearance Clear; Urine Blood Negative (Negative); Urine Color Yellow; Urine Ketones Negative (Negative); Urine Protein Negative (Negative); Urine Urobilinogen Negative (Negative)
[2017-09-16] MEDS: Heparin DRIP 25,000 UNITS(*) 25,000 UNITS/500 ML BAG IVPB SCH (03:20)
[2017-09-16 07:15] LABS: ABS Basophils 0.1 10^3/ul (0-0.2); ABS Eosinophils 0.2 10^3/ul (0-0.6); ABS Lymphocytes 3.1 10^3/ul (1.0-4.8); ABS Monocytes 0.7 10^3/ul (0-0.8); ABS Neutrophils 7.2 10^3/ul (1.5-7.7); ABS Nucleated RBC 0 10^3/ul; Eosinophil % 1.8 % (0-6); Hematocrit 33 % (35-47); Lymphocyte % 27.7 % (25-47); Mean Corpuscular HGB Conc 33 g/dl (31-36); Mean Corpuscular Hemoglobin 28 pg (27-31); Mean Corpuscular Volume 86 fL (80-97); Mean Platelet Volume 9 um3 (7.4-10.4); Nucleated Red Blood Cells % 0.1; Platelet Count 338 10^3/ul (150-450); Red Blood Count 3.86 10^6/ul (4.0-5.4); Red Cell Distribution Width 15 % (10.5-15); White Blood Count 11.3 10^3/ul (3.5-10.8)
[2017-09-16 07:31] LABS: EGFR Non-African American 38.4 (>60)
[2017-09-16] MEDS: Insulin LISPRO* 1 UNITS UNIT SUBCUT SCH ×6 (07:42→22:33)
[2017-09-16 07:47] LABS: INR 1.06 (0.77-1.02)
--- NOTE | 2017-09-16 08:07 | PN ---
Subjective Date of Service: 09/16/17 Interval History: f/u CAD, ischemic cardiomyopathy no chest pain or dyspnea at rest asymptomatic sbp 80's at times left arm, I advised her to make sure taken in right arm if low. tele: no arrhythmias Medications Active Medications: Acetaminophen (Tylenol Tab*) 650 mg PO Q4H PRN PRN Reason: FEVER/PAIN Last Admin: 09/14/17 23:30 Dose: 650 mg Albuterol (Ventolin 2.5 Mg/3 Ml Neb.Kati*) 2.5 mg INH Q2H PRN PRN Reason: SOB/WHEEZING Alprazolam (Xanax Tab*) 0.25 mg PO BID PRN PRN Reason: ANXIETY Last Admin: 09/14/17 23:30 Dose: 0.25 mg Atorvastatin Calcium (Lipitor*) 80 mg PO 1700 [facility] Last Admin: 09/15/17 16:39 Dose: 80 mg Bupropion HCl (Wellbutrin Xl *) 150 mg PO DAILY [facility] PRN Reason: Protocol Last Admin: 09/15/17 09:36 Dose: 150 mg Dextrose (D50w Syringe 50 Ml*) 12.5 gm IV PUSH .FOR FS < 60 - SS PRN PRN Reason: FS < 60 Heparin Sodium (Porcine) (Heparin Vial(*)) 0 units IV .PER PROTOCOL [facility] PRN Reason: Protocol Last Admin: 09/14/17 21:45 Dose: 5,100 units Heparin Sodium/Dextrose (Heparin Drip 25,000 Units(*)) 25,000 units in 500 mls @ 0 mls/hr IVPB .PER RATE MAT; Per Protocol PRN Reason: Protocol Last Admin: 09/16/17 03:20 Dose: 16 mls/hr Insulin Glargine (Lantus(*)) 25 units SUBCUT BID [facility] Last Admin: 09/15/17 22:37 Dose: 25 units Insulin Human Lispro (Humalog*) 0 units SUBCUT AC [facility] PRN Reason: Protocol Last Admin: 09/16/17 07:42 Dose: Not Given Metoprolol Succinate (Toprol Xl Tab*) 25 mg PO DAILY [facility] Last Admin: 09/15/17 10:44 Dose: 25 mg Nystatin (Nystatin Top Powder*) 1 applic TOPICAL TID [facility] Last Admin: 09/15/17 22:37 Dose: 1 applic Ondansetron HCl (Zofran Inj*) 4 mg IV Q6H PRN PRN Reason: NAUSEA Ticagrelor (Brilinta*) 90 mg PO BID [facility] Last Admin: 09/15/17 22:37 Dose: 90 mg Venlafaxine HCl (Effexor Xr Cap*) 150 mg PO DAILY WITH MEAL [facility] Last Admin: 09/15/17 09:36 Dose: 150 mg Objective Vital Signs: Temp Pulse Resp BP Pulse Ox 98.7 F 73 16 90/52 99 09/16/17 04:42 09/16/17 04:42 09/16/17 04:42 09/16/17 04:43 09/16/17 04:42 Oxygen Devices in Use Now: None Appearance: nad, pleasant Ears/Nose/Mouth/Throat: Clear Oropharnyx, Mucous Membranes Moist Neck: NL Appearance and Movements; NL JVP Respiratory: Symmetrical Chest Expansion and Respiratory Effort, Clear to Auscultation Cardiovascular: NL Sounds; No Murmurs; No JVD, RRR, No Edema Abdominal: NL Sounds; No Tenderness; No Distention Extremities: No Edema Skin: No Rash or Ulcers, - - significant skin breakdown and ulceration on back Neurological: Alert and Oriented x 3 Laboratory Results: 09/16/17 07:04 09/16/17 07:04 INR (Anticoag Therapy) 1.06 (0.77-1.02) H 09/16/17 07:04 APTT 55.6 seconds (26.0-36.3) H 09/16/17 07:04 Total Bilirubin 0.60 mg/dL (0.2-1.0) 09/14/17 18:46 AST 37 U/L (13-39) 09/14/17 18:46 ALT 24 U/L (7-52) 09/14/17 18:46 Alkaline Phosphatase 62 U/L (34-104) 09/14/17 18:46 CK-MB (CK-2) 5.2 ng/mL (0.6-6.3) 09/15/17 02:37 B-Natriuretic Peptide 752 pg/mL (-100) H 09/14/17 18:46 Total Protein 7.4 g/dL (6.4-8.9) 09/14/17 18:46 Albumin 3.7 g/dL (3.2-5.2) 09/14/17 18:46 Globulin 3.7 g/dL (2-4) 09/14/17 18:46 Albumin/Globulin Ratio 1.0 (1-3) 09/14/17 18:46 TSH 2.15 mcIU/mL (0.34-5.60) 09/14/17 18:46 09/14/17 09/15/17 22:35 02:37 Troponin I 0.40 H* 0.38 H* Diagnostic Imaging: Cardiac Testing: Echocardiogram - (08/24/2016) Normal LV function EF 60% Mild AR Trace MR and TR Stress Test - (08/25/2016) Normal perfusion Normal LV function EF 63% TID 1.13 Echocardiogram - (07/06/2017) Normal LV size and function EF 60% Mild AR, MR and TR Mild Pulm HTN Cardiac Procedures: Cardiac Catheterization - (07/28/2017) Acute anterior [place] LM: Normal LAD: Mid 100% occlusion RCA: Mid discreet 40% and distal 80% stenosis LCx: Normal STENTS to Mid LAD: 2.5 X 12 mm and 2.5 X 20 mm Synergy JAYA 07/31/2017 25-30% echo 09/15/2017: LVEF 20-25% with apical thrombus EKG Data: EKG 09/14/2017: sinsu tachcyardia, anterior wall TX, age indeterminate with associated ST depression inferior leads 09/15/2017: SR, anterior TX, age indeterminate, ST depression inferior leads. Assessment/Plan Lorena Tafoya is a 71 year old woman with a history of [place]/CAD/Ischemic cardiomyopathy LVEF admitted multiple issues as described with HPI now improving on medical therapy. Her echo shows worsening of LV function on maximally tolerated medical therapy along with a new LV apical thrombus, brain MRI no acute findings - Continue brillinta 90 mg po bid - Has aspirin anaphylaxis - Continue toprol xl 25 mg po daily, hold for SBP < 90 mmHg if less than this in both arms - Not on AceI currently due to labile renal function and BP - Continue intensive dose statin - DM management per Primary service - Continue therapeutic heparin or lovenox - Plan for primary prevention ICD next week (refer to original consult note) Thank you for allowing me to participate in the cardiovascular care of this patient. Please do not hesitate to contact me with questions or concerns.
[2017-09-16] MEDS: Ticagrelor* 90 MG TAB PO SCH ×2 (09:14→21:34)
[2017-09-16] MEDS: Metoprolol Succinate XL TAB* 25 MG PO SCH (09:14)
[2017-09-16] MEDS: Venlafaxine EXT RELEASE CAP* 75 MG PO SCH (09:15)
[2017-09-16] MEDS: Nystatin TOP POWDER* 15 GM BTL TOPICAL SCH ×3 (09:15→21:43)
[2017-09-16] MEDS: Insulin GLARGINE(*) 1 UNITS UNIT SUBCUT SCH (09:15)
--- NOTE | 2017-09-16 10:17 | PN ---
Subjective - Subjective Reason for Note: Progress Note History: I spoke with Dr. Luca Crain yesterday: * The transthoracic echocardiogram shows left ventricular mural thrombus and she needs lifetime anticoagulation with warfarin * Her ejection fraction merits an implanted defibrillator/pacemaker * The MRI of her brain showed an old cerebellar infarction, but nothing new to explain her left arm symptoms This morning she is feeling well. She has no chest pain, palpitations, ankle swelling. The telemetry shows no ventricular or supraventricular abnormalities. She has occasional sinus tachycardia. 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 Type 2 diabetes mellitus, uncontrolled (Chronic) E11.65 Current Medications: Current Medications Acetaminophen (Tylenol Tab*) 650 mg PO Q4H PRN PRN Reason: FEVER/PAIN Last Admin: 09/14/17 23:30 Dose: 650 mg Albuterol (Ventolin 2.5 Mg/3 Ml Neb.Kati*) 2.5 mg INH Q2H PRN PRN Reason: SOB/WHEEZING Alprazolam (Xanax Tab*) 0.25 mg PO BID PRN PRN Reason: ANXIETY Last Admin: 09/14/17 23:30 Dose: 0.25 mg Atorvastatin Calcium (Lipitor*) 80 mg PO 1700 MAT Last Admin: 09/15/17 16:39 Dose: 80 mg Bupropion HCl (Wellbutrin Xl *) 150 mg PO DAILY MAT PRN Reason: Protocol Last Admin: 09/15/17 09:36 Dose: 150 mg Dextrose (D50w Syringe 50 Ml*) 12.5 gm IV PUSH .FOR FS < 60 - SS PRN PRN Reason: FS < 60 Heparin Sodium (Porcine) (Heparin Vial(*)) 0 units IV .PER PROTOCOL [facility] PRN Reason: Protocol Last Admin: 09/14/17 21:45 Dose: 5,100 units Heparin Sodium/Dextrose (Heparin Drip 25,000 Units(*)) 25,000 units in 500 mls @ 0 mls/hr IVPB .PER RATE MAT; Per Protocol PRN Reason: Protocol Last Admin: 09/16/17 03:20 Dose: 16 mls/hr Insulin Glargine (Lantus(*)) 25 units SUBCUT BID [facility] Last Admin: 09/16/17 09:15 Dose: 25 units Insulin Human Lispro (Humalog*) 0 units SUBCUT AC [facility] PRN Reason: Protocol Last Admin: 09/16/17 07:42 Dose: Not Given Metoprolol Succinate (Toprol Xl Tab*) 25 mg PO DAILY [facility] Last Admin: 09/16/17 09:14 Dose: 25 mg Nystatin (Nystatin Top Powder*) 1 applic TOPICAL TID [facility] Last Admin: 09/16/17 09:15 Dose: 1 applic Ondansetron HCl (Zofran Inj*) 4 mg IV Q6H PRN PRN Reason: NAUSEA Ticagrelor (Brilinta*) 90 mg PO BID [facility] Last Admin: 09/16/17 09:14 Dose: 90 mg Venlafaxine HCl (Effexor Xr Cap*) 150 mg PO DAILY WITH MEAL [facility] Last Admin: 09/16/17 09:15 Dose: 150 mg - Review of Systems Constitutional Symptoms: No: Fever, Night Sweats Dermatology: Rash: Yes - on back resolving Eyes: Negative: Change in Vision, Double Vision Pulmonary: Positive: Shortness of Breath - on exertio Negative: Cough, Sputum, Hemoptysis, Respiratory Distress Cardiology: Positive: Shortness of Breath Negative: Chest Pain, Palpitations, Swelling of Ankles Gastroenterology: Negative: Abdominal Pain, Nausea, Vomiting, Change in Bowel Habits Genital - Urinary: Negative: Dysuria, Polyuria Home Medications: Home Medications Medication Instructions Recorded Confirmed Type Venlafaxine EXT RELEASE CAP* 150 mg PO DAILY WITH MEAL 07/18/12 09/14/17 History [Effexor Xr CAP*] ALPRAZolam TAB* [Xanax TAB*] 0.25 mg PO BID PRN #0 09/16/15 09/14/17 History Acetaminophen TAB* [Tylenol TAB*] 650 mg PO Q4H PRN #0 tab 09/20/15 09/14/17 Rx Insulin Detemir (NF) [Levemir (NF)] 50 unit SUBCUT BID MDD 120 units 08/23/16 History Bupropion XL* [Wellbutrin XL *] 150 mg PO DAILY 07/28/17 09/14/17 History Multivitamins/Minerals TAB* 1 tab PO DAILY 07/28/17 09/14/17 History [Theragran/minerals TAB*] Atorvastatin* [Lipitor 80 MG*] 80 mg PO 1700 #30 tab 08/02/17 09/14/17 Rx Captopril TAB* [Capoten TAB*] 3.125 mg PO BID #30 tab 08/02/17 09/14/17 Rx Metoprolol Tartrate TAB* 12.5 mg PO BID #30 tab 08/02/17 09/14/17 Rx [Lopressor TAB*] Nitroglycerin TAB 0.4 MG* 0.4 mg SL Q5M PRN #15 tab 08/02/17 09/14/17 Rx Ticagrelor* [Brilinta 90 MG*] 90 mg PO BID #60 tab 08/02/17 09/14/17 Rx Allergies: Allergies Allergy/AdvReac Type Severity Reaction Status Date / Time Aspirin [ASA] Allergy Severe Anaphylatic Verified 12/30/16 13:59 Shock Doxycycline Allergy Severe Anaphylatic Verified 12/30/16 13:59 Shock Sulfa Drugs Allergy Severe Anaphylatic Verified 12/30/16 13:59 Shock Pentazocine Allergy Hallucinati Verified 12/30/16 13:59 [From Talwin Compound] ons NSAIDs AdvReac Intermediate Bleeding Verified 12/30/16 13:59 Objective - Vital Signs Vital Signs: Vital Signs 09/15/17 09/15/17 09/15/17 10:30 11:00 11:01 Temperature Pulse Rate 71 76 79 Respiratory 20 24 24 Rate Blood Pressure 115/64 96/64 (mmHg) O2 Sat by Pulse 97 98 99 Oximetry 09/15/17 09/15/17 09/15/17 11:30 11:38 12:00 Temperature 98.0 F Pulse Rate 72 Respiratory 25 28 Rate Blood Pressure 93/58 (mmHg) O2 Sat by Pulse 96 Oximetry 09/15/17 09/15/17 09/15/17 12:30 14:29 14:30 Temperature Pulse Rate 67 80 Respiratory 14 19 Rate Blood Pressure 88/51 (mmHg) O2 Sat by Pulse 93 97 99 Oximetry 09/15/17 09/15/17 09/15/17 15:55 15:57 16:26 Temperature 97.4 F 97.7 F Pulse Rate 66 68 Respiratory 16 16 Rate Blood Pressure 106/62 88/56 98/60 (mmHg) O2 Sat by Pulse 99 98 Oximetry 09/15/17 09/15/17 09/16/17 19:37 19:40 00:16 Temperature 97.3 F 98.2 F Pulse Rate 70 77 Respiratory 16 16 16 Rate Blood Pressure 102/54 88/45 (mmHg) O2 Sat by Pulse 100 98 Oximetry 09/16/17 09/16/17 09/16/17 00:39 04:42 04:43 Temperature 98.7 F Pulse Rate 76 73 Respiratory 16 16 Rate Blood Pressure 80/51 90/52 (mmHg) O2 Sat by Pulse 98 99 Oximetry 09/16/17 09/16/17 09/16/17 08:00 08:03 08:04 Temperature 97.2 F Pulse Rate 70 70 Respiratory 16 16 18 Rate Blood Pressure 111/45 (mmHg) O2 Sat by Pulse 96 98 Oximetry - Intake and Output Intake and Output: Intake & Output 09/13/17 09/14/17 09/15/17 09/16/17 11:59 11:59 11:59 11:59 Intake Total 1440 134 Balance 1440 134 Weight 147 lb 14.883 oz 147 lb 14.883 oz Intake: IV Fluids 823 NS (0.9%) 823 Medicated IV 134 heparin 134 Heparin 147 Oral 470 Other: Estimated Void Large # Bowel Movements 0 Estimated Stool Amount Small # Voids 1 ADLs: Meal Record Start: 09/14/17 21: 43 Freq: ,,18 Status: Inactive Protocol: Created 09/14/17 21:43 System (Rec: 09/14/17 21:43 System [email or web address]) Document 09/15/17 09:00 [id number] (Rec: 09/15/17 12:24 [id number]) ADLs: Meal Record Start: 09/15/17 21: 21 Freq: Status: Active Protocol: Created 09/15/17 21:21 [id number] (Rec: 09/15/17 21:21 [id number]) Intake and Output Start: 09/14/17 21: 43 Freq: 06,14,22 Status: Inactive Protocol: Created 09/14/17 21:43 System (Rec: 09/14/17 21:43 System [email or web address]) Document 09/14/17 22:00 [id number] (Rec: 09/14/17 22:43 [id number] ICU-M09) Document 09/15/17 06:00 [id number] (Rec: 09/15/17 06:29 [id number]) - Physical Exam General Physical Exam Comment: Rash on her back is resolving General: No Cyanosis, No Anemia, No Jaundice, No Clubbing Eye Exam: bilateral: EOMI, Vision Field Skin: Abnormal: Rash Lungs and Chest: Yes: Chest Expansion Full, Chest Expansion Symetrica. No: Crackles, Wheezes Heart Rate and Rhythm: Regular JVP: Not Elevated Additional Cardiovascular: Yes: Normal Heart Sounds. No: Heart Murmur, Pedal Edema Abdominal Exam: Yes: Soft, Bowel Sounds Present. No: Distention, Abdominal Mass , Abdominal Tenderness - Extremities Cranial Nerves II-XII Intact: Yes Limbs: Normal Power, Normal Tone, Normal Coordination - finger nose, rapid movt , alternating movt, Normal Sensation - Neuro Orientation: A/O x3 Psychiatric: Affect/Mood Appropriate Speech: Normal Results - Results Lab Results: Laboratory Results - last 24 hr 09/15/17 09/15/17 09/15/17 09:30 13:20 14:25 WBC RBC Hgb Hct MCV MCH MCHC RDW Plt Count MPV Neut % (Auto) Lymph % (Auto) Long % (Auto) Eos % (Auto) Baso % (Auto) Absolute Neuts (auto) Absolute Lymphs (auto) Absolute Monos (auto) Absolute Eos (auto) Absolute Basos (auto) Absolute Nucleated RBC Nucleated RBC % INR (Anticoag Therapy) APTT 50.8 H Sodium 139 Potassium 3.0 L Chloride 107 Carbon Dioxide 24 Anion Gap 8 BUN 18 Creatinine 1.22 H Est GFR ( Amer) 55.6 Est GFR (Non-Af Amer) 43.2 BUN/Creatinine Ratio 14.8 Glucose 94 POC Glucose (mg/dL) 134 H Calcium 8.3 L C-Reactive Protein Urine Color Urine Appearance Urine pH Ur Specific [place] Urine Protein Urine Ketones Urine Blood Urine Nitrate Urine Bilirubin Urine Urobilinogen Ur Leukocyte Esterase Urine Glucose 09/15/17 09/15/17 09/15/17 16:20 19:00 20:06 WBC RBC Hgb Hct MCV MCH MCHC RDW Plt Count MPV Neut % (Auto) Lymph % (Auto) Long % (Auto) Eos % (Auto) Baso % (Auto) Absolute Neuts (auto) Absolute Lymphs (auto) Absolute Monos (auto) Absolute Eos (auto) Absolute Basos (auto) Absolute Nucleated RBC Nucleated RBC % INR (Anticoag Therapy) APTT 56.4 H Sodium Potassium Chloride Carbon Dioxide Anion Gap BUN Creatinine Est GFR ( Amer) Est GFR (Non-Af Amer) BUN/Creatinine Ratio Glucose POC Glucose (mg/dL) 101 H Calcium C-Reactive Protein Urine Color Yellow Urine Appearance Clear Urine pH 5.0 Ur Specific [place] 1.010 Urine Protein Negative Urine Ketones Negative Urine Blood Negative Urine Nitrate Negative Urine Bilirubin Negative Urine Urobilinogen Negative Ur Leukocyte Esterase Negative Urine Glucose Negative 09/15/17 09/16/17 09/16/17 21:13 07:04 07:04 WBC 11.3 H RBC 3.86 L Hgb 11.0 L Hct 33 L MCV 86 MCH 28 MCHC 33 RDW 15 Plt Count 338 MPV 9 Neut % (Auto) 63.4 Lymph % (Auto) 27.7 Long % (Auto) 6.4 Eos % (Auto) 1.8 Baso % (Auto) 0.7 Absolute Neuts (auto) 7.2 Absolute Lymphs (auto) 3.1 Absolute Monos (auto) 0.7 Absolute Eos (auto) 0.2 Absolute Basos (auto) 0.1 Absolute Nucleated RBC 0 Nucleated RBC % 0.1 INR (Anticoag Therapy) APTT Sodium 138 Potassium 3.9 Chloride 109 Carbon Dioxide 24 Anion Gap 5 BUN 22 Creatinine 1.35 H Est GFR ( Amer) 49.4 Est GFR (Non-Af Amer) 38.4 BUN/Creatinine Ratio 16.3 Glucose 74 POC Glucose (mg/dL) 158 H Calcium 8.4 L C-Reactive Protein 22.14 H Urine Color Urine Appearance Urine pH Ur Specific [place] Urine Protein Urine Ketones Urine Blood Urine Nitrate Urine Bilirubin Urine Urobilinogen Ur Leukocyte Esterase Urine Glucose 09/16/17 09/16/17 07:04 07:21 WBC RBC Hgb Hct MCV MCH MCHC RDW Plt Count MPV Neut % (Auto) Lymph % (Auto) Long % (Auto) Eos % (Auto) Baso % (Auto) Absolute Neuts (auto) Absolute Lymphs (auto) Absolute Monos (auto) Absolute Eos (auto) Absolute Basos (auto) Absolute Nucleated RBC Nucleated RBC % INR (Anticoag Therapy) 1.06 H APTT 55.6 H Sodium Potassium Chloride Carbon Dioxide Anion Gap BUN Creatinine Est GFR ( Amer) Est GFR (Non-Af Amer) BUN/Creatinine Ratio Glucose POC Glucose (mg/dL) 78 Calcium C-Reactive Protein Urine Color Urine Appearance Urine pH Ur Specific [place] Urine Protein Urine Ketones Urine Blood Urine Nitrate Urine Bilirubin Urine Urobilinogen Ur Leukocyte Esterase Urine Glucose Radiology Results: Patient Name: HOMERO BILL Medical Record#: [id number] Ordering Physician: Trey Perez MD Acct.#: [id number] : 1945 Age: 71 Sex: F Location: [facility] Exam Date: 09/15/17 1020 ADM Status: ADM IN Order Information: MRI BRAIN W/O Accession Number: [id number] CPT: 34296 HISTORY: Left arm numbness, question embolic infarct COMPARISONS: September 16, [address], CTA dated September 17, 2015 TECHNIQUE: The following sequences were obtained of the head: Sagittal T1- weighted images, axial T2-weighted images, axial FLAIR images, axial susceptibility weighted images, axial T1-weighted images. Additionally, axial diffusion-weighted images were obtained with calculated apparent diffusion coefficients. FINDINGS: HEMORRHAGE/INFARCT: There is no hemorrhage or acute infarct. MASSES/SHIFT: There is no mass or shift. EXTRA-AXIAL SPACES/MENINGES: There are no extra-axial fluid collections. SULCI AND VENTRICLES: The sulci and ventricles are normal in size and position for the patient's stated age. CEREBRUM: There are no focal parenchymal abnormalities. BRAINSTEM: There are no focal parenchymal abnormalities. CEREBELLUM: There is a chronic appearing wedge-shaped infarct of the left inferior cerebellum. This is developed when compared to the previous CT examinations of September 16, 2015 The cerebellar tonsils are normal in size and position. SELLA: The sella is normal. PINEAL: The pineal region is clear. CP ANGLE/TEMPORAL BONES: The labyrinthine structures are grossly normal. VESSELS: Normal flow-voids are noted within the visualized vertebral vasculature. DIFFUSION ABNORMALITIES: There are no diffusion abnormalities. PARANASAL SINUSES/MASTOIDS: The paranasal sinuses are clear. ORBITS: The orbits are unremarkable. BONES AND SOFT TISSUE: No bone or soft tissue abnormalities are noted. OTHER: None IMPRESSION: CHRONIC INFARCT OF THE LEFT INFERIOR CEREBELLUM, NEW WHEN COMPARED TO September. NO RESTRICTED DIFFUSION TO SUGGEST ACUTE INFARCT. 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 She has no physical signs or symptoms from th is Asthma (Chronic)COPD (chronic obstructive pulmonary disease) (Chronic) Longstanding dyspnea Depression (Chronic) Hyperlipidemia (Chronic) continue current Rx Hypertension (Chronic) She had problems tolerating beta blockers and ALEAH inhibitors following her acute anterior NH. We have reintroduced beta blockade without adverse effects. 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 I want to avoid hypoglycemia as it is arrhythmogenic. I will cut the glargine insulin to 20 units per day qam Dyspnea on exertion (Chronic) ongoing Noncompliance (Chronic) A major problem going forward Stented coronary artery (Chronic) She will be on warfarin and an antiplatelet agent - to discuss with oyster picker to determine if this is supported by the evidence. I had a 20 min discussion with the patient: I outlined the different aspects of her current medical condition under 3 headings: 1. Physical: LV thrombus need for anticoagulation + history of occult CVA, Left ventricular cardiomyopathy and potential for ventricular dysrhythmias - need for ICD, Importance of compliance for all her medical conditions - particularly T2D, Prognosis. 2. Psychological: She has depression. She has no affective symptoms of depression and does not have anhedonia. She has a lack of executive function - this may be partly a manifestation of depression, and also may be partly part of a personality disorder. She is following with [facility]. I discussed compliance with medical instructions/medications - a major issue. 3. Social: [place] the [place] [place] and she can't cope with this any longer. Her pipes are frozen - she doesn't have water, she has heating. She has difficulty managing her home, getting out. She is currently being followed by [facility], and a manager of case management from [facility]. She wants to move to [facility] directly - we will see if this is something we can facilitate. She has full executive function. I discussed health care proxy (sister who has bipolar disorder, a friend who is out of town). She wishes to be full code.
[2017-09-16] MEDS ORDERED: Dextrose 50% Syringe 50 ML* 25 GM/50 ML SYRINGE IV PUSH PRN (10:45)
[2017-09-16] MEDS: BuPROPion XL* 150 MG TAB.XL PO SCH (11:12)
[2017-09-16] MEDS ORDERED: Insulin LISPRO* 1 UNITS UNIT SUBCUT SCH ×2 (11:30→12:45)
[2017-09-16 11:35] LABS: EGFR Non-African American 38.8 (>60)
[2017-09-16] MEDS: Enoxaparin(*) 80 MG/0.8 ML SYR SUBCUT SCH (12:50)
[2017-09-16] MEDS: Atorvastatin* 80 MG TAB PO SCH (17:14)
[2017-09-16] MEDS: ALPRAZolam TAB* 0.25 MG PO PRN (22:24)
[2017-09-17 08:01] LABS: ABS Basophils 0 10^3/ul (0-0.2); ABS Eosinophils 0.2 10^3/ul (0-0.6); ABS Lymphocytes 2.6 10^3/ul (1.0-4.8); ABS Monocytes 0.7 10^3/ul (0-0.8); ABS Neutrophils 6.8 10^3/ul (1.5-7.7); ABS Nucleated RBC 0 10^3/ul; Eosinophil % 2.2 % (0-6); Hematocrit 34 % (35-47); Hemoglobin 11.1 g/dl (12.0-16.0); Lymphocyte % 24.7 % (25-47); Mean Corpuscular HGB Conc 33 g/dl (31-36); Mean Corpuscular Hemoglobin 28 pg (27-31); Mean Corpuscular Volume 85 fL (80-97); Mean Platelet Volume 10 um3 (7.4-10.4); Nucleated Red Blood Cells % 0; Platelet Count 309 10^3/ul (150-450); Red Blood Count 3.93 10^6/ul (4.0-5.4); Red Cell Distribution Width 15 % (10.5-15); White Blood Count 10.4 10^3/ul (3.5-10.8)
[2017-09-17] MEDS: Insulin LISPRO* 1 UNITS UNIT SUBCUT SCH ×7 (08:26→20:23)
[2017-09-17] MEDS: Ticagrelor* 90 MG TAB PO SCH ×2 (08:37→20:23)
[2017-09-17] MEDS: Insulin GLARGINE(*) 1 UNITS UNIT SUBCUT SCH (08:37)
[2017-09-17] MEDS: Venlafaxine EXT RELEASE CAP* 75 MG PO SCH (08:37)
[2017-09-17] MEDS: BuPROPion XL* 150 MG TAB.XL PO SCH (08:37)
[2017-09-17] MEDS: Nystatin TOP POWDER* 15 GM BTL TOPICAL SCH ×3 (08:38→20:23)
[2017-09-17] MEDS: Metoprolol Succinate XL TAB* 25 MG PO SCH (08:38)
[2017-09-17] MEDS: Acetaminophen TAB* 325 MG PO PRN ×3 (08:39→22:26)
--- NOTE | 2017-09-17 11:03 | PN ---
Subjective - Subjective Reason for Note: Progress Note History: She is feeling well - she has had no chest pain, palpitations or edema. She hasn't walked more than to the bathroom - no undue dyspnea. She is tolerating subcutaneous fractionated heparin and brilinta. She has remained under tight glycemic control despite by giving her 1/4 her usual dose of lantus insulin just once per day. She has low BP. She continues to have left arm discomfort. 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 Type 2 diabetes mellitus, uncontrolled (Chronic) E11.65 Current Medications: Current Medications Acetaminophen (Tylenol Tab*) 650 mg PO Q4H PRN PRN Reason: FEVER/PAIN Last Admin: 09/17/17 08:39 Dose: 650 mg Albuterol (Ventolin 2.5 Mg/3 Ml Neb.Kati*) 2.5 mg INH Q2H PRN PRN Reason: SOB/WHEEZING Alprazolam (Xanax Tab*) 0.25 mg PO BID PRN PRN Reason: ANXIETY Last Admin: 09/16/17 22:24 Dose: 0.25 mg Atorvastatin Calcium (Lipitor*) 80 mg PO 1700 [facility] Last Admin: 09/16/17 17:14 Dose: 80 mg Bupropion HCl (Wellbutrin Xl *) 150 mg PO DAILY [facility] PRN Reason: Protocol Last Admin: 09/17/17 08:37 Dose: 150 mg Dextrose (D50w Syringe 50 Ml*) 12.5 gm IV PUSH .FOR FS < 60 - SS PRN PRN Reason: FS < 60 Enoxaparin Sodium (Lovenox(*)) 70 mg SUBCUT Q24H [facility] Last Admin: 09/16/17 12:50 Dose: 70 mg Insulin Glargine (Lantus(*)) 25 units SUBCUT Q24H [facility] Last Admin: 09/17/17 08:37 Dose: 25 units Insulin Human Lispro (Humalog*) 0 units SUBCUT AC [facility] PRN Reason: Protocol Last Admin: 09/17/17 08:26 Dose: Not Given Insulin Human Lispro (Humalog*) 0 units SUBCUT 0730,1130,1630,2100 [facility] PRN Reason: Protocol Last Admin: 09/17/17 08:26 Dose: Not Given Metoprolol Succinate (Toprol Xl Tab*) 25 mg PO DAILY [facility] Last Admin: 09/17/17 08:38 Dose: Not Given Nystatin (Nystatin Top Powder*) 1 applic TOPICAL TID [facility] Last Admin: 09/17/17 08:38 Dose: 1 applic Ticagrelor (Brilinta*) 90 mg PO BID [facility] Last Admin: 09/17/17 08:37 Dose: 90 mg Venlafaxine HCl (Effexor Xr Cap*) 150 mg PO DAILY WITH MEAL [facility] Last Admin: 09/17/17 08:37 Dose: 150 mg Home Medications: Home Medications Medication Instructions Recorded Confirmed Type Venlafaxine EXT RELEASE CAP* 150 mg PO DAILY WITH MEAL 07/18/12 09/14/17 History [Effexor Xr CAP*] ALPRAZolam TAB* [Xanax TAB*] 0.25 mg PO BID PRN #0 09/16/15 09/14/17 History Acetaminophen TAB* [Tylenol TAB*] 650 mg PO Q4H PRN #0 tab 09/20/15 09/14/17 Rx Insulin Detemir (NF) [Levemir (NF)] 50 unit SUBCUT BID MDD 120 units 08/23/16 History Bupropion XL* [Wellbutrin XL *] 150 mg PO DAILY 07/28/17 09/14/17 History Multivitamins/Minerals TAB* 1 tab PO DAILY 07/28/17 09/14/17 History [Theragran/minerals TAB*] Atorvastatin* [Lipitor 80 MG*] 80 mg PO 1700 #30 tab 08/02/17 09/14/17 Rx Captopril TAB* [Capoten TAB*] 3.125 mg PO BID #30 tab 08/02/17 09/14/17 Rx Metoprolol Tartrate TAB* 12.5 mg PO BID #30 tab 08/02/17 09/14/17 Rx [Lopressor TAB*] Nitroglycerin TAB 0.4 MG* 0.4 mg SL Q5M PRN #15 tab 08/02/17 09/14/17 Rx Ticagrelor* [Brilinta 90 MG*] 90 mg PO BID #60 tab 08/02/17 09/14/17 Rx Allergies: Allergies Allergy/AdvReac Type Severity Reaction Status Date / Time Aspirin [ASA] Allergy Severe Anaphylatic Verified 12/30/16 13:59 Shock Doxycycline Allergy Severe Anaphylatic Verified 12/30/16 13:59 Shock Sulfa Drugs Allergy Severe Anaphylatic Verified 12/30/16 13:59 Shock Pentazocine Allergy Hallucinati Verified 12/30/16 13:59 [From Talwin Compound] ons NSAIDs AdvReac Intermediate Bleeding Verified 12/30/16 13:59 Objective - Vital Signs Vital Signs: Vital Signs 09/16/17 09/16/17 09/16/17 11:46 15:30 18:34 Temperature 98.1 F 97.2 F Pulse Rate 72 72 Respiratory 18 20 Rate Blood Pressure 80/46 79/48 92/46 (mmHg) O2 Sat by Pulse 97 97 Oximetry 09/16/17 09/16/17 09/16/17 19:18 20:00 22:17 Temperature 98.2 F Pulse Rate 68 72 Respiratory 16 20 16 Rate Blood Pressure 87/51 (mmHg) O2 Sat by Pulse 98 98 Oximetry 09/16/17 09/17/17 09/17/17 22:24 01:07 03:07 Temperature 98.4 F Pulse Rate 69 Respiratory 20 16 16 Rate Blood Pressure 91/55 (mmHg) O2 Sat by Pulse 97 Oximetry 09/17/17 09/17/17 09/17/17 03:56 07:31 08:00 Temperature 98.2 F 98.0 F Pulse Rate 66 73 Respiratory 16 16 18 Rate Blood Pressure 86/58 90/55 (mmHg) O2 Sat by Pulse 99 98 Oximetry 09/17/17 08:31 Temperature Pulse Rate 73 Respiratory 17 Rate Blood Pressure (mmHg) O2 Sat by Pulse 98 Oximetry - Intake and Output Intake and Output: Intake & Output 09/14/17 09/15/17 09/16/17 09/17/17 11:59 11:59 11:59 11:59 Intake Total 1440 595 320 Output Total 400 Balance 1440 595 -80 Weight 147 lb 14.883 oz 147 lb 14.883 oz Intake: IV Fluids 823 NS (0.9%) 823 Medicated IV 134 heparin 134 Heparin 147 341 Oral 470 120 320 Output: Urine 400 Other: Estimated Void Large Large # Bowel Movements 0 0 Estimated Stool Amount Small # Voids 1 1 ADLs: Meal Record Start: 09/14/17 21: 43 Freq: 09,13,18 Status: Inactive Protocol: Created 09/14/17 21:43 System (Rec: 09/14/17 21:43 System [id number]) Document 09/15/17 09:00 [id number] (Rec: 09/15/17 12:24 [id number] ICU-C12) ADLs: Meal Record Start: 09/15/17 21: 21 Freq: Status: Active Protocol: Created 09/15/17 21:21 [id number] (Rec: 09/15/17 21:21 [id number] TELE-C09) Document 09/16/17 09:15 [id number] (Rec: 09/16/17 12:56 [id number] TELE-C11) Document 09/16/17 14:30 [id number] (Rec: 09/16/17 14:31 [id number] TELE-C11) Document 09/16/17 20:00 [id number] (Rec: 09/16/17 23:03 [id number] TELE-C01) Intake and Output Start: 09/14/17 21: 43 Freq: 06,14,22 Status: Inactive Protocol: Created 09/14/17 21:43 System (Rec: 09/14/17 21:43 System [email or web address]-M09) Document 09/14/17 22:00 [id number] (Rec: 09/14/17 22:43 [id number] ICU-M09) Document 09/15/17 06:00 [id number] (Rec: 09/15/17 06:29 [id number] ICU-M09) - Physical Exam General Physical Exam Comment: Her radial and ulnar pulses of her left arm are present. Her capillary refill is present in her left arm General: No Cyanosis, No Anemia, No Jaundice, No Clubbing Lungs and Chest: Yes: Chest Expansion Full, Chest Expansion Symetrica, Percussion Note Resonant. No: Vessicular Breath Sounds, Crackles, Wheezes Heart Rate and Rhythm: Regular Liberal Beat: Non Displaced Additional Cardiovascular: Yes: Normal Heart Sounds. No: Heart Murmur, Carotid Bruits, Pedal Edema Abdominal Exam: Yes: Soft, Bowel Sounds Present. No: Distention, Abdominal Tenderness Results - Results Lab Results: Laboratory Results - last 24 hr 09/16/17 09/16/17 09/16/17 11:06 11:29 16:10 WBC RBC Hgb Hct MCV MCH MCHC RDW Plt Count MPV Neut % (Auto) Lymph % (Auto) [place] % (Auto) Eos % (Auto) Baso % (Auto) Absolute Neuts (auto) Absolute Lymphs (auto) Absolute Monos (auto) Absolute Eos (auto) Absolute Basos (auto) Absolute Nucleated RBC Nucleated RBC % Creatinine 1.34 H Est GFR ( Amer) 49.9 Est GFR (Non-Af Amer) 38.8 POC Glucose (mg/dL) 143 H 75 09/16/17 09/17/17 09/17/17 21:37 07:10 07:42 WBC 10.4 RBC 3.93 L Hgb 11.1 L Hct 34 L MCV 85 MCH 28 MCHC 33 RDW 15 Plt Count 309 MPV 10 Neut % (Auto) 65.8 Lymph % (Auto) 24.7 L [place] % (Auto) 6.9 Eos % (Auto) 2.2 Baso % (Auto) 0.4 Absolute Neuts (auto) 6.8 Absolute Lymphs (auto) 2.6 Absolute Monos (auto) 0.7 Absolute Eos (auto) 0.2 Absolute Basos (auto) 0 Absolute Nucleated RBC 0 Nucleated RBC % 0 Creatinine Est GFR ( Amer) Est GFR (Non-Af Amer) POC Glucose (mg/dL) 144 H 81 Assessment - Problem List Assessment: Patient Problems Anticoagulation goal of INR 2 to 3 (Acute) Cardiac rhythm disturbance (Acute) Cardiomyopathy, ischemic (Acute) Elevated troponin I level (Acute) Lactic acidemia (Acute) Left ventricular thrombus (Acute) 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 She is asymptomatic, but sedentary. She is due for an ICD placement Tuesday. I spoke to Dr. Decker and he is advocating this course of action and maintains she should be on dual antiplatelet therapy and heparin/warfarin. Her left arm/hand remains painful - she has no evidence of embolism/stroke. This is likely musculo-skeletal. Her diabetes remains tightly controlled despite reduce her dose of lantus insulin. I am trying to avoid hypoglycemia. I discussed the above with the patient and she agrees with the management plan. We also discussed a safe plan of discharge.
[2017-09-17] MEDS: Enoxaparin(*) 80 MG/0.8 ML SYR SUBCUT SCH (12:07)
--- NOTE | 2017-09-17 16:14 | CONS ---
CONSULTATION REPORT: DATE OF CONSULT: 09/17/17 REASON FOR CONSULT: Evaluation for ischemic cardiomyopathy, potential ICD. HISTORY OF PRESENT ILLNESS: The patient is a 71-year-old woman, well known to me from past cardiac e valuations. The patient had a large anterior wall myocardial infarction back on 08/10/17. At that t ivelisse, she was admitted to the hospital with shortness of breath. Her EKG demonstrated ST segment elev ations in the anterior leads. Cardiac catheterization showed occlusion of her left anterior descendi ng artery. She underwent a clot aspiration and stent implantation. The patient's ejection fraction at that time was 25% and she was discharged from the hospital on appropriate medications as well as e xternal defibrillator. I had seen the patient in followup. The patient's blood pressure limits sign ificant medications for her ischemic cardiomyopathy. The patient was readmitted to the hospital this week with fatigue and irritation of her external ICD. The patient had a repeat LV evaluation by echocardiogram this week, which showed her ejection fract ion was exactly the same, where ejection fraction was 20% to 25%, with anterior wall akinesis. She w as noted to have a large thrombus in the apex of her left ventricle. She had no significant valvular abnormalities. OUTPATIENT MEDICATIONS: 1. Atorvastatin 80 mg a day. 2. Also as an outpatient, the patient was on lisinopril 2.5 mg a day. 3. Brilinta 90 mg b.i.d. 4. Toprol-XL 50 mg a day. The patient's medications could not be increased because of blood pressure issues. PHYSICAL EXAM: Vital Signs: Height is 5 feet 2 inches, weight is 147 pounds. Temperature 98, heart rate is 73, oxygen saturation 98% on room air, blood pressure 90/55. She is currently on enoxaparin 70 mg q.24 hours, metoprolol succinate 12.5 mg a day. She is currently not taking her ALEAH inhibitor. LABORATORY STUDIES: CBC within normal limits. Chemistries within normal limits. Her creatinine is 1 .35. IMPRESSION: This is a 71-year-old woman with a history of a recent large anterior wall myocardial in farction, this occurred 6 weeks ago. She is now readmitted into the hospital because of dyspnea and fatigue. She is not in congestive heart failure. The patient's echocardiogram shows that her left v entricular function has not improved at all in the last 6 weeks and also has developed a clot to the apex. RECOMMENDATIONS: It is my recommendation that the patient undergo single chamber ICD implantation fo r primary prevention of cardiac arrest. The patient is 6 weeks out from her event. My plan was to d o 90-day evaluation of her LV function, but because of the patient's complications of the LV thrombus , which will require long- term anticoagulation, and due to her inability to tolerate the LifeVest, i t is my recommendation the patient undergo ICD implantation during this hospitalization. Risks and be nefits of this were described in detail to the patient. She is willing to proceed. [id number]/[facility] #: [id number]
[2017-09-17] MEDS: Atorvastatin* 80 MG TAB PO SCH (17:48)
[2017-09-17] MEDS: ALPRAZolam TAB* 0.25 MG PO PRN (22:26)
[2017-09-18 05:06] LABS: ABS Basophils 0 10^3/ul (0-0.2); ABS Eosinophils 0.2 10^3/ul (0-0.6); ABS Lymphocytes 2.9 10^3/ul (1.0-4.8); ABS Monocytes 0.7 10^3/ul (0-0.8); ABS Neutrophils 6.2 10^3/ul (1.5-7.7); ABS Nucleated RBC 0 10^3/ul; Eosinophil % 2.2 % (0-6); Hematocrit 32 % (35-47); Hemoglobin 10.7 g/dl (12.0-16.0); Lymphocyte % 29.1 % (25-47); Mean Corpuscular HGB Conc 33 g/dl (31-36); Mean Corpuscular Hemoglobin 28 pg (27-31); Mean Corpuscular Volume 85 fL (80-97); Mean Platelet Volume 10 um3 (7.4-10.4); Nucleated Red Blood Cells % 0; Platelet Count 283 10^3/ul (150-450); Red Blood Count 3.76 10^6/ul (4.0-5.4); Red Cell Distribution Width 15 % (10.5-15)
[2017-09-18] MEDS: Acetaminophen TAB* 325 MG PO PRN ×4 (06:52→21:31)
[2017-09-18] MEDS: Insulin LISPRO* 1 UNITS UNIT SUBCUT SCH ×7 (09:20→20:57)
[2017-09-18] MEDS: Venlafaxine EXT RELEASE CAP* 75 MG PO SCH (09:42)
[2017-09-18] MEDS: Ticagrelor* 90 MG TAB PO SCH ×2 (09:42→21:31)
[2017-09-18] MEDS: BuPROPion XL* 150 MG TAB.XL PO SCH (09:42)
[2017-09-18] MEDS: Metoprolol Succinate XL TAB* 25 MG PO SCH (09:43)
[2017-09-18] MEDS ORDERED: ceFAZolin 2 GM PREMIX (*) 2 GM/50 ML BAG IVPB ONE (10:44)
[2017-09-18] MEDS ORDERED: ceFAZolin 1 GM VIAL(*) 1 GM in NS 0.9% 50 ML* 50 ML IVPB ONE (10:44)
[2017-09-18] MEDS ORDERED: Diazepam TAB(*) 5 MG PO ONE (10:44)
[2017-09-18] MEDS: Nystatin TOP POWDER* 15 GM BTL TOPICAL SCH ×3 (11:07→21:32)
[2017-09-18] MEDS: Insulin GLARGINE(*) 1 UNITS UNIT SUBCUT SCH (11:34)
[2017-09-18] MEDS: Enoxaparin(*) 80 MG/0.8 ML SYR SUBCUT SCH (11:35)
[2017-09-18] MEDS: Atorvastatin* 80 MG TAB PO SCH (17:17)
[2017-09-18] MEDS ORDERED: NS 0.9% 1000 ML* 1,000 ML IV SCH (23:55)
[2017-09-19] MEDS: D5W 1/2 NS 1000 ML BAG* 1,000 ML IV SCH ×2 (02:17→16:23)
[2017-09-19 06:06] LABS: ABS Basophils 0.1 10^3/ul (0-0.2); ABS Eosinophils 0.2 10^3/ul (0-0.6); ABS Lymphocytes 2.7 10^3/ul (1.0-4.8); ABS Monocytes 0.5 10^3/ul (0-0.8); ABS Neutrophils 6.6 10^3/ul (1.5-7.7); ABS Nucleated RBC 0 10^3/ul; Eosinophil % 2.1 % (0-6); Hematocrit 34 % (35-47); Hemoglobin 11.2 g/dl (12.0-16.0); Lymphocyte % 26.5 % (25-47); Mean Corpuscular HGB Conc 32 g/dl (31-36); Mean Corpuscular Hemoglobin 28 pg (27-31); Mean Corpuscular Volume 87 fL (80-97); Mean Platelet Volume 9 um3 (7.4-10.4); Nucleated Red Blood Cells % 0; Platelet Count 287 10^3/ul (150-450); Red Blood Count 3.98 10^6/ul (4.0-5.4); Red Cell Distribution Width 15 % (10.5-15); White Blood Count 10.1 10^3/ul (3.5-10.8)
[2017-09-19 06:35] LABS: EGFR Non-African American 37.5 (>60)
--- NOTE | 2017-09-19 07:39 | PN ---
Subjective - Subjective Reason for Note: Progress Note History: Brian Tafoya is nil by mouth in anticipation of an ICD placement today. 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.73 Asthma (Chronic) J45.909 COPD (chronic obstructive pulmonary disease) (Chronic) J44.9 Depression (Chronic) F32.9 Hyperlipidemia (Chronic) E78.5 Hypertension (Chronic) I10 Hypothyroidism (Chronic) E03.9 Stage 3 chronic kidney disease (Chronic) N18.3 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 Type 2 diabetes mellitus, uncontrolled (Chronic) E11.65 Current Medications: Current Medications Acetaminophen (Tylenol Tab*) 650 mg PO Q4H PRN PRN Reason: FEVER/PAIN Last Admin: 09/18/17 21:31 Dose: 650 mg Albuterol (Ventolin 2.5 Mg/3 Ml Neb.Kati*) 2.5 mg INH Q2H PRN PRN Reason: SOB/WHEEZING Alprazolam (Xanax Tab*) 0.25 mg PO BID PRN PRN Reason: ANXIETY Last Admin: 09/17/17 22:26 Dose: 0.25 mg Atorvastatin Calcium (Lipitor*) 80 mg PO 1700 [facility] Last Admin: 09/18/17 17:17 Dose: 80 mg Bupropion HCl (Wellbutrin Xl *) 150 mg PO DAILY [facility] PRN Reason: Protocol Last Admin: 09/18/17 09:42 Dose: 150 mg Dextrose (D50w Syringe 50 Ml*) 12.5 gm IV PUSH .FOR FS < 60 - SS PRN PRN Reason: FS < 60 Enoxaparin Sodium (Lovenox(*)) 70 mg SUBCUT Q24H [facility] Last Admin: 09/18/17 11:35 Dose: 70 mg Cefazolin Sodium/Dextrose (Kefzol 2 Gm Premix(*)) 2 gm in 50 mls @ 100 mls/hr IVPB ONCALL ONE Stop: 09/19/17 08:29 Cefazolin Sodium 1 gm/ Sodium (Chloride) 10 mls @ 0 mls/hr .SEE ORDER ONCE ONE PRN Reason: As Directed Stop: 09/19/17 09:01 Dextrose/Sodium Chloride (D5w 1/2 Ns 1000 Ml Bag*) 1,000 mls @ 100 mls/hr IV PER RATE [facility] Last Admin: 09/19/17 02:17 Dose: 100 mls/hr Insulin Glargine (Lantus(*)) 20 units SUBCUT Q24H [facility] Insulin Human Lispro (Humalog*) 0 units SUBCUT ACHS [facility] PRN Reason: Protocol Last Admin: 09/18/17 20:57 Dose: Not Given Insulin Human Lispro (Humalog*) 0 units SUBCUT AC [facility] PRN Reason: Protocol Metoprolol Succinate (Toprol Xl Tab*) 12.5 mg PO DAILY [facility] Last Admin: 09/18/17 09:43 Dose: 12.5 mg Nystatin (Nystatin Top Powder*) 1 applic TOPICAL TID [facility] Last Admin: 09/18/17 21:32 Dose: Not Given Ticagrelor (Brilinta*) 90 mg PO BID [facility] Last Admin: 09/18/17 21:31 Dose: 90 mg Venlafaxine HCl (Effexor Xr Cap*) 150 mg PO DAILY WITH MEAL [facility] Last Admin: 09/18/17 09:42 Dose: 150 mg Home Medications: Home Medications Medication Instructions Recorded Confirmed Type Venlafaxine EXT RELEASE CAP* 150 mg PO DAILY WITH MEAL 07/18/12 09/14/17 History [Effexor Xr CAP*] ALPRAZolam TAB* [Xanax TAB*] 0.25 mg PO BID PRN #0 09/16/15 09/14/17 History Acetaminophen TAB* [Tylenol TAB*] 650 mg PO Q4H PRN #0 tab 09/20/15 09/14/17 Rx Insulin Detemir (NF) [Levemir (NF)] 50 unit SUBCUT BID [facility] 120 units 08/23/16 History Bupropion XL* [Wellbutrin XL *] 150 mg PO DAILY 07/28/17 09/14/17 History Multivitamins/Minerals TAB* 1 tab PO DAILY 07/28/17 09/14/17 History [Theragran/minerals TAB*] Atorvastatin* [Lipitor 80 MG*] 80 mg PO 1700 #30 tab 08/02/17 09/14/17 Rx Captopril TAB* [Capoten TAB*] 3.125 mg PO BID #30 tab 08/02/17 09/14/17 Rx Metoprolol Tartrate TAB* 12.5 mg PO BID #30 tab 08/02/17 09/14/17 Rx [Lopressor TAB*] Nitroglycerin TAB 0.4 MG* 0.4 mg SL Q5M PRN #15 tab 08/02/17 09/14/17 Rx Ticagrelor* [Brilinta 90 MG*] 90 mg PO BID #60 tab 08/02/17 09/14/17 Rx Allergies: Allergies Allergy/AdvReac Type Severity Reaction Status Date / Time Aspirin [ASA] Allergy Severe Anaphylatic Verified 12/30/16 13:59 Shock Doxycycline Allergy Severe Anaphylatic Verified 12/30/16 13:59 Shock Sulfa Drugs Allergy Severe Anaphylatic Verified 12/30/16 13:59 Shock Pentazocine Allergy Hallucinati Verified 12/30/16 13:59 [From Talwin Compound] ons NSAIDs AdvReac Intermediate Bleeding Verified 12/30/16 13:59 Objective - Vital Signs Vital Signs: Vital Signs 09/18/17 09/18/17 09/18/17 07:44 08:00 11:25 Temperature 98.2 F 98.3 F Pulse Rate 71 72 Respiratory 16 18 20 Rate Blood Pressure 129/89 86/58 (mmHg) O2 Sat by Pulse 98 97 Oximetry 09/18/17 09/18/17 09/18/17 15:04 15:45 19:25 Temperature 98.7 F 97.9 F Pulse Rate 74 73 Respiratory 16 16 Rate Blood Pressure 91/53 88/56 (mmHg) O2 Sat by Pulse 97 97 98 Oximetry 09/18/17 09/18/17 09/19/17 20:00 22:38 00:00 Temperature 97.9 F Pulse Rate 73 Respiratory 18 16 Rate Blood Pressure 93/51 (mmHg) O2 Sat by Pulse 97 97 Oximetry 09/19/17 03:21 Temperature 97.3 F Pulse Rate 68 Respiratory 16 Rate Blood Pressure 88/52 (mmHg) O2 Sat by Pulse 98 Oximetry - Intake and Output Intake and Output: Intake & Output 09/16/17 09/17/17 09/18/17 09/19/17 11:59 11:59 11:59 11:59 Intake Total 947 667 6975 1090 Output Total 400 1300 1450 Balance 595 -80 240 -360 Weight 147 lb 14.883 oz Intake: Medicated IV 134 heparin 134 Heparin 341 Oral 228 036 0955 1090 Output: Urine 400 1300 1450 Other: Estimated Void Large Large Large # Bowel Movements 0 0 0 0 Estimated Stool Amount Small # Voids 1 1 2 ADLs: Meal Record Start: 09/14/17 21: 43 Freq: ,, Status: Inactive Protocol: Created 09/14/17 21:43 System (Rec: 09/14/17 21:43 System [id number]) Document 09/15/17 09:00 [id number] (Rec: 09/15/17 12:24 [id number] ICU-C12) ADLs: Meal Record Start: 09/15/17 21: 21 Freq: Status: Active Protocol: Created 09/15/17 21:21 [id number] (Rec: 09/15/17 21:21 [id number] TELE-C09) Document 09/16/17 09:15 [id number] (Rec: 09/16/17 12:56 [id number] TELE-C11) Document 09/16/17 14:30 [id number] (Rec: 09/16/17 14:31 [id number] TELE-C11) Document 09/16/17 20:00 [id number] (Rec: 09/16/17 23:03 [id number] TELE-C01) Document 09/17/17 13:55 [id number] (Rec: 09/17/17 13:55 [id number] TELE-C10) Document 09/17/17 13:55 [id number] (Rec: 09/17/17 13:55 [id number] TELE-C10) Document 09/17/17 20:26 [id number] (Rec: 09/17/17 20:26 [id number] TELE-C09) Document 09/18/17 10:12 [id number] (Rec: 09/18/17 10:13 [id number] TELE-C10) Document 09/18/17 14:05 [id number] (Rec: 09/18/17 14:05 [id number] TELE-C10) Document 09/18/17 20:12 [id number] (Rec: 09/18/17 20:12 [id number] TELE-C09) Intake and Output Start: 09/14/17 21: 43 Freq: 06,14,22 Status: Inactive Protocol: Created 09/14/17 21:43 System (Rec: 09/14/17 21:43 System ICU-M09) Document 09/14/17 22:00 [id number] (Rec: 09/14/17 22:43 [id number] ICU-M09) Document 09/15/17 06:00 [id number] (Rec: 09/15/17 06:29 [id number] ICU-M09) Intake and Output Start: 09/18/17 21: 50 Freq: Status: Active Protocol: Document 09/18/17 21:50 [id number] (Rec: 09/18/17 21:50 [id number] TELE-C09) Created 09/18/17 21:50 [id number] (Rec: 09/18/17 21:50 [id number] TELE-C09) Document 09/19/17 07:32 [id number] (Rec: 09/19/17 07:32 [id number] TELE-C10) - Physical Exam General: No Cyanosis, No Jaundice, No Clubbing Lungs and Chest: Yes: Chest Expansion Full, Chest Expansion Symetrica, Percussion Note Resonant, Vessicular Breath Sounds. No: Crackles, Wheezes, Respiratory Distress Heart Rate and Rhythm: Regular Additional Cardiovascular: Yes: Normal Heart Sounds. No: Heart Murmur, Pedal Edema Abdominal Exam: Yes: Bowel Sounds Present. No: Distention, Abdominal Tenderness Results - Results Lab Results: Laboratory Results - last 24 hr 09/18/17 09/18/17 09/18/17 07:42 10:59 11:40 WBC RBC Hgb Hct MCV MCH MCHC RDW Plt Count MPV Neut % (Auto) Lymph % (Auto) [place] % (Auto) Eos % (Auto) Baso % (Auto) Absolute Neuts (auto) Absolute Lymphs (auto) Absolute Monos (auto) Absolute Eos (auto) Absolute Basos (auto) Absolute Nucleated RBC Nucleated RBC % Sodium Potassium Chloride Carbon Dioxide Anion Gap BUN Creatinine Est GFR ( Amer) Est GFR (Non-Af Amer) BUN/Creatinine Ratio Glucose POC Glucose (mg/dL) 107 H 195 H Calcium Total Bilirubin AST ALT Alkaline Phosphatase Total Protein Albumin Globulin Albumin/Globulin Ratio Cortisol 10.86 09/18/17 09/18/17 09/19/17 16:35 20:56 05:50 WBC 10.1 RBC 3.98 L Hgb 11.2 L Hct 34 L MCV 87 MCH 28 MCHC 32 RDW 15 Plt Count 287 MPV 9 Neut % (Auto) 65.7 Lymph % (Auto) 26.5 [place] % (Auto) 5.1 Eos % (Auto) 2.1 Baso % (Auto) 0.6 Absolute Neuts (auto) 6.6 Absolute Lymphs (auto) 2.7 Absolute Monos (auto) 0.5 Absolute Eos (auto) 0.2 Absolute Basos (auto) 0.1 Absolute Nucleated RBC 0 Nucleated RBC % 0 Sodium Potassium Chloride Carbon Dioxide Anion Gap BUN Creatinine Est GFR ( Amer) Est GFR (Non-Af Amer) BUN/Creatinine Ratio Glucose POC Glucose (mg/dL) 129 H 130 H Calcium Total Bilirubin AST ALT Alkaline Phosphatase Total Protein Albumin Globulin Albumin/Globulin Ratio Cortisol 09/19/17 05:50 WBC RBC Hgb Hct MCV MCH MCHC RDW Plt Count MPV Neut % (Auto) Lymph % (Auto) [place] % (Auto) Eos % (Auto) Baso % (Auto) Absolute Neuts (auto) Absolute Lymphs (auto) Absolute Monos (auto) Absolute Eos (auto) Absolute Basos (auto) Absolute Nucleated RBC Nucleated RBC % Sodium 136 Potassium 4.5 Chloride 108 Carbon Dioxide 21 L Anion Gap 7 BUN 23 Creatinine 1.38 H Est GFR ( Amer) 48.2 Est GFR (Non-Af Amer) 37.5 BUN/Creatinine Ratio 16.7 Glucose 109 H POC Glucose (mg/dL) Calcium 8.7 Total Bilirubin 0.30 AST 21 ALT 16 Alkaline Phosphatase 43 Total Protein 5.5 L Albumin 2.8 L Globulin 2.7 Albumin/Globulin Ratio 1.0 Cortisol Assessment - Problem List Assessment: Patient Problems Anticoagulation goal of INR 2 to 3 (Acute) Cardiac rhythm disturbance (Acute) Cardiomyopathy, ischemic (Acute) Elevated troponin I level (Acute) Lactic acidemia (Acute) Left ventricular thrombus (Acute) 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 She also knows she is going to need extra help subsequently owing to living alone and having only one arm she can rely upon. She is prepared to consider a SNF for subacute rehabilitation. We will decide upon anticoagulation subsequently - most likely warfarin with a enoxaparin bridge.
[2017-09-19] MEDS ORDERED: ceFAZolin 2 GM PREMIX (*) 2 GM/50 ML BAG IVPB ONE (08:00)
[2017-09-19] MEDS: Insulin LISPRO* 1 UNITS UNIT SUBCUT SCH ×6 (08:26→19:53)
[2017-09-19] MEDS ORDERED: Insulin GLARGINE(*) 1 UNITS UNIT SUBCUT SCH (09:00)
[2017-09-19] MEDS ORDERED: ceFAZolin VIAL 1 GM in NS *SYRINGE * * 10 ML ONE (09:00)
[2017-09-19] MEDS ORDERED: Midazolam* 1 MG/ML 10 ML VIAL (10 MG) ONE (13:32)
[2017-09-19] MEDS ORDERED: fentaNYL* 50 MCG/ML 2 ML VIAL (100 MCG VIAL) ONE (13:32)
[2017-09-19] MEDS ORDERED: Lidocaine 1% INJ* 10 MG/ML 30 ML SDV ONE (13:33)
[2017-09-19] MEDS ORDERED: Naloxone* 0.4 MG/ML 1 ML VIAL ONE (14:08)
[2017-09-19] MEDS ORDERED: Flumazenil* 0.1 MG/ML 5 ML MDV ONE (14:09)
[2017-09-19] MEDS ORDERED: Diazepam TAB(*) 5 MG ONE (14:19)
[2017-09-19] MEDS: Atorvastatin* 80 MG TAB PO SCH (16:09)
[2017-09-19] MEDS: Acetaminophen TAB* 325 MG PO PRN (16:09)
--- NOTE | 2017-09-19 16:21 | RAD ---
HISTORY: Status post device implant COMPARISONS: September 14, 2012 VIEWS: 1: frontal portable view of the chest at 3:44 PM FINDINGS: LINES AND TUBES: A left-sided AICD is noted. CARDIOMEDIASTINAL SILHOUETTE: The cardiomediastinal silhouette is normal for portable technique. PLEURA: The costophrenic angles are sharp. No pleural abnormalities are noted. There is no appreciable pneumothorax. LUNG PARENCHYMA: The lungs are clear. ABDOMEN: The upper abdomen is clear. There is no subphrenic gas. BONES AND SOFT TISSUES: No bone or soft tissue abnormalities are noted. IMPRESSION: NO ACTIVE CARDIOPULMONARY DISEASE.
[2017-09-19] MEDS: Ticagrelor* 90 MG TAB PO SCH ×2 (16:48→20:48)
[2017-09-19] MEDS: Metoprolol Succinate XL TAB* 25 MG PO SCH (17:22)
[2017-09-19] MEDS: Enoxaparin(*) 80 MG/0.8 ML SYR SUBCUT SCH (17:23)
[2017-09-19] MEDS: BuPROPion XL* 150 MG TAB.XL PO SCH (17:23)
[2017-09-19] MEDS: Venlafaxine EXT RELEASE CAP* 75 MG PO SCH (17:23)
[2017-09-19] MEDS: ceFAZolin 1 GM VIAL(*) 1 GM in NS 0.9% 50 ML* 50 ML IVPB SCH ×2 (17:24→23:46)
[2017-09-19] MEDS: Nystatin TOP POWDER* 15 GM BTL TOPICAL SCH ×2 (17:35→20:59)
[2017-09-19] MEDS: oxyCODONE/Acetamin 5/325 MG* TAB PO PRN ×2 (18:47→22:50)
[2017-09-19] MEDS: Insulin GLARGINE(*) 1 UNITS UNIT SUBCUT SCH (20:48)
[2017-09-19] MEDS: ALPRAZolam TAB* 0.25 MG PO PRN (21:02)
[2017-09-20] MEDS: D5W 1/2 NS 1000 ML BAG* 1,000 ML IV SCH (02:38)
[2017-09-20] MEDS: Insulin LISPRO* 1 UNITS UNIT SUBCUT SCH ×7 (08:15→20:45)
[2017-09-20] MEDS: Metoprolol Succinate XL TAB* 25 MG PO SCH ×2 (08:17→13:31)
[2017-09-20] MEDS: ceFAZolin 1 GM VIAL(*) 1 GM in NS 0.9% 50 ML* 50 ML IVPB SCH (08:17)
[2017-09-20] MEDS: Venlafaxine EXT RELEASE CAP* 75 MG PO SCH ×2 (08:18→13:30)
[2017-09-20] MEDS: BuPROPion XL* 150 MG TAB.XL PO SCH ×2 (08:18→13:30)
[2017-09-20] MEDS: Ticagrelor* 90 MG TAB PO SCH ×2 (08:18→20:45)
[2017-09-20] MEDS: Nystatin TOP POWDER* 15 GM BTL TOPICAL SCH ×3 (08:20→21:45)
[2017-09-20] MEDS: oxyCODONE/Acetamin 5/325 MG* TAB PO PRN ×4 (08:24→23:32)
--- NOTE | 2017-09-20 08:55 | PN ---
Subjective - Subjective Reason for Note: Progress Note History: She tolerated the ICD placement. She has some pain in her left arm this morning , but thinks this is the pain in her left arm - she thinks this is the pain she has had prior to the surgery. Otherwise, she is eating and drinking, her glucose is fine. She has no new problems today. 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 Type 2 diabetes mellitus, uncontrolled (Chronic) E11.65 Current Medications: Current Medications Acetaminophen (Tylenol Tab*) 650 mg PO Q4H PRN PRN Reason: FEVER/PAIN Last Admin: 09/19/17 16:09 Dose: 650 mg Albuterol (Ventolin 2.5 Mg/3 Ml Neb.Kati*) 2.5 mg INH Q2H PRN PRN Reason: SOB/WHEEZING Alprazolam (Xanax Tab*) 0.25 mg PO BID PRN PRN Reason: ANXIETY Last Admin: 09/19/17 21:02 Dose: 0.25 mg Atorvastatin Calcium (Lipitor*) 80 mg PO 1700 [facility] Last Admin: 09/19/17 16:09 Dose: 80 mg Bupropion HCl (Wellbutrin Xl *) 150 mg PO DAILY@0900 [facility] PRN Reason: Protocol Last Admin: 09/20/17 08:18 Dose: 150 mg Dextrose (D50w Syringe 50 Ml*) 12.5 gm IV PUSH .FOR FS < 60 - SS PRN PRN Reason: FS < 60 Enoxaparin Sodium (Lovenox(*)) 70 mg SUBCUT 1700 [facility] Last Admin: 09/19/17 17:23 Dose: 70 mg Dextrose/Sodium Chloride (D5w 1/2 Ns 1000 Ml Bag*) 1,000 mls @ 100 mls/hr IV PER RATE [facility] Last Admin: 09/20/17 02:38 Dose: 100 mls/hr Insulin Glargine (Lantus(*)) 20 units SUBCUT BEDTIME [facility] Last Admin: 09/19/17 20:48 Dose: 20 unit Insulin Human Lispro (Humalog*) 0 units SUBCUT ACHS [facility] PRN Reason: Protocol Last Admin: 09/20/17 08:15 Dose: Not Given Insulin Human Lispro (Humalog*) 0 units SUBCUT AC [facility] PRN Reason: Protocol Last Admin: 09/19/17 18:44 Dose: 2 units Metoprolol Succinate (Toprol Xl Tab*) 12.5 mg PO DAILY@0900 [facility] Last Admin: 09/20/17 08:17 Dose: 12.5 mg Nystatin (Nystatin Top Powder*) 1 applic TOPICAL TID [facility] Last Admin: 09/20/17 08:20 Dose: Not Given Oxycodone/Acetaminophen (Percocet 5/325 Tab*) 1 tab PO Q4H PRN PRN Reason: PAIN Last Admin: 09/20/17 08:24 Dose: 1 tab Ticagrelor (Brilinta*) 90 mg PO BID [facility] Last Admin: 09/20/17 08:18 Dose: 90 mg Venlafaxine HCl (Effexor Xr Cap*) 150 mg PO 0830 [facility] Last Admin: 09/20/17 08:18 Dose: 150 mg Home Medications: Home Medications Medication Instructions Recorded Confirmed Type Venlafaxine EXT RELEASE CAP* 150 mg PO DAILY WITH MEAL 07/18/12 09/14/17 History [Effexor Xr CAP*] ALPRAZolam TAB* [Xanax TAB*] 0.25 mg PO BID PRN #0 09/16/15 09/14/17 History Acetaminophen TAB* [Tylenol TAB*] 650 mg PO Q4H PRN #0 tab 09/20/15 09/14/17 Rx Insulin Detemir (NF) [Levemir (NF)] 50 unit SUBCUT BID MDD 120 units 08/23/16 History Bupropion XL* [Wellbutrin XL *] 150 mg PO DAILY 07/28/17 09/14/17 History Multivitamins/Minerals TAB* 1 tab PO DAILY 07/28/17 09/14/17 History [Theragran/minerals TAB*] Atorvastatin* [Lipitor 80 MG*] 80 mg PO 1700 #30 tab 08/02/17 09/14/17 Rx Captopril TAB* [Capoten TAB*] 3.125 mg PO BID #30 tab 08/02/17 09/14/17 Rx Metoprolol Tartrate TAB* 12.5 mg PO BID #30 tab 08/02/17 09/14/17 Rx [Lopressor TAB*] Nitroglycerin TAB 0.4 MG* 0.4 mg SL Q5M PRN #15 tab 08/02/17 09/14/17 Rx Ticagrelor* [Brilinta 90 MG*] 90 mg PO BID #60 tab 08/02/17 09/14/17 Rx Allergies: Allergies Allergy/AdvReac Type Severity Reaction Status Date / Time Aspirin [ASA] Allergy Severe Anaphylatic Verified 12/30/16 13:59 Shock Doxycycline Allergy Severe Anaphylatic Verified 12/30/16 13:59 Shock Sulfa Drugs Allergy Severe Anaphylatic Verified 12/30/16 13:59 Shock Pentazocine Allergy Hallucinati Verified 12/30/16 13:59 [From Talwin Compound] ons NSAIDs AdvReac Intermediate Bleeding Verified 12/30/16 13:59 Objective - Vital Signs Vital Signs: Vital Signs 09/19/17 09/19/17 09/19/17 11:53 15:30 15:31 Temperature 97.9 F 98.0 F Pulse Rate 72 71 72 Respiratory 16 16 11 Rate Blood Pressure 85/55 114/73 (mmHg) O2 Sat by Pulse 97 96 97 Oximetry 09/19/17 09/19/17 09/19/17 15:33 15:34 15:45 Temperature 98 F Pulse Rate 73 73 Respiratory 13 12 Rate Blood Pressure 114/73 114/75 (mmHg) O2 Sat by Pulse 97 97 Oximetry 09/19/17 09/19/17 09/19/17 16:00 16:01 16:03 Temperature 97.9 F 97 F Pulse Rate 74 72 Respiratory 10 12 Rate Blood Pressure 115/72 (mmHg) O2 Sat by Pulse 97 93 Oximetry 09/19/17 09/19/17 09/19/17 16:15 16:30 16:31 Temperature 97 F Pulse Rate 73 67 Respiratory 18 9 Rate Blood Pressure 105/68 100/67 (mmHg) O2 Sat by Pulse 97 97 Oximetry 09/19/17 09/19/17 09/19/17 16:45 17:00 17:01 Temperature Pulse Rate 68 66 69 Respiratory 11 9 22 Rate Blood Pressure 106/64 104/62 (mmHg) O2 Sat by Pulse 97 96 96 Oximetry 09/19/17 09/19/17 09/19/17 17:15 17:30 17:33 Temperature 97.6 F Pulse Rate 72 68 Respiratory 16 22 Rate Blood Pressure 90/53 106/66 (mmHg) O2 Sat by Pulse 95 97 Oximetry 09/19/17 09/19/17 09/19/17 17:45 18:00 18:01 Temperature Pulse Rate 71 69 70 Respiratory 17 18 18 Rate Blood Pressure 103/65 102/60 (mmHg) O2 Sat by Pulse 96 97 98 Oximetry 09/19/17 09/19/17 09/19/17 18:15 18:28 18:31 Temperature 97.7 F Pulse Rate 78 71 Respiratory 20 20 Rate Blood Pressure 100/69 91/62 (mmHg) O2 Sat by Pulse 98 97 Oximetry 09/19/17 09/19/17 09/19/17 18:45 18:47 18:57 Temperature Pulse Rate 69 Respiratory 16 17 17 Rate Blood Pressure 94/62 (mmHg) O2 Sat by Pulse 97 Oximetry 09/19/17 09/19/17 09/19/17 19:00 19:01 19:07 Temperature Pulse Rate 72 70 71 Respiratory 22 20 19 Rate Blood Pressure 100/62 (mmHg) O2 Sat by Pulse 91 96 97 Oximetry 09/19/17 09/19/17 09/19/17 19:33 20:00 20:01 Temperature 98.1 F Pulse Rate 69 68 Respiratory 16 12 Rate Blood Pressure 93/64 (mmHg) O2 Sat by Pulse 96 96 Oximetry 09/19/17 09/19/17 09/19/17 21:00 21:01 21:02 Temperature Pulse Rate 71 69 Respiratory 18 15 16 Rate Blood Pressure 97/62 (mmHg) O2 Sat by Pulse 95 95 Oximetry 09/19/17 09/19/17 09/19/17 22:00 22:01 22:33 Temperature Pulse Rate 65 66 Respiratory 11 11 Rate Blood Pressure 100/60 (mmHg) O2 Sat by Pulse 96 96 96 Oximetry 09/19/17 09/19/17 09/19/17 22:50 23:00 23:01 Temperature Pulse Rate 68 68 Respiratory 18 21 24 Rate Blood Pressure 92/56 (mmHg) O2 Sat by Pulse 94 94 Oximetry 09/19/17 09/20/17 09/20/17 23:49 00:00 00:01 Temperature 97.8 F Pulse Rate 69 69 Respiratory 16 13 Rate Blood Pressure 87/65 (mmHg) O2 Sat by Pulse 96 93 Oximetry 09/20/17 09/20/17 09/20/17 00:21 00:50 01:00 Temperature Pulse Rate 70 68 Respiratory 16 16 11 Rate Blood Pressure 101/65 (mmHg) O2 Sat by Pulse 96 97 Oximetry 09/20/17 09/20/17 09/20/17 01:01 02:00 02:01 Temperature Pulse Rate 65 67 69 Respiratory 25 4 10 Rate Blood Pressure 102/64 (mmHg) O2 Sat by Pulse 96 98 98 Oximetry 09/20/17 09/20/17 09/20/17 02:41 03:00 03:01 Temperature Pulse Rate 67 71 Respiratory 16 7 11 Rate Blood Pressure 99/59 (mmHg) O2 Sat by Pulse 95 94 Oximetry 09/20/17 09/20/17 09/20/17 03:46 04:00 04:01 Temperature 97.8 F Pulse Rate 68 67 Respiratory 19 17 Rate Blood Pressure 90/56 (mmHg) O2 Sat by Pulse 95 90 Oximetry 09/20/17 09/20/17 09/20/17 05:00 05:01 05:17 Temperature Pulse Rate 66 65 Respiratory 25 13 17 Rate Blood Pressure 115/78 (mmHg) O2 Sat by Pulse 95 95 93 Oximetry 09/20/17 09/20/17 09/20/17 06:00 06:01 06:42 Temperature Pulse Rate 71 71 Respiratory 23 13 18 Rate Blood Pressure 106/73 (mmHg) O2 Sat by Pulse 95 96 Oximetry 09/20/17 09/20/17 07:52 08:24 Temperature 97.8 F Pulse Rate Respiratory 17 Rate Blood Pressure (mmHg) O2 Sat by Pulse Oximetry - Intake and Output Intake and Output: Intake & Output 09/17/17 09/18/17 09/19/17 09/20/17 11:59 11:59 11:59 11:59 Intake Total 320 1540 1090 1296 Output Total 400 1300 1450 380 Balance -80 240 -360 916 Weight 147 lb 11.355 oz Intake: IV Fluids 1296 d5 1/2 ns 1296 Oral 320 1540 1090 Output: Urine 400 1300 1450 380 Other: Estimated Void Large Large # Bowel Movements 0 0 0 # Voids 1 2 ADLs: Meal Record Start: 09/14/17 21: 43 Freq: 09,13,18 Status: Inactive Protocol: Created 09/14/17 21:43 System (Rec: 09/14/17 21:43 System ICU-M09) Document 09/15/17 09:00 [id number] (Rec: 09/15/17 12:24 [id number] ICU-C12) ADLs: Meal Record Start: 09/15/17 21: 21 Freq: Status: Active Protocol: Created 09/15/17 21:21 [id number] (Rec: 09/15/17 21:21 [id number] TELE-C09) Document 09/16/17 09:15 [id number] (Rec: 09/16/17 12:56 [id number] TELE-C11) Document 09/16/17 14:30 [id number] (Rec: 09/16/17 14:31 [id number] TELE-C11) Document 09/16/17 20:00 [id number] (Rec: 09/16/17 23:03 [id number] TELE-C01) Document 09/17/17 13:55 [id number] (Rec: 09/17/17 13:55 [id number] TELE-C10) Document 09/17/17 13:55 [id number] (Rec: 09/17/17 13:55 [id number] TELE-C10) Document 09/17/17 20:26 [id number] (Rec: 09/17/17 20:26 [id number] TELE-C09) Document 09/18/17 10:12 [id number] (Rec: 09/18/17 10:13 [id number] TELE-C10) Document 09/18/17 14:05 [id number] (Rec: 09/18/17 14:05 [id number] TELE-C10) Document 09/18/17 20:12 [id number] (Rec: 09/18/17 20:12 [id number] TELE-C09) Document 09/19/17 09:00 [id number] (Rec: 09/19/17 13:49 [id number] TELE-C01) ADLs: Meal Record Start: 09/19/17 15: 31 Freq: 09,13,18 Status: Active Protocol: Created 09/19/17 15:31 [id number] (Rec: 09/19/17 15:31 [id number] ICU-M07) Document 09/19/17 18:00 [id number] (Rec: 09/19/17 18:24 [id number] ICU-C15) Intake and Output Start: 09/14/17 21: 43 Freq: 06,14,22 Status: Inactive Protocol: Created 09/14/17 21:43 System (Rec: 09/14/17 21:43 System ICU-M09) Document 09/14/17 22:00 [id number] (Rec: 09/14/17 22:43 [id number] ICU-M09) Document 09/15/17 06:00 [id number] (Rec: 09/15/17 06:29 [id number] ICU-M09) Intake and Output Start: 09/18/17 21: 50 Freq: Status: Active Protocol: Document 09/18/17 21:50 [id number] (Rec: 09/18/17 21:50 [id number] TELE-C09) Created 09/18/17 21:50 [id number] (Rec: 09/18/17 21:50 [id number] TELE-C09) Document 09/19/17 07:32 [id number] (Rec: 09/19/17 07:32 [id number] TELE-C10) Intake and Output Start: 09/19/17 15: 31 Freq: 06,14,22 Status: Active Protocol: Created 09/19/17 15:31 [id number] (Rec: 09/19/17 15:31 [id number] ICU-M07) Document 09/19/17 22:00 [id number] (Rec: 09/20/17 00:37 [id number] ICU-C12) Document 09/20/17 05:16 [id number] (Rec: 09/20/17 05:16 [id number] ICU-C12) - Physical Exam General: No Cyanosis, No Anemia, No Jaundice, No Clubbing Skin: Normal: Rash Lungs and Chest: Yes: Chest Expansion Full, Chest Expansion Symetrica, Percussion Note Resonant, Vessicular Breath Sounds. No: Crackles, Wheezes Heart Rate and Rhythm: Regular JVP: Not Elevated Additional Cardiovascular: Yes: Normal Heart Sounds. No: Pedal Edema Abdominal Exam: Yes: Soft, Bowel Sounds Present. 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 (Acute) secondary diagnosis Asthma (Chronic) secondary diagnosis COPD (chronic obstructive pulmonary disease) (Chronic) secondary diagnosis Depression (Chronic) secondary diagnosis Hyperlipidemia (Chronic) secondary diagnosis Hypertension (Chronic) secondary diagnosis Hypothyroidism (Chronic) secondary diagnosis Stage 3 chronic kidney disease (Chronic) secondary diagnosis Type 2 diabetes mellitus, uncontrolled (Chronic)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 She requires sub acute rehab in SNF - she agrees to this and we will arrange for this.
--- NOTE | 2017-09-20 10:24 | RAD ---
Indication: Status post device implant. 2 views of the chest demonstrates no mediastinal shift. Heart is of normal size and configuration. Pacemaker leads are in place. No alveolar consolidation is noted. No pneumothorax is noted. IMPRESSION: Pacemaker in place with no evidence of pneumothorax.
[2017-09-20] MEDS: Enoxaparin(*) 80 MG/0.8 ML SYR SUBCUT SCH ×2 (13:31→18:03)
[2017-09-20] MEDS ORDERED: Warfarin TAB(*) 7.5 MG PO ONE (17:00)
[2017-09-20] MEDS: Atorvastatin* 80 MG TAB PO SCH (18:04)
[2017-09-20] MEDS: Insulin GLARGINE(*) 1 UNITS UNIT SUBCUT SCH (20:44)
--- NOTE | 2017-09-20 22:23 | OP ---
CC: Dr. Perez * DATE OF OPERATION: 09/19/17 - ROOM #447 DATE OF : 41 SURGEON: Vikram Decker MD ANESTHESIA: Local anesthesia with conscious sedation. PRE-OP DIAGNOSIS: Ischemic cardiomyopathy. POST-OP DIAGNOSIS: Ischemic cardiomyopathy. OPERATIVE PROCEDURE: Single chamber ICD implantation. ESTIMATED BLOOD LOSS: Nil. COMPLICATIONS: None. INDICATIONS: The patient is a 71-year-old female with a history of lung disease who was admitted to the hospital 6 weeks ago for an acute anterior wall myocardial infarction. She underwent emergent stenting to her LAD. The patient 's ejection fraction at the time of her event was 25% with severe anterior wall akinesis. The patient was discharged home with a LifeVest. She was readmitted to the hospital because of severe fatigue. The patient also had noticed that she had been unable to wear her LifeVest because of skin breakdown. A repeat echocardiogram in the hospital 6 weeks after her event demonstrated her LV function had not improved at all and actually she had a LV thrombus. ICD implantation was recommended. DESCRIPTION OF PROCEDURE: The patient was brought to the procedure room in a fasting state. Informed consent had been obtained prior to the procedure. All labs had been reviewed. The patient was placed supine on the procedure table. Her anterior chest was prepped and draped in the usual fashion. A 1% lidocaine was used for local anesthesia. The axillary vein was entered by a modified Seldinger technique and a guidewire was placed. A 4 cm incision was made in the pectoral area and blunt dissection was carried down to the pectoral fascia. A pocket was fashioned for the ICD. Over the guidewire, a 9-Telugu sheath introducer was placed through which a right ventricular ICD lead was advanced to the RV apex. The lead is a Med[employer]onic model 6935, serial number [id number]. It had an R wave sensitivity of 4.9, impedance of 494 ohms, threshold 0.9 volts at 0.5 milliseconds. The ventricular lead was sutured to the pectoral fascia using 0 silk. The pocket was flushed and a generator was attached to the ventricular lead. The generator is a Medtronic model LFES0C1, serial number [id number]. The device was placed in a pocket. The surgical incision was closed. The patient was returned to the holding area in stable condition. [id number]/[facility] #: [id number] JAIMIE
[2017-09-21] MEDS: Levothyroxine TAB* 75 MCG TAB PO SCH (05:22)
[2017-09-21] MEDS: oxyCODONE/Acetamin 5/325 MG* TAB PO PRN ×3 (05:22→17:36)
[2017-09-21] MEDS: Insulin LISPRO* 1 UNITS UNIT SUBCUT SCH ×7 (08:30→22:40)
[2017-09-21] MEDS: Venlafaxine EXT RELEASE CAP* 75 MG PO SCH (08:31)
[2017-09-21] MEDS: Acetaminophen TAB* 325 MG PO PRN (08:32)
[2017-09-21] MEDS: BuPROPion XL* 150 MG TAB.XL PO SCH (08:32)
[2017-09-21] MEDS: Ticagrelor* 90 MG TAB PO SCH ×2 (08:33→22:39)
[2017-09-21] MEDS: Metoprolol Succinate XL TAB* 25 MG PO SCH (08:33)
[2017-09-21] MEDS: ALPRAZolam TAB* 0.25 MG PO PRN (08:35)
[2017-09-21] MEDS: Nystatin TOP POWDER* 15 GM BTL TOPICAL SCH ×3 (08:37→22:44)
--- NOTE | 2017-09-21 08:39 | PN ---
Subjective - Subjective Reason for Note: Progress Note History: She remains hypotensive and has some light headness on transfer. Otherwise, she is not having any other new symptoms. She has no chest pain, dyspnea or palpitations. 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 Type 2 diabetes mellitus, uncontrolled (Chronic) E11.65 Current Medications: Current Medications Acetaminophen (Tylenol Tab*) 650 mg PO Q4H PRN PRN Reason: FEVER/PAIN Last Admin: 09/21/17 08:32 Dose: 650 mg Albuterol (Ventolin 2.5 Mg/3 Ml Neb.Kati*) 2.5 mg INH Q2H PRN PRN Reason: SOB/WHEEZING Alprazolam (Xanax Tab*) 0.25 mg PO BID PRN PRN Reason: ANXIETY Last Admin: 09/19/17 21:02 Dose: 0.25 mg Atorvastatin Calcium (Lipitor*) 80 mg PO 1700 [facility] Last Admin: 09/20/17 18:04 Dose: 80 mg Bupropion HCl (Wellbutrin Xl *) 150 mg PO DAILY@0900 [facility] PRN Reason: Protocol Last Admin: 09/20/17 08:18 Dose: 150 mg Dextrose (D50w Syringe 50 Ml*) 12.5 gm IV PUSH .FOR FS < 60 - SS PRN PRN Reason: FS < 60 Enoxaparin Sodium (Lovenox(*)) 70 mg SUBCUT 1700 [facility] Last Admin: 09/20/17 18:03 Dose: 70 mg Insulin Glargine (Lantus(*)) 20 units SUBCUT BEDTIME [facility] Last Admin: 09/20/17 20:44 Dose: 20 unit Insulin Human Lispro (Humalog*) 0 units SUBCUT ACHS [facility] PRN Reason: Protocol Last Admin: 09/21/17 08:30 Dose: Not Given Insulin Human Lispro (Humalog*) 0 units SUBCUT AC [facility] PRN Reason: Protocol Last Admin: 09/20/17 18:03 Dose: 2 units Levothyroxine Sodium (Synthroid Tab*) 75 mcg PO DAILY@0600 [facility] Last Admin: 09/21/17 05:22 Dose: 75 mcg Metoprolol Succinate (Toprol Xl Tab*) 12.5 mg PO DAILY@0900 [facility] Last Admin: 09/20/17 08:17 Dose: 12.5 mg Nystatin (Nystatin Top Powder*) 1 applic TOPICAL TID [facility] Last Admin: 09/20/17 21:45 Dose: 1 applic Oxycodone/Acetaminophen (Percocet 5/325 Tab*) 1 tab PO Q4H PRN PRN Reason: PAIN Last Admin: 09/21/17 05:22 Dose: 1 tab Pharmacy Profile Note (Coumadin Per Pharmacy*) 0 note FOLLOW UP .PER PHARMACY PROTOC [facility] PRN Reason: Protocol Ticagrelor (Brilinta*) 90 mg PO BID [facility] Last Admin: 09/20/17 20:45 Dose: 90 mg Venlafaxine HCl (Effexor Xr Cap*) 150 mg PO 0830 [facility] Last Admin: 09/21/17 08:31 Dose: 150 mg Home Medications: Home Medications Medication Instructions Recorded Confirmed Type Venlafaxine EXT RELEASE CAP* 150 mg PO DAILY WITH MEAL 07/18/12 09/14/17 History [Effexor Xr CAP*] ALPRAZolam TAB* [Xanax TAB*] 0.25 mg PO BID PRN #0 09/16/15 09/14/17 History Acetaminophen TAB* [Tylenol TAB*] 650 mg PO Q4H PRN #0 tab 09/20/15 09/14/17 Rx Insulin Detemir (NF) [Levemir (NF)] 50 unit SUBCUT BID MDD 120 units 08/23/16 History Bupropion XL* [Wellbutrin XL *] 150 mg PO DAILY 07/28/17 09/14/17 History Multivitamins/Minerals TAB* 1 tab PO DAILY 07/28/17 09/14/17 History [Theragran/minerals TAB*] Atorvastatin* [Lipitor 80 MG*] 80 mg PO 1700 #30 tab 08/02/17 09/14/17 Rx Captopril TAB* [Capoten TAB*] 3.125 mg PO BID #30 tab 08/02/17 09/14/17 Rx Metoprolol Tartrate TAB* 12.5 mg PO BID #30 tab 08/02/17 09/14/17 Rx [Lopressor TAB*] Nitroglycerin TAB 0.4 MG* 0.4 mg SL Q5M PRN #15 tab 08/02/17 09/14/17 Rx Ticagrelor* [Brilinta 90 MG*] 90 mg PO BID #60 tab 08/02/17 09/14/17 Rx Allergies: Allergies Allergy/AdvReac Type Severity Reaction Status Date / Time Aspirin [ASA] Allergy Severe Anaphylatic Verified 12/30/16 13:59 Shock Doxycycline Allergy Severe Anaphylatic Verified 12/30/16 13:59 Shock Sulfa Drugs Allergy Severe Anaphylatic Verified 12/30/16 13:59 Shock Pentazocine Allergy Hallucinati Verified 12/30/16 13:59 [From Talwin Compound] ons NSAIDs AdvReac Intermediate Bleeding Verified 12/30/16 13:59 Objective - Vital Signs Vital Signs: Vital Signs 09/20/17 09/20/17 09/20/17 13:32 13:48 13:49 Temperature 97.6 F 97.6 F Pulse Rate 72 72 Respiratory 16 16 16 Rate Blood Pressure 95/60 95/60 (mmHg) O2 Sat by Pulse 97 97 Oximetry 09/20/17 09/20/17 09/20/17 15:15 15:50 16:00 Temperature 97.5 F Pulse Rate 73 Respiratory 16 18 Rate Blood Pressure 90/56 (mmHg) O2 Sat by Pulse 98 97 Oximetry 09/20/17 09/20/17 09/20/17 18:00 18:07 19:56 Temperature 98.2 F Pulse Rate 80 Respiratory 18 16 Rate Blood Pressure 90/56 (mmHg) O2 Sat by Pulse 97 96 Oximetry 09/20/17 09/20/17 09/20/17 20:00 20:07 23:32 Temperature Pulse Rate Respiratory 18 18 18 Rate Blood Pressure (mmHg) O2 Sat by Pulse Oximetry 09/21/17 09/21/17 09/21/17 00:00 00:23 01:35 Temperature 97.7 F Pulse Rate 77 Respiratory 16 18 Rate Blood Pressure 96/58 (mmHg) O2 Sat by Pulse 94 94 Oximetry 09/21/17 09/21/17 09/21/17 02:00 04:33 05:22 Temperature 98.3 F Pulse Rate 72 Respiratory 16 18 Rate Blood Pressure 99/62 (mmHg) O2 Sat by Pulse 94 97 Oximetry 09/21/17 09/21/17 06:00 07:53 Temperature 98.2 F Pulse Rate 70 Respiratory 16 Rate Blood Pressure 89/55 (mmHg) O2 Sat by Pulse 96 97 Oximetry - Intake and Output Intake and Output: Intake & Output 09/18/17 09/19/17 09/20/17 09/21/17 11:59 11:59 11:59 11:59 Intake Total 1540 1090 1296 1236 Output Total 1300 1450 380 800 Balance 240 -360 916 436 Weight 147 lb 11.355 oz Intake: IV Fluids 1296 421 d5 1/2 ns 1296 421 Oral 1540 1090 815 Output: Urine 1300 1450 380 800 Other: Estimated Void Large Large # Bowel Movements 0 0 0 # Voids 2 2 ADLs: Meal Record Start: 09/14/17 21: 43 Freq: 09,,18 Status: Inactive Protocol: Created 09/14/17 21:43 System (Rec: 09/14/17 21:43 System ICU-M09) Document 09/15/17 09:00 [id number] (Rec: 09/15/17 12:24 [id number] ICU-C12) ADLs: Meal Record Start: 09/15/17 21: 21 Freq: Status: Active Protocol: Created 09/15/17 21:21 [id number] (Rec: 09/15/17 21:21 [id number] TELE-C09) Document 09/16/17 09:15 TKO8317 (Rec: 09/16/17 12:56 AHQ4246 TELE-C11) Document 09/16/17 14:30 ZJC2389 (Rec: 09/16/17 14:31 RZL4073 TELE-C11) Document 09/16/17 20:00 KRB2237 (Rec: 09/16/17 23:03 VJP7726 TELE-C01) Document 09/17/17 13:55 AYC0412 (Rec: 09/17/17 13:55 TKD7396 TELE-C10) Document 09/17/17 13:55 VJQ4864 (Rec: 09/17/17 13:55 URR0761 TELE-C10) Document 09/17/17 20:26 RNJ4099 (Rec: 09/17/17 20:26 TQZ8589 TELE-C09) Document 09/18/17 10:12 QMJ8780 (Rec: 09/18/17 10:13 QQH8380 TELE-C10) Document 09/18/17 14:05 HJI1881 (Rec: 09/18/17 14:05 VAU0349 TELE-C10) Document 09/18/17 20:12 RLU3076 (Rec: 09/18/17 20:12 QRE8324 TELE-C09) Document 09/19/17 09:00 YEB0442 (Rec: 09/19/17 13:49 WDH1189 TELE-C01) ADLs: Meal Record Start: 09/19/17 15: 31 Freq: 09,13,18 Status: Complete Protocol: Created 09/19/17 15:31 TRL1791 (Rec: 09/19/17 15:31 [id number] ICU-M07) Document 09/19/17 18:00 UWC6593 (Rec: 09/19/17 18:24 QYY8905 ICU-C15) ADLs: Meal Record Start: 09/20/17 12: 54 Freq: DAILY@0900,1400,1800 Status: Active Protocol: Created 09/20/17 12:54 RZZ6452 (Rec: 09/20/17 12:54 STE4634 ICU-C25) Document 09/20/17 14:00 XBJ3599 (Rec: 09/20/17 14:34 NDG9857 TELE-C05) Document 09/20/17 18:00 HTU7485 (Rec: 09/20/17 19:17 XKI6446 TELE-C13) Intake and Output Start: 09/14/17 21: 43 Freq: 06,14,22 Status: Inactive Protocol: Created 09/14/17 21:43 System (Rec: 09/14/17 21:43 System ICU-M09) Document 09/14/17 22:00 DIY3553 (Rec: 09/14/17 22:43 [id number] ICU-M09) Document 09/15/17 06:00 OKD6435 (Rec: 09/15/17 06:29 BBI6758 ICU-M09) Intake and Output Start: 09/18/17 21: 50 Freq: Status: Active Protocol: Document 09/18/17 21:50 WNO2519 (Rec: 09/18/17 21:50 NJY5083 TELE-C09) Created 09/18/17 21:50 LQT9150 (Rec: 09/18/17 21:50 GCQ0073 TELE-C09) Document 09/19/17 07:32 IGV9455 (Rec: 09/19/17 07:32 QRP3841 TELE-C10) Intake and Output Start: 09/19/17 15: 31 Freq: 06,14,22 Status: Complete Protocol: Created 09/19/17 15:31 BST8726 (Rec: 09/19/17 15:31 XVI8422 ICU-M07) Document 09/19/17 22:00 WVX6911 (Rec: 09/20/17 00:37 PWD5620 ICU-C12) Document 09/20/17 05:16 KXD6987 (Rec: 09/20/17 05:16 MAW4090 ICU-C12) Intake and Output Start: 09/20/17 12: 54 Freq: DAILY@0600,1400,2200 Status: Active Protocol: Created 09/20/17 12:54 WEM4696 (Rec: 09/20/17 12:54 ZQB4684 ICU-C25) Document 09/20/17 14:00 GLN3158 (Rec: 09/20/17 14:34 SBV2072 TELE-C05) Document 09/20/17 22:00 AWX2185 (Rec: 09/20/17 22:38 CEO6158 TELE-C13) Document 09/21/17 06:00 XQM6660 (Rec: 09/21/17 06:49 [id number] TELE-C13) - Physical Exam General: No Cyanosis, No Anemia, No Jaundice, No Clubbing Lungs and Chest: Yes: Chest Expansion Full, Chest Expansion Symetrica, Percussion Note Resonant, Vessicular Breath Sounds. No: Crackles, Wheezes Heart Rate and Rhythm: Regular Additional Cardiovascular: Yes: Normal Heart Sounds. No: Heart Murmur, Pedal Edema Abdominal Exam: Yes: Soft. 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 I will check her orthostatic BPs. She has a poor LV, but has not developed edema or other signs of CHF. I am considering starting her on fludrocortisone. Anticoagulation goal of INR 2 to 3 (Acute) We are bridging her to warfarin Left ventricular thrombus (Acute) reason for warfarin T2D - her blood glucose is rising - I will increase her lantus insulin I discussed the above with the patient. She is having an OT/PT evaluation prior to SNF referral.
[2017-09-21] MEDS ORDERED: Insulin GLARGINE(*) 1 UNITS UNIT SUBCUT SCH (08:40)
[2017-09-21 10:17] LABS: Hematocrit 34 % (35-47); Hemoglobin 11.1 g/dl (12.0-16.0); Mean Platelet Volume 10 um3 (7.4-10.4); Platelet Count 265 10^3/ul (150-450)
[2017-09-21 10:27] LABS: INR 1.15 (0.77-1.02)
[2017-09-21] MEDS ORDERED: Warfarin TAB(*) 7.5 MG PO ONE (17:00)
[2017-09-21] MEDS: Atorvastatin* 80 MG TAB PO SCH (17:33)
[2017-09-21] MEDS: Enoxaparin(*) 80 MG/0.8 ML SYR SUBCUT SCH (17:34)
[2017-09-22] MEDS: oxyCODONE/Acetamin 5/325 MG* TAB PO PRN ×2 (05:48→09:50)
[2017-09-22] MEDS: Levothyroxine TAB* 75 MCG TAB PO SCH (05:48)
[2017-09-22 07:39] LABS: Hematocrit 34 % (35-47); Hemoglobin 11.2 g/dl (12.0-16.0); INR 2.52 (0.77-1.02); Mean Platelet Volume 10 um3 (7.4-10.4); Platelet Count 273 10^3/ul (150-450)
[2017-09-22 07:40] LABS: EGFR Non-African American 40.5 (>60)
[2017-09-22] MEDS: BuPROPion XL* 150 MG TAB.XL PO SCH (07:52)
[2017-09-22] MEDS: Venlafaxine EXT RELEASE CAP* 75 MG PO SCH (07:54)
[2017-09-22] MEDS: Ticagrelor* 90 MG TAB PO SCH (07:54)
[2017-09-22] MEDS: Nystatin TOP POWDER* 15 GM BTL TOPICAL SCH ×2 (07:55→14:00)
[2017-09-22] MEDS: Metoprolol Succinate XL TAB* 25 MG PO SCH (08:02)
[2017-09-22] MEDS: Insulin LISPRO* 1 UNITS UNIT SUBCUT SCH ×4 (08:02→13:45)
--- NOTE | 2017-09-22 08:44 | PN ---
Subjective - Subjective Reason for Note: Discharge Note History: Contingent transfer to [facility] She has some pain in her left arm, but is otherwise feeling improved. She has light-headedness when she stands. Her BP remains low. She denies chest pain, dyspnea or palpitations. 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 Type 2 diabetes mellitus, uncontrolled (Chronic) E11.65 Current Medications: Current Medications Acetaminophen (Tylenol Tab*) 650 mg PO Q4H PRN PRN Reason: FEVER/PAIN Last Admin: 09/21/17 08:32 Dose: 650 mg Albuterol (Ventolin 2.5 Mg/3 Ml Neb.Kati*) 2.5 mg INH Q2H PRN PRN Reason: SOB/WHEEZING Atorvastatin Calcium (Lipitor*) 80 mg PO 1700 [facility] Last Admin: 09/21/17 17:33 Dose: 80 mg Bupropion HCl (Wellbutrin Xl *) 150 mg PO DAILY@0900 [facility] PRN Reason: Protocol Last Admin: 09/22/17 07:52 Dose: 150 mg Dextrose (D50w Syringe 50 Ml*) 12.5 gm IV PUSH .FOR FS < 60 - SS PRN PRN Reason: FS < 60 Enoxaparin Sodium (Lovenox(*)) 70 mg SUBCUT 1700 [facility] Last Admin: 09/21/17 17:34 Dose: 70 mg Insulin Glargine (Lantus(*)) 30 units SUBCUT BEDTIME [facility] Last Admin: 09/21/17 22:39 Dose: 30 units Insulin Human Lispro (Humalog*) 0 units SUBCUT ACHS [facility] PRN Reason: Protocol Last Admin: 09/22/17 08:02 Dose: Not Given Insulin Human Lispro (Humalog*) 0 units SUBCUT AC [facility] PRN Reason: Protocol Last Admin: 09/21/17 18:19 Dose: 2 units Levothyroxine Sodium (Synthroid Tab*) 75 mcg PO DAILY@0600 [facility] Last Admin: 09/22/17 05:48 Dose: 75 mcg Metoprolol Succinate (Toprol Xl Tab*) 12.5 mg PO DAILY@0900 [facility] Last Admin: 09/22/17 08:02 Dose: Not Given Nystatin (Nystatin Top Powder*) 1 applic TOPICAL TID [facility] Last Admin: 09/22/17 07:55 Dose: 1 applic Oxycodone/Acetaminophen (Percocet 5/325 Tab*) 1 tab PO Q4H PRN PRN Reason: PAIN Last Admin: 09/22/17 05:48 Dose: 1 tab Pharmacy Profile Note (Coumadin Per Pharmacy*) 0 note FOLLOW UP .PER PHARMACY PROTOC [facility] PRN Reason: Protocol Ticagrelor (Brilinta*) 90 mg PO BID [facility] Last Admin: 09/22/17 07:54 Dose: 90 mg Venlafaxine HCl (Effexor Xr Cap*) 150 mg PO 0830 [facility] Last Admin: 09/22/17 07:54 Dose: 150 mg Home Medications: Home Medications Medication Instructions Recorded Confirmed Type Venlafaxine EXT RELEASE CAP* 150 mg PO DAILY WITH MEAL 07/18/12 09/14/17 History [Effexor Xr CAP*] ALPRAZolam TAB* [Xanax TAB*] 0.25 mg PO BID PRN #0 09/16/15 09/14/17 History Acetaminophen TAB* [Tylenol TAB*] 650 mg PO Q4H PRN #0 tab 09/20/15 09/14/17 Rx Insulin Detemir (NF) [Levemir (NF)] 50 unit SUBCUT BID MDD 120 units 08/23/16 History Bupropion XL* [Wellbutrin XL *] 150 mg PO DAILY 07/28/17 09/14/17 History Multivitamins/Minerals TAB* 1 tab PO DAILY 07/28/17 09/14/17 History [Theragran/minerals TAB*] Atorvastatin* [Lipitor 80 MG*] 80 mg PO 1700 #30 tab 08/02/17 09/14/17 Rx Captopril TAB* [Capoten TAB*] 3.125 mg PO BID #30 tab 08/02/17 09/14/17 Rx Metoprolol Tartrate TAB* 12.5 mg PO BID #30 tab 08/02/17 09/14/17 Rx [Lopressor TAB*] Nitroglycerin TAB 0.4 MG* 0.4 mg SL Q5M PRN #15 tab 08/02/17 09/14/17 Rx Ticagrelor* [Brilinta 90 MG*] 90 mg PO BID #60 tab 08/02/17 09/14/17 Rx Allergies: Allergies Allergy/AdvReac Type Severity Reaction Status Date / Time Aspirin [ASA] Allergy Severe Anaphylatic Verified 12/30/16 13:59 Shock Doxycycline Allergy Severe Anaphylatic Verified 12/30/16 13:59 Shock Sulfa Drugs Allergy Severe Anaphylatic Verified 12/30/16 13:59 Shock Pentazocine Allergy Hallucinati Verified 12/30/16 13:59 [From Talwin Compound] ons NSAIDs AdvReac Intermediate Bleeding Verified 12/30/16 13:59 Objective - Vital Signs Vital Signs: Vital Signs 09/21/17 09/21/17 09/21/17 08:40 10:00 11:11 Temperature Pulse Rate 87 Respiratory 18 Rate Blood Pressure 88/53 (mmHg) O2 Sat by Pulse 97 Oximetry 09/21/17 09/21/17 09/21/17 14:00 14:29 14:30 Temperature Pulse Rate Respiratory 18 18 Rate Blood Pressure (mmHg) O2 Sat by Pulse 97 Oximetry 09/21/17 09/21/17 09/21/17 14:56 15:08 16:00 Temperature 98.1 F Pulse Rate 71 Respiratory 18 20 Rate Blood Pressure 86/51 (mmHg) O2 Sat by Pulse 97 97 Oximetry 09/21/17 09/21/17 09/21/17 17:36 18:00 20:00 Temperature Pulse Rate 97 Respiratory 18 16 Rate Blood Pressure 122/79 (mmHg) O2 Sat by Pulse 98 Oximetry 09/21/17 09/21/17 09/21/17 20:13 22:00 22:31 Temperature 98.2 F Pulse Rate 76 Respiratory 16 22 Rate Blood Pressure 94/56 (mmHg) O2 Sat by Pulse 97 97 Oximetry 09/21/17 09/22/17 09/22/17 22:38 00:00 00:06 Temperature 98.1 F Pulse Rate 79 Respiratory 16 16 Rate Blood Pressure 90/60 (mmHg) O2 Sat by Pulse 98 98 Oximetry 09/22/17 09/22/17 09/22/17 02:00 05:48 06:00 Temperature Pulse Rate Respiratory 18 Rate Blood Pressure (mmHg) O2 Sat by Pulse 98 98 Oximetry 09/22/17 09/22/17 07:57 07:59 Temperature 98.1 F Pulse Rate 80 Respiratory 20 20 Rate Blood Pressure 80/56 (mmHg) O2 Sat by Pulse 96 Oximetry - Intake and Output Intake and Output: Intake & Output 09/19/17 09/20/17 09/21/17 09/22/17 11:59 11:59 11:59 11:59 Intake Total 1090 1296 1486 840 Output Total 1450 380 800 Balance -360 916 686 840 Weight 147 lb 11.355 oz Intake: IV Fluids 1296 421 d5 1/2 ns 1296 421 Oral 1090 1065 840 Output: Urine 1450 380 800 Other: Estimated Void Large Medium Large # Bowel Movements 0 0 0 # Voids 2 1 2 ADLs: Meal Record Start: 09/14/17 21: 43 Freq: 09,,18 Status: Inactive Protocol: Created 09/14/17 21:43 System (Rec: 09/14/17 21:43 System ICU-M09) Document 09/15/17 09:00 [id number] (Rec: 09/15/17 12:24 [id number] ICU-C12) ADLs: Meal Record Start: 09/15/17 21: 21 Freq: Status: Active Protocol: Created 09/15/17 21:21 [id number] (Rec: 09/15/17 21:21 [id number] TELE-C09) Document 09/16/17 09:15 JWC1651 (Rec: 09/16/17 12:56 FQM7121 TELE-C11) Document 09/16/17 14:30 XBI5782 (Rec: 09/16/17 14:31 [id number] TELE-C11) Document 09/16/17 20:00 DZK1861 (Rec: 09/16/17 23:03 GTZ6203 TELE-C01) Document 09/17/17 13:55 KTF2113 (Rec: 09/17/17 13:55 DZO6373 TELE-C10) Document 09/17/17 13:55 WTS5532 (Rec: 09/17/17 13:55 MIP1019 TELE-C10) Document 09/17/17 20:26 ZSF7414 (Rec: 09/17/17 20:26 ZMQ0717 TELE-C09) Document 09/18/17 10:12 YVJ1085 (Rec: 09/18/17 10:13 KSH8808 TELE-C10) Document 09/18/17 14:05 JGW2332 (Rec: 09/18/17 14:05 NOX9181 TELE-C10) Document 09/18/17 20:12 BIS6875 (Rec: 09/18/17 20:12 OSS0124 TELE-C09) Document 09/19/17 09:00 KRL1515 (Rec: 09/19/17 13:49 FKI2274 TELE-C01) ADLs: Meal Record Start: 09/19/17 15: 31 Freq: 09,13,18 Status: Complete Protocol: Created 09/19/17 15:31 FUJ6497 (Rec: 09/19/17 15:31 MYH1765 ICU-M07) Document 09/19/17 18:00 JIO2655 (Rec: 09/19/17 18:24 COF7968 ICU-C15) ADLs: Meal Record Start: 09/20/17 12: 54 Freq: DAILY@0900,1400,1800 Status: Inactive Protocol: Created 09/20/17 12:54 LRN4021 (Rec: 09/20/17 12:54 QMN4966 ICU-C25) Document 09/20/17 14:00 JKG6672 (Rec: 09/20/17 14:34 UGT3996 TELE-C05) Document 09/20/17 18:00 ARU2358 (Rec: 09/20/17 19:17 LHU8419 TELE-C13) Document 09/21/17 09:00 SLQ3408 (Rec: 09/21/17 12:12 DFJ5078 TELE-C05) Document 09/21/17 14:00 POT3674 (Rec: 09/21/17 15:13 HDL7383 TELE-C05) ADLs: Meal Record Start: 09/21/17 15: 44 Freq: DAILY@0900,1400,1800 Status: Active Protocol: Created 09/21/17 15:44 SRJ5392 (Rec: 09/21/17 15:44 FDB5345 TELE-C08) Document 09/21/17 18:00 ZYD8913 (Rec: 09/21/17 22:39 IGQ2963 TELE-C01) Intake and Output Start: 09/14/17 21: 43 Freq: 06,14,22 Status: Inactive Protocol: Created 09/14/17 21:43 System (Rec: 09/14/17 21:43 System ICU-M09) Document 09/14/17 22:00 PCX7318 (Rec: 09/14/17 22:43 GIN3298 ICU-M09) Document 09/15/17 06:00 FDO6008 (Rec: 09/15/17 06:29 QLY1402 ICU-M09) Intake and Output Start: 09/18/17 21: 50 Freq: Status: Active Protocol: Document 09/18/17 21:50 FMB6257 (Rec: 09/18/17 21:50 BHR6875 TELE-C09) Created 09/18/17 21:50 MFY1071 (Rec: 09/18/17 21:50 MZG6987 TELE-C09) Document 09/19/17 07:32 LGT0890 (Rec: 09/19/17 07:32 WKV6842 TELE-C10) Intake and Output Start: 09/19/17 15: 31 Freq: 06,14,22 Status: Complete Protocol: Created 09/19/17 15:31 PCL7613 (Rec: 09/19/17 15:31 IVV1865 ICU-M07) Document 09/19/17 22:00 JJP8488 (Rec: 09/20/17 00:37 IDA2156 ICU-C12) Document 09/20/17 05:16 ZMI7602 (Rec: 09/20/17 05:16 JVG9064 ICU-C12) Intake and Output Start: 09/20/17 12: 54 Freq: DAILY@0600,1400,2200 Status: Inactive Protocol: Created 09/20/17 12:54 IOQ0704 (Rec: 09/20/17 12:54 WHX0770 ICU-C25) Document 09/20/17 14:00 DWD9459 (Rec: 09/20/17 14:34 INL3843 TELE-C05) Document 09/20/17 22:00 XZS2400 (Rec: 09/20/17 22:38 EPK1235 TELE-C13) Document 09/21/17 06:00 POM8141 (Rec: 09/21/17 06:49 VDE5799 TELE-C13) Document 09/21/17 08:59 TFV8268 (Rec: 09/21/17 09:00 YVS9948 TELE-M01) Document 09/21/17 14:00 SWC7519 (Rec: 09/21/17 15:13 JLY1508 TELE-C05) Intake and Output Start: 09/21/17 15: 44 Freq: DAILY@0600,1400,2200 Status: Active Protocol: Created 09/21/17 15:44 DWM1441 (Rec: 09/21/17 15:44 HZC6969 TELE-C08) Document 09/21/17 22:00 FKY3356 (Rec: 09/21/17 22:42 KMP4591 TELE-C01) Document 09/22/17 06:00 HQH6319 (Rec: 09/22/17 07:24 [id number] TELE-C13) - Physical Exam General: No Cyanosis, No Anemia, No Jaundice, No Clubbing Lungs and Chest: Yes: Chest Expansion Full, Chest Expansion Symetrica, Percussion Note Resonant, Vessicular Breath Sounds. No: Crackles, Wheezes Heart Rate and Rhythm: Regular JVP: Not Elevated Additional Cardiovascular: Yes: Normal Heart Sounds. No: Pedal Edema Abdominal Exam: Yes: Soft, Bowel Sounds Present. No: Distention, Abdominal Tenderness - Extremities Cranial Nerves II-XII Intact: Yes Limbs: Normal Power - Neuro Orientation: A/O x3 Speech: Normal Results - Results Lab Results: Laboratory Results - last 24 hr 09/21/17 09/21/17 09/21/17 08:28 09:54 09:54 Hgb 11.1 L Hct 34 L Plt Count 265 MPV 10 INR (Anticoag Therapy) 1.15 H BUN Creatinine Est GFR ( Amer) Est GFR (Non-Af Amer) POC Glucose (mg/dL) 88 09/21/17 09/21/17 09/21/17 12:51 16:26 21:41 Hgb Hct Plt Count MPV INR (Anticoag Therapy) BUN Creatinine Est GFR ( Amer) Est GFR (Non-Af Amer) POC Glucose (mg/dL) 120 H 158 H 134 H 09/22/17 09/22/17 09/22/17 06:47 06:47 06:47 Hgb 11.2 L Hct 34 L Plt Count 273 MPV 10 INR (Anticoag Therapy) 2.52 H BUN 25 H Creatinine 1.29 H Est GFR ( Amer) 52.1 Est GFR (Non-Af Amer) 40.5 POC Glucose (mg/dL) 09/22/17 07:28 Hgb Hct Plt Count MPV INR (Anticoag Therapy) BUN Creatinine Est GFR ( Amer) Est GFR (Non-Af Amer) POC Glucose (mg/dL) 90 Assessment - Problem List Assessment: Patient Problems Anticoagulation goal of INR 2 to 3 (Acute) Cardiac rhythm disturbance (Acute) Cardiomyopathy, ischemic (Acute) Elevated troponin I level (Acute) Lactic acidemia (Acute) Left ventricular thrombus (Acute) 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 Her BP remains the major issue - likely due to low cardiac output from her ischemic cardiomyopathy. She has light-headedness on standing. I discussed her case with Dr. Decker. He told me that he would treat with fludrocortisone if there is symptomatic orthostatic hypotension. Since she has no signs of the classic heart failure syndrome (edema, raised JVP), I will start her on fludrocortisone 0.5 mg qdaily as I am concerned she will have syncope on standing/walking. She is ready for discharge when a bed becomes available.
[2017-09-22] MEDS ORDERED: Fludrocortisone Acetate TAB* 0.1 MG PO SCH (09:00)
[2017-09-22 12:52] VITALS: BP 64/45
--- NOTE | 2017-09-22 13:48 | DS ---
CC: [facility]; Dr. Vikram Decker * DATE OF ADMISSION: 09/14/2017. DATE OF DISCHARGE: 09/22/2017. DISCHARGE DIAGNOSES: Ischemic cardiomyopathy complicated by high risk of ventricular arrhythmia. PROCEDURE: 09/20/2017, implanted cardiac defibrillator, [employer]onic model 6935. COMORBIDITIES: Low left ventricular ejection fraction, dyspnea on exertion, low cardiac output with persistent hypotension and orthostatic hypotension, rash on back which resolved, type 2 diabetes mellitus uncontrolled, noncompliant with medication and instructions, left arm pain. 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 HISTORY: Lorena Tafoya is a 71-year-old, right-handed, white female. Her presentation is documented in Rob Gregory NP's admitting history and physical which is part of the medical record. She presented approximately six weeks post myocardial infarction and placement of a drug-eluting stent in her LAD and also extraction atherectomy. Because she had an ejection fraction between 20 to 25 percent on transthoracic echocardiogram, she was given a LifeVest in case of ventricular dysrhythmia and was discharged home. On the day of admission, the patient had problems with the LifeVest with some alarms. She developed some pain and numbness in her left arm. She ate a large meal and came to the emergency room. Examination in the emergency room: Vital signs: Blood pressure 124/70, pulse 105, respirations 20, oxygen saturation 99 percent, temperature 98.9. Cardiac exam was normal. Initial data: White count 11.1, hemoglobin 13.9, hematocrit 43 , platelets 409; Chemistry: Sodium 137, potassium 3.9, chloride 100, bicarbonate 21, BUN 21, creatinine 1.81, glucose 403, lactic acid 7.4, calcium 9.7, normal LFT's, CK 360, MB fraction 0.2, troponin I 0.43, BNP 752. EKG showed some ST changes in V2 and 3 which resolved. Initial assessment at presentation was a non-ST wave elevated NE with a troponin leak. She was placed on a Heparin drip and admitted to Telemetry. She was given IV fluid because of a lactic acidosis. INVESTIGATIONS - IMAGIN. Chest x-ray at presentation: No evidence of acute intrathoracic disease. 2. 09/15/2017, brain MRI: Chronic infarct of the left inferior cerebellum which is new compared to 09/16/2015. No restrictive diffusion to suggest acute infarct. OTHER LABORATORY TESTING: She had no elevation of her neutrophil percentage during her hospitalization. Cortisol was 10.86 which is normal. TSH was 2.15. Troponin series 0.43/0.41/0.38. Lactic acid on 09/15/2017 came down to 1.4. The serology was negative for influenza. Microbiology: Venous blood cultures were negative. Nasal screen negative for MRSA. CONSULTATIONS: She was seen in consultation for Cardiology by Dr. Luca Crain. His note is part of the electronic medical record. In summary, an echocardiogram showed worsening of her LV function and a new left ventricular apical thrombus was noted. He recommended heparinization and Warfarin eventually for left ventricular thrombus. He was concerned that her left arm numbness and weakness might be due to an embolus. MRI of the brain was organized. He also felt that she needed prevention ICD for possible ventricular dysrhythmias. HOSPITAL COURSE: Her lactic acidosis improved with correction of her hyperglycemia and volume status. It remains an open question as to whether she actually had myocardial injury or whether this was due to demand ischemia. She had implantation of an ICD on 09/17/2017 without adverse event. She continued to have some left arm symptoms during her hospitalization which at times sounded like radicular pain and at other times like muscular skeletal pain and at other times numbness. However, her left arm was immobilized following the ICD placement and she will follow-up with physical therapy for this. Her diabetes was well-controlled on much lower doses of insulin during the hospitalization. Noncompliance: She admitted to not taking any of her medications, aside from the Brilinta as an outpatient which included not taking any of her insulin. On the day of discharge, she is feeling very much better. She still has some residual left arm pain. She has not noticed any chest pain, shortness of breath or palpitations. She has had episodes of hypotension, particularly orthostatic hypotension when standing. At that time, she becomes lightheaded. She has not actually had any syncope. On the last day of hospitalization, I had started her on Fludrocortisone 0.05 mg a day and will titrate this. PHYSICAL EXAMINATION: On the day of discharge, temperature 98.1, pulse 80, blood pressure 80/56, oxygen saturation 96 percent on room air. No cyanosis, anemia, jaundice, clubbing or lymphadenopathy. She is warm and well-perfused and well- hydrated and mentating normally. Cardiovascular system: Her pulse was regular. Heart sounds were normal. No added sounds or murmurs. No pedal edema. No carotid bruits. Respiratory system: The chest expansion was full and symmetrical. Percussion note resonant. Breath sounds vesicular, no crackles or wheezes. Abdominal examination: No distention, masses, tenderness, or organomegaly. She is alert and oriented. Conjugate eye movements. Cranial nerves II through XII intact. Normal speech. She is moving her arms and legs. She is wearing her left arm in a sling and there is a dressing from her surgical wound. ASSESSMENT AND PLAN: 1. ICD placement for low ejection fraction following a myocardial infarction. She will need care of this wound and physical therapy to mobilize again. 2. Left ventricular mural thrombus. She needs to be on long-term Warfarin. She is not yet therapeutic. I have been giving her Enoxaparin 18 mg daily subcutaneously as a bridge. She is going to take 5 mg a day of Warfarin and have an INR drawn daily. When it reaches target with an INR greater than 2.0, her Enoxaparin can be stopped and her Warfarin dropped to 2.5 mg a day. She will require frequent INR following that for further adjustment. 3. Hypotension: She has had chronic and persistent hypotension with a low cardiac output states and some myocardial infarction six weeks ago. She has some lightheadedness when she stands up, otherwise is not symptomatic and she is managing to perfuse her kidneys successful with this low perfusion pressure. I have introduced today Fludrocortisone 0.05 mg a day. If this is insufficient, we can increase it some more to 0.1 mg a day. I think it is important not to introduce this too quickly as it may result in too much water accumulation and worsening of her respiratory status from congestive cardiac failure. 4. Type 2 diabetes mellitus, insulin requiring. Her insulin requirements reduced enormously during the hospitalization, likely due to compliance with diet. I have not increased her insulin back to her baseline as she was taking none as an outpatient. This will mean her insulin therapy will need to be retitrated. She can take both Lantus insulin and Humalog insulin as a basal bolus regimen. 5. Cerebellar infarct. This was a new finding on an MRI. It is possibly embolic and asymptomatic. This is not acute. 6. Depression. 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 7. Primary hypothyroidism. She should continue on her current medication of Levothyroxine. 8. Stage 3 chronic renal disease. This is not exacerbated. 9. Social issues. This patient lives in a [place] house. She has frozen pipes, although she has heating in that house. There are many steps to reach her car. She lives alone. This has been a difficult situation for her. Her house is in [facility]. She has applied for [facility] as a new resident and if she is accepted after her rehabilitation at [facility], she may be able to go directly there. DISCHARGE MEDICATIONS: 1. Acetaminophen 650 mg q.4 hours as needed for pain. 2. Enoxaparin 70 mg subcutaneously every evening as a bridge until her INR reaches greater than 2. 3. Fludrocortisone 0.05 mg (half a 0.1 mg tablet) each day. If her blood pressure does not improve so that the systolic is greater than 100, we should increase this to 0.1 mg daily. 4. Glargine insulin 30 units at bedtime. 5. Lispro insulin give her 3 units before each meal. 6. Levothyroxine 75 mcg daily. 7. Oxycodone/acetaminophen 5/325 one tablet every 4 hours as needed, maximum daily dose 6. 8. Warfarin 5 mg daily until her INR is greater than 2 with a target of 2 to 3 ; after stopping the Enoxaparin, reduce it as Warfarin 2.5 mg daily and check her INR frequently. 9. Venlafaxine extended release 150 mg daily. 10. Alprazolam 0.25 mg twice daily. 11. Multivitamin one a day. 12. Bupropion 150 mg daily. 13. Atorvastatin 80 mg at bedtime. 14. Nitroglycerin 0.4 mg sublingually prn for chest pain. She can take up to 3 tablets. 15. Ticagrelor (Brilinta) 90 mg twice daily. SPECIAL MEASURES: 1. Please pay attention to the bridge for Warfarin noted above. 2. Please check her blood pressure each day and if she continues to have orthostatic hypotension, increase the Fludrocortisone to 0.1 mg per day. 3. Have her follow-up with Dr. Decker according to his protocol which I think is one week after the surgery. [id number]/[facility] #: [id number] Addendum: Between dictating this summary and discharge her INR was returned at 2.52. We changed her discharge instructions: 1. Stop enoxaparin bridge (lovenox) 2. Reduce warfarin to 1 mg in the evenings - she became therapeutic very rapidly and hence we think she is sensitive to warfarin 3. She will require frequent INR readings to adjust her dose at [facility]( suggest every other day at first, then when the dose stabilizes the test frequence can be reduced. MTDD
== END 2017-09-22 14:50 | DRG 176 ==
LOC: ED 18:12 → CHICATH 19:15 → ICU 21:30 → MEDTELE 09-15 14:53 → ICU 09-19 15:21 → MEDTELE 09-20 08:57
PROVIDERS: ADMIT Hospitalist; ATTEND Internal Medicine
PROC: 0JH60PZ Insertion of Cardiac Rhythm Related Device into Chest Subcutaneous Tissue and Fascia, Open Approach (ICD-10-PCS; 2017-09-19)
PROC: 0JH608Z Insertion of Defibrillator Generator into Chest Subcutaneous Tissue and Fascia, Open Approach (ICD-10-PCS; principal; 2017-09-19 14:15)
DX: I24.0 Acute coronary thrombosis not resulting in myocardial infarction (principal); E11.22 Type 2 diabetes mellitus with diabetic chronic kidney disease; E87.2 Acidosis; E11.42 Type 2 diabetes mellitus with diabetic polyneuropathy; I25.5 Ischemic cardiomyopathy; I25.10 Atherosclerotic heart disease of native coronary artery without angina pectoris; J45.909 Unspecified asthma, uncomplicated; E78.5 Hyperlipidemia, unspecified; E03.9 Hypothyroidism, unspecified; F32.9 Major depressive disorder, single episode, unspecified; I25.2 Old myocardial infarction; I12.9 Hypertensive chronic kidney disease with stage 1 through stage 4 chronic kidney disease, or unspecified chronic kidney disease; Z95.5 Presence of coronary angioplasty implant and graft; N18.3 Chronic kidney disease, stage 3 (moderate); Z90.710 Acquired absence of both cervix and uterus; Z88.8 Allergy status to other drugs, medicaments and biological substances; Z88.1 Allergy status to other antibiotic agents; Z88.2 Allergy status to sulfonamides; Z88.6 Allergy status to analgesic agent; Z82.49 Family history of ischemic heart disease and other diseases of the circulatory system; Z80.49 Family history of malignant neoplasm of other genital organs; E86.0 Dehydration; K21.9 Gastro-esophageal reflux disease without esophagitis; M19.90 Unspecified osteoarthritis, unspecified site; M50.20 Other cervical disc displacement, unspecified cervical region; H26.9 Unspecified cataract; F41.9 Anxiety disorder, unspecified; Z90.49 Acquired absence of other specified parts of digestive tract; L29.9 Pruritus, unspecified; E11.65 Type 2 diabetes mellitus with hyperglycemia; R74.8 Abnormal levels of other serum enzymes; Z91.19 Patient's noncompliance with other medical treatment and regimen; I49.9 Cardiac arrhythmia, unspecified; Z86.73 Personal history of transient ischemic attack (TIA), and cerebral infarction without residual deficits; Z98.49 Cataract extraction status, unspecified eye; Z83.3 Family history of diabetes mellitus; Z80.9 Family history of malignant neoplasm, unspecified; I95.1 Orthostatic hypotension; R21 Rash and other nonspecific skin eruption; E78.00 Pure hypercholesterolemia, unspecified; Z79.01 Long term (current) use of anticoagulants; Z79.4 Long term (current) use of insulin; Z79.02 Long term (current) use of antithrombotics/antiplatelets
CPT/HCPCS: 33249; 36415; 70551; 71045; 71046; 80048; 80053; 81003; 82533; 82550; 82553; 82565; 83605; 83721; 83735; 83880; 84443; 84484; 84520; 85014; 85018; 85025; 85049; 85610; 85730; 86140; 87040; 87086; 87502; 87641; 93005; 93306; 94760; 99156; 99157; A9270-GY; C1722; C1895; C8929; J0690; J1644; J1650; J2250; J2310; J3010; J3475

== ENCOUNTER 2018-01-04 19:35 | Inpatient (IN) | payer BC, MEDICARE ==
--- OUTSIDE RECORDS SUMMARY | 2018-01-04 19:54 | XMS REPORT ---
:1945 External Reference #:[id number] Author Organization [employer] Address [address] [facility] [address] [place] [address] Phone [phone] Care Team Providers Name Role Phone Trey Perez MD Primary Care Physician Unavailable Payers Type Date Identification Numbers Payment Provider Subscriber Health Maintenance Policy Number: Medicare Blue o Lorena Tafoya Organization (O) [id number] Group Number: [id number] [address] [address] PayID: [id number] JAME Lopez [id number] Commercial Effective: 08/01/2016 Policy Number: [facility] Loerna Tafoya [id number] Expires: 05/31/2018 Group Number: [id number] [facility] PayID: [id number] [address] Problems Description No Information Family History Date Family Member(s) Problem(s) Comments Father CABG Quadruple Father due to IN () Father IN Father Diabetes Mother Congestive Heart Failure (CHF) Mother due to Cancer () Mother Cancer Social History Type Date Description Comments Marital Status Lives With Alone Occupation Retired Cigarette Use Never Smoked Cigarettes Exposed to secondhand smoke -- mother and ex- smoked ETOH Use Denies alcohol use Smoking Patient has never smoked Recreational Drug Use Denies Drug Use Daily Caffeine Consumes on average 1 soda maybe 2 per day Exercise Type/Frequency Does not exercise Allergies, Adverse Reactions, Alerts Date Description Reaction Status Severity Comments 08/23/2016 Doxycycline Anaphylaxis active Severe 08/23/2016 Aspirin Anaphylaxis active Severe 08/23/2016 Sulfa Antibiotics Anaphylaxis active Severe 06/22/2017 Environmental Stuffy nose, itchy throat active Cats Medications Medication Date Status Form Strength Qnty SIG Indications Ordering Provider Carvedilol 12/16 Active Tablets 3.125mg 180ta 1 by mouth I25.5 bs twice a day Chris Decker M.D. Lisinopril 08/10 Active Tablets 2.5mg 90tab 1 by mouth I21.3 s every day Chris Decker M.D. Ventolin HFA 04/18 Active Aerosol 108(90Bas 8gm 1 unit puff J45.909 Trupti /2017 e) every 6 hours Bladimir mcg/Act as needed Alprazolam Active Tablets 0.25mg 1-2 tablet po Unknown / twice daily as needed Bupropion HCL Active Tablets 150mg 1 by mouth Unknown (SR) /0000 ER 12HR daily Levothyroxine Active Tablets 75mcg 1 by mouth Unknown Sodium /0000 every day Venlafaxine HCL Active Tablets 150mg 1 tablet po Unknown ER /0000 ER 24HR daily Acetaminophen Active Tablets 500mg 2 tab by Unknown /0000 ER mouth every 4 hours as needed Advair HFA Active Aerosol 115-21mcg 2 puff twice Unknown /0000 /Act a day Levemir Active Solution 100Unit/M 50 units Law, Flextouch / Pen-Injec L twice daily MD Trey t Benadryl Allergy Active Capsules 25mg 1 cap before Unknown /0000 bed as needed Multi Vitamin Active Tablets 1 by mouth Unknown /0000 every day (does not usually bother to take) Atorvastatin Active Tablets 80mg 1 by mouth Unknown Calcium / every day Brilinta Active Tablets 90mg 1 tab by Unknown /0000 mouth twice a day Fludrocortisone Active Tablets 0.1mg 1/2 tablet Unknown Acetate /0000 daily Warfarin Sodium Active Tablets 5mg as directed Unknown /0000 Nitrostat Active Tablets 0.4mg one sl q5min Unknown /0000 Sub up to 3 doses as needed Metoprolol 08/10 Hx Tablets 25mg 90tab 1 by mouth Vikram Succinate ER 24HR s every day (on Chris Decker, - hold as of Braulio 12/1508/12/17 Dr. Perez) Diltiazem HCL ER 08/25 Hx Caps ER 180mg 1 by mouth 24HR every day - 08/09 Metformin ER 08/23 Hx Tablets 500mg 60tab Elisabeth /2015 zuleyka Green - [place] 10/07 Braulio Acetaminophen-Co 00 Hx Tablets 300-30mg as needed Unknown deine #3 /0000 - 08/09 Aripiprazole 00/00 Hx Tablets 15mg Unknown / - 10/07 Lisinopril 00 Hx Tablets 5mg Unknown / - 10/[address] Hx Capsules 20mg 1 by mouth Unknown / DR every day as - needed 04/17 Ondansetron Hx Tablets 4mg Unknown / Dispers - 10/07 Venlafaxine Hx Tablets 75mg 1 by mouth Unknown / every day - 10/07 Insulin Detemir Hx 50Units twice daily Unknown / - 04/12 Albuterol Mdi Hx 1 puff every Unknown Inhaler /0000 6 hours as - needed 04/17 Levofloxacin Hx Tablets 500mg 1 tab daily Lalo, /0000 for 7 days Mauricio - MAYELA 08/09 Metoprolol Hx Tablets 25mg 1/2 tab by Unknown Tartrate /0000 mouth twice a - day 08/10 Captopril Hx Tablets 12.5mg 1/4 tab by I21.3 Unknown /0000 mouth two - times a day 08/10 Enoxaparin Hx Solution 80mg/0.8M 70 mg Unknown Sodium /0000 L Subqutaneousl - y once daily 12/15 as until Inr 2 or above. Lispro Insulin 00/00 Hx 3 units Unknown /0000 before each - meal 12/15 Docuprene 0000 Hx Tablets 100mg Unknown /0000 - 12/15 Immunizations CPT Code Status Date Vaccine Lot # [id number] Given 06/14/2016 Influenza Virus 3Yrs & Over Vital Signs Date Vital Result Comment 12/16/2017 Height 62 inches 5'2" Weight 145.00 lb with shoes Heart Rate 82 /min BP Systolic Sitting 116 mmHg Lue reg cuff BP Diastolic Sitting 66 mmHg Lue reg cuff BP Systolic Standing 110 mmHg Lue reg cuff BP Diastolic Standing 62 mmHg Lue reg cuff Respiratory Rate 18 /min BMI (Body Mass Index) 26.5 kg/m2 Ejection Fraction 25-30% 07/31/2017-echo 09/27/2017 Height 62 inches 5'2" Weight 150.00 lb w/ shoes Heart Rate 84 /min BP Systolic Sitting 98 mmHg rue reg cuff BP Diastolic Sitting 64 mmHg rue reg cuff Respiratory Rate 20 /min BMI (Body Mass Index) 27.4 kg/m2 Ejection Fraction 35-30% echo 07/31/17 08/10/2017 Height 62 inches 5'2" Weight 151.00 lb with shoes Heart Rate 80 /min BP Systolic Sitting 92 mmHg Lue lrg cuff BP Diastolic Sitting 64 mmHg Lue lrg cuff Respiratory Rate 22 /min BMI (Body Mass Index) 27.6 kg/m2 Ejection Fraction 25-30% 07/31/2017-echo 07/20/2017 Height 62 inches 5'2" Weight 161.00 lb with shoes Heart Rate 92 /min BP Systolic Sitting 130 mmHg Lue lrg cuff BP Diastolic Sitting 76 mmHg Lue lrg cuff BP Systolic Standing 134 mmHg Lue lrg cuff BP Diastolic Standing 80 mmHg Lue lrg cuff Respiratory Rate 24 /min BMI (Body Mass Index) 29.4 kg/m2 Ejection Fraction 55-60% 07/06/2017-echo 06/22/2017 Height 62 inches 5'2" Weight 156.00 lb With shoes Heart Rate 106 /min BP Systolic Sitting 130 mmHg Lue reg cuff BP Diastolic Sitting 90 mmHg Lue reg cuff Respiratory Rate 30 /min O2 % BldC Oximetry 96 % On Ra BMI (Body Mass Index) 28.5 kg/m2 05/31/2017 Height 62 inches 5'2" Weight 156.00 lb w/ shoes Heart Rate 80 /min BP Systolic Sitting 136 mmHg Rue, reg cuff BP Diastolic Sitting 84 mmHg Rue, reg cuff Respiratory Rate 16 /min O2 % BldC Oximetry 99 % on Ra BMI (Body Mass Index) 28.5 kg/m2 05/04/2017 Height 62 inches 5'2" Weight 154.00 lb Heart Rate 104 /min BP Systolic Sitting 104 mmHg Rue reg cuff BP Diastolic Sitting 72 mmHg Rue reg cuff BP Systolic Standing 98 mmHg Rue BP Diastolic Standing 68 mmHg Rue Respiratory Rate 16 /min BMI (Body Mass Index) 28.2 kg/m2 Ejection Fraction 55-60% 08/24/16 04/18/2017 Height 61 inches 5'1" Weight 155.00 lb Heart Rate 88 /min BP Systolic Sitting 122 mmHg BP Diastolic Sitting 80 mmHg Respiratory Rate 20 /min O2 % BldC Oximetry 97 % room air BMI (Body Mass Index) 29.3 kg/m2 Neck Circumference in inches 14.75 10/21/2016 Height 61 inches 5'1" Weight 160.00 lb w/ shoes Heart Rate 76 /min reg BP Systolic Sitting 110 mmHg Lue, reg cuff BP Diastolic Sitting 76 mmHg Lue, reg cuff BP Systolic Standing 106 mmHg Lue BP Diastolic Standing 72 mmHg Lue Respiratory Rate 16 /min BMI (Body Mass Index) 30.2 kg/m2 Ejection Fraction 55-60% as of 08/24/16 echo Results Test Date Test Result H/L Range Note CBC Auto Diff 08/16/2017 White Blood Count 12.7 10^3/uL High 3.5-10.8 1 Red Blood Count 4.96 10^6/uL 4.0-5.4 1 Hemoglobin 14.1 g/dL 12.0-16.0 1 Hematocrit 43 % 35-47 1 Mean Corpuscular Volume 88 fL 80-97 1 Mean Corpuscular Hemoglobin 29 pg 27-31 1 Mean Corpuscular HGB Conc 33 g/dL 31-36 1 Red Cell Distribution Width 14 % 10.5-15 1 Platelet Count 353 10^3/uL 150-450 1 Mean Platelet Volume 10 um3 7.4-10.4 1 Abs Neutrophils 10.6 10^3/uL High 1.5-7.7 1 Abs Lymphocytes 1.4 10^3/uL 1.0-4.8 1 Abs Monocytes 0.5 10^3/uL 0-0.8 1 Abs Eosinophils 0.1 10^3/uL 0-0.6 1 Abs Basophils 0.1 10^3/uL 0-0.2 1 Abs Nucleated RBC 0 10^3/uL 1 Granulocyte % 83.4 % High 38-83 1 Lymphocyte % 11.3 % Low 25-47 1 Monocyte % 3.9 % 1-9 1 Eosinophil % 0.9 % 0-6 1 Basophil % 0.5 % 0-2 1 Nucleated Red Blood Cells % 0 1 Comp Metabolic Panel 08/16/2017 Sodium 133 mmol/L 133-145 1 Potassium 4.7 mmol/L 3.5-5.0 1 Chloride 100 mmol/L Low 101-111 1 Co2 Carbon Dioxide 21 mmol/L Low 22-32 1 Anion Gap 12 mmol/L High 2-11 1 Glucose 446 mg/dL High 70-100 1 Blood Urea Nitrogen 26 mg/dL High 6-24 1 Creatinine 1.73 mg/dL High 0.51-0.95 1 BUN/Creatinine Ratio 15.0 8-20 1 Calcium 9.2 mg/dL 8.6-10.3 1 Total Protein 7.0 g/dL 6.4-8.9 1 Albumin 3.6 g/dL 3.2-5.2 1 Globulin 3.4 g/dL 2-4 1 Albumin/Globulin Ratio 1.1 1-3 1 Total Bilirubin 0.60 mg/dL 0.2-1.0 1 Alkaline Phosphatase 59 U/L 34-104 1 Alt 21 U/L 7-52 1 Ast 19 U/L 13-39 1 Egfr Non- 28.9 >60 1 Egfr 37.1 >60 1, 2 Laboratory test finding 08/16/2017 Creatine Kinase(CK) 44 U/L 10-223 1, 3 B-Type Natriuretic Peptide BNP 639 pg/mL High 1, 4 CKMB 07/28/2017 CKMB ng/mL 33.7 ng/mL High 0.6-6.3 Laboratory test finding 07/28/2017 LDL Cholesterol Direct 193 mg/dL 5 Creatine Kinase(CK) 265 U/L High 10-223 Troponin-I (TnI) 2.01 ng/mL High <0.04 6 Comp Metabolic Panel 07/28/2017 Sodium 132 mmol/L Low 133-145 Potassium 4.6 mmol/L 3.5-5.0 Chloride 95 mmol/L Low 101-111 Co2 Carbon Dioxide 25 mmol/L 22-32 Anion Gap 12 mmol/L High 2-11 Glucose 314 mg/dL High 70-100 Blood Urea Nitrogen 32 mg/dL High 6-24 Creatinine 1.56 mg/dL High 0.51-0.95 BUN/Creatinine Ratio 20.5 High 8-20 Calcium 10.2 mg/dL 8.6-10.3 Total Protein 8.8 g/dL 6.4-8.9 Albumin 4.1 g/dL 3.2-5.2 Globulin 4.7 g/dL High 2-4 Albumin/Globulin Ratio 0.9 Low 1-3 Total Bilirubin 0.60 mg/dL 0.2-1.0 Alkaline Phosphatase 88 U/L 34-104 Alt 31 U/L 7-52 Ast 48 U/L High 13-39 Egfr Non- 32.5 >60 Egfr 41.8 >60 7 Inr/Protime 07/28/2017 Inr 1.06 0.89-1.11 Laboratory test finding 07/28/2017 Lactic Acid 2.3 mmol/L High 0.5-2.0 8 B-Type Natriuretic Peptide BNP 39 pg/mL 9 CBC Auto Diff 07/28/2017 White Blood Count 15.3 10^3/uL High 3.5-10.8 Red Blood Count 5.25 10^6/uL 4.0-5.4 Hemoglobin 15.4 g/dL 12.0-16.0 Hematocrit 46 % 35-47 Mean Corpuscular Volume 87 fL 80-97 Mean Corpuscular Hemoglobin 29 pg 27-31 Mean Corpuscular HGB Conc 34 g/dL 31-36 Red Cell Distribution Width 14 % 10.5-15 Platelet Count 408 10^3/uL 150-450 Mean Platelet Volume 9 um3 7.4-10.4 Abs Neutrophils 13.1 10^3/uL High 1.5-7.7 Abs Lymphocytes 1.4 10^3/uL 1.0-4.8 Abs Monocytes 0.6 10^3/uL 0-0.8 Abs Eosinophils 0.1 10^3/uL 0-0.6 Abs Basophils 0.1 10^3/uL 0-0.2 Abs Nucleated RBC 0 10^3/uL Granulocyte % 85.7 % High 38-83 Lymphocyte % 9.3 % Low 25-47 Monocyte % 3.8 % 1-9 Eosinophil % 0.6 % 0-6 Basophil % 0.6 % 0-2 Nucleated Red Blood Cells % 0 Laboratory test finding 07/28/2017 Partial Thrombo Time 28.6 seconds 26.0 -36.3 PTT CBC Auto Diff 07/02/2017 White Blood Count 18.1 10^3/uL High 3.5-10.8 Red Blood Count 4.38 10^6/uL 4.0-5.4 Hemoglobin 12.7 g/dL 12.0-16.0 Hematocrit 38 % 35-47 Mean Corpuscular Volume 88 fL 80-97 Mean Corpuscular Hemoglobin 29 pg 27-31 Mean Corpuscular HGB Conc 33 g/dL 31-36 Red Cell Distribution Width 14 % 10.5-15 Platelet Count 333 10^3/uL 150-450 Mean Platelet Volume 8 um3 7.4-10.4 Abs Neutrophils 15.2 10^3/uL High 1.5-7.7 Abs Lymphocytes 1.9 10^3/uL 1.0-4.8 Abs Monocytes 0.9 10^3/uL High 0-0.8 Abs Eosinophils 0 10^3/uL 0-0.6 Abs Basophils 0.1 10^3/uL 0-0.2 Abs Nucleated RBC 0 10^3/uL Granulocyte % 84.1 % High 38-83 Lymphocyte % 10.2 % Low 25-47 Monocyte % 5.2 % 1-9 Eosinophil % 0.2 % 0-6 Basophil % 0.3 % 0-2 Nucleated Red Blood Cells % 0 Comp Metabolic Panel 07/02/2017 Sodium 130 mmol/L Low 133-145 Potassium 4.0 mmol/L 3.5-5.0 Chloride 96 mmol/L Low 101-111 Co2 Carbon Dioxide 26 mmol/L 22-32 Anion Gap 8 mmol/L 2-11 Glucose 356 mg/dL High 70-100 Blood Urea Nitrogen 21 mg/dL 6-24 Creatinine 1.40 mg/dL High 0.51-0.95 BUN/Creatinine Ratio 15.0 8-20 Calcium 8.8 mg/dL 8.6-10.3 Total Protein 7.0 g/dL 6.4-8.9 Albumin 3.2 g/dL 3.2-5.2 Globulin 3.8 g/dL 2-4 Albumin/Globulin Ratio 0.8 Low 1-3 Total Bilirubin 0.70 mg/dL 0.2-1.0 Alkaline Phosphatase 54 U/L 34-104 Alt 12 U/L 7-52 Ast 12 U/L Low 13-39 Egfr Non- 36.9 >60 Egfr 47.4 >60 10 Laboratory test finding 07/02/2017 Troponin-I (TnI) 0.01 ng/mL <0.04 Lactic Acid 2.1 mmol/L High 0.5-2.0 11 Procalcitonin 0.3 ng/mL <0.6 12 1 [id number] 2 Because ethnic data is not always readily available, this report includes an eGFR for both -Americans and non- Americans. The National Kidney Disease Education Program (NKDEP) does not endorse the use of the MDRD equation for patients that are not between the ages of 18 and 70, are , have extremes of body size, muscle mass, or nutritional status, or are non- or non-. According to the National Kidney Foundation, irrespective of diagnosis, the stage of the disease is based on the level of kidney function: Stage Description GFR(mL/min/1.73 m(2)) 1 Kidney damage with normal or decreased GFR 90 2 Kidney damage with mild decrease in GFR 60-89 3 Moderate decrease in GFR 30-59 4 Severe decrease in GFR 15-29 5 Kidney failure <15 (or dialysis) 3 [id number] 4 >100 to <200 pg/mL: likely compensated congestive heart failure (CHF) 200 to 400 pg/mL: likely moderate CHF >400 pg/mL: likely moderate to severe CHF 5 Desirable: <100 Near Optimal: 100-129 Borderline High: 130-159 High: 160-189 Very High: >189 6 Result TnIDx:2.01 Called to NILO SERNA at: 14:05:02 by:[id number] Read back by:NILO SERNA 7 Because ethnic data is not always readily available, this report includes an eGFR for both -Americans and non- Americans. The National Kidney Disease Education Program (NKDEP) does not endorse the use of the MDRD equation for patients that are not between the ages of 18 and 70, are , have extremes of body size, muscle mass, or nutritional status, or are non- or non-. According to the National Kidney Foundation, irrespective of diagnosis, the stage of the disease is based on the level of kidney function: Stage Description GFR(mL/min/1.73 m(2)) 1 Kidney damage with normal or decreased GFR 90 2 Kidney damage with mild decrease in GFR 60-89 3 Moderate decrease in GFR 30-59 4 Severe decrease in GFR 15-29 5 Kidney failure <15 (or dialysis) 8 Critical Result LACT:2.3 Called to NILO SERNA at: 14:00:14 by:[id number] Read back by:NILO SERNA [facility] Severe Sepsis and Septic Shock Management Bundle Measure requires all lactic acids initially measuring >2.0 mmol/L be repeated. 9 >100 to <200 pg/mL: likely compensated congestive heart failure (CHF) 200 to 400 pg/mL: likely moderate CHF >400 pg/mL: likely moderate to severe CHF 10 Because ethnic data is not always readily available, this report includes an eGFR for both -Americans and non- Americans. The National Kidney Disease Education Program (NKDEP) does not endorse the use of the MDRD equation for patients that are not between the ages of 18 and 70, are , have extremes of body size, muscle mass, or nutritional status, or are non- or non-. According to the National Kidney Foundation, irrespective of diagnosis, the stage of the disease is based on the level of kidney function: Stage Description GFR(mL/min/1.73 m(2)) 1 Kidney damage with normal or decreased GFR 90 2 Kidney damage with mild decrease in GFR 60-89 3 Moderate decrease in GFR 30-59 4 Severe decrease in GFR 15-29 5 Kidney failure <15 (or dialysis) 11 Critical Result LACT:2.1 Called to [id number] at: 18:47:35 by:[id number] Read back by:[id number] [facility]LLY Severe Sepsis and Septic Shock Management Bundle Measure requires all lactic acids initially measuring >2.0 mmol/L be repeated. 12 Interpretive information available on [employer] Lab Test Catalog at [email or web address] Procedures Date CPT Code Description Status 10/13/2017 83297 Interrogation Implant Cardiovasc Monitor System Incl Completed Analysis Int 10/13/2017 09679 Interrogation Implant Cardiovasc Monitor System Incl Completed Analysis Int 10/13/2017 73442 Icd Eval W/Iterative Adjustmnt Single Lead Icd Completed 10/13/2017 95039 Icd Eval W/Iterative Adjustmnt Single Lead Icd Completed 09/20/2017 98641 Interrogation Device Eval In Person W/DR Completed Analysis,Single,Dual,Mul 09/20/2017 08837 EKG, Interpretation Only Completed 09/19/2017 06051 EKG, Interpretation Only Completed 09/19/2017 30566 Insert/Replace Icd W/Generator Completed 09/15/2017 92088 ECHO Transthorasic Realtime 2D W Doppler & Color Completed Flow Hosp 09/15/2017 16454 EKG, Interpretation Only Completed 08/10/2017 11805 EKG Tracing & Interpretation Completed 07/31/2017 71453 Echocardiogram, Limited Study Completed 07/31/2017 15154 Echocardiogram, Limited Study Completed 07/30/2017 87795 EKG, Interpretation Only Completed 07/29/2017 35137 ECHO Transthorasic Realtime 2D W Doppler & Color Completed Flow Hosp 07/28/2017 78703 Left Heart Cath. Incl S/I Coronaries, Angio S/I V Gram Completed If Done 07/28/2017 72770 Revascularization Acute Total/Subtotal Occlusion Completed 07/06/2017 60692 ECHO Transthorasic Realtime 2D W Doppler & Color Completed Flow Hosp 10/21/2016 47973 EKG Tracing & Interpretation Completed 10/12/2016 93653 Diffusing Capacity Completed 10/12/2016 34064 Plethysmography Determination Lung Volumes & Per Completed Airway Resist 10/12/2016 03915 Spirometry Incl Graphic Record, Timed Expiratory Flow Completed Rate 09/07/2016 38199 Spirometry Incl Graphic Record Completed 08/25/2016 80485 Treadmill Interp/Report Only Completed 08/25/2016 42354 Stress Test Supervsn W/Out I/R Completed 08/24/2016 55052 ECHO Transthorasic Realtime 2D W Doppler & Color Completed Flow Hosp 08/24/2016 61686 EKG, Interpretation Only Completed 09/17/2015 45128 ECHO Transthorasic Realtime 2D W Doppler & Color Completed Flow [facility]osp Encounters Type Date Location Provider CPT E/M Dx Office Visit 09/17/2017 [facility] Vikram Decker, 6[address]40 R06.00 2:11p Rani Ramsey I25.5 I25.2 Office Visit 09/16/2017 11:01a [facility] [place] [address] I25.10 Physician Executive FACC I25.5 Office Visit 09/15/2017 10:54a [facility] [place] [address] I25.2 Physician Executive [facility] I25.5 I25.10 I25.2 Office Visit 09/14/2017 8:59a [facility], Tip Gregory, 22791 I21.4 Hospitalists N.P. E11.8 I25.10 I10 Office Visit 09/14/2017 9:36a [facility] Kash Gallagher M.D., 75607 R20.0 Physician Executive At [facility], [facility] I25.10 I25.2 Office Visit 08/10/2017 1:15p [facility] Vikram Decker, 04331 I21.02 Rani Ramsey I25.10 N18.4 Office Visit 08/03/2017 11:49a [facility] Kash Gallagher M.D., 89846 I21.02 Physician Executive At [facility], [facility] I25.10 I25.5 Office Visit 08/02/2017 2:13p [facility] Kash Gallagher M.D., 34816 I21.3 Physician Executive At [facility], FSCAI Office Visit 08/01/2017 2:10p [facility] Kash Gallagher M.D., 59309 I21.3 Physician Executive At [facility], FSCAI I25.10 Office Visit 07/31/2017 3:15p [facility] Florencia Pierce, 52680 I21.3 Physician Executive At [facility] RADHA SANTANA, FSCAI N18.4 Office Visit 07/30/2017 3:14p [facility] Florencia Pierce, 67711 I21.3 Physician Executive At [facility] RADHA SANTANA, FSCAI I50.21 E87.1 Office Visit 07/29/2017 3:14p [facility] Florencia Pierce, 96953 I21.3 Physician Executive At [facility] RADHA SANTANA, FSCAI I50.21 Office Visit 07/28/2017 1:53p [facility] Florencia Pierce, 71651 I21.3 Physician Executive At [facility] RADHA SANTANA, FSCAI Office Visit 07/20/2017 12:00p [facility] Vikram Decker, 34757 R06.02 Physician Executive M.D. R00.0 Office Visit 07/07/2017 10:38a [facility] [place] [address] R06.00 Services Of Physician Executive R07.1 J90 Office Visit 07/05/2017 10:37a [facility] [address] R07.1 Services Of Physician Executive R06.02 J90 Office Visit 07/02/2017 1:42p [facility] Gio Griffin, 96928 N30.00 Assoc, Hospitalists Braulio,FACP A41.50 E11.9 Z79.4 Office Visit 06/22/2017 8:45a [facility] [place] [address] R06.02 Services Of Physician Executive J90 J45.909 Office Visit 05/31/2017 1:30p [facility] [place] [address] R06.02 Services Of Physician Executive J90 J45.909 Office Visit 05/04/2017 12:00p [facility] Vikram Decker, 74757 R06.02 Physician Executive Clarissa.Chris R00.0 Office Visit 04/18/2017 11:30a [facility] [place] [address] R06.02 Services Of [facility] G89.29 J45.909 J90 R06.83 R40.0 Office Visit 12/24/2016 10:22a [facility], Caryl Lux N.P. [address] [facility] R06.02 E11.9 Office Visit 10/21/2016 11:15a [facility] Vikram Decker, 52582 R06.00 Rani Ramsey R94.31 R00.0 Office Visit 08/24/2016 8:52a [facility] Vikram Decker, 09465 R06.02 Rani Ramsey R00.0 Office Visit 08/23/2016 8:57a [facility], Ranjith Mccain, 03695 R00.0 Hospitalists Braulio E11.9 F32.89 Office Visit 09/19/2015 10:18a [facility] Ramón Andersen, 84311 R55 Services Of [facility] Braulio H81.10 Office Visit 09/16/2015 12:18p [facility],pc Darwin Fisher M.D. 70848 R55 Hospitalists E11.9 R42 I10 Plan of Care Future Appointment(s):01/17/2018 2:00 pm - Shamir Frazier NJeanne at [facility]12/16/2017 - Vikram Decker M.D.I25.5 Ischemic cardiomyopathyNew Medication:Carvedilol 3.125 mgNew Orders:EchocardiogramFollow up:1 month with shamir frazier 3 months with MDRecommendations:Restart Lisinopril at 2.5 mg a dayZ95.810 Presence of automatic (implantable) cardiac zdhvqzesmttnuF49.10 Athscl heart disease of [place] coronary artery w/o ang pctrs
[2018-01-04] MEDS ORDERED: NS 0.9% 1000 ML* 1,000 ML IV ONE (20:24)
[2018-01-04] MEDS ORDERED: Metoprolol Tartrate IV* 1 MG/ML 5 ML VIAL IV ONE (20:26)
--- NOTE | 2018-01-04 20:34 | ED ---
HPI Chest Pain - HPI Summary HPI Summary: 72-year-old female with history of extensive cardiac disease presents with chest pressure, substernal in nature since 2 days ago. She states that this feels exactly like when she had her KY in the past. She feels that it began after she had an echocardiogram on Tuesday where she received some contrast. Since, she has had the chest pressure that is nonradiating and associated shortness of breath and mild nausea. She feels her abdomen is somewhat more distended than usual. She has not had any more swelling in her legs than usual. She is allergic to aspirin but is currently on warfarin and Brillinta. - History of Current Complaint Chief Complaint: EDChestPainROMI Time Seen by Provider: 01/04/18 20:23 Hx Obtained From: Patient Pain Intensity: 0 - Additional Pertinent History Primary Care Physician: [id number] - Allergy/Home Medications Allergies/Adverse Reactions: Allergies Allergy/AdvReac Type Severity Reaction Status Date / Time aspirin Allergy Anaphylatic Verified 01/04/18 19:45 Shock doxycycline Allergy Anaphylatic Verified 01/04/18 19:45 Shock NSAIDS (Non-Steroidal Allergy Bleeding Verified 01/04/18 19:45 Anti-Inflamma pentazocine Allergy Hallucinati Verified 01/04/18 19:45 ons Sulfa (Sulfonamide Allergy Anaphylatic Verified 01/04/18 19:45 Antibiotics) Shock PMH/Surg Hx/FS Hx/Imm Hx Previously Healthy: No - KY status post PCI with LV thrombus and congestive heart failure Endocrine/Hematology History: Reports: Hx Diabetes Denies: Hx Thyroid Disease, Hx Anemia Cardiovascular History: Reports: Hx Angina, Hx Hypercholesterolemia, Hx Hypertension, Hx Myocardial Infarction Denies: Hx Coronary Artery Disease, Hx Pacemaker/ICD, Hx Peripheral Vascular Disease, Hx Valvular Heart Disease Respiratory History: Reports: Hx Asthma, Hx Seasonal Allergies, Other Respiratory Problems/Disorders - PLEURAL EFFUSION. 01/2017 USES ADVAIR RX DAILY X2 PUFFS Denies: Hx Chronic Obstructive Pulmonary Disease (COPD) GI History: Reports: Hx Gall Bladder Disease - removed, Hx Gastroesophageal Reflux Disease Denies: Hx Hiatal Hernia, Hx Jaundice History: Reports: Hx Chronic Renal Failure - Stage III per Dr. Perez, Other Problems/Disorders - HX OF BLADDER INFECTIONS, NONE NOW Musculoskeletal History: Reports: Hx Arthritis, Hx Back Problems - C spine herniated disc, Hx Bursitis - HX OF LEFT SHOULDER, Hx Tendonitis - HX OF LEFT SHOULDER, Other Musculoskeletal History - R knee arthroscopy Denies: Hx Osteoporosis Sensory History: Reports: Hx Cataracts - BILATERAL, Hx Contacts or Glasses Denies: Hx Hearing Aid Opthamlomology History: Reports: Hx Cataracts - BILATERAL, Hx Contacts or Glasses Neurological History: Reports: Other Neuro Impairments/Disorders - peripheral neuropathy in feet Denies: Hx Headaches, Hx Seizures, Hx Transient Ischemic Attacks (TIA) Psychiatric History: Reports: Hx Anxiety, Hx Depression Denies: Hx Eating Disorder, Hx Panic Disorder, Hx of Violent Episodes Against Others - Cancer History Hx Chemotherapy: No Hx Radiation Therapy: No - Surgical History Surgery Procedure, Year, and Place: Cholecystectomy, ruptured ovarian cyst, appendix out at same time, COMPLETE HYSTERECTOMY, 2 cardiac stents, Hx Anesthesia Reactions: No - Immunization History Date of Influenza Vaccine: 06/28 Infectious Disease History: No Infectious Disease History: Denies: Traveled Outside the [place] in Last 30 Days - Family History Known Family History: Positive: Cardiac Disease - father's side - Social History Alcohol Use: None Substance Use Type: Reports: None Hx Tobacco Use: No Smoking Status (MU): Never Smoked Tobacco Review of Systems Positive: Fatigue. Negative: Fever, Chills Positive: Chest Pain. Negative: Palpitations Positive: Shortness Of Breath. Negative: Cough Positive: Nausea. Negative: Abdominal Pain, Vomiting Negative: Arthralgia, Edema Negative: Headache, Weakness Negative: Anxious All Other Systems Reviewed And Are Negative: Yes Physical Exam Triage Information Reviewed: Yes Vital Signs On Initial Exam: Initial Vitals Temp Pulse Resp BP Pulse Ox 97.6 F 103 18 130/69 95 01/04/18 19:42 01/04/18 19:42 01/04/18 19:42 01/04/18 19:42 01/04/18 19:42 Vital Signs Reviewed: Yes Appearance: Positive: Well-Appearing, No Pain Distress - Disheveled/poorly kempt Skin: Positive: Warm, Skin Color Reflects Adequate Perfusion, Dry Head/Face: Positive: Normal Head/Face Inspection Eyes: Positive: Normal, EOMI ENT: Positive: Normal ENT inspection Neck: Positive: Supple, Nontender, Other: - No JVD Respiratory/Lung Sounds: Positive: Other - Diminished in the bases but no wheeze rale or rhonchi and no respiratory distress. Cardiovascular: Positive: RRR - Slight systolic murmur. Pacemaker in the left chest. Heart rate 90 on the monitor without ectopy.. Negative: Leg Edema Left , Leg Edema Right Abdomen Description: Positive: Nontender, No Organomegaly Neurological: Positive: Normal, Sensory/Motor Intact, Alert, Oriented to Person Place, Time, CN Intact II-III, Other - Walks with a cane Psychiatric: Positive: Normal, Affect/Mood Appropriate AVPU Assessment: Alert Diagnostics - Vital Signs Vital Signs Temp Pulse Resp BP Pulse Ox 01/04/18 19:42 97.6 F 103 18 130/69 95 - Laboratory Result Diagrams: 01/04/18 20:55 01/04/18 20:55 Lab Statement: Any lab studies that have been ordered have been reviewed, and results considered in the medical decision making process. - Radiology CXR Xray Interpretation: No Acute Changes Radiology Interpretation Completed By: ED Physician - pacebartolo Quispe chest - EKG No standard instances Cardiac Rate: Tachycardia EKG Rhythm: Sinus Rhythm - Rate of 103 ST Segment: Non-Specific Ectopy: None EKG Interpretation: sinus tachycardia Q wave in aVL, lead I Re-Evaluation - Re-Evaluation First Eval Change: Improved Chest Pain Course/Dx - Course Course Of Treatment: Patient with chest pressure since echocardiogram 2 days ago. No contrast was given as this was not a stress echo. She has significant EF reduction seen on that. Her troponin today is almost double what her baseline is. Concern is for unstable angina or non-ST elevation KY. He does have chronically elevated troponin due to chronic renal insufficiency. She is feeling somewhat better here with small amount of fluid and beta-blockade. She has no acute CHF. She'll be admitted to the hospitalist service for further evaluation and treatment. - Chest Pain Differential Diagnosis/HQI/PQRI: Acute KY, ACS, Angina, CHF, GI Disease, Lower Respiratory Infection, Pulmonary Edema, Pulmonary Embolism - Diagnoses Provider Diagnoses: Unstable angina, Elevated troponin I level, Stage 3 chronic kidney disease, Type 2 diabetes mellitus, uncontrolled - Provider Notifications Discussed Care Of Patient With: Go August - Will Eval in the ER and admit - Critical Care Time Critical Care Time: 30-74 min - Critical care time excluding separately billable procedures Discharge - Sign-Out/Discharge Documenting (check all that apply): Discharge/Admit/Transfer - Discharge Plan Condition: Guarded Disposition: ADMITTED TO [facility] Referrals: Law,Trey, MD [Primary Care Provider] - - Billing Disposition and Condition Condition: GUARDED Disposition: [facility]
[2018-01-04 21:08] LABS: ABS Basophils 0.1 10^3/ul (0-0.2); ABS Eosinophils 0.1 10^3/ul (0-0.6); ABS Lymphocytes 1.1 10^3/ul (1.0-4.8); ABS Monocytes 0.6 10^3/ul (0-0.8); ABS Nucleated RBC 0 10^3/ul; Eosinophil % 0.7 % (0-6); Hematocrit 36 % (35-47); Lymphocyte % 8.3 % (25-47); Mean Corpuscular HGB Conc 33 g/dl (31-36); Mean Corpuscular Hemoglobin 29 pg (27-31); Mean Corpuscular Volume 87 fL (80-97); Mean Platelet Volume 9.3 um3 (7.4-10.4); Nucleated Red Blood Cells % 0; Platelet Count 301 10^3/ul (150-450); Red Cell Distribution Width 18 % (10.5-15); White Blood Count 13.9 10^3/ul (3.5-10.8)
[2018-01-04 21:19] LABS: INR 1.71 (0.77-1.02)
[2018-01-04 21:28] LABS: EGFR Non-African American 40.4 (>60)
--- NOTE | 2018-01-04 21:42 | RAD ---
Indication: Chest pain. Single frontal view of the chest performed at 2051 hours was reviewed. Comparison is made with previous exam dated September 20, 2017. No mediastinal shift is noted. Heart is of normal size and configuration. Lung talley appear clear. Pacemaker leads are in place. Overall no changes noted since previous exam. IMPRESSION: NO ACTIVE CARDIOPULMONARY DISEASE IS NOTED.
[2018-01-04] MEDS ORDERED: Nitroglycerin 2% OINT* 1 GM PAK TOPICAL ONE (21:48)
[2018-01-04] MEDS ORDERED: Ondansetron INJ* 2 MG/ML VIAL IV PRN (22:18)
[2018-01-04] MEDS ORDERED: Acetaminophen TAB* 325 MG PO PRN (22:18)
[2018-01-04] MEDS ORDERED: Dextrose 50% Syringe 50 ML* 25 GM/50 ML SYRINGE IV PUSH PRN (22:23)
[2018-01-04] MEDS ORDERED: Gabapentin CAP(*) 300 MG PO PRN (22:24)
[2018-01-04] MEDS ORDERED: ALPRAZolam TAB* 0.25 MG PO PRN (22:24)
[2018-01-05] MEDS: Heparin DRIP 25,000 UNITS(*) 25,000 UNITS/500 ML BAG IV SCH
[2018-01-05] MEDS: Heparin VIAL(*) 5000 UNITS/ML VIAL (FIVE THOUSAND) IV PRN (00:01)
[2018-01-05] MEDS: Clindamycin CAP* 150 MG PO SCH ×5 (00:01→23:19)
[2018-01-05] MEDS: Carvedilol TAB* 3.125 MG PO SCH ×3 (00:01→20:44)
--- NOTE | 2018-01-05 01:19 | HP ---
CC: Dr. Perez; Dr. Decker; Dr. Wallis* HISTORY AND PHYSICAL: DATE OF ADMISSION: 01/04/18 PRIMARY CARE PROVIDER: Dr. Perez. ATTENDING PHYSICIAN WHILE IN THE HOSPITAL: Go August MD* (report dictated by Rob Gregory NP). CHIEF COMPLAINT: Chest pressure. HISTORY OF PRESENT ILLNESS: Mrs. Tafoya is a 72-year-old female patient with multiple medical problems. She has a history of CAD and cardiomyopathy. She had a history of NSTEMI back in July with 2 stents to her LAD. She has a history of asthma, hypertension, hyperlipidemia, diabetes, hypothyroidism, CHF , depression, history of FL, CKD, pleural effusion, and a history of an LV thrombus that was found in September with her last admission when her LifeVest shocked her. She ultimately underwent placement of defibrillator at that point. She comes in today stating that Tuesday she went and had an ultrasound of her heart done. She says she is waiting for the result of that. She was concerned because for the last 24 hours she has had chest pressure that has been pretty constant, it feels like a tightness and heaviness in the chest, it comes and goes and it happens at rest and she says it is nonexertional. She says that the pain, to her knowledge, when she did get up around, did not change the intensity of the pain when she was walking or ambulating herself. She does though state that she felt short of breath with it and nauseous. She denies any recent fevers, chills. No vomiting, no abdominal pain. She said that she has been taking her medications as prescribed. She has not missed her Brilinta. She denies having any recent fevers and she says the chest pressure did not go into her jaw or down her arm. She was concerned though because she was thinking that she had had a heart attack previously. Now, she is having chest pain and she felt that she should come to the ER to be evaluated. She came into the ED today. It was noted that her troponin was elevated at 0.76 and because of this and her history, we were asked to evaluate for admission. PAST MEDICAL HISTORY: Significant for: 1. CAD. 2. Cardiomyopathy, last EF 20% to 25%. 3. Asthma. 4. Hypertension. 5. Hyperlipidemia. 6. Diabetes. 7. Hypothyroidism. 8. CHF. 9. Depression. 10. FL. 11. History of CKD. 12. Pleural effusion. 13. LV thrombus. PAST SURGICAL HISTORY: 1. The patient has had heart catheterizations x2. 2. Hysterectomy. 3. A-Fib. MEDICATIONS: Her home medications include: 1. Clindamycin 300 mg every 6 hours. She was supposed to take it for 5 days, but she says she has been taking it twice a day and she is still on it. She is also on Tylenol with Codeine 1 tablet every 6 hours as needed. 2. Brilinta 90 mg p.o. b.i.d. 3. Florinef 0.5 mg p.o. daily. 4. Levemir 50 units subcu b.i.d. 5. Advair 2 puffs inhale daily. 6. Coumadin 2 mg on Mondays and Fridays. 7. Effexor 150 mg p.o. daily. 8. Synthroid 75 mcg daily. 9. Xanax 0.25 mg p.o. b.i.d. as needed. 10. Coumadin 3 mg p.o. Tuesday, Tuesday,Tuesday, , and Tuesday. 11. Coreg 3.125 mg p.o. b.i.d. 12. Lisinopril 2.5 mg daily. 13. Neurontin 300 mg p.o. b.i.d. as needed. 14. Wellbutrin 150 mg p.o. daily. ALLERGIES TO MEDICATIONS: Include ASPIRIN, she has had anaphylaxis to this. She also has a history of DOXYCYCLINE, NSAIDS, and PENTAZOCINE. FAMILY HISTORY: Mother did have a history of valvular cancer and father had a history of FL. SOCIAL HISTORY: She is a nonsmoker. She did not drink alcohol. Surrogate decision maker is not appointed at this point. REVIEW OF SYSTEMS: There is no documented fever. She denies having any significant weight change. There was no double vision. She denies having any ear discharge. There is no rhinorrhea. There is no sore throat. No thyroid enlargement. She did admit to having chest pressure per my HPI. She says that she is chest pain free now. She did admit to having shortness of breath, particularly with exertion. There was no abdominal pain. There was nausea with the chest pressure, but this is now resolved. She denies having any dysuria. There is no frequency. There is no seizure. There is no loss of consciousness, no pruritus, and no skin ulcerations. Review of 14 systems completed, all others negative. There is a report of skin ulceration, she does say that her right great toe, she cut it and has a wound there that she is on antibiotics for. PHYSICAL EXAMINATION GENERAL: At this time, Mrs. Tafoya is a 72-year-old female patient. She is chronically ill appearing. She is sitting in the ED stretcher. She does not appear to be in any acute distress. VITAL SIGNS: Blood pressure 130/69, pulse 103; it is now 80, respirations 18, O2 sat 95%, temperature 97.6. HEENT: Head: Atraumatic, normocephalic. Eyes: EOMs are intact. Sclerae anicteric and not pale. NECK: Supple. Throat: Oral mucosa appears to be moist. No oropharyngeal erythema. LUNGS: Clear to auscultation bilaterally. No wheezes, rales, or rhonchi. HEART: Sounds S1, S2. Regular rate and rhythm. No murmurs, rubs, or gallops. ABDOMEN: Soft, flat, nontender. Bowel sounds present. EXTREMITIES: Pulses were 2+ throughout. She is able to move all 4 extremities with 5/5 strength. NEUROLOGIC: She is awake, alert, and oriented x3. Her tongue is midline. Her rn utilization management um are equal. No gross focal deficits. SKIN: She does have a wound noted to the right great toe, does appear to be an abrasion. There is what appears to be scabbing over the top of it. There is mild erythema just at the base of the toenail. DIAGNOSTIC STUDIES/LAB DATA: Labs today, WBC of 15.9, RBC of 4.20, hemoglobin 12.0, hematocrit 36, platelet count 301,000. INR 1.71, PTT of 31.7. Sodium 138 , potassium 4.5, chloride 103, bicarbonate 26, BUN 21, creatinine 1.29, glucose 268, lactate 2.5, calcium 9, total bilirubin 0.7, AST 17, ALT 11, alkaline phosphatase 59, troponin 0.76. BNP 907. Albumin is 3.4. TSH was normal. She did have a chest x-ray obtained today as well, which revealed no active cardiopulmonary disease. She did have an EKG as well today, which showed a normal sinus rhythm with a rate of 103. She had no T-wave inversions or ST elevations noted. There was a little bit of depression in II, III, and AVF. When you look back previously, depression was not present, but she did have inverted T-waves in V1, V2, V3, V4, V5, and V6, which are now improved. She did have an echo 2 days ago, which revealed an EF of 20% to 25%. She has multiple regional wall motion abnormalities and the LV thrombus was not seen. Old medical records reviewed. ASSESSMENT AND PLAN: Mrs. Tafoya is a 72-year-old female patient with a complex medical history, coming into the emergency room department today with complaints of chest discomfort intermittently in the last couple of days. She says exertion does not make it worse or better. She came in today and was evaluated in the ED and it was noted that she had an elevated troponin. We were asked to evaluate for admission. She will be admitted under inpatient status for: 1. Acute coronary syndrome. Again, I am concerned she has known coronary artery disease particularly in the LAD. Two stents done in July 2017. She did have a LifeVest after that and then she received shocks in September and then a defibrillator was placed and also was found to have an LV thrombus. My plan is to go ahead and cycle her troponins. I did not repeat the echo because she just had one. I do want to get Cardiology formally involved. They will see her tomorrow. She is chest pain free. If she was still having chest pain, I would get a more urgent consult. She is on heparin. I am going to give her nitrate. She is on beta farrah. I cannot give her aspirin because of the anaphylaxis to this previously, so we will go ahead and continue with maximum medical therapy with nitrates, beta farrah, Brilinta, and heparin drip. I am not giving an initial bolus due to the fact that she was on Coumadin and her INR is 1.7. We will check and we will follow this closely and I am going to get Cardiology involved. I am placing her on 4 South as she is chest pain free and will cycle her troponins. 2. Coronary artery disease. She is on Brilinta, beta farrah. We will also continue these medications. 3. History of cardiomyopathy. She will diurese as needed. She does not appear to be overloaded at this point. We will continue her medications as prescribed. 4. History of asthma. I will continue her Advair. 5. Hypertension. Continue meds as prescribed. 6. Hyperlipidemia. Continue her current medical regimen. I will check a lipid panel in the morning. 7. Right great toe wound. Again at this point, we will go ahead and dress this with a dry sterile dressing daily. I will continue her clindamycin. We will continue to monitor this. 8. Diabetes. We will continue her Levemir and her sliding scale. 9. Hypothyroidism. We will continue Synthroid. 10. Depression. We will continue medications as prescribed. 11. Chronic kidney disease. Creatinine is stable. We will follow. 12. History of pleural effusion, not an active issue. 13. History of elevated thrombus, not seen on imaging but I am going to put her on a heparin drip due to the NSTEMI. 14. DVT prophylaxis. Heparin drip has been ordered. 15. Leukocytosis. This could be secondary to the NSTEMI, possible underlying infection. I am casillas culturing her. The toe again does look to be improved on the right great toe, but I will continue the clindamycin for another 2 days 4 times a day. 16. Code status: Full code. 17. Fluids and nutrition. She can have a heart healthy diet. TIME SPENT: Time spent on the admission was 60 minutes, greater than half of the time was spent [id number] with the patient obtaining my history and physical, other half of the time spent going over the plan of care with the patient and implementing the plan of care. I did discuss the plan of care with my attending, Dr. August; he is in agreement. ROB GREGORY, SUPPLY CHAIN VICE PRESIDENT [id number]/CPS #: [id number] JAIMIE
[2018-01-05 03:31] LABS: Urine Appearance Clear; Urine Blood Negative (Negative); Urine Color Yellow; Urine Ketones Negative (Negative); Urine Protein Negative (Negative); Urine Specific Gravity 1.017 (1.010-1.030); Urine Urobilinogen Negative (Negative)
[2018-01-05 05:11] LABS: ABS Basophils 0.2 10^3/ul (0-0.2); ABS Eosinophils 0.1 10^3/ul (0-0.6); ABS Lymphocytes 2.6 10^3/ul (1.0-4.8); ABS Monocytes 0.8 10^3/ul (0-0.8); ABS Neutrophils 9.8 10^3/ul (1.5-7.7); ABS Nucleated RBC 0 10^3/ul; Eosinophil % 1.1 % (0-6); Hematocrit 31 % (35-47); Hemoglobin 10.2 g/dl (12.0-16.0); Lymphocyte % 18.9 % (25-47); Mean Corpuscular HGB Conc 33 g/dl (31-36); Mean Corpuscular Hemoglobin 28 pg (27-31); Mean Corpuscular Volume 86 fL (80-97); Mean Platelet Volume 8.8 um3 (7.4-10.4); Nucleated Red Blood Cells % 0; Platelet Count 260 10^3/ul (150-450); Red Blood Count 3.63 10^6/ul (4.0-5.4); Red Cell Distribution Width 17 % (10.5-15); White Blood Count 13.5 10^3/ul (3.5-10.8)
[2018-01-05] MEDS: Levothyroxine TAB* 75 MCG TAB PO SCH (05:20)
[2018-01-05 05:28] LABS: EGFR Non-African American 47.1 (>60)
[2018-01-05] MEDS: Nitroglycerin 2% OINT* 1 GM PAK TOPICAL SCH ×2 (08:20→14:03)
--- NOTE | 2018-01-05 08:22 | PN ---
Subjective - Subjective History: Lorena Bill is a primary care patient at my medical office. She has a history of CAD, ischemic cardiomyopathy and had has an ICD. She had a transthoracic echocardiogram on - this showed severely decreased LV systolic function with multiple regional wall motion abnormalities and an estimated EF 26 - 30%. No change since 09/15/17 study. After this was performed she developed central chest pain she describes as mild that came and went. She had some sweating, and very little nausea. She was unsure if this was angina, but came to the ED yesterday for evaluation. Her ICD didn't activate. She has had no vomiting, mild light headedness. She has chronic dyspnea and was not aware of any worsening. She states she has taken all her medication including Brilinta. Her blood glucose was elevated. In the ED she had an elevated troponin I and this has continued as a series, she has mildly elevated lactic acid. Laboratory Tests 01/04/18 01/04/18 01/05/18 20:55 20:55 00:12 Lactic Acid 2.5 H* Troponin I 0.76 H* 0.85 H* 01/05/18 05:05 Lactic Acid Troponin I 0.73 H* Her EKG has not shown ST elevation. This morning she has no chest pain, dyspnea at rest, nausea or vomiting. She has been in NSR overnight on telemetry. Active Problems: Active Problems Diabetic ulcer of left fifth toe (Acute) E11.621, L97.529 Elevated troponin I level (Acute) R74.8 Lactic acidemia (Acute) E87.2 NSTEMI (non-ST elevated myocardial infarction) (Acute) I21.4 Ulcer of right great toe due to diabetes mellitus (Acute) E11.621, L97.519 Asthma (Chronic) J45.909 COPD (chronic obstructive pulmonary disease) (Chronic) J44.9 Cardiomyopathy, ischemic (Chronic) I25.5 Depression (Chronic) F32.9 Dyspnea on exertion (Chronic) R06.09 Hyperlipidemia (Chronic) E78.5 Hypertension (Chronic) I10 Hypothyroidism (Chronic) E03.9 ICD (implantable cardioverter-defibrillator) in place (Chronic) Z95.810 Left ventricular thrombus (Chronic) [id number] 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 Stage 3 chronic kidney disease (Chronic) N18.3 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 Type 2 diabetes mellitus, uncontrolled (Chronic) E11.65 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.40, E11.65 Current Medications: Current Medications Acetaminophen (Tylenol Tab*) 650 mg PO Q4H PRN PRN Reason: FEVER/PAIN Last Admin: 01/05/18 05:20 Dose: 650 mg Alprazolam (Xanax Tab*) 0.25 mg PO BID PRN PRN Reason: ANXIETY Bupropion HCl (Wellbutrin Xl *) 150 mg PO DAILY MAT PRN Reason: Protocol Carvedilol (Coreg Tab*) 3.125 mg PO BID [facility] Last Admin: 01/05/18 00:01 Dose: 3.125 mg Clindamycin HCl (Cleocin Cap*) 300 mg PO Q6HR [facility] Stop: 01/07/18 06:00 Last Admin: 01/05/18 05:20 Dose: 300 mg Dextrose (D50w Syringe 50 Ml*) 12.5 gm IV PUSH .FOR FS < 60 - SS PRN PRN Reason: FS < 60 Fludrocortisone Acetate (Florinef Tab*) 0.05 mg PO DAILY [facility] Gabapentin (Neurontin Cap(*)) 300 mg PO BID PRN PRN Reason: PAIN Heparin Sodium (Porcine) (Heparin Vial(*)) 0 units IV .FOR BOLUSES PRN PRN Reason: HEPARIN DRIP BOLUSES Last Admin: 01/05/18 00:01 Dose: 3,900 units Heparin Sodium/Dextrose (Heparin Drip 25,000 Units(*)) 25,000 units in 500 mls @ 0 mls/hr IV PER RATE MAT; Per Protocol PRN Reason: Protocol Last Admin: 01/05/18 00:00 Dose: 16 mls/hr Insulin Glargine (Lantus(*)) 50 units SUBCUT BID [facility] Insulin Human Lispro (Humalog*) 0 units SUBCUT AC [facility] PRN Reason: Protocol Levothyroxine Sodium (Synthroid Tab*) 75 mcg PO 0600 [facility] Last Admin: 01/05/18 05:20 Dose: 75 mcg Lisinopril (Prinivil Tab*) 2.5 mg PO DAILY [facility] Mometasone Furoate/Formoterol Fumar (Dulera 200/5 Mdi*) 2 puff INH DAILY [facility] PRN Reason: Protocol Nitroglycerin (Nitroglycerin 2% Oint*) 0.5 inch TOPICAL 0800,1400 [facility] PRN Reason: Protocol Ondansetron HCl (Zofran Inj*) 4 mg IV Q6H PRN PRN Reason: NAUSEA Pharmacy Profile Note (Nitro Patch/Oint Remove*) 1 note PATCH OFF 1999 [facility] Ticagrelor (Brilinta*) 90 mg PO BID [facility] Venlafaxine HCl (Effexor Xr Cap*) 150 mg PO DAILY [facility] - Review of Systems Pulmonary: Positive: Respiratory Distress Negative: Cough, Sputum Cardiology: Positive: Chest Pain, Shortness of Breath Negative: Palpitations Gastroenterology: Negative: Abdominal Pain, Nausea, Change in Bowel Habits Genital - Urinary: Negative: Dysuria Home Medications: Home Medications Medication Instructions Recorded Confirmed Type ALPRAZolam TAB* [Xanax TAB*] 0.25 mg PO BID PRN 01/04/18 01/04/18 History Acetaminop/Codeine 30 MG TAB* 1 tab PO Q6H PRN 01/04/18 01/04/18 History [Tylenol/Codeine 30 MG TAB*] Bupropion XL* [Wellbutrin XL *] 150 mg PO DAILY 01/04/18 01/04/18 History Carvedilol TAB* [Coreg TAB*] 3.125 mg PO BID 01/04/18 01/04/18 History Clindamycin Cap(NF) [Clindamycin 300 mg PO Q6H 01/04/18 01/04/18 History Cap 300 mg Cap(NF)] Fludrocortisone Acetate TAB* 0.05 mg PO DAILY 01/04/18 01/04/18 History [Florinef TAB*] Fluticas/Salmet 115/21 HFA(NF) 2 puff PO DAILY 01/04/18 01/04/18 History [Advair HFA 115/21 (NF)] Gabapentin CAP(*) [Neurontin 300 300 mg PO BID PRN 01/04/18 01/04/18 History CAP(*)] Insulin Detemir [Levemir Flextouch] 50 unit SUBCUT BID 01/04/18 01/04/18 History Levothyroxine TAB* [Synthroid TAB*] 75 mcg PO DAILY 01/04/18 01/04/18 History Lisinopril TAB* [Prinivil TAB*] 2.5 mg PO DAILY 01/04/18 01/04/18 History Ticagrelor* [Brilinta*] 90 mg PO BID 01/04/18 01/04/18 History Venlafaxine EXT RELEASE CAP* 150 mg PO DAILY 01/04/18 01/04/18 History [Effexor Xr CAP*] Warfarin TAB(*) [Coumadin TAB(*)] 3 mg PO MOFR 01/04/18 01/04/18 History Warfarin TAB(*) [Coumadin TAB(*)] 3 mg PO SUTUWETHSA 01/04/18 01/04/18 History Allergies: Allergies Allergy/AdvReac Type Severity Reaction Status Date / Time aspirin Allergy Anaphylatic Verified 01/04/18 19:45 Shock doxycycline Allergy Anaphylatic Verified 01/04/18 19:45 Shock NSAIDS (Non-Steroidal Allergy Bleeding Verified 01/04/18 19:45 Anti-Inflamma pentazocine Allergy Hallucinati Verified 01/04/18 19:45 ons Sulfa (Sulfonamide Allergy Anaphylatic Verified 01/04/18 19:45 Antibiotics) Shock Objective - Vital Signs Vital Signs: Vital Signs 01/04/18 01/04/18 01/04/18 22:35 23:00 23:05 Temperature Pulse Rate 83 84 Respiratory 22 29 27 Rate Blood Pressure 117/71 125/74 (mmHg) O2 Sat by Pulse 98 98 Oximetry 01/04/18 01/05/18 01/05/18 23:13 00:16 03:24 Temperature 98.3 F 98.5 F 99.5 F Pulse Rate 85 87 84 Respiratory 20 18 24 Rate Blood Pressure 125/74 117/63 93/54 (mmHg) O2 Sat by Pulse 98 95 96 Oximetry 01/05/18 03:26 Temperature Pulse Rate Respiratory Rate Blood Pressure 102/64 (mmHg) O2 Sat by Pulse Oximetry - Intake and Output Intake and Output: Intake & Output 01/02/18 01/03/18 01/04/18 01/05/18 11:59 11:59 11:59 11:59 Intake Total 609 Output Total 200 Balance 409 Weight 151 lb 3.2 oz Intake: Heparin 109 Oral 500 Output: Urine 200 Other: # Bowel Movements 0 Intake and Output Start: 01/04/18 23: 00 Freq: DAILY@0600,1400,2200 Status: Active Protocol: Document 01/05/18 03:29 (Rec: 01/05/18 03:29 [id number]) Document 01/05/18 06:33 (Rec: 01/05/18 06:34 [id number]) - Physical Exam General Physical Exam Comment: Warm and well perfused - she is in no acute distress. Foot examination: Right great toe - there is a dark eschar after some trauma with likely underlying ulcer that may be healing. Left 5th toe - abrasion with dark eschar. Left dorsalis pedis readily palpable - other pulses absent. General: No Cyanosis, No Anemia, No Jaundice, No Clubbing Skin: Normal: Rash Lungs and Chest: Yes: Chest Expansion Full, Chest Expansion Symetrica, Percussion Note Resonant, Vessicular Breath Sounds. No: Crackles, Wheezes, Respiratory Distress, Use of Accessory Muscles Heart Rate and Rhythm: Regular JVP: Not Elevated Additional Cardiovascular: Yes: Pedal Edema - trace. No: Normal Heart Sounds - S3, Heart Murmur, Carotid Bruits Abdominal Exam: Yes: Soft, Bowel Sounds Present. No: Distention, Abdominal Mass , Hepatomegaly, Abdominal Tenderness - Extremities Cranial Nerves II-XII Intact: Yes Limbs: Normal Power, Normal Tone - Neuro Orientation: A/O x3 Speech: Normal Results - Results Lab Results: Laboratory Results - last 24 hr 01/05/18 01/05/18 01/05/18 00:12 02:36 03:18 WBC RBC Hgb Hct MCV MCH MCHC RDW Plt Count MPV Neut % (Auto) Lymph % (Auto) [place] % (Auto) Eos % (Auto) Baso % (Auto) Absolute Neuts (auto) Absolute Lymphs (auto) Absolute Monos (auto) Absolute Eos (auto) Absolute Basos (auto) Absolute Nucleated RBC Nucleated RBC % APTT Sodium Potassium Chloride Carbon Dioxide Anion Gap BUN Creatinine Est GFR ( Amer) Est GFR (Non-Af Amer) BUN/Creatinine Ratio Glucose POC Glucose (mg/dL) Lactic Acid 1.7 Calcium Troponin I 0.85 H* Triglycerides Cholesterol LDL Cholesterol HDL Cholesterol Urine Color Yellow Urine Appearance Clear Urine pH 6.0 Ur Specific [place] 1.017 Urine Protein Negative Urine Ketones Negative Urine Blood Negative Urine Nitrate Negative Urine Bilirubin Negative Urine Urobilinogen Negative Ur Leukocyte Esterase Negative Urine Glucose 1+(50 mg/dl) A 01/05/18 01/05/18 01/05/18 05:05 05:05 05:05 WBC 13.5 H RBC 3.63 L Hgb 10.2 L Hct 31 L MCV 86 MCH 28 MCHC 33 RDW 17 H Plt Count 260 MPV 8.8 Neut % (Auto) 72.7 Lymph % (Auto) 18.9 L [place] % (Auto) 6.1 Eos % (Auto) 1.1 Baso % (Auto) 1.2 Absolute Neuts (auto) 9.8 H Absolute Lymphs (auto) 2.6 Absolute Monos (auto) 0.8 Absolute Eos (auto) 0.1 Absolute Basos (auto) 0.2 Absolute Nucleated RBC 0 Nucleated RBC % 0 APTT 50.7 H Sodium 136 L Potassium 4.1 Chloride 105 Carbon Dioxide 25 Anion Gap 6 BUN 19 Creatinine 1.13 H Est GFR ( Amer) 60.5 Est GFR (Non-Af Amer) 47.1 BUN/Creatinine Ratio 16.8 Glucose 149 H POC Glucose (mg/dL) Lactic Acid Calcium 8.2 L Troponin I 0.73 H* Triglycerides 102 Cholesterol 162 LDL Cholesterol 109 HDL Cholesterol 33.0 Urine Color Urine Appearance Urine pH Ur Specific [place] Urine Protein Urine Ketones Urine Blood Urine Nitrate Urine Bilirubin Urine Urobilinogen Ur Leukocyte Esterase Urine Glucose 01/05/18 07:38 WBC RBC Hgb Hct MCV MCH MCHC RDW Plt Count MPV Neut % (Auto) Lymph % (Auto) [place] % (Auto) Eos % (Auto) Baso % (Auto) Absolute Neuts (auto) Absolute Lymphs (auto) Absolute Monos (auto) Absolute Eos (auto) Absolute Basos (auto) Absolute Nucleated RBC Nucleated RBC % APTT Sodium Potassium Chloride Carbon Dioxide Anion Gap BUN Creatinine Est GFR ( Amer) Est GFR (Non-Af Amer) BUN/Creatinine Ratio Glucose POC Glucose (mg/dL) 151 H Lactic Acid Calcium Troponin I Triglycerides Cholesterol LDL Cholesterol HDL Cholesterol Urine Color Urine Appearance Urine pH Ur Specific [place] Urine Protein Urine Ketones Urine Blood Urine Nitrate Urine Bilirubin Urine Urobilinogen Ur Leukocyte Esterase Urine Glucose Radiology Results: Patient Name: LORENA BILL Medical Record#: [id number] Ordering Physician: Benny Stovall MD Acct.#: [id number] : 1945 Age: 72 Sex: F Location: EMERGENCY DEPARTMENT Exam Date: 01/04/182024 ADM Status: REG ER Order Information: CHEST AP PORTABLE Accession Number: [id number] CPT: 04879 Indication: Chest pain. Single frontal view of the chest performed at 2051 hours was reviewed. Comparison is made with previous exam dated September 20, 2017. No mediastinal shift is noted. Heart is of normal size and configuration. Lung talley appear clear. Pacemaker leads are in place. Overall no changes noted since previous exam. IMPRESSION: NO ACTIVE CARDIOPULMONARY DISEASE IS NOTED. <Electronically signed by Katiuska Lai MD in OV> 01/04/182137 Dictated By: aKtiuska Lai MD Dictated Date/Time: 01/04/182137 Transcribed Date/Time: 01/04/182136 Copy to: CC:Trey Perez MD; Benny Stovall MD Imaging - [facility] Imaging - [facility] Imaging - [facility] [address] [facility] [place] [address] ph [phone]) ph ([phone]) ph ([phone]) 1 of 1 EKG Report: 01/04/18 19:31 SR 103 MA 130 QTC 449 QRS axis 115. No ST elevation. Poor R wave progression, inverted T in septal lead, otherwise T waves diffusely abnormal. 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 Her BP is at the low end (this is a chronic and persistent problem since her last AK due to poor cardiac output). I will discuss with cardiology re: cardiac catheterization Cardiomyopathy, ischemic (Chronic) Stented coronary artery (Chronic) ICD ( implantable cardioverter-defibrillator) in place (Chronic) She states she has been taking her medication. Left ventricular thrombus (Chronic) Her INR was subtherapeutic on entry Ulcer of right great toe due to diabetes mellitus (Acute) I will ask the wound care team to evaluate Diabetic ulcer of left fifth toe (Acute) ditto Asthma (Chronic) not exacerbation. COPD (chronic obstructive pulmonary disease) (Chronic) not exacerbated Depression (Chronic) stable Dyspnea on exertion (Chronic) no change Hyperlipidemia (Chronic) She is not taking a statin - repeat. 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 I discussed her presentation with Dr. Palumbo who will consult for cardiology. I discussed the above with the patient who agrees with management plan
[2018-01-05] MEDS: Insulin LISPRO* 1 UNITS UNIT SUBCUT SCH ×3 (08:24→18:04)
[2018-01-05] MEDS: Insulin GLARGINE(*) 1 UNITS UNIT SUBCUT SCH ×2 (08:24→20:44)
[2018-01-05] MEDS: Mometasone/Formoter 200/5 MDI INH SCH (08:46)
[2018-01-05] MEDS ORDERED: Fludrocortisone Acetate TAB* 0.1 MG PO SCH (09:00)
[2018-01-05] MEDS ORDERED: INSULIN DETEMIR 50 UNIT SUBCUT SCH (09:00)
[2018-01-05] MEDS: BuPROPion XL* 150 MG TAB.XL PO SCH (09:43)
[2018-01-05] MEDS: Venlafaxine EXT RELEASE CAP* 75 MG PO SCH (09:44)
[2018-01-05] MEDS: Ticagrelor* 90 MG TAB PO SCH ×2 (09:44→20:44)
[2018-01-05] MEDS: Lisinopril TAB* 5 MG PO SCH (09:45)
[2018-01-05] MEDS ORDERED: NS 0.9% 250 ML* 250 ML IV ONE ×2 (12:00→16:45)
[2018-01-05] MEDS: Morphine ORAL.SOLN 10 mg* 2 MG/ML UDC 5 ml PO PRN ×2 (13:30→19:52)
--- NOTE | 2018-01-05 15:49 | CONS ---
CC: Dr. Trey Perez; Dr. Decker; Dr. Palumbo CARDIOLOGY CONSULT: DATE OF CONSULT: 01/05/18 HISTORY OF PRESENT ILLNESS: I was asked by Dr. Perez to see this 72-year-old female patient, who prese nted to the hospital with symptoms of chest pain of 2 days' duration. The patient has known history of coronary artery disease. In July 2018, she had anterior ST-elevation myocardial infarction, w as taken urgently to the cardiac [facility] and she had STEMI. The LAD was stented, 2 drug-eluting sydnee nts by Dr. Pierce. She is allergic to ASPIRIN with anaphylaxis in the past. She was found to have s everely reduced left ventricular systolic function as she underwent ICD implantation by Dr. Decker in September 2017. Two days ago, she had an echocardiogram for followup on her LV function, her EF was on ly 25%. She used to have thrombus in the left ventricular apex and she was on Coumadin and the recen t echo showed no thrombus. She had no significant valvular disease. Two days ago, she started to [place] ve episode of symptoms of chest pain after she had her echo and went home. She came into the [facility] yesterday night. She ruled in for non-ST elevation myocardial infarction with peaked troponin at 0 .85 at midnight last night. She had further episodes of chest pain this morning, but they appeared t o be atypical and pleuritic in nature. She is chest pain free at the present time. I was called for Cardiology consult because of her abnormal troponin and she had EKG changes where EKG was done today with T-wave inversions in V1, V2, V3, and V4. She had completed her non-STEMI. She is on IV heparin and also 1 inch of nitro. She had some nausea, but she had no fever, no chills, no vomiting, no jaw p ain, no arm pain, no hematochezia, no skin rash, no syncope, no palpitations, no tachycardia, no orth opnea, no hematochezia is appreciated. PAST MEDICAL HISTORY: Include as above. Other medical history includes systemic arterial hypertensi on, hypothyroidism, hyperlipidemia, depression, anxiety, vertigo, and diabetes mellitus, type 2. PAST SURGICAL HISTORY: History of hysterectomy with bilateral salpingo- oophorectomy in her 30's, wi sdom teeth extraction, cataract removal, and arthroscopy of the knee. MEDICATIONS: As an outpatient include: 1. Lisinopril 2.5 mg daily. 2. Ventolin inhaler. 3. Levothyroxine 75 mcg daily. 4. Advair. 5. Lipitor 80 mg daily. 6. Brilinta 90 twice a day. 7. Fludrocortisone 0.1 mg half daily. 8. Coumadin adjusted to her INR. 9. Nitro 0.4 mg sublingual p.r.n. for chest pain. Her medications as an inpatient include: 1. Tylenol 650 mg p.o. q.4 hours p.r.n. 2. Xanax 0.25 mg p.o. b.i.d. 3. Lipitor 40 mg daily. 4. Wellbutrin 150 mg daily. 5. Coreg 3.125 mg twice a day. 6. Cleocin 300 mg q.6 hours. 7. Florinef 0.05 mg daily. 8. Neurontin 300 mg b.i.d. p.r.n. 9. Heparin adjusted to her PTT. 10. Insulin. 11. Synthroid 75 mcg daily. 12. Lisinopril 2.5 mg daily. 13. Morphine 5 mg p.o. q.2 hours p.r.n. for pain. 14. Zofran 4 mg IV q.6 hours p.r.n. 15. Brilinta 90 mg b.i.d. 16. Effexor 150 mg p.o. daily. ALLERGIES: She is allergic to DOXYCYCLINE, ASPIRIN, SULFA, ENVIRONMENTAL, CATS. FAMILY HISTORY: She had no family history of premature coronary artery disease. SOCIAL HISTORY: She gives no history of smoking, no significant drinking, and no history of illicit drug use. She lives alone. REVIEW OF SYSTEMS: Review of all other systems essentially is negative. PHYSICAL EXAM: She is nervous. She is anxious, but she is not in acute distress. Currently, chest p ain free. Vitals: Repeated blood pressure 100/58 this morning; pulse 72, she is sinus rhythm. She is afebrile, temperature 98.6. Ears, Nose, and Throat: Essentially benign. Neck: Supple. JVP is n ot elevated. No carotid bruits. No masses in the neck are appreciated. Chest: Clear to auscultati on. No rales. No wheezes. No added sounds are appreciated. Heart: Normal. Regular S1, S2. No a dded sounds, no gallops, no rubs. No significant murmurs are appreciated. Abdomen: Benign, soft. P ositive bowel sounds. Extremities: No edema, no cyanosis, no clubbing. Skin Exam: Normal. Psych: Normal affect and mood. GROUP CAPTAIN: No focal deficit is appreciated. DIAGNOSTIC STUDIES/LAB DATA: Her labs showed the following: Sodium 136, potassium 4.1, chloride 105 , total CO2 of 25, BUN 19, creatinine 1.23. LFTs normal. Triglycerides 102, cholesterol 162, LDL 109 , HDL 33. INR 1.7. White blood cells 13.5, hemoglobin 10.2, hematocrit 31, and platelets 260. EKG showed the patient in normal sinus rhythm. There is no ST elevation, but there is T-wave inversi on in V1, V2, V3, and V4 appreciated and flattened T's in leads II, III, and aVF. IMPRESSION: The patient is a 72-year-old female with: 1. Ruled in for mild non-ST elevation myocardial infarction with her chest pain and troponin. 2. Known history of ST-segment elevation myocardial infarction in July 2017 with left anterior d escending artery stenting x2 drug-eluting stent. 3. Severe cardiomyopathy with an ejection fraction of 25% or less done recently on 01/02/18. 4. History of left ventricular thrombus in recent echo that was not seen. She was on Coumadin as an outpatient. 5. Systemic arterial hypertension. 6. Hyperlipidemia. 7. Abnormal EKG as described. 8. Anemia. 9. Borderline mildly elevated white blood cell. 10. Components of her symptoms of chest pain today appear to be pleuritic in nature, someone cannot rule out pericarditis. 11. Hypothyroidism. 12. Diabetes mellitus. PLAN: The patient with significant comorbidities, severe cardiomyopathy, severe coronary artery dise ase, history of anaphylaxis to aspirin. I have discussed her at length with Dr. Gallagher. We intervie wed the patient in her room on telemetry floor today. Dr. Gallagher and myself reviewed at length the p lisbeth's recent echo as well as her cardiac cath and intervention from July [address]. [address] Mervin soler's recommendation and our belief that this patient is high risk to be taken to our cardiac catheter ization lab based on her severe cardiomyopathy and comorbidities and her coronary anatomy from the that was done in July 2017. Also, there is no emergency to take her right now in absence of a n active chest pain and in absence of ST elevations by her EKG. However, we believe she will be a ca ndidate to have her intervention if she agrees at a tertiary center that supports coronary artery byp ass grafting if needed. I have discussed this at length with the patient and she understood. My dis cussion with her it is her decision and her wishes that she wants to think about all of these at the present time and she is not sure if she wants any further cardiac cath or intervention to be done and she was not sure if she wants to be transferred from our facility. Her wishes at the present time t o continue maximizing medical treatment as tolerated. I have discussed this with Dr. Trey Perez via ph one today. We will continue to observe her closely and continue current medications accordingly. Thank you very much for asking us to participate in the care of this patient. TIME SPENT: More than half of at least 65-plus minute was in the [id number] education and counseli ng mode explaining all of the above, making further decisions and recommendations. [id number]/[facility] #: [id number]
[2018-01-05] MEDS: Atorvastatin* 40 MG TAB PO SCH (20:44)
[2018-01-05] MEDS: Nitro Patch/OINT Remove PATCH OFF SCH (20:45)
[2018-01-06] MEDS: Heparin DRIP 25,000 UNITS(*) 25,000 UNITS/500 ML BAG IV SCH (02:50)
[2018-01-06] MEDS: Clindamycin CAP* 150 MG PO SCH ×4 (05:22→23:36)
[2018-01-06] MEDS: Levothyroxine TAB* 75 MCG TAB PO SCH (05:22)
[2018-01-06 06:27] LABS: ABS Basophils 0.1 10^3/ul (0-0.2); ABS Eosinophils 0.2 10^3/ul (0-0.6); ABS Lymphocytes 2.1 10^3/ul (1.0-4.8); ABS Monocytes 0.9 10^3/ul (0-0.8); ABS Neutrophils 11.4 10^3/ul (1.5-7.7); ABS Nucleated RBC 0 10^3/ul; Eosinophil % 1.7 % (0-6); Hematocrit 31 % (35-47); Hemoglobin 10.4 g/dl (12.0-16.0); Lymphocyte % 14.3 % (25-47); Mean Corpuscular HGB Conc 33 g/dl (31-36); Mean Corpuscular Hemoglobin 29 pg (27-31); Mean Corpuscular Volume 87 fL (80-97); Mean Platelet Volume 9.1 um3 (7.4-10.4); Nucleated Red Blood Cells % 0; Platelet Count 266 10^3/ul (150-450); Red Blood Count 3.63 10^6/ul (4.0-5.4); Red Cell Distribution Width 17 % (10.5-15); White Blood Count 14.8 10^3/ul (3.5-10.8)
[2018-01-06 06:42] LABS: EGFR Non-African American 45.2 (>60)
--- NOTE | 2018-01-06 07:30 | PN ---
Subjective - Subjective Reason for Note: Progress Note History: She has had right sided chest pain, she thinks comes from her esophagus, perhaps because of clindamycin. However, she has had low BP yesterday that has not responded well to IV fluid boluses. She has no dyspnea at rest and is not using supplementary O2. She has had no dysrhythmias on telemetry. Her appetite is poor, but she has no nausea/vomiting. I discussed her case with Dr. Palumbo, who in turn spoke with the interventional cardiologists. She is at too high a risk to have a local coronary angiogram and likely would require either CABG or other higher level of care. She is focused on selling her [place] property before it is foreclosed. Active Problems: Active Problems Acute systolic (congestive) heart failure (Acute) I50.21 Current Medications: Current Medications Acetaminophen (Tylenol Tab*) 650 mg PO Q4H PRN PRN Reason: FEVER/PAIN Last Admin: 01/05/18 05:20 Dose: 650 mg Alprazolam (Xanax Tab*) 0.25 mg PO BID PRN PRN Reason: ANXIETY Atorvastatin Calcium (Lipitor*) 40 mg PO 2100 [facility] Last Admin: 01/05/18 20:44 Dose: 40 mg Bupropion HCl (Wellbutrin Xl *) 150 mg PO DAILY [facility] PRN Reason: Protocol Last Admin: 01/05/18 09:43 Dose: 150 mg Carvedilol (Coreg Tab*) 3.125 mg PO BID [facility] Last Admin: 01/05/18 20:44 Dose: 3.125 mg Clindamycin HCl (Cleocin Cap*) 300 mg PO Q6HR [facility] Stop: 01/07/18 06:00 Last Admin: 01/06/18 05:22 Dose: 300 mg Dextrose (D50w Syringe 50 Ml*) 12.5 gm IV PUSH .FOR FS < 60 - SS PRN PRN Reason: FS < 60 Fludrocortisone Acetate (Florinef Tab*) 0.05 mg PO DAILY [facility] Last Admin: 01/05/18 09:44 Dose: 0.05 mg Gabapentin (Neurontin Cap(*)) 300 mg PO BID PRN PRN Reason: PAIN Heparin Sodium (Porcine) (Heparin Vial(*)) 0 units IV .FOR BOLUSES PRN PRN Reason: HEPARIN DRIP BOLUSES Last Admin: 01/05/18 00:01 Dose: 3,900 units Heparin Sodium/Dextrose (Heparin Drip 25,000 Units(*)) 25,000 units in 500 mls @ 0 mls/hr IV PER RATE [facility]; Per Protocol PRN Reason: Protocol Last Admin: 01/06/18 02:50 Dose: 24 mls/hr Insulin Glargine (Lantus(*)) 50 units SUBCUT BID [facility] Last Admin: 01/05/18 20:44 Dose: 50 unit Insulin Human Lispro (Humalog*) 0 units SUBCUT AC [facility] PRN Reason: Protocol Last Admin: 01/05/18 18:04 Dose: 1 unit Levothyroxine Sodium (Synthroid Tab*) 75 mcg PO 0600 [facility] Last Admin: 01/06/18 05:22 Dose: 75 mcg Lisinopril (Prinivil Tab*) 2.5 mg PO DAILY [facility] Last Admin: 01/05/18 09:45 Dose: 2.5 mg Mometasone Furoate/Formoterol Fumar (Dulera 200/5 Mdi*) 2 puff INH DAILY [facility] PRN Reason: Protocol Last Admin: 01/05/18 08:46 Dose: 2 puff Morphine Sulfate (Morphine Oral.Soln 10 Mg*) 5 mg PO Q2H PRN PRN Reason: PAIN - MODERATE TO SEVERE Last Admin: 01/05/18 19:52 Dose: 5 mg Nitroglycerin (Nitroglycerin 2% Oint*) 0.5 inch TOPICAL 0800,1400 [facility] PRN Reason: Protocol Last Admin: 01/05/18 14:03 Dose: 0.5 inch Ondansetron HCl (Zofran Inj*) 4 mg IV Q6H PRN PRN Reason: NAUSEA Last Admin: 01/05/18 11:59 Dose: 4 mg Pharmacy Profile Note (Nitro Patch/Oint Remove*) 1 note PATCH OFF 1999 [facility] Last Admin: 01/05/18 20:45 Dose: 1 each Ticagrelor (Brilinta*) 90 mg PO BID [facility] Last Admin: 01/05/18 20:44 Dose: 90 mg Venlafaxine HCl (Effexor Xr Cap*) 150 mg PO DAILY [facility] Last Admin: 01/05/18 09:44 Dose: 150 mg Home Medications: Home Medications Medication Instructions Recorded Confirmed Type ALPRAZolam TAB* [Xanax TAB*] 0.25 mg PO BID PRN 01/04/18 01/04/18 History Acetaminop/Codeine 30 MG TAB* 1 tab PO Q6H PRN 01/04/18 01/04/18 History [Tylenol/Codeine 30 MG TAB*] Bupropion XL* [Wellbutrin XL *] 150 mg PO DAILY 01/04/18 01/04/18 History Carvedilol TAB* [Coreg TAB*] 3.125 mg PO BID 01/04/18 01/04/18 History Clindamycin Cap(NF) [Clindamycin 300 mg PO Q6H 01/04/18 01/04/18 History Cap 300 mg Cap(NF)] Fludrocortisone Acetate TAB* 0.05 mg PO DAILY 01/04/18 01/04/18 History [Florinef TAB*] Fluticas/Salmet 115/21 HFA(NF) 2 puff PO DAILY 01/04/18 01/04/18 History [Advair HFA 115/21 (NF)] Gabapentin CAP(*) [Neurontin 300 300 mg PO BID PRN 01/04/18 01/04/18 History CAP(*)] Insulin Detemir [Levemir Flextouch] 50 unit SUBCUT BID 01/04/18 01/04/18 History Levothyroxine TAB* [Synthroid TAB*] 75 mcg PO DAILY 01/04/18 01/04/18 History Lisinopril TAB* [Prinivil TAB*] 2.5 mg PO DAILY 01/04/18 01/04/18 History Ticagrelor* [Brilinta*] 90 mg PO BID 01/04/18 01/04/18 History Venlafaxine EXT RELEASE CAP* 150 mg PO DAILY 01/04/18 01/04/18 History [Effexor Xr CAP*] Warfarin TAB(*) [Coumadin TAB(*)] 3 mg PO MOFR 01/04/18 01/04/18 History Warfarin TAB(*) [Coumadin TAB(*)] 3 mg PO SUTUWETHSA 01/04/18 01/04/18 History Allergies: Allergies Allergy/AdvReac Type Severity Reaction Status Date / Time aspirin Allergy Anaphylatic Verified 01/04/18 19:45 Shock doxycycline Allergy Anaphylatic Verified 01/04/18 19:45 Shock NSAIDS (Non-Steroidal Allergy Bleeding Verified 01/04/18 19:45 Anti-Inflamma pentazocine Allergy Hallucinati Verified 01/04/18 19:45 ons Sulfa (Sulfonamide Allergy Anaphylatic Verified 01/04/18 19:45 Antibiotics) Shock Objective - Vital Signs Vital Signs: Vital Signs 01/05/18 01/05/18 01/05/18 08:00 08:07 08:36 Temperature 97.0 F Pulse Rate 77 Respiratory 16 Rate Blood Pressure 91/53 (mmHg) O2 Sat by Pulse 98 Oximetry 01/05/18 01/05/18 01/05/18 08:53 11:01 11:18 Temperature 98.6 F Pulse Rate 76 75 Respiratory 16 20 Rate Blood Pressure 89/51 100/58 (mmHg) O2 Sat by Pulse 96 98 Oximetry 01/05/18 01/05/18 01/05/18 11:32 12:08 12:29 Temperature Pulse Rate 79 75 Respiratory Rate Blood Pressure 80/45 89/44 87/47 (mmHg) O2 Sat by Pulse 99 Oximetry 01/05/18 01/05/18 01/05/18 13:30 13:35 13:51 Temperature 98.3 F Pulse Rate 76 Respiratory 20 18 Rate Blood Pressure 88/50 88/50 (mmHg) O2 Sat by Pulse 99 Oximetry 01/05/18 01/05/18 01/05/18 15:06 15:39 15:40 Temperature 98.6 F Pulse Rate 73 Respiratory 16 18 Rate Blood Pressure 72/46 84/56 (mmHg) O2 Sat by Pulse 96 Oximetry 01/05/18 01/05/18 01/05/18 19:30 19:52 20:00 Temperature 98.5 F Pulse Rate 89 Respiratory 18 18 18 Rate Blood Pressure 110/61 (mmHg) O2 Sat by Pulse 99 Oximetry 01/05/18 01/05/18 01/06/18 22:41 23:22 03:32 Temperature 98.5 F 98.3 F Pulse Rate 78 72 Respiratory 18 22 20 Rate Blood Pressure 82/50 88/50 (mmHg) O2 Sat by Pulse 98 99 Oximetry 01/06/18 05:42 Temperature Pulse Rate Respiratory Rate Blood Pressure (mmHg) O2 Sat by Pulse 98 Oximetry - Intake and Output Intake and Output: Intake & Output 01/03/18 01/04/18 01/05/1818 11:59 11:59 11:59 11:59 Intake Total 609 1932 Output Total 200 300 Balance 409 1632 Weight 151 lb 3.2 oz 152 lb 3.2 oz Intake: IV Fluids 500 ns 500 Heparin 109 392 Oral 500 1040 Output: Urine 200 300 Other: Estimated Void Medium # Bowel Movements 0 ADLs: Meal Record Start: 01/04/18 23: 00 Freq: DAILY@0900,1400,1800 Status: Active Protocol: Document 01/05/18 09:28 [id number] (Rec: 01/05/18 09:28 [id number]) Document 01/05/18 13:29 [id number] (Rec: 01/05/18 13:29 [id number] TELE-C01) Document 01/05/18 18:00 [id number] (Rec: 01/05/18 19:56 [id number] TELE-C01) Intake and Output Start: 01/04/18 23: 00 Freq: DAILY@0600,1400,2200 Status: Active Protocol: Document 01/05/18 03:29 [id number] (Rec: 01/05/18 03:29 [id number] TELE-C08) Document 01/05/18 06:33 [id number] (Rec: 01/05/18 06:34 [id number] TELE-C08) Document 01/05/18 13:29 [id number] (Rec: 01/05/18 13:29 [id number] TELE-C01) Document 01/05/18 17:19 [id number] (Rec: 01/05/18 17:19 [id number] TELE-C13) Document 01/05/18 21:46 [id number] (Rec: 01/05/18 21:52 [id number] TELE-C05) Document 01/06/18 06:00 [id number] (Rec: 01/06/18 06:03 [id number] TELE-C35) - Physical Exam General Physical Exam Comment: Warm and perfused, hypotensive. She is in no acute distress. Her toe lesions are unchanged without any erythema. General: No Cyanosis, No Anemia, No Jaundice, No Clubbing Lungs and Chest: Yes: Chest Expansion Full, Chest Expansion Symetrica, Percussion Note Resonant, Vessicular Breath Sounds, Crackles - left base fine crackles. No: Wheezes, Respiratory Distress, Use of Accessory Muscles Heart Rate and Rhythm: Regular JVP: Not Elevated Additional Cardiovascular: Yes: Normal Heart Sounds. No: Heart Murmur, Pedal Edema Abdominal Exam: Yes: Soft, Bowel Sounds Present. No: Distention, Hepatomegaly, Abdominal Tenderness - Neuro Orientation: A/O x3 Speech: Normal Results - Results Lab Results: Laboratory Results - last 24 hr 01/05/18 01/05/18 01/05/18 05:05 07:38 10:33 WBC RBC Hgb Hct MCV MCH MCHC RDW Plt Count MPV Neut % (Auto) Lymph % (Auto) [place] % (Auto) Eos % (Auto) Baso % (Auto) Absolute Neuts (auto) Absolute Lymphs (auto) Absolute Monos (auto) Absolute Eos (auto) Absolute Basos (auto) Absolute Nucleated RBC Nucleated RBC % APTT 41.3 H Sodium Potassium Chloride Carbon Dioxide Anion Gap BUN Creatinine Est GFR ( Amer) Est GFR (Non-Af Amer) BUN/Creatinine Ratio Glucose POC Glucose (mg/dL) 151 H Hemoglobin A1c 7.7 H Calcium Troponin I 01/05/18 01/05/18 01/05/18 11:28 12:45 16:40 WBC RBC Hgb Hct MCV MCH MCHC RDW Plt Count MPV Neut % (Auto) Lymph % (Auto) [place] % (Auto) Eos % (Auto) Baso % (Auto) Absolute Neuts (auto) Absolute Lymphs (auto) Absolute Monos (auto) Absolute Eos (auto) Absolute Basos (auto) Absolute Nucleated RBC Nucleated RBC % APTT Sodium Potassium Chloride Carbon Dioxide Anion Gap BUN Creatinine Est GFR ( Amer) Est GFR (Non-Af Amer) BUN/Creatinine Ratio Glucose POC Glucose (mg/dL) 145 H 150 H Hemoglobin A1c Calcium Troponin I 0.55 H* 01/05/18 01/06/18 01/06/18 16:46 00:36 05:57 WBC 14.8 H RBC 3.63 L Hgb 10.4 L Hct 31 L MCV 87 MCH 29 MCHC 33 RDW 17 H Plt Count 266 MPV 9.1 Neut % (Auto) 77.2 Lymph % (Auto) 14.3 L [place] % (Auto) 6.4 Eos % (Auto) 1.7 Baso % (Auto) 0.4 Absolute Neuts (auto) 11.4 H Absolute Lymphs (auto) 2.1 Absolute Monos (auto) 0.9 H Absolute Eos (auto) 0.2 Absolute Basos (auto) 0.1 Absolute Nucleated RBC 0 Nucleated RBC % 0 APTT 37.5 H 58.6 H Sodium Potassium Chloride Carbon Dioxide Anion Gap BUN Creatinine Est GFR ( Amer) Est GFR (Non-Af Amer) BUN/Creatinine Ratio Glucose POC Glucose (mg/dL) Hemoglobin A1c Calcium Troponin I 01/06/18 01/06/18 05:57 05:58 WBC RBC Hgb Hct MCV MCH MCHC RDW Plt Count MPV Neut % (Auto) Lymph % (Auto) [place] % (Auto) Eos % (Auto) Baso % (Auto) Absolute Neuts (auto) Absolute Lymphs (auto) Absolute Monos (auto) Absolute Eos (auto) Absolute Basos (auto) Absolute Nucleated RBC Nucleated RBC % APTT 53.8 H Sodium 135 L Potassium 3.8 Chloride 103 Carbon Dioxide 25 Anion Gap 7 BUN 24 Creatinine 1.17 H Est GFR ( Amer) 58.2 Est GFR (Non-Af Amer) 45.2 BUN/Creatinine Ratio 20.5 H Glucose 82 POC Glucose (mg/dL) Hemoglobin A1c Calcium 8.3 L Troponin I EKG Report: EKG - prolonged QTc 559 Assessment - Problem List Assessment: Patient Problems Acute systolic (congestive) heart failure (Acute) Diabetic ulcer of left fifth toe (Acute) Elevated troponin I level (Acute) Lactic acidemia (Acute) NSTEMI (non-ST elevated myocardial infarction) (Acute) Ulcer of right great toe due to diabetes mellitus (Acute) Asthma (Chronic) COPD (chronic obstructive pulmonary disease) (Chronic) Cardiomyopathy, ischemic (Chronic) Depression (Chronic) Dyspnea on exertion (Chronic) Hyperlipidemia (Chronic) Hypertension (Chronic) Hypothyroidism (Chronic) ICD (implantable cardioverter-defibrillator) in place (Chronic) Left ventricular thrombus (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 Palumbo and read his note. She is at present disinclined to go to [place] for evaluation and potential revascularization - though she has not ruled it out. At present she has an exacerbation of her usual hypotension. She also has fine crackles in her left base, making me concerned about fluid boluses. Her heart rhythm remains in sinus. Her kidneys are perfused as her BUN/Cr are unchanged. I will continue to withhold pressors as she has tolerated this level of hypotension as an outpatient after her previous SC. However, I will increase her fludrocortisone dose. I want her to remain on IV heparin and rest today. ICD (implantable cardioverter-defibrillator) in place (Chronic) I asked if she wants to stay full code or whether she wants to be DNR and to switch off her defibrillator. 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 I will cut back her basal insulin I discussed the above with the patient. She is fixated upon the impending foreclosure of her [facility]. She has signed a lease on senior accommodation. She is unrealistic about her discharge - I don't think returning to the [facility] is a safe plan of discharge - isolated, on a long slope and very stressful. I will have a school social worker discuss options.
[2018-01-06] MEDS: Insulin LISPRO* 1 UNITS UNIT SUBCUT SCH ×3 (08:03→17:10)
[2018-01-06] MEDS: Nitroglycerin 2% OINT* 1 GM PAK TOPICAL SCH ×2 (08:29→15:38)
[2018-01-06] MEDS: Mometasone/Formoter 200/5 MDI INH SCH (09:01)
--- NOTE | 2018-01-06 09:06 | RAD ---
Indication: Congestive heart failure. Non-ST elevation myocardial infarction Comparison: January 04, 2018 Technique: Upright AP 2049 hours Report: Single lead of LEFT chest wall pacemaker extends to the RIGHT ventricle. Unchanged cardiomegaly. Prominent ill-defined central pulmonary vasculature without significant change. Mild prominence of interstitial markings and trace fluid in the RIGHT minor fissure. Negative for pneumothorax. IMPRESSION: Very mild pulmonary vascular congestion and interstitial edema without significant interval change.
[2018-01-06] MEDS: Insulin GLARGINE(*) 1 UNITS UNIT SUBCUT SCH ×2 (09:16→21:54)
[2018-01-06] MEDS: BuPROPion XL* 150 MG TAB.XL PO SCH (09:17)
[2018-01-06] MEDS: Lisinopril TAB* 5 MG PO SCH (09:17)
[2018-01-06] MEDS: Venlafaxine EXT RELEASE CAP* 75 MG PO SCH (09:17)
[2018-01-06] MEDS: Carvedilol TAB* 3.125 MG PO SCH ×2 (09:18→21:57)
[2018-01-06] MEDS: Fludrocortisone Acetate TAB* 0.1 MG PO SCH (09:19)
[2018-01-06] MEDS: Ticagrelor* 90 MG TAB PO SCH ×2 (09:19→21:53)
[2018-01-06] MEDS: Nitro Patch/OINT Remove PATCH OFF SCH (21:53)
[2018-01-06] MEDS: Atorvastatin* 40 MG TAB PO SCH (21:53)
[2018-01-07 05:37] LABS: ABS Basophils 0.1 10^3/ul (0-0.2); ABS Eosinophils 0.2 10^3/ul (0-0.6); ABS Lymphocytes 2.2 10^3/ul (1.0-4.8); ABS Monocytes 0.8 10^3/ul (0-0.8); ABS Neutrophils 7.6 10^3/ul (1.5-7.7); ABS Nucleated RBC 0 10^3/ul; Eosinophil % 2.2 % (0-6); Hematocrit 29 % (35-47); Hemoglobin 9.8 g/dl (12.0-16.0); Lymphocyte % 20.2 % (25-47); Mean Corpuscular HGB Conc 34 g/dl (31-36); Mean Corpuscular Hemoglobin 29 pg (27-31); Mean Corpuscular Volume 86 fL (80-97); Mean Platelet Volume 9.5 um3 (7.4-10.4); Nucleated Red Blood Cells % 0; Platelet Count 240 10^3/ul (150-450); Red Blood Count 3.33 10^6/ul (4.0-5.4); Red Cell Distribution Width 17 % (10.5-15); White Blood Count 11.1 10^3/ul (3.5-10.8)
[2018-01-07] MEDS: Levothyroxine TAB* 75 MCG TAB PO SCH (05:53)
[2018-01-07] MEDS: Clindamycin CAP* 150 MG PO SCH (05:53)
[2018-01-07 05:55] LABS: EGFR Non-African American 42.7 (>60)
[2018-01-07] MEDS: Heparin VIAL(*) 5000 UNITS/ML VIAL (FIVE THOUSAND) IV PRN (06:02)
[2018-01-07] MEDS: Mometasone/Formoter 200/5 MDI INH SCH (07:29)
--- NOTE | 2018-01-07 09:17 | PN ---
Subjective - Subjective Reason for Note: Progress Note History: She is pain-free and walking independently. She feels weak from having been in bed. She has dyspnea on exertion. Her BP remains low, and she is light headed at times, but no more so than prior to admission. She has a normal appetite, but her glucose level has been lower on much less basal insulin (glargine 20 units bid rather than 50 units bid). She continues to want to be discharged to her [place] home. Active Problems: Active Problems Acute systolic (congestive) heart failure (Acute) I50.21 Current Medications: Current Medications Acetaminophen (Tylenol Tab*) 650 mg PO Q4H PRN PRN Reason: FEVER/PAIN Last Admin: 01/05/18 05:20 Dose: 650 mg Alprazolam (Xanax Tab*) 0.25 mg PO BID PRN PRN Reason: ANXIETY Atorvastatin Calcium (Lipitor*) 40 mg PO 2100 [facility] Last Admin: 01/06/18 21:53 Dose: 40 mg Bupropion HCl (Wellbutrin Xl *) 150 mg PO DAILY [facility] PRN Reason: Protocol Last Admin: 01/06/18 09:17 Dose: 150 mg Carvedilol (Coreg Tab*) 3.125 mg PO BID [facility] Last Admin: 01/06/18 21:57 Dose: Not Given Dextrose (D50w Syringe 50 Ml*) 12.5 gm IV PUSH .FOR FS < 60 - SS PRN PRN Reason: FS < 60 Fludrocortisone Acetate (Florinef Tab*) 0.1 mg PO DAILY [facility] Last Admin: 01/06/18 09:19 Dose: 0.1 mg Gabapentin (Neurontin Cap(*)) 300 mg PO BID PRN PRN Reason: PAIN Heparin Sodium (Porcine) (Heparin Vial(*)) 0 units IV .FOR BOLUSES PRN PRN Reason: HEPARIN DRIP BOLUSES Last Admin: 01/07/18 06:02 Dose: 1,950 units Heparin Sodium/Dextrose (Heparin Drip 25,000 Units(*)) 25,000 units in 500 mls @ 0 mls/hr IV PER RATE [facility]; Per Protocol PRN Reason: Protocol Last Admin: 01/06/18 02:50 Dose: 24 mls/hr Insulin Glargine (Lantus(*)) 20 units SUBCUT BID [facility] Last Admin: 01/06/18 21:54 Dose: 20 units Insulin Human Lispro (Humalog*) 0 units SUBCUT AC [facility] PRN Reason: Protocol Last Admin: 01/06/18 17:10 Dose: Not Given Levothyroxine Sodium (Synthroid Tab*) 75 mcg PO 0600 [facility] [place] Last Admin: 01/07/18 05:53 Dose: 75 mcg Lisinopril (Prinivil Tab*) 2.5 mg PO DAILY [facility] Last Admin: 01/06/18 09:17 Dose: 2.5 mg Mometasone Furoate/Formoterol Fumar (Dulera 200/5 Mdi*) 2 puff INH DAILY [facility] PRN Reason: Protocol Last Admin: 01/07/18 07:29 Dose: 2 puff Morphine Sulfate (Morphine Oral.Soln 10 Mg*) 5 mg PO Q2H PRN PRN Reason: PAIN - MODERATE TO SEVERE Last Admin: 01/05/18 19:52 Dose: 5 mg Nitroglycerin (Nitroglycerin 2% Oint*) 0.5 inch TOPICAL 0800,1400 [facility] PRN Reason: Protocol Last Admin: 01/06/18 15:38 Dose: Not Given Ondansetron HCl (Zofran Inj*) 4 mg IV Q6H PRN PRN Reason: NAUSEA Last Admin: 01/05/18 11:59 Dose: 4 mg Pharmacy Profile Note (Nitro Patch/Oint Remove*) 1 note PATCH OFF 1999 [facility] [place] Last Admin: 01/06/18 21:53 Dose: Not Given Ticagrelor (Brilinta*) 90 mg PO BID [facility] Last Admin: 01/06/18 21:53 Dose: 90 mg Venlafaxine HCl (Effexor Xr Cap*) 150 mg PO DAILY [facility] [place] Last Admin: 01/06/18 09:17 Dose: 150 mg Home Medications: Home Medications Medication Instructions Recorded Confirmed Type ALPRAZolam TAB* [Xanax TAB*] 0.25 mg PO BID PRN 01/04/18 01/04/18 History Acetaminop/Codeine 30 MG TAB* 1 tab PO Q6H PRN 01/04/18 01/04/18 History [Tylenol/Codeine 30 MG TAB*] Bupropion XL* [Wellbutrin XL *] 150 mg PO DAILY 01/04/18 01/04/18 History Carvedilol TAB* [Coreg TAB*] 3.125 mg PO BID 01/04/18 01/04/18 History Clindamycin Cap(NF) [Clindamycin 300 mg PO Q6H 01/04/18 01/04/18 History Cap 300 mg Cap(NF)] Fludrocortisone Acetate TAB* 0.05 mg PO DAILY 01/04/18 01/04/18 History [Florinef TAB*] Fluticas/Salmet 115/21 HFA(NF) 2 puff PO DAILY 01/04/18 01/04/18 History [Advair HFA 115/21 (NF)] Gabapentin CAP(*) [Neurontin 300 300 mg PO BID PRN 01/04/18 01/04/18 History CAP(*)] Insulin Detemir [Levemir Flextouch] 50 unit SUBCUT BID 01/04/18 01/04/18 History Levothyroxine TAB* [Synthroid TAB*] 75 mcg PO DAILY 01/04/18 01/04/18 History Lisinopril TAB* [Prinivil TAB*] 2.5 mg PO DAILY 01/04/18 01/04/18 History Ticagrelor* [Brilinta*] 90 mg PO BID 01/04/18 01/04/18 History Venlafaxine EXT RELEASE CAP* 150 mg PO DAILY 01/04/18 01/04/18 History [Effexor Xr CAP*] Warfarin TAB(*) [Coumadin TAB(*)] 3 mg PO MOFR 01/04/18 01/04/18 History Warfarin TAB(*) [Coumadin TAB(*)] 3 mg PO SUTUWETHSA 01/04/18 01/04/18 History Allergies: Allergies Allergy/AdvReac Type Severity Reaction Status Date / Time aspirin Allergy Anaphylatic Verified 01/04/18 19:45 Shock doxycycline Allergy Anaphylatic Verified 01/04/18 19:45 Shock NSAIDS (Non-Steroidal Allergy Bleeding Verified 01/04/18 19:45 Anti-Inflamma pentazocine Allergy Hallucinati Verified 01/04/18 19:45 ons Sulfa (Sulfonamide Allergy Anaphylatic Verified 01/04/18 19:45 Antibiotics) Shock Objective - Vital Signs Vital Signs: Vital Signs 01/06/18 01/06/18 01/06/18 11:17 15:20 18:30 Temperature 100.3 F 100.1 F 98.3 F Pulse Rate 83 83 83 Respiratory 20 16 16 Rate Blood Pressure 90/53 77/45 83/48 (mmHg) O2 Sat by Pulse 97 99 95 Oximetry 01/06/18 01/07/18 01/07/18 20:00 00:02 04:24 Temperature 99.4 F 98.9 F Pulse Rate 79 79 Respiratory 16 18 17 Rate Blood Pressure 99/54 90/51 (mmHg) O2 Sat by Pulse 98 97 Oximetry 01/07/18 06:18 Temperature Pulse Rate Respiratory 18 Rate Blood Pressure (mmHg) O2 Sat by Pulse Oximetry - Intake and Output Intake and Output: Intake & Output 01/04/18 01/05/18 01/06/18 01/07/18 11:59 11:59 11:59 11:59 Intake Total 609 2052 1439 Output Total 200 300 250 Balance 409 1752 1189 Weight 151 lb 3.2 oz 152 lb 3.2 oz 155 lb 6.4 oz Intake: IV Fluids 500 ns 500 Heparin 109 392 509 Oral 500 1160 930 Output: Urine 200 300 250 Other: Estimated Void Medium # Bowel Movements 0 0 ADLs: Meal Record Start: 01/04/18 23: 00 Freq: DAILY@0900,1400,1800 Status: Active Protocol: Document 01/05/18 09:28 [id number] (Rec: 01/05/18 09:28 [id number]) Document 01/05/18 13:29 [id number] (Rec: 01/05/18 13:29 [id number] TELE-C01) Document 01/05/18 18:00 [id number] (Rec: 01/05/18 19:56 [id number] TELE-C01) Document 01/06/18 09:00 [id number] (Rec: 01/06/18 10:52 [id number] TELE-C05) Document 01/06/18 14:00 [id number] (Rec: 01/06/18 14:22 [id number] TELE-C05) Document 01/06/18 18:00 [id number] (Rec: 01/06/18 20:07 [id number] TELE-C01) Intake and Output Start: 01/04/18 23: 00 Freq: DAILY@0600,1400,2200 Status: Active Protocol: Document 01/05/18 03:29 [id number] (Rec: 01/05/18 03:29 [id number] TELE-C08) Document 01/05/18 06:33 [id number] (Rec: 01/05/18 06:34 [id number] TELE-C08) Document 01/05/18 13:29 [id number] (Rec: 01/05/18 13:29 [id number] TELE-C01) Document 01/05/18 17:19 [id number] (Rec: 01/05/18 17:19 [id number] TELE-C13) Document 01/05/18 21:46 [id number] (Rec: 01/05/18 21:52 [id number] TELE-C05) Document 01/06/18 06:00 [id number] (Rec: 01/06/18 06:03 [id number] TELE-C35) Document 01/06/18 14:00 [id number] (Rec: 01/06/18 14:22 [id number] TELE-C05) Document 01/06/18 22:00 [id number] (Rec: 01/06/18 22:02 [id number] TELE-C01) Document 01/07/18 06:00 [id number] (Rec: 01/07/18 07:20 [id number] TELE-C35) - Physical Exam General: No Cyanosis, No Anemia, No Jaundice, No Clubbing Lungs and Chest: Yes: Chest Expansion Full, Chest Expansion Symetrica, Percussion Note Resonant, Vessicular Breath Sounds, Crackles - scattered fine crackles. No: Wheezes, Respiratory Distress, Use of Accessory Muscles Heart Rate and Rhythm: Regular JVP: Not Elevated Additional Cardiovascular: Yes: Normal Heart Sounds. No: Heart Murmur, Pedal Edema Abdominal Exam: Yes: Soft, Bowel Sounds Present. No: Distention, Hepatomegaly, Abdominal Tenderness Results - Results Lab Results: Laboratory Results - last 24 hr 01/06/18 01/06/18 01/06/18 07:45 11:13 17:02 WBC RBC Hgb Hct MCV MCH MCHC RDW Plt Count MPV Neut % (Auto) Lymph % (Auto) [place] % (Auto) Eos % (Auto) Baso % (Auto) Absolute Neuts (auto) Absolute Lymphs (auto) Absolute Monos (auto) Absolute Eos (auto) Absolute Basos (auto) Absolute Nucleated RBC Nucleated RBC % APTT Sodium Potassium Chloride Carbon Dioxide Anion Gap BUN Creatinine Est GFR ( Amer) Est GFR (Non-Af Amer) BUN/Creatinine Ratio Glucose POC Glucose (mg/dL) 102 H 210 H 79 Calcium 01/07/18 01/07/18 01/07/18 05:27 05:27 05:27 WBC 11.1 H RBC 3.33 L Hgb 9.8 L Hct 29 L MCV 86 MCH 29 MCHC 34 RDW 17 H Plt Count 240 MPV 9.5 Neut % (Auto) 69.0 Lymph % (Auto) 20.2 L [place] % (Auto) 7.6 H Eos % (Auto) 2.2 Baso % (Auto) 1.0 Absolute Neuts (auto) 7.6 Absolute Lymphs (auto) 2.2 Absolute Monos (auto) 0.8 Absolute Eos (auto) 0.2 Absolute Basos (auto) 0.1 Absolute Nucleated RBC 0 Nucleated RBC % 0 APTT 47.3 H Sodium 135 L Potassium 3.7 Chloride 105 Carbon Dioxide 24 Anion Gap 6 BUN 23 Creatinine 1.23 H Est GFR ( Amer) 54.9 Est GFR (Non-Af Amer) 42.7 BUN/Creatinine Ratio 18.7 Glucose 68 L POC Glucose (mg/dL) Calcium 8.2 L 01/07/18 07:20 WBC RBC Hgb Hct MCV MCH MCHC RDW Plt Count MPV Neut % (Auto) Lymph % (Auto) [place] % (Auto) Eos % (Auto) Baso % (Auto) Absolute Neuts (auto) Absolute Lymphs (auto) Absolute Monos (auto) Absolute Eos (auto) Absolute Basos (auto) Absolute Nucleated RBC Nucleated RBC % APTT Sodium Potassium Chloride Carbon Dioxide Anion Gap BUN Creatinine Est GFR ( Amer) Est GFR (Non-Af Amer) BUN/Creatinine Ratio Glucose POC Glucose (mg/dL) 87 Calcium Assessment - Problem List Assessment: Patient Problems Acute systolic (congestive) heart failure (Acute) Diabetic ulcer of left fifth toe (Acute) Elevated troponin I level (Acute) Lactic acidemia (Acute) NSTEMI (non-ST elevated myocardial infarction) (Acute) Ulcer of right great toe due to diabetes mellitus (Acute) Asthma (Chronic) COPD (chronic obstructive pulmonary disease) (Chronic) Cardiomyopathy, ischemic (Chronic) Depression (Chronic) Dyspnea on exertion (Chronic) Hyperlipidemia (Chronic) Hypertension (Chronic) Hypothyroidism (Chronic) 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 Telemetry shows sinus rhythm. Her BP remains low, but her renal function is stable suggesting she is perfusing her kidneys. Today I will stop the IV heparin, restart warfarin and bridge with heparin. I will cut back her insulin some more. She is adamant she wants to return to her [facility] home and not to have any rehabilitation. I advised her to return to her new senior apartment (she has a lease), but she wants to return to her old home to get it ready for sale. This is a source of physical, social and psychological stress and I have explained to her that she should delegate the sale of her home. She has full capacity and chooses to return to her [place] home.
[2018-01-07] MEDS: Insulin GLARGINE(*) 1 UNITS UNIT SUBCUT SCH ×2 (09:25→21:14)
[2018-01-07] MEDS: Venlafaxine EXT RELEASE CAP* 75 MG PO SCH (09:25)
[2018-01-07] MEDS: BuPROPion XL* 150 MG TAB.XL PO SCH (09:26)
[2018-01-07] MEDS: Lisinopril TAB* 5 MG PO SCH (09:26)
[2018-01-07] MEDS: Carvedilol TAB* 3.125 MG PO SCH ×2 (09:26→21:14)
[2018-01-07] MEDS: Ticagrelor* 90 MG TAB PO SCH ×2 (09:27→21:13)
[2018-01-07] MEDS: Fludrocortisone Acetate TAB* 0.1 MG PO SCH (09:27)
[2018-01-07] MEDS: Nitroglycerin 2% OINT* 1 GM PAK TOPICAL SCH ×2 (09:27→12:06)
[2018-01-07] MEDS: Insulin LISPRO* 1 UNITS UNIT SUBCUT SCH ×3 (09:28→16:29)
[2018-01-07] MEDS: Enoxaparin(*) 80 MG/0.8 ML SYR SUBCUT SCH (10:34)
[2018-01-07] MEDS ORDERED: Warfarin TAB(*) 7.5 MG PO SCH (17:00)
[2018-01-07] MEDS: Nitro Patch/OINT Remove PATCH OFF SCH (20:45)
[2018-01-07] MEDS: Atorvastatin* 40 MG TAB PO SCH (21:13)
[2018-01-08] MEDS: Levothyroxine TAB* 75 MCG TAB PO SCH (05:45)
[2018-01-08 06:00] LABS: ABS Basophils 0.1 10^3/ul (0-0.2); ABS Eosinophils 0.2 10^3/ul (0-0.6); ABS Lymphocytes 1.8 10^3/ul (1.0-4.8); ABS Monocytes 0.7 10^3/ul (0-0.8); ABS Neutrophils 7.6 10^3/ul (1.5-7.7); ABS Nucleated RBC 0 10^3/ul; Eosinophil % 2.3 % (0-6); Hematocrit 30 % (35-47); Lymphocyte % 17.4 % (25-47); Mean Corpuscular HGB Conc 34 g/dl (31-36); Mean Corpuscular Hemoglobin 29 pg (27-31); Mean Corpuscular Volume 86 fL (80-97); Mean Platelet Volume 9.4 um3 (7.4-10.4); Nucleated Red Blood Cells % 0; Platelet Count 253 10^3/ul (150-450); Red Blood Count 3.46 10^6/ul (4.0-5.4); Red Cell Distribution Width 17 % (10.5-15); White Blood Count 10.5 10^3/ul (3.5-10.8)
[2018-01-08 06:13] LABS: INR 1.15 (0.77-1.02)
[2018-01-08] MEDS: Mometasone/Formoter 200/5 MDI INH SCH (07:31)
[2018-01-08] MEDS: Insulin LISPRO* 1 UNITS UNIT SUBCUT SCH ×2 (08:10→12:34)
--- NOTE | 2018-01-08 09:05 | PN ---
Subjective - Subjective Reason for Note: Discharge Note History: She has some dyspnea in the night, but no other symptoms. She is able to go about her ADLs. No chest pain, cough, sputum. Active Problems: Active Problems Acute systolic (congestive) heart failure (Acute) I50.21 Current Medications: Current Medications Acetaminophen (Tylenol Tab*) 650 mg PO Q4H PRN PRN Reason: FEVER/PAIN Last Admin: 01/05/18 05:20 Dose: 650 mg Alprazolam (Xanax Tab*) 0.25 mg PO BID PRN PRN Reason: ANXIETY Atorvastatin Calcium (Lipitor*) 40 mg PO 2100 [facility] Last Admin: 01/07/18 21:13 Dose: 40 mg Bupropion HCl (Wellbutrin Xl *) 150 mg PO DAILY [facility] PRN Reason: Protocol Last Admin: 01/07/18 09:26 Dose: 150 mg Carvedilol (Coreg Tab*) 3.125 mg PO BID [facility] Last Admin: 01/07/18 21:14 Dose: 3.125 mg Dextrose (D50w Syringe 50 Ml*) 12.5 gm IV PUSH .FOR FS < 60 - SS PRN PRN Reason: FS < 60 Enoxaparin Sodium (Lovenox(*)) 80 mg SUBCUT Q24H [facility] Last Admin: 01/07/18 10:34 Dose: 80 mg Fludrocortisone Acetate (Florinef Tab*) 0.1 mg PO DAILY [facility] Last Admin: 01/07/18 09:27 Dose: 0.1 mg Gabapentin (Neurontin Cap(*)) 300 mg PO BID PRN PRN Reason: PAIN Insulin Glargine (Lantus(*)) 15 units SUBCUT BID [facility] Last Admin: 01/07/18 21:14 Dose: 15 units Insulin Human Lispro (Humalog*) 0 units SUBCUT AC [facility] PRN Reason: Protocol Last Admin: 01/08/18 08:10 Dose: Not Given Levothyroxine Sodium (Synthroid Tab*) 75 mcg PO 0600 [facility] Last Admin: 01/08/18 05:45 Dose: 75 mcg Lisinopril (Prinivil Tab*) 2.5 mg PO DAILY [facility] Last Admin: 01/07/18 09:26 Dose: 2.5 mg Mometasone Furoate/Formoterol Fumar (Dulera 200/5 Mdi*) 2 puff INH DAILY [facility] PRN Reason: Protocol Last Admin: 01/08/18 07:31 Dose: 2 puff Morphine Sulfate (Morphine Oral.Soln 10 Mg*) 5 mg PO Q2H PRN PRN Reason: PAIN - MODERATE TO SEVERE Last Admin: 01/05/18 19:52 Dose: 5 mg Ondansetron HCl (Zofran Inj*) 4 mg IV Q6H PRN PRN Reason: NAUSEA Last Admin: 01/05/18 11:59 Dose: 4 mg Pharmacy Profile Note (Nitro Patch/Oint Remove*) 1 note PATCH OFF 1999 [facility] Last Admin: 01/07/18 20:45 Dose: Not Given Pharmacy Profile Note (Coumadin Per Pharmacy*) 0 note FOLLOW UP .PER PHARMACY PROTOC [facility] PRN Reason: Protocol Ticagrelor (Brilinta*) 90 mg PO BID [facility] Last Admin: 01/07/18 21:13 Dose: 90 mg Venlafaxine HCl (Effexor Xr Cap*) 150 mg PO DAILY [facility] Last Admin: 01/07/18 09:25 Dose: 150 mg Warfarin Sodium (Coumadin Tab(*)) 7.5 mg PO 1700 [facility] Last Admin: 01/07/18 17:21 Dose: 7.5 mg Home Medications: Home Medications Medication Instructions Recorded Confirmed Type ALPRAZolam TAB* [Xanax TAB*] 0.25 mg PO BID PRN 01/04/18 01/04/18 History Acetaminop/Codeine 30 MG TAB* 1 tab PO Q6H PRN 01/04/18 01/04/18 History [Tylenol/Codeine 30 MG TAB*] Bupropion XL* [Wellbutrin XL *] 150 mg PO DAILY 01/04/18 01/04/18 History Carvedilol TAB* [Coreg TAB*] 3.125 mg PO BID 01/04/18 01/04/18 History Clindamycin Cap(NF) [Clindamycin 300 mg PO Q6H 01/04/18 01/04/18 History Cap 300 mg Cap(NF)] Fludrocortisone Acetate TAB* 0.05 mg PO DAILY 01/04/18 01/04/18 History [Florinef TAB*] Fluticas/Salmet 115/21 HFA(NF) 2 puff PO DAILY 01/04/18 01/04/18 History [Advair HFA 115/21 (NF)] Gabapentin CAP(*) [Neurontin 300 300 mg PO BID PRN 01/04/18 01/04/18 History CAP(*)] Insulin Detemir [Levemir Flextouch] 50 unit SUBCUT BID 01/04/18 01/04/18 History Levothyroxine TAB* [Synthroid TAB*] 75 mcg PO DAILY 01/04/18 01/04/18 History Lisinopril TAB* [Prinivil TAB*] 2.5 mg PO DAILY 01/04/18 01/04/18 History Ticagrelor* [Brilinta*] 90 mg PO BID 01/04/18 01/04/18 History Venlafaxine EXT RELEASE CAP* 150 mg PO DAILY 01/04/18 01/04/18 History [Effexor Xr CAP*] Warfarin TAB(*) [Coumadin TAB(*)] 3 mg PO MOFR 01/04/18 01/04/18 History Warfarin TAB(*) [Coumadin TAB(*)] 3 mg PO SUTUWETHSA 01/04/18 01/04/18 History Allergies: Allergies Allergy/AdvReac Type Severity Reaction Status Date / Time aspirin Allergy Anaphylatic Verified 01/04/18 19:45 Shock doxycycline Allergy Anaphylatic Verified 01/04/18 19:45 Shock NSAIDS (Non-Steroidal Allergy Bleeding Verified 01/04/18 19:45 Anti-Inflamma pentazocine Allergy Hallucinati Verified 01/04/18 19:45 ons Sulfa (Sulfonamide Allergy Anaphylatic Verified 01/04/18 19:45 Antibiotics) Shock Objective - Vital Signs Vital Signs: Vital Signs 01/07/18 01/07/18 01/07/18 09:17 09:19 09:20 Temperature 97.7 F Pulse Rate 84 83 85 Respiratory 20 20 24 Rate Blood Pressure 95/56 90/49 128/103 (mmHg) O2 Sat by Pulse 95 96 98 Oximetry 01/07/18 01/07/18 01/07/18 11:39 11:41 11:42 Temperature 98.3 F Pulse Rate 78 79 82 Respiratory 20 20 24 Rate Blood Pressure 88/51 90/54 84/49 (mmHg) O2 Sat by Pulse 98 96 98 Oximetry 01/07/18 01/07/18 01/07/18 15:18 19:35 20:00 Temperature 98.2 F 98.6 F Pulse Rate 81 83 Respiratory 20 18 18 Rate Blood Pressure 90/55 92/55 (mmHg) O2 Sat by Pulse 97 98 Oximetry 01/07/18 01/07/18 01/07/18 20:42 20:44 20:46 Temperature Pulse Rate 82 87 88 Respiratory Rate Blood Pressure 98/56 95/58 99/50 (mmHg) O2 Sat by Pulse 97 96 96 Oximetry 01/07/18 01/08/18 01/08/18 23:45 02:09 03:44 Temperature 98.6 F 98.5 F Pulse Rate 72 74 74 Respiratory 16 24 16 Rate Blood Pressure 90/51 87/57 (mmHg) O2 Sat by Pulse 97 99 98 Oximetry 01/08/18 01/08/18 03:55 07:31 Temperature Pulse Rate 85 74 Respiratory 14 Rate Blood Pressure 94/58 (mmHg) O2 Sat by Pulse 96 Oximetry - Intake and Output Intake and Output: Intake & Output 01/05/18 01/06/18 01/07/18 01/08/18 11:59 11:59 11:59 11:59 Intake Total 609 2052 1678 960 Output Total 200 050 259 8673 Balance 409 1752 1428 -40 Weight 151 lb 3.2 oz 152 lb 3.2 oz 155 lb 6.4 oz 153 lb 9.6 oz Intake: IV Fluids 500 ns 500 Heparin 109 392 628 Oral 500 1160 1050 960 Output: Urine 200 799 182 5258 Other: Estimated Void Medium Medium # Bowel Movements 0 0 0 # Voids 1 ADLs: Meal Record Start: 01/04/18 23: 00 Freq: DAILY@0900,1400,1800 Status: Active Protocol: Document 01/05/18 09:28 [id number] (Rec: 01/05/18 09:28 [id number] TELE-C05) Document 01/05/18 13:29 [id number] (Rec: 01/05/18 13:29 [id number] TELE-C01) Document 01/05/18 18:00 [id number] (Rec: 01/05/18 19:56 [id number] TELE-C01) Document 01/06/18 09:00 [id number] (Rec: 01/06/18 10:52 [id number] TELE-C05) Document 01/06/18 14:00 [id number] (Rec: 01/06/18 14:22 [id number] TELE-C05) Document 01/06/18 18:00 [id number] (Rec: 01/06/18 20:07 [id number] TELE-C01) Document 01/07/18 09:00 [id number] (Rec: 01/07/18 13:45 [id number] TELE-C13) Document 01/07/18 13:45 [id number] (Rec: 01/07/18 13:48 [id number] TELE-C13) Document 01/07/18 17:49 [id number] (Rec: 01/07/18 17:49 [id number] TELE-C13) Intake and Output Start: 01/04/18 23: 00 Freq: DAILY@0600,1400,2200 Status: Active Protocol: Document 01/05/18 03:29 [id number] (Rec: 01/05/18 03:29 [id number] TELE-C08) Document 01/05/18 06:33 [id number] (Rec: 01/05/18 06:34 [id number] TELE-C08) Document 01/05/18 13:29 [id number] (Rec: 01/05/18 13:29 [id number] TELE-C01) Document 01/05/18 17:19 [id number] (Rec: 01/05/18 17:19 [id number] TELE-C13) Document 01/05/18 21:46 [id number] (Rec: 01/05/18 21:52 [id number] TELE-C05) Document 01/06/18 06:00 [id number] (Rec: 01/06/18 06:03 [id number] TELE-C35) Document 01/06/18 14:00 [id number] (Rec: 01/06/18 14:22 [id number] TELE-C05) Document 01/06/18 22:00 [id number] (Rec: 01/06/18 22:02 [id number] TELE-C01) Document 01/07/18 06:00 [id number] (Rec: 01/07/18 07:20 [id number] TELE-C35) Document 01/07/18 13:45 [id number] (Rec: 01/07/18 13:48 [id number] TELE-C13) Document 01/07/18 22:00 [id number] (Rec: 01/07/18 22:21 [id number] TELE-C13) Document 01/08/18 05:53 [id number] (Rec: 01/08/18 05:53 [id number] TELE-C34) - Physical Exam General: No Cyanosis, No Anemia, No Jaundice, No Clubbing Lungs and Chest: Yes: Chest Expansion Full, Chest Expansion Symetrica, Percussion Note Resonant, Vessicular Breath Sounds, Crackles - fine. No: Wheezes, Respiratory Distress Heart Rate and Rhythm: Regular JVP: Not Elevated Additional Cardiovascular: Yes: Normal Heart Sounds, Pedal Edema - trace. No: Heart Murmur Abdominal Exam: Yes: Soft, Bowel Sounds Present. No: Distention, Abdominal Mass , Abdominal Tenderness Results - Results Lab Results: Laboratory Results - last 24 hr 01/07/18 01/07/18 01/07/18 11:28 11:59 16:25 WBC RBC Hgb Hct MCV MCH MCHC RDW Plt Count MPV Neut % (Auto) Lymph % (Auto) [place] % (Auto) Eos % (Auto) Baso % (Auto) Absolute Neuts (auto) Absolute Lymphs (auto) Absolute Monos (auto) Absolute Eos (auto) Absolute Basos (auto) Absolute Nucleated RBC Nucleated RBC % INR (Anticoag Therapy) APTT 47.1 H POC Glucose (mg/dL) 198 H 104 H 01/08/18 01/08/18 01/08/18 05:49 05:49 07:39 WBC 10.5 RBC 3.46 L Hgb 10.0 L Hct 30 L MCV 86 MCH 29 MCHC 34 RDW 17 H Plt Count 253 MPV 9.4 Neut % (Auto) 72.6 Lymph % (Auto) 17.4 L [place] % (Auto) 7.0 Eos % (Auto) 2.3 Baso % (Auto) 0.7 Absolute Neuts (auto) 7.6 Absolute Lymphs (auto) 1.8 Absolute Monos (auto) 0.7 Absolute Eos (auto) 0.2 Absolute Basos (auto) 0.1 Absolute Nucleated RBC 0 Nucleated RBC % 0 INR (Anticoag Therapy) 1.15 H APTT POC Glucose (mg/dL) 83 Assessment - Problem List Assessment: Patient Problems Acute systolic (congestive) heart failure (Acute) Diabetic ulcer of left fifth toe (Acute) Elevated troponin I level (Acute) Lactic acidemia (Acute) NSTEMI (non-ST elevated myocardial infarction) (Acute) Ulcer of right great toe due to diabetes mellitus (Acute) Asthma (Chronic) COPD (chronic obstructive pulmonary disease) (Chronic) Cardiomyopathy, ischemic (Chronic) Depression (Chronic) Dyspnea on exertion (Chronic) Hyperlipidemia (Chronic) Hypertension (Chronic) Hypothyroidism (Chronic) 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 I will discharge her home. I have discussed with her the lower dose of lantus - she should slowly increase this. I have also discussed the enoxaparin/warfarin bridge.
[2018-01-08] MEDS: Insulin GLARGINE(*) 1 UNITS UNIT SUBCUT SCH (09:15)
[2018-01-08] MEDS: BuPROPion XL* 150 MG TAB.XL PO SCH (09:15)
[2018-01-08] MEDS: Venlafaxine EXT RELEASE CAP* 75 MG PO SCH (09:16)
[2018-01-08] MEDS: Carvedilol TAB* 3.125 MG PO SCH (09:16)
[2018-01-08] MEDS: Lisinopril TAB* 5 MG PO SCH (09:16)
[2018-01-08] MEDS: Ticagrelor* 90 MG TAB PO SCH (09:16)
[2018-01-08] MEDS: Enoxaparin(*) 80 MG/0.8 ML SYR SUBCUT SCH (09:17)
[2018-01-08] MEDS: Fludrocortisone Acetate TAB* 0.1 MG PO SCH (09:17)
[2018-01-08 11:57] VITALS: BP 97/54
--- NOTE | 2018-01-08 14:37 | DS ---
CC: Dr. Vikram Decker DISCHARGE SUMMARY: DATE OF ADMISSION: DATE OF DISCHARGE: DISCHARGE DIAGNOSES: 1. [id number] myocardial infarction. 2. Congestive heart failure with low cardiac output. 3. Dyspnea on exertion. 4. Healing ulcers right hallux, left 5th toe SECONDARY DIAGNOSES: 1. Ischemic cardiomyopathy with an ejection fraction of around 25%, cardiac defibrillator. 2. Ulcer of the right great toe and dorsum of the left fifth toe. 3. Chronic obstructive pulmonary disease. 4. Depression and anxiety. 5. Left ventricular thrombus. 6. Chronic anticoagulation with warfarin. 7. Stage III chronic renal failure. 8. History of stented coronary artery. 9. Type 2 diabetes with nephropathy and neuropathy with a history of poor control. 10. Hypertension. 11. Primary hypothyroidism. 12. Dyslipidemia. HISTORY: Lorena Tafoya is a 72-year-old white female. Her presentation is documented in the history and physical provided by Tip Gregory NP. She was admitted on 01/04/18. She has a history of coronary artery disease and cardiomyopathy. She is followed up by Dr. Vikram Decker. On 01/02/18, she had a transthoracic echocardiogram as an outpatient showing severely decreased left ventricular systolic function with multiple regional wall motion abnormality and estimated ejection fraction between 26% and 30%, which was unchanged since the study in September of 2017. Subsequent to this, she developed central chest pain, which she said was mild and difficult to describe and came and went. Little bit of sweating, very little nausea, was not sure if it was angina, but presented to the emergency room. She had been compliant with her medications on history. PHYSICAL EXAMINATION: Not in any acute distress. Blood pressure 130/69, pulse 103, respirations 18, oxygen saturation 95%, temperature 97.6. Lungs are clear to auscultation with no wheezes or crackles. Heart sounds are normal with normal rhythm. No murmurs, rubs, or gallops. Remainder of examination was unremarkable. INITIAL DIAGNOSTIC STUDIES: White count 15.9, hemoglobin 12, hematocrit 36, platelets 301. INR 1.71. APTT 31.7. BMP was normal aside from a creatinine of 1.29 and a glucose of 268. Her lactic acid was 2.5. Normal LFTs. Troponin I 0.76. BNP 907. EKG showed normal sinus rhythm, no elevation of ST segment. INITIAL ASSESSMENT: Acute coronary syndrome with NSTEMI. She was placed on heparin and on telemetry on coronary care unit. She was continued on a beta- farrah, ALEAH inhibitor, Brilinta. She was given oxygen therapy and her diabetes was managed. INVESTIGATIONS: Total white count peaked on 01/06/18 at 14.8, percent neutrophils peaked at presentation 86%. Hemoglobin was lowest on 01/07/18 at 9.8. TSH 0.42. LDL cholesterol 109. Troponin I series peaked on 01/05/18 at 0.85 and by 01/05/18 at 12:45, it was 0.55. Urinalysis was negative. Chest x-rays on 01/04/18 and 01/06/18, were similar. Very mild pulmonary vascular congestion and interstitial edema without significant interval change. Serial EKGs showed no development of STEMI. Telemetry showed normal sinus rhythm, her ICD did not fire. MICROBIOLOGY: Blood cultures were negative. Urine culture showed normal wai and Hafnia alvei 10 to 25,000 CFU. CONSULTATIONS: She was seen in consultation by Dr. Elisabeth Palumbo. His consultation is part of the record. He noted non-ST elevation [place], chest pain and troponin rise, noted the previous one in July 2017 with LAD stenting x2 with drug-eluting stents, noted a severe cardiomyopathy and left ventricular thrombus. Discussed the case with optical instrument assembler and recommendation was she was too high risk to be taken to the catheter lab at the [facility] and that she should be transferred to a tertiary center. He discussed with the patient her wishes as to how to manage this. She did not wish to be transferred from this facility and a conclusion was that she should discuss her care with Dr. Decker. HOSPITAL PROGRESS: During the remainder of her hospitalization, there were number of issues that we dealt with: 1. NSTEMI. She had no problems with rhythm disturbance. Her blood pressure at times was low. This we have seen also as an outpatient. We had to give her several saline boluses, which she tolerated. 2. She gained 3 pounds in the hospital, had some stable fine crackles at the bases, trace of edema in her feet. Varying amount of dyspnea. 3. Type 2 diabetes mellitus. This was uncontrolled on admission; however, we were able to cut her Lantus basal dose down from 50 units twice a day to 15 units twice a day mostly because she was not eating as if she usually eats outside the hospital. 4. Foot ulcers. She has an healing lesion on the tip of her right toe and also an abrasion on the dorsal aspect of the left 5th toe. She has been taking clindamycin for these and was seen by Wound Care, who felt they were recovering nicely. 5. On the day of discharge, her oxygen saturation on room air is normal. She has had some episodes of dyspnea at rest, again with normal oxygen saturation. She is adamant that she wishes to go home. She has been offered transfer to a tertiary center for revascularization, she has been offered [facility] care , and she has been counseled about trying to reduce the stress upon discharge. PHYSICAL EXAMINATION ON THE DAY OF DISCHARGE: Vital Signs: Temperature 98.5, pulse 74, respirations 14, oxygen saturation 96%, blood pressure 94/58. She has no cyanosis, anemia, jaundice, clubbing, or lymphadenopathy. She is warm and well perfused. Cardiovascular System: Her pulse is small volume. Venous pressure was not elevated. Heart sounds are normal. No added sounds or murmur. She has a trace of edema. Respiratory System: Chest expansion was full and symmetrical. Percussion not resonant. Breath sounds vesicular with a few fine crackles at the bases. Abdomen: No distention, masses, tenderness, or organomegaly. ASSESSMENT AND PLAN: 1. Non-ST elevation myocardial infarction. She has severe coronary artery disease. Because of low ejection fraction, Cardiology do not wish to take her to the cardiac catheterization lab at the [facility] as she should have this performed at a tertiary center. She has declined this at least in the short term. She wants to sort out her living situation first. She understands that the stress of this may cause another cardiac event, which may have a worse outcome, she is prepared to accept this. Complications; she has longstanding dyspnea on exertion, she has some degree of dyspnea, which is difficult to disentangle from anxiety. Her oxygen saturation in the hospital at present at bed and on walking is normal. This is likely multifactorial, some degree of congestive heart failure, some degree of chronic obstructive pulmonary disease, and anxiety. 2. Congestive cardiac failure. She has a low cardiac output with a low systolic blood pressure. She has had this ever since the heart attack in July of 2017. She takes fludrocortisone as an outpatient. We have been careful about the use of beta-blockers, ALEAH inhibitors, and nitroglycerin in the hospital. Her orthostatic blood pressure was stable. She has a trace of edema, diuretic therapy may be necessary; however, I wish to limit this in view of her blood pressure. 3. ICD. This is in situ. She has a low ejection fraction and is at a high risk for dysrhythmias though she has had none within the hospital. 4. Type 2 diabetes mellitus. I noticed that basal insulin requirement is dropped enormously during the hospitalization, most likely because she is on different diet and activity regimen in the hospital. She will slowly increase this as an outpatient. 5. Dyslipidemia. She will continue her statin. 6. Anticoagulation. She was on heparin during the hospital stay. She is being weaned back onto warfarin. She will be on Lovenox 80 mg a day subcutaneously daily until her INR is back at target between 2 and 3. 7. Primary hyperthyroidism. She will continue her current medication. 8. Toe lesions. These appear to be healing. She will continue a course of clindamycin. 9. Stage 3 chronic renal disease, this is unchanged. 10. Domestic situation. She [place] house [place]. She is trying to move to a new senior apartment she has already list. She is under a great deal of psychological stress attempting to get her [place] property salable before it is foreclosed upon. I have counseled on multiple occasions as have others at the hospital that she would benefit from a period of subacute rehabilitation if she does not want to go to a tertiary center for risk assessment and possible CABG or for the stenting. She has full capacity and has made this choice knowing the chances of further myocardial infarction, worsening heart failure if she goes directly home. DISCHARGE MEDICATIONS: 1. Enoxaparin 80 mg daily. 2. Clindamycin 300 mg 4 times a day. 3. Acetaminophen/codeine 30 mg, take 1 every 6 hours as needed for pain. 4. Ticagrelor 90 mg twice daily. 5. Fludrocortisone 0.05 mg daily. 6. Insulin detemir 15 units twice daily. She should increase this according to her blood sugar. 7. Warfarin 3 mg daily in the evening. 8. Carvedilol 3.125 mg twice daily. 9. Lisinopril 2.5 mg daily. 10. Gabapentin 300 mg twice daily. 11. Bupropion 150 mg daily. 12. Fluticasone/salmeterol 115/21 two puffs every day. DISCHARGE FOLLOWUP: She has an appointment in my office tomorrow for followup. [id number]/[place] #: [id number]
== END 2018-01-08 13:30 | disposition home or self-care (01) | DRG 280 ==
LOC: ED 19:35 → MEDTELE 22:12
PROVIDERS: ADMIT Hospitalist; ATTEND Internal Medicine
DX: I21.4 Non-ST elevation (NSTEMI) myocardial infarction (principal); I50.21 Acute systolic (congestive) heart failure; I13.0 Hypertensive heart and chronic kidney disease with heart failure and stage 1 through stage 4 chronic kidney disease, or unspecified chronic kidney disease; E87.2 Acidosis; J30.2 Other seasonal allergic rhinitis; K21.9 Gastro-esophageal reflux disease without esophagitis; E11.22 Type 2 diabetes mellitus with diabetic chronic kidney disease; N18.3 Chronic kidney disease, stage 3 (moderate); M19.90 Unspecified osteoarthritis, unspecified site; F32.9 Major depressive disorder, single episode, unspecified; F41.9 Anxiety disorder, unspecified; I25.10 Atherosclerotic heart disease of native coronary artery without angina pectoris; E78.5 Hyperlipidemia, unspecified; E03.9 Hypothyroidism, unspecified; D72.829 Elevated white blood cell count, unspecified; D64.9 Anemia, unspecified; E11.621 Type 2 diabetes mellitus with foot ulcer; L97.529 Non-pressure chronic ulcer of other part of left foot with unspecified severity; L97.519 Non-pressure chronic ulcer of other part of right foot with unspecified severity; E11.65 Type 2 diabetes mellitus with hyperglycemia; E11.40 Type 2 diabetes mellitus with diabetic neuropathy, unspecified; E11.21 Type 2 diabetes mellitus with diabetic nephropathy; J44.9 Chronic obstructive pulmonary disease, unspecified; I95.9 Hypotension, unspecified; I48.91 Unspecified atrial fibrillation; E11.36 Type 2 diabetes mellitus with diabetic cataract; I25.5 Ischemic cardiomyopathy; Z86.73 Personal history of transient ischemic attack (TIA), and cerebral infarction without residual deficits; Z79.01 Long term (current) use of anticoagulants; Z88.6 Allergy status to analgesic agent; Z88.1 Allergy status to other antibiotic agents; Z88.2 Allergy status to sulfonamides; Z88.8 Allergy status to other drugs, medicaments and biological substances; I25.2 Old myocardial infarction; Z98.42 Cataract extraction status, left eye; Z98.41 Cataract extraction status, right eye; Z95.5 Presence of coronary angioplasty implant and graft; Z90.710 Acquired absence of both cervix and uterus; Z80.2 Family history of malignant neoplasm of other respiratory and intrathoracic organs; Z82.49 Family history of ischemic heart disease and other diseases of the circulatory system; Z95.810 Presence of automatic (implantable) cardiac defibrillator; Z79.4 Long term (current) use of insulin; Z90.49 Acquired absence of other specified parts of digestive tract
CPT/HCPCS: 36415; 71045; 80048; 80053; 80061; 81003; 83036; 83605; 83735; 83880; 84443; 84484; 85025; 85379; 85610; 85730; 87040; 87077; 87086; 87186; 93005; 94640; 94760; 99291; A9270-GY; J1644; J1650; J2405; J3490

== ENCOUNTER 2018-03-31 13:57 | Inpatient (IN) | payer MEDICARE, OTHER ==
--- OUTSIDE RECORDS SUMMARY | 2018-03-31 15:25 | XMS REPORT ---
:1945 External Reference #:[id number] Author Organization [facility] Address [address] [place] [address] [place] [address] Phone [phone] Care Team Providers Name Role Phone Trey Perez MD Primary Care Physician Unavailable Payers Type Date Identification Numbers Payment Provider Subscriber Health Maintenance Policy Number: Medicare Blue Ppo Lorena Tafoya Organization (HMO) [id number] Group Number: [id number] [address] [id number] PayID: [id number] JAME Lopez 10228 Commercial Effective: 08/01/2016 Policy Number: [facility] Lorena Tafoya [id number] Expires: 05/31/2018 Group Number: [id number] PayID: [id number] [address] [place] [address] Problems Description No Information Family History Date Family Member(s) Problem(s) Comments Father CABG Quadruple Father due to DC () Father DC Father Diabetes Mother Congestive Heart Failure (CHF) [...] Strength Qnty SIG Indications Ordering Provider Carvedilol 03/28 Active Tablets 6.25mg take one I25.5 Vikram tablet by D. Brand, mouth twice a M.D. day Ventolin HFA 04/18 Active Aerosol 108(90Bas 8gm 1 unit puff J45.909 Trupti /2017 e) every 6 hours Bladimir mcg/Act as needed Alprazolam Active Tablets 0.25mg 1-2 tablet po Unknown /0000 twice daily as needed Bupropion HCL Active Tablets 150mg 1 by mouth Unknown (SR) / ER 12HR daily Levothyroxine Active Tablets 75mcg 1 by mouth Unknown Sodium /0000 every day Venlafaxine HCL Active Tablets 150mg 1 tablet po Unknown ER / ER 24HR daily Acetaminophen Active Tablets 500mg 2 tab by Unknown / ER mouth every 4 hours as needed Advair HFA Active Aerosol 115-21mcg 2 puff twice Unknown /0000 /Act a day Levemir Active Solution 100Unit/M 15 units Artis Pereztouch Pen-Injec L twice daily MD Trey t Benadryl Allergy Active Capsules 25mg 1 cap before Unknown /0000 bed as needed Atorvastatin Active Tablets 80mg 1 by mouth Unknown Calcium /0000 every day Brilinta Active Tablets 90mg 180ta 1 tab by Vikram / bs mouth twice a D. Jeronimo, .D Fludrocortisone Active Tablets 0.1mg 1/2 tablet Unknown Acetate daily Warfarin Sodium Active Tablets 5mg as directed Unknown Nitrostat Active Tablets 0.4mg one sl q5min Unknown Sub up to 3 doses as needed Isosorbide Active Tablets 30mg 1/2 by mouth Unknown Mononitrate ER ER 24HR every day Carvedilol 12/16 Hx Tablets 3.125mg 180ta 1 by mouth I25.5 Vikram bs twice a day Chris Decker, - M.DChapincito 03/28 Metoprolol 08/10 Hx Tablets 25mg 90tab 1 by mouth Vikram Succinate ER 24HR s every day (on Chris Decker, - hold as of M.Chris 12/1508/12/17 Dr. Perez) Lisinopril 08/10 Hx Tablets 2.5mg 90tab 1 by mouth I21.3 Vikram s every day Justo Lpoez M.D. 02/15 Diltiazem HCL ER 08/25 Hx Caps ER 180mg 1 by mouth 24HR every day - 08/09 Metformin ER 08/23 Hx Tablets 500mg 60tab Qutayb s SChapincito - Maghaydromy 10/07 Braulio Acetaminophen-Co Hx Tablets 300-30mg as needed Unknown deine #3 /0000 - 08/09 Aripiprazole Hx Tablets 15mg Unknown / - 10/07 Lisinopril Hx Tablets 5mg Unknown / - 10/07 [...] Hx Tablets 500mg 1 tab daily Lalo, / for 7 days Mauricio - MAYELA 08/09 Multi Vitamin /00 Hx Tablets 1 by mouth Unknown / every day - (does not 10/16 bother to take) Metoprolol Hx Tablets 25mg 1/2 tab by Unknown Tartrate /0000 mouth twice a - day 08/10 Captopril Hx Tablets 12.5mg 1/4 tab by I21.3 Unknown /0000 mouth two - times a day 08/10 Enoxaparin Hx Solution 80mg/0.8M 70 mg Unknown Sodium /0000 L Subqutaneousl - y once daily 12/15 as bridge until Inr 2 or above. Lispro Insulin 00/00 Hx 3 units Unknown /0000 before each - meal 12/15 Docuprene Hx Tablets 100mg Unknown /0000 - 12/15 Insulin 00/00 Hx 100Units/ 50 units SQ Unknown /0000 ML twice daily - 03/28 Immunizations CPT Code Status Date Vaccine Lot # [id number] Given 06/14/2016 Influenza Virus 3Yrs & Over Vital Signs Date Vital Result Comment 03/28/2018 Height 62 inches 5'2" Weight 151.00 lb w/ shoes Heart Rate 98 /min BP Systolic Sitting 116 mmHg lue lg cuff BP Diastolic Sitting 62 mmHg lue lg cuff Respiratory Rate 24 /min BMI (Body Mass Index) 27.6 kg/m2 Ejection Fraction 25-30% echo 01/02/18 02/28/2018 Height 62 inches 5'2" Weight 149.00 lb w/ shoes Heart Rate 80 /min BP Systolic Sitting 118 mmHg lue rg cuff BP Diastolic Sitting 72 mmHg lue rg cuff Respiratory Rate 24 /min BMI (Body Mass Index) 27.2 kg/m2 Ejection Fraction 25-30% echo 02/01/18 02/07/2018 Height 62 inches 5'2" Weight 146.00 lb w/ shoes Heart Rate 88 /min BP Systolic Sitting 122 mmHg BP Diastolic Sitting 62 mmHg BMI (Body Mass Index) 26.7 kg/m2 Ejection Fraction 25-30% echo 01/02/18 01/13/2018 Height 62 inches 5'2" Weight 149.00 lb w/ shoes Heart Rate 74 /min reg BP Systolic Sitting 124 mmHg Lue, reg cuff BP Diastolic Sitting 76 mmHg Lue, reg cuff BP Systolic Standing 116 mmHg Lue BP Diastolic Standing 80 mmHg Lue Respiratory Rate 18 /min BMI (Body Mass Index) 27.2 kg/m2 Ejection Fraction 25-30% as of 01/02/18 echo 12/16/2017 Height 62 inches 5'2" Weight 145.00 [...] Test Date Test Result H/L Range Note Basic Metabolic Panel 01/26/2018 Sodium 143 mmol/L 139-145 1 Potassium 4.1 mmol/L 3.5-5.0 1 Chloride 108 mmol/L 101-111 1 Co2 Carbon Dioxide 25 mmol/L 22-32 1 Anion Gap 10 mmol/L 2-11 1 Glucose 104 mg/dL High 70-100 1 Blood Urea Nitrogen 28 mg/dL High 6-24 1 Creatinine 1.35 mg/dL High 0.51-0.95 1 BUN/Creatinine Ratio 20.7 High 8-20 1 Calcium 8.9 mg/dL 8.6-10.3 1 Egfr Non- 38.3 >60 1 Egfr 49.3 >60 1, 2 CBC Auto Diff 01/26/2018 White Blood Count 10.2 10^3/uL 3.5-10.8 1 Red Blood Count 4.12 10^6/uL 4.0-5.4 1 Hemoglobin 11.8 g/dL Low 12.0-16.0 1 Hematocrit 36 % 35-47 1 Mean Corpuscular Volume 87 fL 80-97 1 Mean Corpuscular Hemoglobin 29 pg 27-31 1 Mean Corpuscular HGB Conc 33 g/dL 31-36 1 Red Cell Distribution Width 16 % High 10.5-15 1 Platelet Count 250 10^3/uL 150-450 1 Mean Platelet Volume 10.6 um3 High 7.4-10.4 1 Abs Neutrophils 8.4 10^3/uL High 1.5-7.7 1 Abs Lymphocytes 1.2 10^3/uL 1.0-4.8 1 Abs Monocytes 0.4 10^3/uL 0-0.8 1 Abs Eosinophils 0.2 10^3/uL 0-0.6 1 Abs Basophils 0.1 10^3/uL 0-0.2 1 Abs Nucleated RBC 0 10^3/uL 1 Granulocyte % 82.2 % 38-83 1 Lymphocyte % 11.4 % Low 25-47 1 Monocyte % 3.7 % 0-7 1 Eosinophil % 1.8 % 0-6 1 Basophil % 0.9 % 0-2 1 Nucleated Red Blood Cells % 0.1 1 Inr/Protime 01/26/2018 Inr 1.19 High 0.77-1.02 1 CBC Auto Diff 08/16/2017 White Blood Count 12.7 10^3/uL High 3.5-10.8 3 Red Blood Count 4.96 10^6/uL 4.0-5.4 3 Hemoglobin 14.1 g/dL 12.0-16.0 3 Hematocrit 43 % 35-47 3 Mean Corpuscular Volume 88 fL 80-97 3 Mean Corpuscular Hemoglobin 29 pg 27-31 3 Mean Corpuscular HGB Conc 33 g/dL 31-36 3 Red Cell Distribution Width 14 % 10.5-15 3 Platelet Count 353 10^3/uL 150-450 3 Mean Platelet Volume 10 um3 7.4-10.4 3 Abs Neutrophils 10.6 10^3/uL High 1.5-7.7 3 Abs Lymphocytes 1.4 10^3/uL 1.0-4.8 3 Abs Monocytes 0.5 10^3/uL 0-0.8 3 Abs Eosinophils 0.1 10^3/uL 0-0.6 3 Abs Basophils 0.1 10^3/uL 0-0.2 3 Abs Nucleated RBC 0 10^3/uL 3 Granulocyte % 83.4 % High 38-83 3 Lymphocyte % 11.3 % Low 25-47 3 Monocyte % 3.9 % 1-9 3 Eosinophil % 0.9 % 0-6 3 Basophil % 0.5 % 0-2 3 Nucleated Red Blood Cells % 0 3 Comp Metabolic Panel 08/16/2017 Sodium 133 mmol/L 133-145 3 Potassium 4.7 mmol/L 3.5-5.0 3 Chloride 100 mmol/L Low 101-111 3 Co2 Carbon Dioxide 21 mmol/L Low 22-32 3 Anion Gap 12 mmol/L High 2-11 3 Glucose 446 mg/dL High 70-100 3 Blood Urea Nitrogen 26 mg/dL High 6-24 3 Creatinine 1.73 mg/dL High 0.51-0.95 3 BUN/Creatinine Ratio 15.0 8-20 3 Calcium 9.2 mg/dL 8.6-10.3 3 Total Protein 7.0 g/dL 6.4-8.9 3 Albumin 3.6 g/dL 3.2-5.2 3 Globulin 3.4 g/dL 2-4 3 Albumin/Globulin Ratio 1.1 1-3 3 Total Bilirubin 0.60 mg/dL 0.2-1.0 3 Alkaline Phosphatase 59 U/L 34-104 3 Alt 21 U/L 7-52 3 Ast 19 U/L 13-39 3 Egfr Non- 28.9 >60 3 Egfr 37.1 >60 3, 4 Laboratory test finding 08/16/2017 Creatine Kinase(CK) 44 U/L 10-223 3, 5 B-Type Natriuretic Peptide BNP 639 pg/mL High 3, 6 CKMB 07/28/2017 CKMB ng/mL 33.7 ng/mL High 0.6-6.3 Laboratory test finding 07/28/2017 LDL Cholesterol Direct 193 mg/dL 7 Creatine Kinase(CK) 265 U/L High 10-223 Troponin-I (TnI) 2.01 ng/mL High <0.04 8 Comp Metabolic Panel 07/28/2017 Sodium 132 mmol/L [...] Egfr Non- 32.5 >60 Egfr 41.8 >60 9 Laboratory test finding 07/28/2017 Lactic Acid 2.3 mmol/L High 0.5-2.0 10 B-Type Natriuretic Peptide BNP 39 pg/mL 11 CBC Auto Diff 07/28/2017 White Blood Count [...] Thrombo Time 28.6 seconds 26.0 -36.3 PTT Inr/Protime 07/28/2017 Inr 1.06 0.89-1.11 Laboratory test finding 07/02/2017 Troponin-I (TnI) 0.01 ng/mL <0.04 Lactic Acid 2.1 mmol/L High 0.5-2.0 12 Procalcitonin 0.3 ng/mL <0.6 13 Comp Metabolic Panel 07/02/2017 Sodium 130 mmol/L [...] Egfr Non- 36.9 >60 Egfr 47.4 >60 14 CBC Auto Diff 07/02/2017 White Blood Count [...] 0-2 Nucleated Red Blood Cells % 0 1 [id number] 2 Because ethnic data is not always [...] 5 Kidney failure <15 (or dialysis) 3 [id number] 4 Because ethnic data is not always readily [...] 15-29 5 Kidney failure <15 (or dialysis) 5 [id number] 6 >100 to <200 pg/mL: likely compensated congestive heart failure (CHF) 200 to 400 pg/mL: likely moderate CHF >400 pg/mL: likely moderate to severe CHF 7 Desirable: <100 Near Optimal: 100-129 Borderline High: 130-159 High: 160-189 Very High: >189 8 Result TnIDx:2.01 Called to NILO SERNA at: 14:05:02 by:[id number] Read back by:NILO SERNA 9 Because ethnic data is not always readily [...] 15-29 5 Kidney failure <15 (or dialysis) 10 Critical Result LACT:2.3 Called to NILO SERNA at: 14:00:14 by:[id number] Read back by:NILO SPAULDING Severe Sepsis and Septic Shock Management Bundle Measure requires all lactic acids initially measuring >2.0 mmol/L be repeated. 11 >100 to <200 pg/mL: likely compensated congestive heart failure (CHF) 200 to 400 pg/mL: likely moderate CHF >400 pg/mL: likely moderate to severe CHF 12 Critical Result LACT:2.1 Called to [id number] at: 18:47:35 by:[id number] Read back by:[id number] CHELLY Severe Sepsis and Septic Shock Management Bundle Measure requires all lactic acids initially measuring >2.0 mmol/L be repeated. 13 Interpretive information available on [employer] [facility] Test Catalog at [email or web address] 14 Because ethnic data is not always readily [...] 15-29 5 Kidney failure <15 (or dialysis) Procedures Date CPT Code Description Status 01/13/2018 89508 EKG Tracing & Interpretation Completed 01/05/2018 03164 EKG, Interpretation Only Completed 01/02/2018 31931 ECHO Transthorasic Realtime 2D W Doppler & Color Flow Completed Hosp 10/13/2017 90790 Interrogation Implant Cardiovasc Monitor System Incl Completed Analysis Int 10/13/2017 21280 Interrogation Implant Cardiovasc Monitor System Incl Completed Analysis Int 10/13/2017 79487 Icd Eval W/Iterative Adjustmnt Single Lead Icd Completed 10/13/2017 97556 Icd Eval W/Iterative Adjustmnt Single Lead Icd Completed 09/20/2017 37260 Interrogation Device Eval In Person W/DR Completed Analysis,Single,Dual,Mul 09/20/2017 82600 EKG, Interpretation Only Completed 09/19/2017 64655 EKG, Interpretation Only Completed 09/19/2017 92702 Insert/Replace Icd W/Generator Completed 09/15/2017 22080 ECHO Transthorasic Realtime 2D W Doppler & Color Flow Completed Hosp 09/15/2017 00769 EKG, Interpretation Only Completed 08/10/2017 56608 EKG Tracing & Interpretation Completed 07/31/2017 67437 Echocardiogram, Limited Study Completed 07/31/2017 29303 Echocardiogram, Limited Study Completed 07/30/2017 01910 EKG, Interpretation Only Completed 07/29/2017 38078 ECHO Transthorasic Realtime 2D W Doppler & Color Flow Completed Hosp 07/28/2017 37433 Left Heart Cath. Incl S/I Coronaries, Angio S/I V Gram Completed If Done 07/28/2017 94742 Revascularization Acute Total/Subtotal Occlusion Completed 07/06/2017 31200 ECHO Transthorasic Realtime 2D W Doppler & Color Flow Completed Hosp 10/21/2016 69903 EKG Tracing & Interpretation Completed 10/12/2016 52484 Diffusing Capacity Completed 10/12/2016 83438 Plethysmography Determination Lung Volumes & Per Airway Completed Resist 10/12/2016 92711 Spirometry Incl Graphic Record, Timed Expiratory Flow Completed Rate 09/07/2016 90778 Spirometry Incl Graphic Record Completed 08/25/2016 87172 Treadmill Interp/Report Only Completed 08/25/2016 58825 Stress Test Supervsn W/Out I/R Completed 08/24/2016 70837 ECHO Transthorasic Realtime 2D W Doppler & Color Flow Completed Hosp 08/24/2016 16869 EKG, Interpretation Only Completed 09/17/2015 43430 ECHO Transthorasic Realtime 2D W Doppler & Color Flow Completed Hosp Encounters Type Date Location Provider CPT E/M Dx Office Visit 02/28/2018 [facility] Vikram Decker, [address]15 I25.5 1:00p [facility] AT [facility] M.D. I25.119 Z95.810 I25.2 Office Visit 02/07/2018 1:00p [facility] Vikram Decker, 95673 I25.5 [facility] [address] [facility] M.D. I25.119 Z95.810 Office Visit 01/13/2018 9:15a [facility] Vikram Decker, 48252 I25.119 [facility] M.D. I25.5 Z95.810 R94.31 Office Visit 01/04/2018 12:57p [facility], [address] I21.4 Hospitalists N.P. I25.119 I10 E11.8 Office Visit 12/16/2017 11:15a [facility] Vikram Decker, [address]2947 I25.5 [facility] M.D. Z95.810 I25.10 I25.2 Office Visit 09/17/2017 2:11p [facility] Of Vikram Decker, 35696 R06.00 [facility] M.D. I25.5 I25.2 Office Visit 09/16/2017 11:01a [facility] [place] [address] I25.10 [facility] I25.5 Office Visit 09/15/2017 10:54a [facility] [place] [address] I25.2 [facility] I25.5 I25.10 I25.2 Office Visit 09/14/2017 8:59a [facility], [facility], [address] I21.4 Hospitalists N.P. E11.8 I25.10 I10 Office Visit 09/14/2017 9:36a [facility] Jaya Gallagher M.D., 73515 R20.0 [facility] AT [facility], [facility] I25.10 I25.2 Office Visit 08/10/2017 1:15p [facility] Of Vikram Decker, 07555 I21.02 [facility] M.D. I25.10 N18.4 Office Visit 08/03/2017 11:49a [facility] Jaya Gallagher M.D., 69735 I21.02 [facility] AT [facility], [facility] I25.10 I25.5 Office Visit 08/02/2017 2:13p [facility] Of Kash Gallagher M.D., 09984 I21.3 [facility] AT [facility], [facility] Office Visit 08/01/2017 2:10p [facility] Kash Gallagher M.D., 30441 I21.3 [facility] AT [facility], [facility] I25.10 Office Visit 07/31/2017 3:15p [facility] Of Florencia Pierce, 59864 I21.[address] [facility] [address] [facility] RADHA SANTANA, FSCAI N18.4 Office Visit 07/30/2017 3:14p [facility] Florencia Pierce, 44728 I21.[address] [facility] [address] [facility] RADHA SANTANA, FSCAI I50.21 E87.1 Office Visit 07/29/2017 3:14p [facility] Florencia Pierce, 36671 I21.[address] [facility] [address] [facility] RADHA SANTANA, FSCAI I50.21 Office Visit 07/28/2017 1:53p [facility] Florencia Pierce, 30703 I21.[address] [facility] [address] [facility] RADHA SANTANA, FSCAI Office Visit 07/20/2017 12:00p [facility] Vikram Decker, 08522 R06.02 Rani Ramsey R00.0 Office Visit 07/07/2017 10:38a [facility] [place] [address] R06.00 Services Of [facility] R07.1 J90 Office Visit 07/05/2017 10:37a [facility] [place] [address] R07.1 Services Of [facility] R06.02 J90 Office Visit 07/02/2017 1:42p [facility] Gio Griffin, 63409 N30.00 Assoc, Hospitalists Braulio,FACP A41.50 E11.9 Z79.4 Office Visit 06/22/2017 8:45a [facility] [place] [address] R06.02 Services Of [facility] J90 J45.909 Office Visit 05/31/2017 1:30p [facility] [place] [address] R06.02 Services Of [facility] J90 J45.909 Office Visit 05/04/2017 12:00p [facility] Vikram Decker, 27093 R06.02 Rani Ramsey R00.0 Office Visit 04/18/2017 11:30a [facility] [place] [address] R06.02 Services Of [facility] G89.29 J45.909 J90 R06.83 R40.0 Office Visit 12/24/2016 10:22a [facility], Caryl Lux N.P. 10960 R07.1 Hospitalists J90 R06.02 E11.9 Office Visit 10/21/2016 11:15a [facility] Vikram Decker, 50648 R06.00 Rani Ramsey R94.31 R00.0 Office Visit 08/24/2016 8:52a [facility] Vikram Decker, 96537 R06.02 Rani Ramsey R00.0 Office Visit 08/23/2016 8:57a [facility], Ranjith Mccain, 03122 R00.0 Hospitalists Braulio E11.9 F32.89 Office Visit 09/19/2015 10:18a [facility] Ramón Andersen, 38425 R55 Services Of [facility] Braulio H81.10 Office Visit 09/16/2015 12:18p [facility], Darwin Fisher M.D. 57797 R55 Hospitalists E11.9 R42 I10 Plan of Care Future Appointment(s):05/02/2018 1:15 pm - Vikram Decker M.D. at [facility] AT [facility]04/28/2018 9:20 am - Ica Pacer Schedule at [facility]03/28/2018 - Vikram Decker M.D.I25.5 Ischemic cardiomyopathyNew Medication:Carvedilol 6.25 mgFollow up:1 monthRecommendations: Take 2 coreg tabs in am and pm I will call Dr Sanders about minimally invasive cohluhfX85.119 Athscl heart disease of [place] cor art w unsp ang rcyloF05.810 Presence of automatic (implantable) cardiac defibrillator
--- NOTE | 2018-03-31 16:16 | RAD ---
INDICATION: Cough COMPARISON: January 06, 2018 TECHNIQUE: PA and lateral dual-energy views were obtained. FINDINGS: Bones/Soft Tissues: There are no acute bony findings. There is a left-sided cardiac pacemaker Cardiomediastinal: The cardiomediastinal silhouette is unchanged. There is mild interstitial edema. Lungs: There is hyperinflation. Pleura: There is a tiny left-sided effusion. Other: None IMPRESSION: MINOR INTERSTITIAL EDEMA. SMALL LEFT-SIDED EFFUSION. NO ACUTE FINDINGS
--- NOTE | 2018-03-31 16:19 | ED ---
Shortness of Breath - HPI Summary HPI Summary: This is ross Stringer documenting for attending John Coon M.D. Pt is a 72 y/o F w/ c/o SOB onsetting last night and is still present. Pt states she did not sleep last night because she, couldnt breathe. She reports coughing as well, which she notes as unusual for her. On triage, pain is denied but in the room she notes slight right-sided chest pain. Pt denies leg pain and edema. She reports two previous MIs. Pt does not take O2 at home and is on blood thinners. On triage, nothing is noted to alleviate/aggravate Sx. Pt also has a rescue inhaler and claims she has never smoked. - History of Current Complaint Chief Complaint: EDShortnessOfBreath Time Seen by Provider: 03/31/18 15:40 Hx Obtained From: Patient Onset/Duration: Lasting Days - onset last night, Still Present Timing: Constant Current Severity: Mild - pain is denied on triage, but in the room Pt notes right sided chest pain. Aggrevating Factors: Nothing Alleviating Factors: Nothing Associated Signs & Symptoms: Chest Pain w/Cough - chest pain is noted to be right-sided, cough is non-productive, Edema - NEGATIVE - Allergy/Home Medications Allergies/Adverse Reactions: Allergies Allergy/AdvReac Type Severity Reaction Status Date / Time aspirin Allergy Anaphylatic Verified 03/31/18 14:00 Shock doxycycline Allergy Anaphylatic Verified 03/31/18 14:00 Shock NSAIDS (Non-Steroidal Allergy Bleeding Verified 03/31/18 14:00 Anti-Inflamma pentazocine Allergy Hallucinati Verified 03/31/18 14:00 ons Sulfa (Sulfonamide Allergy Anaphylatic Verified 03/31/18 14:00 Antibiotics) Shock Home Medications: Home Medications Acetaminophen [Acetaminophen Extra Strength] 1,000 mg PO Q4HR PRN 03/31/18 [ History Confirmed 03/31/18] Albuterol HFA INHALER* [Ventolin HFA Inhaler*] 1 puff INH Q6H PRN 03/31/18 [ History Confirmed 03/31/18] Atorvastatin* [Lipitor*] 80 mg PO DAILY 03/31/18 [History Confirmed 03/31/18] Carvedilol TAB* [Coreg TAB*] 6.25 mg PO BID 03/31/18 [History Confirmed 03/31/18 ] Insulin Detemir [Levemir Flextouch] 15 unit SUBCUT BID 03/31/18 [History Confirmed 03/31/18] Isosorbide Mononitrate ER TAB* [Imdur ER TAB*] 15 mg PO DAILY 03/31/18 [History Confirmed 03/31/18] Nitroglycerin TAB 0.4 MG* 0.4 mg SL Q5M PRN 03/31/18 [History Confirmed 03/31/18 ] Warfarin TAB(*) [Coumadin TAB(*)] 2.5 mg PO MOWEFR 03/31/18 [History Confirmed 03/31/18] Warfarin TAB(*) [Coumadin TAB(*)] 5 mg PO SUTUTHSA 03/31/18 [History Confirmed 03/31/18] diphenhydrAMINE HCl [Benadryl] 25 mg PO BEDTIME PRN 03/31/18 [History Confirmed 03/31/18] PMH/Surg Hx/FS Hx/Imm Hx Endocrine/Hematology History: Reports: Hx Diabetes Denies: Hx Thyroid Disease, Hx Anemia Cardiovascular History: Reports: Hx Angina, Hx Congestive Heart Failure, Hx Hypercholesterolemia, Hx Hypertension, Hx Myocardial Infarction, Hx Pacemaker/ ICD Denies: Hx Coronary Artery Disease, Hx Peripheral Vascular Disease, Hx Valvular Heart Disease Respiratory History: Reports: Hx Asthma, Hx Seasonal Allergies, Other Respiratory Problems/Disorders - PLEURAL EFFUSION. 01/2017 USES ADVAIR RX DAILY X2 PUFFS Denies: Hx Chronic Obstructive Pulmonary Disease (COPD) GI History: Reports: Hx Gall Bladder Disease - removed, Hx Gastroesophageal Reflux Disease Denies: Hx Hiatal Hernia, Hx Jaundice History: Reports: Hx Chronic Renal Failure - Stage III per Dr. Perez, Other Problems/Disorders - HX OF BLADDER INFECTIONS, NONE NOW Musculoskeletal History: Reports: Hx Arthritis, Hx Back Problems - C spine herniated disc, Hx Bursitis - HX OF LEFT SHOULDER, Hx Tendonitis - HX OF LEFT SHOULDER, Other Musculoskeletal History - R knee arthroscopy Denies: Hx Osteoporosis Sensory History: Reports: Hx Cataracts - BILATERAL, Hx Contacts or Glasses - Reading Denies: Hx Hearing Aid Opthamlomology History: Reports: Hx Cataracts - BILATERAL, Hx Contacts or Glasses - Reading Neurological History: Reports: Other Neuro Impairments/Disorders - peripheral neuropathy in feet Denies: Hx Headaches, Hx Seizures, Hx Transient Ischemic Attacks (TIA) Psychiatric History: Reports: Hx Anxiety, Hx Depression Denies: Hx Eating Disorder, Hx Panic Disorder, Hx of Violent Episodes Against Others - Cancer History Hx Chemotherapy: No Hx Radiation Therapy: No - Surgical History Surgery Procedure, Year, and Place: Cholecystectomy, ruptured ovarian cyst, appendix out at same time, COMPLETE HYSTERECTOMY, 2 cardiac stents, Hx Anesthesia Reactions: No - Immunization History Date of Influenza Vaccine: 06/28 Infectious Disease History: No Infectious Disease History: Denies: Traveled Outside the [place] in Last 30 Days - Family History Known Family History: Positive: Cardiac Disease - father's side - Social History Alcohol Use: None Substance Use Type: Reports: None Hx Tobacco Use: No Smoking Status (MU): Never Smoked Tobacco Review of Systems Positive: Chest Pain - right-sided Positive: Shortness Of Breath, Cough - nonproductive All Other Systems Reviewed And Are Negative: Yes Physical Exam - Summary Physical Exam Summary: GENERAL: Patient is a well developed and nourished female who is lying comfortable in the stretcher. Patient is not in any acute respiratory distress. HEAD AND FACE: Normocephalic EYES: PERRLA, EOMI x 2. EARS: Hearing grossly intact. MOUTH: Oropharynx within normal limits. NECK: Supple, trachea is midline, no adenopathy, no JVD, no carotid bruit. CHEST: Symmetric, no tenderness at palpation LUNGS: Clear to auscultation bilaterally. No wheezing or crackles. CVS: Regular rate and rhythm, S1 and S2 present, no murmurs or gallops appreciated. ABDOMEN: Soft, non-tender. Bowel sounds are normal. No abdominal abnormal pulsations. EXTREMITIES: Full ROM in all major joints, trace edema bilaterally, no cyanosis or clubbing. NEURO: Alert and oriented x 3. No acute neurological deficits. Speech is normal and follows commands. SKIN: Dry and warm Triage Information Reviewed: Yes Vital Signs On Initial Exam: Initial Vitals Temp Pulse Resp BP Pulse Ox 98.2 F 102 20 121/78 97 03/31/18 14:00 03/31/18 14:00 03/31/18 14:00 03/31/18 14:00 03/31/18 14:00 Vital Signs Reviewed: Yes Diagnostics - Vital Signs Vital Signs Temp Pulse Resp BP Pulse Ox 03/31/18 15:28 98.8 F 100 18 120/81 95 03/31/18 14:00 98.2 F 102 20 121/78 97 - Laboratory Result Diagrams: 03/31/18 16:00 03/31/18 16:00 Lab Statement: Any lab studies that have been ordered have been reviewed, and results considered in the medical decision making process. - Radiology CXR Xray Interpretation: No Acute Changes Radiology Interpretation Completed By: Radiologist - Minor interstitial edema, small left-sided effusion. No acute findings. This report has been reviewed by ED physician. - EKG 1628 Cardiac Rate: Tachycardia - Rate of 103 BPM EKG Rhythm: Sinus Tachycardia EKG Interpretation: Right axis deviation, flattening of T wave in anterior leads , prolonged QTs Re-Evaluation - Re-Evaluation First Eval Re-Evaluation Time: 17:44 Comment: Upon re-eval at 17:44, Pt was hypoxic and 84 O2 sat on room air. Pt was given 2 liters of oxygen and 40 IV Lasix. Discussed lab results and likely admission to hospital. Course/Dx - Course Assessment/Plan: Pt is a 72 y/o F w/ c/o SOB onsetting last night and is still present. Pt states she did not sleep last night because she, couldnt breathe . She reports coughing as well, which she notes as unusual for her. On triage, pain is denied but in the room she notes slight right-sided chest pain. Pt denies leg pain and edema. She reports two previous MIs. Pt does not take O2 at home and is on blood thinners. On triage, nothing is noted to alleviate/ aggravate Sx. Pt also has a rescue inhaler and claims she has never smoked. CXR and EKG were ordered. CXR and EKG impressions are above. BNP was 3112, Lactic acid 1.1, creatinine 1.14, and WBC 12. Upon re-eval at 17:44, Pt was hypoxic and 84 O2 sat on room air. Pt was given 2 liters of oxygen and 40 IV Lasix. Discussed lab results and likely admission to hospital. At 18:10, Dr. Zimmer was consulted about Pt. Dr. Zimmer accepts Pt for admission to [facility]. At 18:22, Dr. Dodge consulted Dr. Coon about Pt, as Dr. Dodge is familiar with patient. Dr. Dodge agrees with plan to admit and will see Pt in the morning tomorrow. Pt was diagnosed with CHF exacerbation. - Diagnoses Provider Diagnoses: CHF exacerbation - Physician Notifications Discussed Care of Patient With: Carie Zimmer Time Discussed With Above Provider: 18:10 Instructed by Provider To: Other - At 18:10, Dr. Zimmer was consulted about Pt. Dr. Zimmer accepts Pt for admission to [facility]. At 18:22, Dr. Dodge consulted Dr. Coon about Pt, as Pt is Dr. Dodge's. Dr. Dodge agrees with plan to admit and will see Pt in the morning tomorrow. - Critical Care Time Critical Care Time: 30-74 min - 30 minutes Discharge - Sign-Out/Discharge Documenting (check all that apply): Patient Departure - admit - Discharge Plan Condition: Fair Disposition: ADMITTED TO [facility] Referrals: Trey Perez MD [Primary Care Provider] - - Billing Disposition and Condition Condition: FAIR Disposition: Admitted to [facility]
[2018-03-31 16:27] LABS: ABS Basophils 0.1 10^3/ul (0-0.2); ABS Eosinophils 0.2 10^3/ul (0-0.6); ABS Lymphocytes 2.1 10^3/ul (1.0-4.8); ABS Monocytes 0.5 10^3/ul (0-0.8); ABS Neutrophils 9.1 10^3/ul (1.5-7.7); ABS Nucleated RBC 0 10^3/ul; Eosinophil % 1.5 % (0-6); Hematocrit 39 % (35-47); Hemoglobin 12.7 g/dl (12.0-16.0); Lymphocyte % 17.7 % (25-47); Mean Corpuscular HGB Conc 32 g/dl (31-36); Mean Corpuscular Hemoglobin 28 pg (27-31); Mean Corpuscular Volume 86 fL (80-97); Mean Platelet Volume 9.6 um3 (7.4-10.4); Nucleated Red Blood Cells % 0.2; Platelet Count 311 10^3/ul (150-450); Red Blood Count 4.58 10^6/ul (4.00-5.40); Red Cell Distribution Width 16 % (10.5-15)
[2018-03-31 16:41] LABS: EGFR Non-African American 46.6 (>60)
[2018-03-31 16:43] LABS: INR 1.74 (0.77-1.02)
[2018-03-31] MEDS ORDERED: Furosemide IV* 10 MG/ML VIAL (40 MG) IV ONE (17:30)
[2018-03-31] MEDS ORDERED: Ondansetron INJ* 2 MG/ML VIAL IV PRN (19:07)
[2018-03-31] MEDS ORDERED: Acetaminophen TAB* 325 MG PO PRN (19:07)
[2018-03-31] MEDS ORDERED: diPHENhydraMINE PO* 25 MG PO PRN (19:09)
[2018-03-31] MEDS ORDERED: ALPRAZolam TAB* 0.25 MG PO PRN (19:09)
[2018-03-31] MEDS ORDERED: Albuterol HFA INHALER* 8 gm MDI INH PRN (19:09)
[2018-03-31] MEDS ORDERED: Dextrose 50% Syringe 50 ML* 25 GM/50 ML SYRINGE IV PUSH PRN (19:16)
[2018-03-31] MEDS ORDERED: Enoxaparin(*) 80 MG/0.8 ML SYR SUBCUT ONE (19:17)
[2018-03-31] MEDS ORDERED: Warfarin TAB(*) 2.5 MG PO ONE (20:00)
--- NOTE | 2018-03-31 22:10 | HP ---
CC: Dr. Perez; Dr. Dceker * HISTORY AND PHYSICAL: DATE OF ADMISSION: 03/31/18 PRIMARY CARE PROVIDER: Dr. Trey Perez. MY ATTENDING PHYSICIAN WHILE IN THE HOSPITAL: Dr. Es Madden * (report dictated by Rob Gregory NP) CHIEF COMPLAINT: Shortness of breath. HISTORY OF PRESENT ILLNESS: Ms. Tafoya is a 72-year-old female patient. She has a history of CAD, cardiomyopathy, last EF was 20% to 25%. She has a history of asthma, hypertension, hyperlipidemia, diabetes, AFib, she has a history of LV thrombus, pleural effusion, CKD, depression, [place] x2, and history of CHF. She is coming into our ER today. She said that she noticed last night she had right upper quadrant right chest discomfort with some associated nausea. She said it felt nothing like a heart attack and lasted only a few seconds, but she noticed that throughout the night, she was having trouble sleeping because she was progressively more and more short of breath. She said that she has not gained any weight to her knowledge and she says she has not noticed any swollen feet. She does state that her Coreg was recently increased. It was doubled and she has noticed that when changing position since this happened she has been feeling dizzy. She was concerned because the shortness of breath was not getting any better. She noticed that even lying flat she was really short of breath. She says she has been taking her medications as prescribed. She says she has not had a change in her diet, but she did note that she was just short of breath, having trouble catching her breath, she was more short of breath with exertion. She had no more chest discomfort. The breathing was not any better this morning and she decided to come into the ER today to be evaluated and again there was no reports of anymore chest discomfort with the exception of that episode that she had had last night. She came into the emergency department today. She was evaluated. It was noted that she had a significantly elevated BNP. Chest x-ray was concerning for minor heart failure and vascular congestion. We were asked to evaluate for admission. PAST MEDICAL HISTORY: Significant for: 1. CAD. 2. Cardiomyopathy, EF 20% to 25%. 3. Asthma. 4. Hypertension. 5. Hyperlipidemia. 6. Diabetes. 7. AFib. 8. Hypothyroidism. 9. History of CHF. 10. Depression. 11. [place] x2. 12. CKD. 13. History of pleural effusion. 14. LV thrombus. PAST SURGICAL HISTORY: 1. She has had heart catheterizations x2. 2. She has had internal defibrillator placed. 3. Hysterectomy. MEDICATIONS: Her home medications include: 1. Coumadin 5 mg alternating with 2.5 mg. She takes 5 on Tuesday, Tuesday, , and Tuesday. She takes 2.5 on Tuesday, Tuesday, Tuesday. 2. Imdur 15 mg p.o. daily. 3. Nitro 0.4 mg sublingual q. 5 minutes x3 p.r.n. chest pain. 4. Florinef 0.05 mg p.o. daily. 5. Diphenhydramine 25 mg at bedtime as needed. 6. Lipitor 80 mg daily. 7. Advair 2 puffs inhaled daily. 8. Tylenol extra strength 1000 mg every 6 hours as needed. 9. Effexor 150 mg daily. 10. Synthroid 75 mcg daily. 11. Wellbutrin 150 mg daily. 12. Xanax 0.25 mg to 0.5 mg p.o. b.i.d. as needed. 13. Levemir 15 units subcu b.i.d. 14. Ventolin 1 puff inhaler every 6 hours as needed. 15. Brilinta 60 mg p.o. b.i.d. 16. Coreg 6.25 mg p.o. b.i.d. ALLERGIES TO MEDICATIONS: Include ASPIRIN, which is anaphylaxis. She has a history of allergy to DOXYCYCLINE, NSAIDs. She is also allergic to STATINS and PENTAZOCINE. FAMILY HISTORY: Mother had a history of valvular cancer and father had a history of [place]. SOCIAL HISTORY: The patient does not smoke. She does not drink. Surrogate decision maker is her sister. REVIEW OF SYSTEMS: There is no documented fever. Denied having any significant weight change. She denied any double vision. There was no ear discharge. She denies having any rhinorrhea. There was no sore throat. No thyroid enlargement. She does admit to having orthopnea. She did admit to some atypical chest pain. She denied any nausea, vomiting, no dysuria. No frequency. No seizure. No loss of consciousness, no pruritus, and no skin ulcerations. Review of 14 systems completed, all others negative. PHYSICAL EXAMINATION GENERAL: At this time, Ms. Tafoya is a 72-year-old female patient. She is sitting in the ED stretcher. She does not appear to be in any acute distress. She appears to be well nourished and well developed. VITAL SIGNS: Blood pressure 127/80, pulse 98, respirations 26, O2 sat 99% on 2 liters, temperature 98.8. HEENT: Head: Atraumatic, normocephalic. Eyes: EOMs are intact. Sclerae anicteric. Throat: Oral mucosa appears to be moist. No oropharyngeal erythema. NECK: Supple. LUNGS: She had fine crackles in the bases. Equal diaphragmatic expansion. HEART: Sounds S1, S2. She had a regular rate and rhythm. No murmurs, rubs, or gallops. ABDOMEN: Soft, flat, nontender. Bowel sounds are present. EXTREMITIES: Pulses were 2+ throughout. She had no peripheral edema. She is moving all 4 extremities with 5/5 strength. NEUROLOGIC: The patient is awake. She is alert. She is oriented x3. Tongue midline. Osteopathic Medicine Teacher are equal. She had no gross focal deficits. SKIN: Intact. DIAGNOSTIC STUDIES/LAB DATA: Labs today are revealing WBC of 12, RBC of 4.58, hemoglobin 12.7, hematocrit 39, platelet count of 311. INR 1.74, PTT of 35.5. D- dimer 220. Sodium 140, potassium pending, chloride 106, bicarb 25, BUN 22, creatinine 1.14, glucose 135. Lactate 1.1, calcium 9.6, mag was 2.0. Total bilirubin 1.3, AST pending, ALT 27, alk phos 82. Troponin 0.03. BNP was 3112. Albumin of 4.1. Chest x-ray showed minor interstitial edema with small left-sided effusion. No acute findings. EKG today showed sinus tachycardia. She had flaccid T waves in V6, slight depression in II, III, and aVF. She had biphasic T waves in V2 and V3. Reviewed the previous EKG, it is similar. Old medical records reviewed. Her last EF was 25% to 30%. ASSESSMENT AND PLAN: Ms. Tafoya is a 72-year-old female patient coming into the emergency department today with complaints of progressive worsening shortness of breath over the last 24 hours. On evaluation today in the ED, it was noted her BNP was the highest it had ever been at 3000. In addition to this , it was also noted that her x-ray did have some minor interstitial edema. She will be admitted under inpatient status for: 1. CHF exacerbation. I do not know what the precipitating factor was for that , I am not seeing any obvious signs of infection. She does appear to be taking her medications and there does not appear to be any dietary indiscretion. I am going to go ahead and give her Lasix IV tomorrow and she got some tonight. We will see how she diureses with this. We will check daily weights. I am not repeating the echo unless her troponins go up. Her primary team can decide if this can be done on Tuesday, but I am holding off on ordering it for now. I will repeat her EKG tomorrow, cycle the troponin. She is not having any signs of ischemia and we will continue to follow. 2. History of cardiomyopathy. Continue meds as prescribed. It has been to tough to manage her because she has had troubles with orthostasis. It sounds like the Coreg that just went up is causing orthostasis again. I will check her orthostatic blood pressures. We will continue her meds as prescribed. 3. Asthma. Continue her inhalers. 4. Hypertension. Again continue meds as prescribed. She is on Florinef as well. 5. Diabetes. We will put her on Lispro sliding scale and continue her Levemir. 6. Hyperlipidemia. She is actually on a statin. We will continue her Lipitor. 7. History of AFib and LV thrombus. I noticed her INR is 1.74. I am going to give her a dose of Lovenox, give her a 5 mg dose of Coumadin tonight and have her PCP evaluate tomorrow to see if Lovenox should be continued. 8. Hypothyroidism. Continue her Synthroid. 9. History of depression. Continue supportive care. 10. CKD. Creatinine is stable. Follow. 11. DVT prophylaxis: Again I am going to give her a dose of Lovenox tonight and we will repeat her INR tomorrow to see if we can get it between the 2 to 3 range. 12. Fluids and nutrition. She can have a heart-healthy diet. 13. Code status: Full code. TIME SPENT: On admission 60 minutes, greater than half of the time was spent face- to-face with the patient obtaining my history and physical, other half of the time spent going over the plan of care with the patient and implementing the plan of care. I did discuss the plan of care with my attending, Dr. Madden, she is in agreement. ROB GREGORY, BOATHOUSE KEEPER [id number]/[facility] #: [id number] JAIMIE
[2018-03-31] MEDS ORDERED: Warfarin TAB(*) 5 MG PO ONE (22:15)
[2018-03-31] MEDS: Ticagrelor* 90 MG TAB PO SCH (23:37)
[2018-03-31] MEDS: Insulin GLARGINE(*) 1 UNITS UNIT SUBCUT SCH (23:37)
[2018-03-31] MEDS: Carvedilol TAB* 3.125 MG PO SCH (23:37)
[2018-04-01] MEDS: Levothyroxine TAB* 75 MCG TAB PO SCH (05:52)
[2018-04-01 06:05] LABS: ABS Basophils 0.1 10^3/ul (0-0.2); ABS Eosinophils 0.2 10^3/ul (0-0.6); ABS Lymphocytes 2.5 10^3/ul (1.0-4.8); ABS Monocytes 0.6 10^3/ul (0-0.8); ABS Neutrophils 6.6 10^3/ul (1.5-7.7); ABS Nucleated RBC 0 10^3/ul; Eosinophil % 2.2 % (0-6); Hematocrit 36 % (35-47); Hemoglobin 12.3 g/dl (12.0-16.0); Lymphocyte % 24.8 % (25-47); Mean Corpuscular HGB Conc 34 g/dl (31-36); Mean Corpuscular Hemoglobin 29 pg (27-31); Mean Corpuscular Volume 85 fL (80-97); Mean Platelet Volume 9.8 um3 (7.4-10.4); Nucleated Red Blood Cells % 0; Platelet Count 211 10^3/ul (150-450); Red Blood Count 4.29 10^6/ul (4.00-5.40); Red Cell Distribution Width 16 % (10.5-15); White Blood Count 9.9 10^3/ul (3.5-10.8)
[2018-04-01 06:09] LABS: INR 1.65 (0.77-1.02)
[2018-04-01] MEDS: Mometasone/Formoter 200/5 MDI INH SCH (07:47)
[2018-04-01] MEDS: Insulin LISPRO* 1 UNITS UNIT SUBCUT SCH ×3 (08:35→16:59)
[2018-04-01] MEDS ORDERED: Furosemide IV* 10 MG/ML VIAL (40 MG) IV SLOW PU SCH (09:00)
[2018-04-01] MEDS: Ticagrelor* 90 MG TAB PO SCH ×2 (10:16→20:33)
[2018-04-01] MEDS: Isosorbide Mononitrate ER TAB* 30 MG PO SCH (10:16)
[2018-04-01] MEDS: Atorvastatin* 80 MG TAB PO SCH (10:16)
[2018-04-01] MEDS: Venlafaxine EXT RELEASE CAP* 75 MG PO SCH (10:16)
[2018-04-01] MEDS: Fludrocortisone Acetate TAB* 0.1 MG PO SCH (10:17)
[2018-04-01] MEDS: Insulin GLARGINE(*) 1 UNITS UNIT SUBCUT SCH ×2 (10:17→20:34)
[2018-04-01] MEDS: Carvedilol TAB* 3.125 MG PO SCH ×2 (10:17→20:33)
[2018-04-01] MEDS: BuPROPion XL* 150 MG TAB.XL PO SCH (10:27)
--- NOTE | 2018-04-01 12:36 | PN ---
Subjective - Subjective Reason for Note: Progress Note History: I discussed with Lorena Bill her presentation and learned some more from the history and physical provided by Tip Gregory NP. She has had an episode of paroxysmal nocturnal dyspnea that was not relieved by sitting up and hence she came to the ED. She denies a cough, fever, sweats. She has a high BNP and a CXR compatible with CHF, but not significantly worse than usual. She feels much better on O2. Her warfarin was subtherapeutic when she was admitted. Today she feels much better and attributes this to the O2. She weighs herself every couple of days and her weight has been constant. 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 Orthostatic hypotension (Chronic) I95.1 Stage 3 chronic kidney disease (Chronic) N18.3 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.40, E11.65 Current Medications: Current Medications Acetaminophen (Tylenol Tab*) 650 mg PO Q4H PRN PRN Reason: FEVER/PAIN Albuterol (Ventolin Hfa Inhaler*) 1 puff INH Q6H PRN PRN Reason: SHORTNESS OF BREATH Alprazolam (Xanax Tab*) 0.25 mg PO BID PRN PRN Reason: ANXIETY Atorvastatin Calcium (Lipitor*) 80 mg PO DAILY [facility] Last Admin: 04/01/18 10:16 Dose: 80 mg Bupropion HCl (Wellbutrin Xl *) 150 mg PO DAILY [facility]; Protocol Last Admin: 04/01/18 10:27 Dose: 150 mg Carvedilol (Coreg Tab*) 3.125 mg PO BID [facility] Last Admin: 04/01/18 10:17 Dose: 3.125 mg Dextrose (D50w Syringe 50 Ml*) 12.5 gm IV PUSH .FOR FS < 60 - SS PRN PRN Reason: FS < 60 Diphenhydramine HCl (Benadryl Po*) 25 mg PO BEDTIME PRN PRN Reason: SLEEP Fludrocortisone Acetate (Florinef Tab*) 0.05 mg PO DAILY [facility] Last Admin: 04/01/18 10:17 Dose: 0.05 mg Furosemide (Lasix Iv*) 40 mg IV SLOW PU DAILY [facility] Last Admin: 04/01/18 10:16 Dose: 40 mg Insulin Glargine (Lantus(*)) 15 units SUBCUT BID [facility] Last Admin: 04/01/18 10:17 Dose: 15 units Insulin Human Lispro (Humalog*) 0 units SUBCUT AC [facility]; Protocol Last Admin: 04/01/18 08:35 Dose: Not Given Isosorbide Mononitrate (Imdur Er Tab*) 15 mg PO DAILY [facility] Last Admin: 04/01/18 10:16 Dose: 15 mg Levothyroxine Sodium (Synthroid Tab*) 75 mcg PO 0600 [facility] Last Admin: 04/01/18 05:52 Dose: 75 mcg Mometasone Furoate/Formoterol Fumar (Dulera 200/5 Mdi*) 2 puff INH DAILY [facility]; Protocol Last Admin: 04/01/18 07:47 Dose: 2 puff Ondansetron HCl (Zofran Inj*) 4 mg IV Q6H PRN PRN Reason: NAUSEA Ticagrelor (Brilinta*) 90 mg PO BID [facility] Last Admin: 04/01/18 10:16 Dose: 90 mg Venlafaxine HCl (Effexor Xr Cap*) 150 mg PO DAILY [facility] Last Admin: 04/01/18 10:16 Dose: 150 mg Warfarin Sodium (Coumadin Tab(*)) 2.5 mg PO MoWeFr@1700 [facility]; Protocol Warfarin Sodium (Coumadin Tab(*)) 5 mg PO SuTuThSa@1700 [facility]; Protocol Home Medications: Home Medications Medication Instructions Recorded Confirmed Type ALPRAZolam TAB* [Xanax TAB*] 0.25 - 0.5 mg PO BID PRN 01/04/18 03/31/18 History Bupropion XL* [Wellbutrin XL *] 150 mg PO DAILY 01/04/18 03/31/18 History Fludrocortisone Acetate TAB* 0.05 mg PO DAILY 01/04/18 03/31/18 History [Florinef TAB*] Fluticas/Salmet 115/21 HFA(NF) 2 puff PO DAILY 01/04/18 03/31/18 History [Advair HFA 115/21 (NF)] Levothyroxine TAB* [Synthroid 75 75 mcg PO DAILY 01/04/18 03/31/18 History MCG TAB*] Ticagrelor* [Brilinta 90 MG*] 90 mg PO BID 01/04/18 03/31/18 History Venlafaxine EXT RELEASE CAP* 150 mg PO DAILY 01/04/18 03/31/18 History [Effexor Xr CAP*] Acetaminophen [Acetaminophen Extra 1,000 mg PO Q6H PRN 03/31/18 03/31/18 History Strength] Albuterol HFA INHALER* [Ventolin 1 puff INH Q6H PRN 03/31/18 03/31/18 History HFA Inhaler*] Atorvastatin* [Lipitor*] 80 mg PO DAILY 03/31/18 03/31/18 History Carvedilol TAB* [Coreg TAB*] 6.25 mg PO BID 03/31/18 03/31/18 History Insulin Detemir [Levemir Flextouch] 15 unit SUBCUT BID 03/31/18 03/31/18 History Isosorbide Mononitrate ER TAB* 15 mg PO DAILY 03/31/18 03/31/18 History [Imdur ER TAB*] Nitroglycerin TAB 0.4 MG* 0.4 mg SL Q5M PRN 03/31/18 03/31/18 History Warfarin TAB(*) [Coumadin TAB(*)] 2.5 mg PO MOWEFR 03/31/18 03/31/18 History Warfarin TAB(*) [Coumadin TAB(*)] 5 mg PO SUTUTHSA 03/31/18 03/31/18 History diphenhydrAMINE HCl [Benadryl] 25 mg PO BEDTIME PRN 03/31/18 03/31/18 History Allergies: Allergies Allergy/AdvReac Type Severity Reaction Status Date / Time aspirin Allergy Anaphylatic Verified 03/31/18 14:00 Shock doxycycline Allergy Anaphylatic Verified 03/31/18 14:00 Shock NSAIDS (Non-Steroidal Allergy Bleeding Verified 03/31/18 14:00 Anti-Inflamma pentazocine Allergy Hallucinati Verified 03/31/18 14:00 ons Sulfa (Sulfonamide Allergy Anaphylatic Verified 03/31/18 14:00 Antibiotics) Shock Objective - Vital Signs Vital Signs: Vital Signs 03/31/18 03/31/18 03/31/18 14:00 15:28 15:53 Temperature 98.2 F 98.8 F Pulse Rate 102 100 107 Respiratory 20 18 16 Rate Blood Pressure 121/78 120/81 (mmHg) O2 Sat by Pulse 97 95 98 Oximetry 03/31/18 03/31/18 03/31/18 16:00 16:12 16:17 Temperature Pulse Rate 104 102 Respiratory 17 Rate Blood Pressure 125/89 (mmHg) O2 Sat by Pulse 95 98 95 Oximetry 03/31/18 03/31/18 03/31/18 16:42 17:00 17:12 Temperature Pulse Rate 105 108 111 Respiratory 16 28 26 Rate Blood Pressure 136/101 143/94 (mmHg) O2 Sat by Pulse 94 93 87 Oximetry 03/31/18 03/31/18 03/31/18 17:42 18:00 18:12 Temperature Pulse Rate 111 106 101 Respiratory 35 30 23 Rate Blood Pressure 140/105 121/91 (mmHg) O2 Sat by Pulse 92 97 99 Oximetry 03/31/18 03/31/18 03/31/18 18:42 19:00 19:12 Temperature Pulse Rate 98 100 98 Respiratory 26 26 28 Rate Blood Pressure 114/79 127/80 (mmHg) O2 Sat by Pulse 99 99 98 Oximetry 03/31/18 03/31/18 03/31/18 19:42 20:00 20:12 Temperature Pulse Rate 98 96 99 Respiratory 24 17 14 Rate Blood Pressure 124/90 137/96 (mmHg) O2 Sat by Pulse 100 98 99 Oximetry 03/31/18 03/31/18 03/31/18 20:42 21:00 21:12 Temperature Pulse Rate 103 98 96 Respiratory 26 23 18 Rate Blood Pressure 137/88 128/98 (mmHg) O2 Sat by Pulse 97 98 99 Oximetry 03/31/18 03/31/18 03/31/18 21:42 22:00 22:15 Temperature 98 F Pulse Rate 104 98 100 Respiratory 27 23 20 Rate Blood Pressure 138/101 125/84 (mmHg) O2 Sat by Pulse 96 96 100 Oximetry 03/31/18 04/01/18 04/01/18 23:44 03:32 03:35 Temperature 97.6 F 98.0 F Pulse Rate 94 93 96 Respiratory 22 26 Rate Blood Pressure 115/70 113/68 114/71 (mmHg) O2 Sat by Pulse 100 100 Oximetry 04/01/18 04/01/18 04/01/18 03:37 05:20 07:23 Temperature 98.0 F Pulse Rate 100 89 Respiratory 18 Rate Blood Pressure 98/71 117/71 (mmHg) O2 Sat by Pulse 100 100 Oximetry 04/01/18 04/01/18 07:49 08:00 Temperature Pulse Rate 93 Respiratory 14 18 Rate Blood Pressure (mmHg) O2 Sat by Pulse 93 Oximetry - Intake and Output Intake and Output: Intake & Output 03/30/18 03/31/18 04/01/18 04/02/18 11:59 11:59 11:59 11:59 Intake Total 0 Output Total 500 Balance -500 Weight 153 lb 6.4 oz Intake: Oral 0 Output: Urine 500 Other: # Bowel Movements 0 ADLs: Meal Record Start: 03/31/18 22: 15 Freq: DAILY@0900,1400,1800 Status: Active Protocol: Created 03/31/18 22:15 System (Rec: 03/31/18 22:15 System [email or web address]) Document 04/01/18 09:00 [id number] (Rec: 04/01/18 10:59 [id number] [facility]-C11) Intake and Output Start: 03/31/18 14: 02 Freq: Status: Active Protocol: Created 03/31/18 14:02 System (Rec: 03/31/18 14:02 System [id number]) Intake and Output Start: 03/31/18 22: 15 Freq: DAILY@0600,1400,2200 Status: Active Protocol: Created 03/31/18 22:15 System (Rec: 03/31/18 22:15 System [email or web address]) Document 04/01/18 06:00 [id number] (Rec: 04/01/18 06:31 [id number]) - Physical Exam General Physical Exam Comment: Warm and well perfused, calm and not in acute distress. Feet: no ulcers, callouses or infections General: No Cyanosis, No Anemia, No Jaundice, No Clubbing Skin: Normal: Rash Lungs and Chest: Yes: Chest Expansion Full, Chest Expansion Symetrica, Percussion Note Resonant. No: Vessicular Breath Sounds - emphysematous, Crackles, Wheezes, Respiratory Distress Heart Rate and Rhythm: Regular Additional Cardiovascular: Yes: Normal Heart Sounds. No: Heart Murmur, Pedal Edema Abdominal Exam: Yes: Soft, Bowel Sounds Present. No: Distention, Abdominal Mass , Abdominal Tenderness - Extremities Cranial Nerves II-XII Intact: Yes Limbs: Normal Power, Normal Tone - Neuro Orientation: A/O x3 Speech: Normal Results - Results Lab Results: Laboratory Results - last 24 hr 03/31/18 03/31/18 03/31/18 16:00 16:00 16:00 WBC 12.0 H RBC 4.58 Hgb 12.7 Hct 39 MCV 86 MCH 28 MCHC 32 RDW 16 H Plt Count 311 MPV 9.6 Neut % (Auto) 75.9 Lymph % (Auto) 17.7 L Hartley % (Auto) 4.4 Eos % (Auto) 1.5 Baso % (Auto) 0.5 Absolute Neuts (auto) 9.1 H Absolute Lymphs (auto) 2.1 Absolute Monos (auto) 0.5 Absolute Eos (auto) 0.2 Absolute Basos (auto) 0.1 Absolute Nucleated RBC 0 Nucleated RBC % 0.2 INR (Anticoag Therapy) 1.74 H APTT 35.5 D-Dimer, Quantitative 220 Sodium 140 Potassium TNP Chloride 106 Carbon Dioxide 25 Anion Gap 9 BUN 22 Creatinine 1.14 H Est GFR ( Amer) 56.4 Est GFR (Non-Af Amer) 46.6 BUN/Creatinine Ratio 19.3 Glucose 135 H POC Glucose (mg/dL) Lactic Acid Calcium 9.6 Magnesium 2.0 Total Bilirubin 1.30 H AST TNP ALT 27 Alkaline Phosphatase 82 Troponin I 0.03 B-Natriuretic Peptide Total Protein 8.0 Albumin 4.1 Globulin 3.9 Albumin/Globulin Ratio 1.1 03/31/18 03/31/18 03/31/18 16:00 16:00 19:09 WBC RBC Hgb Hct MCV MCH MCHC RDW Plt Count MPV Neut % (Auto) Lymph % (Auto) Hartley % (Auto) Eos % (Auto) Baso % (Auto) Absolute Neuts (auto) Absolute Lymphs (auto) Absolute Monos (auto) Absolute Eos (auto) Absolute Basos (auto) Absolute Nucleated RBC Nucleated RBC % INR (Anticoag Therapy) APTT D-Dimer, Quantitative Sodium Potassium 3.9 Chloride Carbon Dioxide Anion Gap BUN Creatinine Est GFR ( Amer) Est GFR (Non-Af Amer) BUN/Creatinine Ratio Glucose POC Glucose (mg/dL) Lactic Acid 1.1 Calcium Magnesium Total Bilirubin AST 20 ALT Alkaline Phosphatase Troponin I 0.03 B-Natriuretic Peptide 3112 H Total Protein Albumin Globulin Albumin/Globulin Ratio 03/31/18 03/31/18 04/01/18 22:01 23:32 05:49 WBC 9.9 RBC 4.29 Hgb 12.3 Hct 36 MCV 85 MCH 29 MCHC 34 RDW 16 H Plt Count 211 MPV 9.8 Neut % (Auto) 66.1 Lymph % (Auto) 24.8 L Hartley % (Auto) 6.2 Eos % (Auto) 2.2 Baso % (Auto) 0.7 Absolute Neuts (auto) 6.6 Absolute Lymphs (auto) 2.5 Absolute Monos (auto) 0.6 Absolute Eos (auto) 0.2 Absolute Basos (auto) 0.1 Absolute Nucleated RBC 0 Nucleated RBC % 0 INR (Anticoag Therapy) APTT D-Dimer, Quantitative Sodium Potassium Chloride Carbon Dioxide Anion Gap BUN Creatinine Est GFR ( Amer) Est GFR (Non-Af Amer) BUN/Creatinine Ratio Glucose POC Glucose (mg/dL) Lactic Acid Calcium Magnesium Total Bilirubin AST ALT Alkaline Phosphatase Troponin I 0.03 0.03 B-Natriuretic Peptide Total Protein Albumin Globulin Albumin/Globulin Ratio 04/01/18 04/01/18 04/01/18 05:49 05:49 08:24 WBC RBC Hgb Hct MCV MCH MCHC RDW Plt Count MPV Neut % (Auto) Lymph % (Auto) Hartley % (Auto) Eos % (Auto) Baso % (Auto) Absolute Neuts (auto) Absolute Lymphs (auto) Absolute Monos (auto) Absolute Eos (auto) Absolute Basos (auto) Absolute Nucleated RBC Nucleated RBC % INR (Anticoag Therapy) 1.65 H APTT D-Dimer, Quantitative Sodium 141 Potassium 3.4 L Chloride 106 Carbon Dioxide 26 Anion Gap 9 BUN 27 H Creatinine 1.36 H Est GFR ( Amer) 46.0 Est GFR (Non-Af Amer) 38.0 BUN/Creatinine Ratio 19.9 Glucose 90 POC Glucose (mg/dL) 91 Lactic Acid Calcium 8.8 Magnesium Total Bilirubin AST ALT Alkaline Phosphatase Troponin I B-Natriuretic Peptide Total Protein Albumin Globulin Albumin/Globulin Ratio Radiology Results: Patient Name: LORENA BILL Medical Record#: [id number] Ordering Physician: John Coon MD Acct.#: [id number] : 1945 Age: 72 Sex: F Location: EMERGENCY DEPARTMENT Exam Date: 03/31/18 1553 ADM Status: REG ER Order Information: CHEST PA & LAT 2 VWS Accession Number: [id number] CPT: 55910 INDICATION: Cough COMPARISON: January 06, 2018 TECHNIQUE: PA and lateral dual-energy views were obtained. FINDINGS: Bones/Soft Tissues: There are no acute bony findings. There is a left-sided cardiac pacemaker Cardiomediastinal: The cardiomediastinal silhouette is unchanged. There is mild interstitial edema. Lungs: There is hyperinflation. Pleura: There is a tiny left-sided effusion. Other: None IMPRESSION: MINOR INTERSTITIAL EDEMA. SMALL LEFT-SIDED EFFUSION. NO ACUTE FINDINGS <Electronically signed by Maruicio Nickerson MD in OV> 03/31/18 1612 Dictated By: Mauricio Nickerson MD Dictated Date/Time: 03/31/18 161 Transcribed Date/Time: 03/31/18 1611 Copy to: CC:Trey Perez MD; John Coon MD Imaging - [facility] Imaging - [facility] [id number] [place] [id number] ph ([phone]) ph ([phone]) ph ([phone]) This report is only to be considered final once signed by the Provider(s) as displayed in the "<Electronically Signed by >" field (s). Absence of a signature indicates the report is in a draft status and still needs to be finalized. In the event this document was created by someone other than the signing Provider, the individual initiating the document will be listed in the "Entered by:" or "Dictated by:" talley. 1 of 1 EKG Report: [address] 141 QTc 532 QRSD 84 QRS axis anterospetal and inferior repolarization changes. Right axis deviation. 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 This appears to me to be predominantly pulmonary edema as she has not gained significant weight, nor does she have edema of her legs. I will increase her dose of furosemide. I will see if she qualifies for home O2. 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 She is not tolerating a recent increase in her carvedilol Stented coronary artery (Chronic) I discussed the above with the patient. I hope we will be able to discharge her home with O2 tomorrow.
[2018-04-01] MEDS: Furosemide IV* 10 MG/ML VIAL (40 MG) IV SLOW PU SCH (16:58)
[2018-04-01] MEDS: Warfarin TAB(*) 5 MG PO SCH (16:58)
[2018-04-02] MEDS: Levothyroxine TAB* 75 MCG TAB PO SCH (06:00)
[2018-04-02 06:21] LABS: ABS Basophils 0.1 10^3/ul (0-0.2); ABS Eosinophils 0.2 10^3/ul (0-0.6); ABS Lymphocytes 1.6 10^3/ul (1.0-4.8); ABS Monocytes 0.5 10^3/ul (0-0.8); ABS Neutrophils 7.7 10^3/ul (1.5-7.7); ABS Nucleated RBC 0 10^3/ul; Eosinophil % 1.7 % (0-6); Hematocrit 40 % (35-47); Hemoglobin 13.2 g/dl (12.0-16.0); Lymphocyte % 15.9 % (25-47); Mean Corpuscular HGB Conc 33 g/dl (31-36); Mean Corpuscular Hemoglobin 28 pg (27-31); Mean Corpuscular Volume 85 fL (80-97); Mean Platelet Volume 9.9 um3 (7.4-10.4); Nucleated Red Blood Cells % 0; Platelet Count 223 10^3/ul (150-450); Red Blood Count 4.67 10^6/ul (4.00-5.40); Red Cell Distribution Width 16 % (10.5-15); White Blood Count 10.1 10^3/ul (3.5-10.8)
[2018-04-02 06:58] LABS: EGFR Non-African American 33.2 (>60)
[2018-04-02] MEDS: Mometasone/Formoter 200/5 MDI INH SCH (07:17)
[2018-04-02] MEDS: Furosemide IV* 10 MG/ML VIAL (40 MG) IV SLOW PU SCH ×2 (10:11→18:16)
[2018-04-02] MEDS: Isosorbide Mononitrate ER TAB* 30 MG PO SCH (10:11)
[2018-04-02] MEDS: Insulin GLARGINE(*) 1 UNITS UNIT SUBCUT SCH ×2 (10:11→22:36)
[2018-04-02] MEDS: Carvedilol TAB* 3.125 MG PO SCH ×2 (10:11→22:35)
[2018-04-02] MEDS: Atorvastatin* 80 MG TAB PO SCH (10:11)
[2018-04-02] MEDS: Ticagrelor* 90 MG TAB PO SCH ×2 (10:11→22:35)
[2018-04-02] MEDS: Fludrocortisone Acetate TAB* 0.1 MG PO SCH (10:11)
[2018-04-02] MEDS: Venlafaxine EXT RELEASE CAP* 75 MG PO SCH (10:11)
[2018-04-02] MEDS: Insulin LISPRO* 1 UNITS UNIT SUBCUT SCH ×3 (10:12→17:29)
[2018-04-02] MEDS: BuPROPion XL* 150 MG TAB.XL PO SCH (10:19)
[2018-04-02] MEDS: Warfarin TAB(*) 5 MG PO SCH (18:16)
[2018-04-02] MEDS ORDERED: Spironolactone TAB* 25 MG PO SCH (19:00)
[2018-04-02 19:05] LABS: INR 1.83 (0.77-1.02)
--- NOTE | 2018-04-02 19:09 | RAD ---
INDICATION: Cardiac and respiratory disease. COMPARISON: March 31, 2018 TECHNIQUE: Dual energy PA and routine lateral views of the chest were obtained. REPORT: Elevated lung volumes and both diffuse mild prominence of the interstitial markings and patchy rarefaction of the mid to upper lung zone interstitial markings. Small LEFT dependent pleural effusion. Cardiomegaly. RIGHT ventricular level pacemaker lead. Unremarkable central pulmonary vasculature and mediastinal contours. IMPRESSION: #. Stigmata of obstructive lung disease. #. Small LEFT pleural effusion. #. Resolution of previous mild interstitial edema.
[2018-04-02] MEDS ORDERED: Warfarin TAB(*) 2.5 MG PO ONE (20:00)
[2018-04-02] MEDS: Potassium Chlor TAB* 20 MEQ TAB.ER PO SCH (22:35)
[2018-04-03] MEDS: Potassium Chlor TAB* 20 MEQ TAB.ER PO SCH (04:31)
[2018-04-03] MEDS: Levothyroxine TAB* 75 MCG TAB PO SCH (06:27)
[2018-04-03 07:01] LABS: ABS Basophils 0 10^3/ul (0-0.2); ABS Eosinophils 0.2 10^3/ul (0-0.6); ABS Lymphocytes 1.6 10^3/ul (1.0-4.8); ABS Monocytes 0.7 10^3/ul (0-0.8); ABS Neutrophils 8.7 10^3/ul (1.5-7.7); ABS Nucleated RBC 0 10^3/ul; Eosinophil % 1.5 % (0-6); Hematocrit 40 % (35-47); Mean Corpuscular HGB Conc 33 g/dl (31-36); Mean Corpuscular Hemoglobin 28 pg (27-31); Mean Corpuscular Volume 84 fL (80-97); Mean Platelet Volume 9.8 um3 (7.4-10.4); Nucleated Red Blood Cells % 0; Platelet Count 260 10^3/ul (150-450); Red Blood Count 4.71 10^6/ul (4.00-5.40); Red Cell Distribution Width 16 % (10.5-15); White Blood Count 11.3 10^3/ul (3.5-10.8)
[2018-04-03 07:10] LABS: INR 1.96 (0.77-1.02)
[2018-04-03 07:19] LABS: EGFR Non-African American 33.2 (>60)
--- NOTE | 2018-04-03 07:30 | PN ---
Subjective - Subjective Reason for Note: Progress Note History: She had some right sided chest pain yesterday - this has gone away. She has lost weight with her diuretic use and has less dyspnea. She is now oxygen requiring. Her glycemic control is labile. Her cardiac rhythm has remained sinus rhythm. 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 Orthostatic hypotension (Chronic) I95.1 Stage 3 chronic kidney disease (Chronic) N18.3 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.40, E11.65 Current Medications: Current Medications Acetaminophen (Tylenol Tab*) 650 mg PO Q4H PRN PRN Reason: FEVER/PAIN Albuterol (Ventolin Hfa Inhaler*) 1 puff INH Q6H PRN PRN Reason: SHORTNESS OF BREATH Alprazolam (Xanax Tab*) 0.25 mg PO BID PRN PRN Reason: ANXIETY Last Admin: 04/02/18 15:20 Dose: 0.25 mg Atorvastatin Calcium (Lipitor*) 80 mg PO DAILY [facility] Last Admin: 04/02/18 10:11 Dose: 80 mg Bupropion HCl (Wellbutrin Xl *) 150 mg PO DAILY [facility]; Protocol Last Admin: 04/02/18 10:19 Dose: 150 mg Carvedilol (Coreg Tab*) 3.125 mg PO BID [facility] Last Admin: 04/02/18 22:35 Dose: 3.125 mg Dextrose (D50w Syringe 50 Ml*) 12.5 gm IV PUSH .FOR FS < 60 - SS PRN PRN Reason: FS < 60 Diphenhydramine HCl (Benadryl Po*) 25 mg PO BEDTIME PRN PRN Reason: SLEEP Fludrocortisone Acetate (Florinef Tab*) 0.05 mg PO DAILY [facility] Last Admin: 04/02/18 10:11 Dose: 0.05 mg Furosemide (Lasix Iv*) 40 mg IV SLOW PU 0800,1700 [facility] Last Admin: 04/02/18 18:16 Dose: 40 mg Insulin Glargine (Lantus(*)) 15 units SUBCUT BID [facility] Last Admin: 04/02/18 22:36 Dose: 15 units Insulin Human Lispro (Humalog*) 0 units SUBCUT AC [facility]; Protocol Last Admin: 04/02/18 17:29 Dose: Not Given Isosorbide Mononitrate (Imdur Er Tab*) 15 mg PO DAILY [facility] Last Admin: 04/02/18 10:11 Dose: 15 mg Levothyroxine Sodium (Synthroid Tab*) 75 mcg PO 0600 [facility] Last Admin: 04/03/18 06:27 Dose: 75 mcg Mometasone Furoate/Formoterol Fumar (Dulera 200/5 Mdi*) 2 puff INH DAILY [facility]; Protocol Last Admin: 04/02/18 07:17 Dose: 2 puff Ondansetron HCl (Zofran Inj*) 4 mg IV Q6H PRN PRN Reason: NAUSEA Spironolactone (Aldactone Tab*) 12.5 mg PO DAILY [facility] Last Admin: 04/02/18 22:34 Dose: 12.5 mg Ticagrelor (Brilinta*) 90 mg PO BID [facility] Last Admin: 04/02/18 22:35 Dose: 90 mg Venlafaxine HCl (Effexor Xr Cap*) 150 mg PO DAILY [facility] Last Admin: 04/02/18 10:11 Dose: 150 mg Warfarin Sodium (Coumadin Tab(*)) 2.5 mg PO MoWeFr@1700 [facility]; Protocol Warfarin Sodium (Coumadin Tab(*)) 5 mg PO SuTuThSa@1700 [facility]; Protocol Last Admin: 04/02/18 18:16 Dose: 5 mg Home Medications: Home Medications Medication Instructions Recorded Confirmed Type ALPRAZolam TAB* [Xanax TAB*] 0.25 - 0.5 mg PO BID PRN 01/04/18 03/31/18 History Bupropion XL* [Wellbutrin XL *] 150 mg PO DAILY 01/04/18 03/31/18 History Fludrocortisone Acetate TAB* 0.05 mg PO DAILY 01/04/18 03/31/18 History [Florinef TAB*] Fluticas/Salmet /21 HFA(NF) 2 puff PO DAILY 01/04/18 03/31/18 History [Advair HFA 115/21 (NF)] Levothyroxine TAB* [Synthroid 75 75 mcg PO DAILY 01/04/18 03/31/18 History MCG TAB*] Ticagrelor* [Brilinta 90 MG*] 90 mg PO BID 01/04/18 03/31/18 History Venlafaxine EXT RELEASE CAP* 150 mg PO DAILY 01/04/18 03/31/18 History [Effexor Xr CAP*] Acetaminophen [Acetaminophen Extra 1,000 mg PO Q6H PRN 03/31/18 03/31/18 History Strength] Albuterol HFA INHALER* [Ventolin 1 puff INH Q6H PRN 03/31/18 03/31/18 History HFA Inhaler*] Atorvastatin* [Lipitor*] 80 mg PO DAILY 03/31/18 03/31/18 History Carvedilol TAB* [Coreg TAB*] 6.25 mg PO BID 03/31/18 03/31/18 History Insulin Detemir [Levemir Flextouch] 15 unit SUBCUT BID 03/31/18 03/31/18 History Isosorbide Mononitrate ER TAB* 15 mg PO DAILY 03/31/18 03/31/18 History [Imdur ER TAB*] Nitroglycerin TAB 0.4 MG* 0.4 mg SL Q5M PRN 03/31/18 03/31/18 History Warfarin TAB(*) [Coumadin TAB(*)] 2.5 mg PO MOWEFR 03/31/18 03/31/18 History Warfarin TAB(*) [Coumadin TAB(*)] 5 mg PO SUTUTHSA 03/31/18 03/31/18 History diphenhydrAMINE HCl [Benadryl] 25 mg PO BEDTIME PRN 03/31/18 03/31/18 History Allergies: Allergies Allergy/AdvReac Type Severity Reaction Status Date / Time aspirin Allergy Anaphylatic Verified 03/31/18 14:00 Shock doxycycline Allergy Anaphylatic Verified 03/31/18 14:00 Shock NSAIDS (Non-Steroidal Allergy Bleeding Verified 03/31/18 14:00 Anti-Inflamma pentazocine Allergy Hallucinati Verified 03/31/18 14:00 ons Sulfa (Sulfonamide Allergy Anaphylatic Verified 03/31/18 14:00 Antibiotics) Shock Objective - Vital Signs Vital Signs: Vital Signs 04/02/18 04/02/18 04/02/18 07:40 08:00 12:16 Temperature 98.1 F Pulse Rate 95 Respiratory 20 20 Rate Blood Pressure 92/57 (mmHg) O2 Sat by Pulse 99 96 Oximetry 04/02/18 04/02/18 04/02/18 12:32 15:20 16:11 Temperature 98.1 F 97.5 F Pulse Rate 92 89 Respiratory 20 18 18 Rate Blood Pressure 90/57 84/59 (mmHg) O2 Sat by Pulse 98 97 Oximetry 04/02/18 04/02/18 04/02/18 18:16 19:24 20:00 Temperature 97.9 F Pulse Rate 94 Respiratory 18 22 18 Rate Blood Pressure 102/57 (mmHg) O2 Sat by Pulse 97 Oximetry 04/02/18 04/03/18 23:32 03:30 Temperature 98.0 F 97.4 F Pulse Rate 90 78 Respiratory 16 16 Rate Blood Pressure 102/65 96/62 (mmHg) O2 Sat by Pulse 100 100 Oximetry - Intake and Output Intake and Output: Intake & Output 03/31/18 04/01/18 04/02/18 04/03/18 11:59 11:59 11:59 11:59 Intake Total 0 1280 600 Output Total 500 3300 1100 Balance - Weight 153 lb 6.4 oz 148 lb 148 lb 9.6 oz Intake: Oral 0 1280 600 Output: Urine 500 3300 1100 Other: Date of Last Bowel 03/31/18 Movement # Bowel Movements 0 0 ADLs: Meal Record Start: 03/31/18 22: 15 Freq: DAILY@0900,1400,1800 Status: Active Protocol: Created 03/31/18 22:15 System (Rec: 03/31/18 22:15 System TELE-C07) Document 04/01/18 09:00 [id number] (Rec: 04/01/18 10:59 [id number] [facility] [place]) Document 04/01/18 13:04 [id number] (Rec: 04/01/18 13:04 [id number] HOSP-C11) Document 04/01/18 18:00 [id number] (Rec: 04/01/18 18:03 [id number] TELE-C13) Document 04/02/18 09:00 [id number] (Rec: 04/02/18 10:23 [id number] TELE-C06) Document 04/02/18 13:49 [id number] (Rec: 04/02/18 13:50 [id number] TELE-C13) Document 04/02/18 14:00 [id number] (Rec: 04/02/18 14:11 [id number] TELE-C13) Document 04/02/18 18:00 [id number] (Rec: 04/02/18 20:35 [id number] TELE-C10) Intake and Output Start: 03/31/18 14: 02 Freq: Status: Active Protocol: Created 03/31/18 14:02 System (Rec: 03/31/18 14:02 System ED-C24) Intake and Output Start: 03/31/18 22: 15 Freq: DAILY@0600,1400,2200 Status: Active Protocol: Created 03/31/18 22:15 System (Rec: 03/31/18 22:15 System TELE-C07) Document 04/01/18 06:00 [id number] (Rec: 04/01/18 06:31 [id number] TELE-C35) Document 04/01/18 14:00 [id number] (Rec: 04/01/18 14:08 [id number] TELE-C03) Document 04/01/18 22:00 [id number] (Rec: 04/01/18 22:44 [id number] TELE-C06) Document 04/02/18 06:00 [id number] (Rec: 04/02/18 06:41 [id number] TELE-C09) Document 04/02/18 14:00 [id number] (Rec: 04/02/18 14:11 [id number] TELE-C13) Document 04/02/18 22:01 [id number] (Rec: 04/02/18 22:02 [id number] TELE-C03) Document 04/02/18 23:53 [id number] (Rec: 07/22/18 23:53 [id number] TELE-C33) Document 04/03/18 00:09 [id number] (Rec: 04/03/18 00:09 [id number] TELE-C33) Document 04/03/18 06:00 [id number] (Rec: 04/03/18 06:16 [id number] TELE-C01) - Physical Exam General: No Cyanosis, No Anemia, No Jaundice, No Clubbing Lungs and Chest: Yes: Chest Expansion Full, Chest Expansion Symetrica, Percussion Note Resonant, Vessicular Breath Sounds, Crackles - a few scattered fine crackles. No: Wheezes, Respiratory Distress, Use of Accessory Muscles Heart Rate and Rhythm: Regular Additional Cardiovascular: Yes: Normal Heart Sounds. No: Heart Murmur, Pedal Edema Abdominal Exam: Yes: Soft, Bowel Sounds Present. No: Distention, Abdominal Mass , Abdominal Tenderness Results - Results Lab Results: Laboratory Results - last 24 hr 04/02/18 04/02/18 04/02/18 06:05 07:58 11:25 WBC RBC Hgb Hct MCV MCH MCHC RDW Plt Count MPV Neut % (Auto) Lymph % (Auto) Webb % (Auto) Eos % (Auto) Baso % (Auto) Absolute Neuts (auto) Absolute Lymphs (auto) Absolute Monos (auto) Absolute Eos (auto) Absolute Basos (auto) Absolute Nucleated RBC Nucleated RBC % INR (Anticoag Therapy) Sodium Potassium Chloride Carbon Dioxide Anion Gap BUN Creatinine Est GFR ( Amer) Est GFR (Non-Af Amer) BUN/Creatinine Ratio Glucose POC Glucose (mg/dL) 101 H 278 H Calcium Total Bilirubin AST ALT Alkaline Phosphatase C-React Prot High Sens Total Protein Albumin Globulin Albumin/Globulin Ratio Procalcitonin 0.1 04/02/18 04/02/18 04/02/18 16:40 18:49 22:21 WBC RBC Hgb Hct MCV MCH MCHC RDW Plt Count MPV Neut % (Auto) Lymph % (Auto) Webb % (Auto) Eos % (Auto) Baso % (Auto) Absolute Neuts (auto) Absolute Lymphs (auto) Absolute Monos (auto) Absolute Eos (auto) Absolute Basos (auto) Absolute Nucleated RBC Nucleated RBC % INR (Anticoag Therapy) 1.83 H Sodium Potassium Chloride Carbon Dioxide Anion Gap BUN Creatinine Est GFR ( Amer) Est GFR (Non-Af Amer) BUN/Creatinine Ratio Glucose POC Glucose (mg/dL) 110 H 235 H Calcium Total Bilirubin AST ALT Alkaline Phosphatase C-React Prot High Sens Total Protein Albumin Globulin Albumin/Globulin Ratio Procalcitonin 04/03/18 04/03/18 04/03/18 06:32 06:32 06:33 WBC 11.3 H RBC 4.71 Hgb 13.0 Hct 40 MCV 84 MCH 28 MCHC 33 RDW 16 H Plt Count 260 MPV 9.8 Neut % (Auto) 77.6 Lymph % (Auto) 14.0 L Webb % (Auto) 6.6 Eos % (Auto) 1.5 Baso % (Auto) 0.3 Absolute Neuts (auto) 8.7 H Absolute Lymphs (auto) 1.6 Absolute Monos (auto) 0.7 Absolute Eos (auto) 0.2 Absolute Basos (auto) 0 Absolute Nucleated RBC 0 Nucleated RBC % 0 INR (Anticoag Therapy) 1.96 H Sodium 141 Potassium 3.8 Chloride 105 Carbon Dioxide 28 Anion Gap 8 BUN 44 H Creatinine 1.53 H Est GFR ( Amer) 40.1 Est GFR (Non-Af Amer) 33.2 BUN/Creatinine Ratio 28.8 H Glucose 106 H POC Glucose (mg/dL) Calcium 9.0 Total Bilirubin 0.50 AST 10 L ALT 14 Alkaline Phosphatase 74 C-React Prot High Sens 33.64 H Total Protein 7.3 Albumin 3.6 Globulin 3.7 Albumin/Globulin Ratio 1.0 Procalcitonin Radiology Results: Patient Name: HOMERO BILL Medical Record#: [id number] Ordering Physician: [id number] : 1945 Age: 72 Sex: F Location: [address] [place] [address]/[place]LE[place] Exam Date: 04/02/181802 ADM Status: ADM IN Order Information: CHEST PA & LAT 2 VWS Accession Number: [id number] CPT: 58333 INDICATION: Cardiac and respiratory disease. COMPARISON: March 31, 2018 TECHNIQUE: Dual energy PA and routine lateral views of the chest were obtained. REPORT: Elevated lung volumes and both diffuse mild prominence of the interstitial markings and patchy rarefaction of the mid to upper lung zone interstitial markings. Small LEFT dependent pleural effusion. Cardiomegaly. RIGHT ventricular level pacemaker lead. Unremarkable central pulmonary vasculature and mediastinal contours. IMPRESSION: #. Stigmata of obstructive lung disease. #. Small LEFT pleural effusion. #. Resolution of previous mild interstitial edema. <Electronically signed by Evelio Tillman MD in [place]> 04/02/181904 Dictated By: Evelio Tillman MD Dictated Date/Time: 04/02/181904 Transcribed Date/Time: 04/02/181901 Copy to: CC:Trey Perez MD; Ciara Dodge MD; Es Madden DO [facility] [address] [address] ph ([phone]) ph ([phone]) ph ([phone]) This report is only to be considered final once signed by the Provider(s) as displayed in the "<Electronically Signed by >" field (s). Absence of a signature indicates the report is in a draft status and still needs to be finalized. In the event this document was created by someone other than the signing Provider, the individual initiating the document will be listed in the "Entered by:" or "Dictated by:" talley. 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 I will send her home on oral diuretics. I have given her instructions to check her weight daily. She is now O2 dependent and she will have home O2. 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
[2018-04-03] MEDS: Insulin LISPRO* 1 UNITS UNIT SUBCUT SCH ×2 (07:55→12:09)
[2018-04-03 08:49] LABS: Urine Appearance Clear; Urine Blood Negative (Negative); Urine Color Yellow; Urine Ketones Negative (Negative); Urine Protein Negative (Negative); Urine Specific Gravity 1.014 (1.010-1.030); Urine Urobilinogen Negative (Negative)
[2018-04-03] MEDS ORDERED: Potassium Chlor TAB* 20 MEQ TAB.ER PO SCH (09:00)
[2018-04-03] MEDS ORDERED: Furosemide TAB* 40 MG PO SCH (09:00)
[2018-04-03] MEDS: Mometasone/Formoter 200/5 MDI INH SCH (09:01)
[2018-04-03] MEDS: Atorvastatin* 80 MG TAB PO SCH (09:08)
[2018-04-03] MEDS: Insulin GLARGINE(*) 1 UNITS UNIT SUBCUT SCH (09:08)
[2018-04-03] MEDS: Fludrocortisone Acetate TAB* 0.1 MG PO SCH (09:08)
[2018-04-03] MEDS: Venlafaxine EXT RELEASE CAP* 75 MG PO SCH (09:09)
[2018-04-03] MEDS: Carvedilol TAB* 3.125 MG PO SCH (09:09)
[2018-04-03] MEDS: Isosorbide Mononitrate ER TAB* 30 MG PO SCH (09:09)
[2018-04-03] MEDS: BuPROPion XL* 150 MG TAB.XL PO SCH (09:17)
[2018-04-03] MEDS: Ticagrelor* 90 MG TAB PO SCH (09:17)
--- NOTE | 2018-04-03 12:36 | DS ---
CC: Dr. Vikram Decker * DISCHARGE SUMMARY: DATE OF ADMISSION: 03/31/18 DATE OF DISCHARGE: 04/02/18 DISCHARGE DIAGNOSES: 1. Acute congestive cardiac failure with pulmonary vascular congestion. 2. Ischemic cardiomyopathy. 3. Systolic heart failure. 4. INR below therapeutic target. 5. Labile diabetic control. SECONDARY DIAGNOSES: 1. Coronary artery disease post myocardial infarction. 2. Severe ischemic cardiomyopathy, automatic implanted cardiac defibrillator in situ. 3. Orthostatic hypotension. 4. Chronic small left pleural effusion. 5. Type 2 diabetes mellitus. 6. Chronic obstructive pulmonary disease. 7. Stage 3 chronic renal disease. 8. Primary hypothyroidism. 9. History of asthma. 10. Depression. 11. Hyperlipidemia. 12. History of left ventricular thrombus. 13. Complex social situation. HISTORY: Lorena Tafoya is a 72-year-old white female, her presentation is documented in Rob Gregory NP, admitting history and physical, which is part of the electronic medical record. In short, she has had some right upper quadrant and right chest discomfort. She also was unable to sleep due to shortness of breath. She had no edema. Her Coreg dose had recently been increased. She had her ongoing orthostatic hypotension. PHYSICAL EXAMINATION: Not in acute distress. Blood pressure 127/80, pulse 98, respirations 26, oxygen saturation 99% on 2 L, temperature 98.8. She had fine crackles in the lung bases. Cardiac exam otherwise unremarkable. INITIAL LABORATORY DATA: White count 12, hemoglobin 12.7, hematocrit 39, platelets 311. INR of 1.74, D-dimer 220. Sodium 140, chloride 106, bicarbonate 25, BUN 22, creatinine 1.14, glucose 135, lactate 1.1, calcium 9.6. Bilirubin 1.3. Troponin I 0.03. BNP 3112. Albumin 4.1. DIAGNOSTIC STUDIES: Chest x-ray showed interstitial edema and left-sided pleural effusions. EKG: Sinus tachycardia, biphasic T waves in V2 and V3, unchanged from previous films. She was admitted for exacerbation of COPD without obvious infection or other precipitating factors aside from an increase in her carvedilol. She was treated with parenteral furosemide. OTHER INVESTIGATIONS: C-reactive protein 39.05. Troponin I remained at 0.03 throughout the hospital stay. Creatinine increased from 1.14 to 1.53 during the hospitalization. Second chest x-ray, 04/02/18: The interstitial edema has disappeared and small left pleural effusion remains. HOSPITAL COURSE: We treated her with furosemide 40 mg IV twice daily. Her symptoms improved. On the penultimate day in the hospital, she had some transient right-sided chest discomfort that went away. Her INR came close to therapeutic. She benefited from oxygen and qualified for home oxygen and she desaturated off the nasal cannulae. On the day of discharge, she is feeling back at baseline. She continues to have some mild orthostatic hypotension. Her breathing at rest is fine. She has had no further chest pain or nausea. She has no cough and is not bringing up any phlegm. No fever or sweats. PHYSICAL EXAMINATION: Temperature 97.4, pulse 78, respirations 16, oxygen saturation 100%, blood pressure 96/62. She had no cyanosis, anemia, jaundice, clubbing, or adenopathy. Cardiovascular System: Pulse is regular, normal character, and volume. Heart sounds were normal. No pedal edema. Respiratory System: She had some fine crackles at bases. Abdomen: No distention, masses, tenderness, or organomegaly. She was alert and oriented. Normal Speech. LABORATORY DATA ON DAY OF DISCHARGE: Sodium 142, potassium 3.4, chloride 105, bicarbonate 29, BUN 40, creatinine 1.53, eGFR 33.2, glucose 102. CBC: White count 11.3, hemoglobin 13, hematocrit 40, platelets 260. ASSESSMENT AND PLAN: 1. Acute congestive cardiac failure, systolic, with predominantly pulmonary congestion, very little in the way of peripheral edema. She has responded well to parenteral furosemide. She was not taking a diuretic at presentation. I will start her on furosemide at home. She will weigh herself daily. I will add to it KCl tablets. I am not giving her spironolactone as she is taking fludrocortisone and that seems paradoxical. She has problems of orthostatic hypotension. This may be exacerbated. I have discussed this with the patient. She will remain on the dose of carvedilol prescribed by Dr. Decker. She will follow up in my office in a couple of days. 2. INR insufficient. She is coming up to therapeutic. We will check it again in 2 days. She will take 6 mg a day of warfarin as an outpatient. 3. Type 2 diabetes mellitus, labile. She will remain on her usual diabetic therapy. 4. Social support. We are going to offer social work visiting nurse services. She will have home oxygen. 5. Coronary artery disease. She will remain on her antiplatelet agents. She is also on warfarin for left ventricular thrombus. 6. Chronic obstructive pulmonary disease and asthma. This is not exacerbated. 7. Depression. This is at baseline. 8. Hyperlipidemia. Continue current therapy. 9. Hypothyroidism. Continue current medication. 10. Stage 3 renal disease. I note her BUN and creatinine are higher than usual with the diuretic therapy. I intend to maintain her weight as an outpatient at around 150 pounds. 04/04/2018 post-script - she didn't qualify for home O2 - her O2 saturation didn' t go lower than 89%. DISCHARGE MEDICATIONS: 1. Furosemide 40 mg p.o. daily. 2. Potassium chloride 20 mEq daily. 3. Warfarin 6 mg daily. 4. Ticagrelor 90 mg twice daily. 5. Fludrocortisone 0.05 mg daily. 6. Venlafaxine extended release 150 mg daily. 7. Levofloxacin 75 mcg daily. 8. Alprazolam 0.25 to 0.5 mg twice daily p.r.n. for anxiety. 9. Bupropion XL 150 mg daily. 10. Isosorbide mononitrate extended release 15 mg daily. 11. Nitroglycerin 0.4 mg every 5 minutes as needed for chest pain. 12. Diphenhydramine 25 mg as needed at bedtime for allergies. 13. Atorvastatin 80 mg q.h.s. 14. Acetaminophen 1000 mg every 6 hours as needed for pain. 15. Insulin detemir 15 units twice daily. 16. Albuterol HFA inhaler 1 puff every 6 hours as needed. 17. Carvedilol 6.25 mg twice daily. [id number]/[facility] #: [id number] [facility]
[2018-04-03 16:04] VITALS: BP 89/59
[2018-04-03] MEDS ORDERED: Warfarin TAB(*) 2.5 MG PO SCH (17:00)
== END 2018-04-03 16:07 | disposition home health service (06) | DRG 291 ==
LOC: ED 13:57 → MEDTELE 19:02
PROVIDERS: ADMIT Hospitalist; ATTEND Internal Medicine
DX: I13.0 Hypertensive heart and chronic kidney disease with heart failure and stage 1 through stage 4 chronic kidney disease, or unspecified chronic kidney disease (principal); I50.23 Acute on chronic systolic (congestive) heart failure; D68.8 Other specified coagulation defects; K21.9 Gastro-esophageal reflux disease without esophagitis; N18.3 Chronic kidney disease, stage 3 (moderate); M19.90 Unspecified osteoarthritis, unspecified site; E11.42 Type 2 diabetes mellitus with diabetic polyneuropathy; E11.22 Type 2 diabetes mellitus with diabetic chronic kidney disease; F32.9 Major depressive disorder, single episode, unspecified; E11.36 Type 2 diabetes mellitus with diabetic cataract; F41.9 Anxiety disorder, unspecified; J43.9 Emphysema, unspecified; E11.21 Type 2 diabetes mellitus with diabetic nephropathy; R09.02 Hypoxemia; I25.10 Atherosclerotic heart disease of native coronary artery without angina pectoris; E78.5 Hyperlipidemia, unspecified; I48.91 Unspecified atrial fibrillation; E03.9 Hypothyroidism, unspecified; R00.0 Tachycardia, unspecified; M50.20 Other cervical disc displacement, unspecified cervical region; R09.89 Other specified symptoms and signs involving the circulatory and respiratory systems; E11.65 Type 2 diabetes mellitus with hyperglycemia; I25.5 Ischemic cardiomyopathy; Z79.01 Long term (current) use of anticoagulants; Z88.6 Allergy status to analgesic agent; Z88.1 Allergy status to other antibiotic agents; Z88.8 Allergy status to other drugs, medicaments and biological substances; Z86.718 Personal history of other venous thrombosis and embolism; Z80.8 Family history of malignant neoplasm of other organs or systems; Z88.2 Allergy status to sulfonamides; I25.2 Old myocardial infarction; Z95.810 Presence of automatic (implantable) cardiac defibrillator; Z90.49 Acquired absence of other specified parts of digestive tract; Z90.710 Acquired absence of both cervix and uterus; Z95.5 Presence of coronary angioplasty implant and graft; Z82.49 Family history of ischemic heart disease and other diseases of the circulatory system; Z79.4 Long term (current) use of insulin; Z79.51 Long term (current) use of inhaled steroids; Z79.52 Long term (current) use of systemic steroids; Z86.73 Personal history of transient ischemic attack (TIA), and cerebral infarction without residual deficits; I95.1 Orthostatic hypotension; E87.6 Hypokalemia
CPT/HCPCS: 36415; 71046; 80048; 80053; 81003; 83605; 83735; 83880; 84145; 84484; 85025; 85379; 85610; 85730; 86140; 86141; 93005; 94640; 99285; A9270-GY; J1650; J1940

== ENCOUNTER 2018-04-20 15:57 | Inpatient (IN) | payer MEDICARE, OTHER ==
--- NOTE | 2018-04-20 16:07 | ED ---
Shortness of Breath - HPI Summary HPI Summary: This is scribe Ed Jeannette documenting for attending Dr. Marquise Cruz. 72 y/o female presents to the ED c/o acute on chronic SOB, worsening 4 days ago. Chronic SOB on exertion for years, since 4 days ago the pt c/o dyspnea at rest. Pt has a hard time ambulating due to SOB. Denies swelling. Associated sx: intermittent dizziness when trying to sit or lie down. PMHx VA (2x last in December 2017), CHF, angioplasty. 2 stents placed. Pt not on O2 at home. Stratigrapher Dr. Decker. I, Dr. Cruz, personally performed the services described in this documentation as scribed in my presence and it is both accurate and complete - History of Current Complaint Chief Complaint: EDShortnessOfBreath Time Seen by Provider: 04/20/18 16:05 Hx Obtained From: Patient Onset/Duration: Still Present Dyspnea At: Rest Aggrevating Factors: Other - exertion Alleviating Factors: Nothing Associated Signs & Symptoms: Dizzy - Allergy/Home Medications Allergies/Adverse Reactions: Allergies Allergy/AdvReac Type Severity Reaction Status Date / Time aspirin Allergy Anaphylatic Verified 03/31/18 14:00 Shock doxycycline Allergy Anaphylatic Verified 03/31/18 14:00 Shock NSAIDS (Non-Steroidal Allergy Bleeding Verified 03/31/18 14:00 Anti-Inflamma pentazocine Allergy Hallucinati Verified 03/31/18 14:00 ons Sulfa (Sulfonamide Allergy Anaphylatic Verified 03/31/18 14:00 Antibiotics) Shock PMH/Surg Hx/FS Hx/Imm Hx Previously Healthy: No Endocrine/Hematology History: Reports: Hx Diabetes Denies: Hx Thyroid Disease, Hx Anemia Cardiovascular History: Reports: Hx Angina, Hx Congestive Heart Failure, Hx Hypercholesterolemia, Hx Hypertension, Hx Myocardial Infarction, Hx Pacemaker/ ICD Denies: Hx Coronary Artery Disease, Hx Peripheral Vascular Disease, Hx Valvular Heart Disease Respiratory History: Reports: Hx Asthma, Hx Seasonal Allergies, Other Respiratory Problems/Disorders - PLEURAL EFFUSION. 01/2017 USES ADVAIR RX DAILY X2 PUFFS Denies: Hx Chronic Obstructive Pulmonary Disease (COPD) GI History: Reports: Hx Gall Bladder Disease - removed, Hx Gastroesophageal Reflux Disease Denies: Hx Hiatal Hernia, Hx Jaundice History: Reports: Hx Chronic Renal Failure - Stage III per Dr. Perez, Other Problems/Disorders - HX OF BLADDER INFECTIONS, NONE NOW Musculoskeletal History: Reports: Hx Arthritis, Hx Back Problems - C spine herniated disc, Hx Bursitis - HX OF LEFT SHOULDER, Hx Tendonitis - HX OF LEFT SHOULDER, Other Musculoskeletal History - R knee arthroscopy Denies: Hx Osteoporosis Sensory History: Reports: Hx Cataracts - BILATERAL, Hx Contacts or Glasses - Reading glasses Denies: Hx Hearing Aid Opthamlomology History: Reports: Hx Cataracts - BILATERAL, Hx Contacts or Glasses - Reading glasses Neurological History: Reports: Other Neuro Impairments/Disorders - peripheral neuropathy in feet Denies: Hx Headaches, Hx Seizures, Hx Transient Ischemic Attacks (TIA) Psychiatric History: Reports: Hx Anxiety, Hx Depression Denies: Hx Eating Disorder, Hx Panic Disorder, Hx of Violent Episodes Against Others - Cancer History Hx Chemotherapy: No Hx Radiation Therapy: No - Surgical History Surgery Procedure, Year, and Place: Cholecystectomy, ruptured ovarian cyst, appendix out at same time, COMPLETE HYSTERECTOMY, 2 cardiac stents, Hx Anesthesia Reactions: No - Immunization History Date of Influenza Vaccine: 06/28 Infectious Disease History: No Infectious Disease History: Denies: Traveled Outside the [place] in Last 30 Days - Family History Known Family History: Positive: Cardiac Disease - father's side - Social History Alcohol Use: None Substance Use Type: Reports: None Hx Tobacco Use: No Smoking Status (MU): Never Smoked Tobacco Review of Systems Constitutional: Negative Eyes: Negative ENT: Negative Cardiovascular: Negative Positive: Shortness Of Breath Gastrointestinal: Negative Genitourinary: Negative Musculoskeletal: Negative Skin: Negative Neurological: Other - dizziness Psychological: Normal All Other Systems Reviewed And Are Negative: Yes Physical Exam - Summary Physical Exam Summary: Appearance: The patient is well-nourished in no acute distress and in no acute pain. Skin: The skin is warm and dry and skin color reflects adequate perfusion. HEENT: The head is normocephalic and atraumatic. The pupils are equal and reactive. The conjunctivae are clear and without drainage. Nares are patent and without drainage. Mouth reveals moist mucous membranes and the throat is without erythema and exudate. The external ears are intact. The ear canals are patent and without drainage. The tympanic membranes are intact. Neck: The neck is supple with full range of motion and non-tender. There are no carotid bruits. There is no neck vein distension. Respiratory: Chest is non-tender. There are a few sparse crackles at the bases, and breath sounds are symmetrical and equal. Cardiovascular: Heart is regular rate and rhythm. There is no murmur or rub auscultated. There is no peripheral edema and pulses are symmetrical and equal. Abdomen: The abdomen is soft and non-tender. There are normal bowel sounds heard in all four quadrants and there is no organomegaly palpated. Musculoskeletal: There is no back tenderness noted. Extremities are non-tender with full range of motion. There is good capillary refill. There is no peripheral edema or calf tenderness elicited. Neurological: Patient is alert and oriented to person, place and time. The patient has symmetrical motor strength in all four extremities. Cranial nerves are grossly intact. Deep tendon reflexes are symmetrical and equal in all four extremities. Psychiatric: The patient has an appropriate affect and does not exhibit any anxiety or depression. Triage Information Reviewed: Yes Vital Signs On Initial Exam: Initial Vitals Temp Pulse Resp BP Pulse Ox 98.9 F 104 15 115/72 98 04/20/18 16:00 04/20/18 16:00 04/20/18 16:00 04/20/18 16:00 04/20/18 16:00 Vital Signs Reviewed: Yes Diagnostics - Vital Signs Vital Signs Temp Pulse Resp BP Pulse Ox 04/20/18 16:00 98.9 F 104 15 115/72 98 - Laboratory Result Diagrams: 04/20/18 16:55 04/20/18 16:55 Lab Statement: Any lab studies that have been ordered have been reviewed, and results considered in the medical decision making process. - Radiology CXR Radiology Interpretation Completed By: Radiologist - Stigmata of probable obstructive lung disease. No acute pulmonary or cardiac process evident. - EKG 1 EKG Interpretation: 16:11 - SR @ 95 BPM. Course/Dx - Course Course Of Treatment: Ms. Tafoya was borderline on presentation to the emergency department. Her breathing was marginal and she got tachycardic and tachypneic with a pulse ox at 90 on 2 L of oxygen with any exertion in the ED. She was hyperglycemic. Her d-dimer was slightly elevated although her INR was 2.5 making PE less likely. She was not clinically in congestive heart failure. I asked the hospitalist to consult on her. - Diagnoses Provider Diagnoses: Dyspnea, Hyperglycemia - Physician Notifications Discussed Care of Patient With: Rob Gregory Time Discussed With Above Provider: 19:10 Instructed by Provider To: Admit As Inpatient Discharge - Sign-Out/Discharge Documenting (check all that apply): Patient Departure - Discharge Plan Condition: Stable Disposition: ADMITTED TO [facility] - Billing Disposition and Condition Condition: STABLE Disposition: Admitted to [facility]
--- OUTSIDE RECORDS SUMMARY | 2018-04-20 16:52 | XMS REPORT ---
:1945 External Reference #:[id number] Author Organization [employer] Address [address] [place] [address] [place] [address] Phone [phone] Care Team Providers Name Role Phone Trey Perez MD Primary Care Physician Unavailable Payers Type Date Identification Numbers Payment Provider Subscriber Health Maintenance Policy Number: Medicare Blue Ppo Lorena Tafoya Organization (HMO) [id number] Group Number: [id number] PayID: [id number] JAME Lopez [id number] Commercial Effective: 08/01/2016 Policy Number: [facility] Lorena Tafoya [id number] Expires: 05/31/2018 Group Number: [id number] PayID: [id number] [place] [address] Problems Description No Information Family History Date Family Member(s) Problem(s) Comments Father CABG Quadruple Father due to CO () Father CO Father Diabetes Mother Congestive Heart Failure (CHF) [...] mouth I21.3 Vikram s every day Justo Lopez M.D. 02/15 Diltiazem HCL ER 08/25 Hx [...] CPT Code Status Date Vaccine Lot # [id number] Given 06/14/2016 Influenza Virus 3Yrs & Over [...] Nucleated Red Blood Cells % 0 1 [id number] 2 Because ethnic data is not always [...] 5 Kidney failure <15 (or dialysis) 3 [id number] 4 Because ethnic data is not always [...] 5 Kidney failure <15 (or dialysis) 5 [id number] 6 >100 to <200 pg/mL: likely compensated congestive heart failure (CHF) 200 to 400 pg/mL: likely moderate CHF >400 pg/mL: likely moderate to severe CHF 7 Desirable: <100 Near Optimal: 100-129 Borderline High: 130-159 High: 160-189 Very High: >189 8 Result TnIDx:2.01 Called to NILO SERNA at: 14:05:02 by:[id number] Read back by:NILO SERNA 9 Because ethnic [...] 10 Critical Result LACT:2.3 Called to NILO SRENA at: 14:00:14 by:[id number] Read back by:NILO SPAULDING Severe Sepsis and Septic Shock Management Bundle Measure requires all lactic acids initially measuring >2.0 mmol/L be repeated. 11 >100 to <200 pg/mL: likely compensated congestive heart failure (CHF) 200 to 400 pg/mL: likely moderate CHF >400 pg/mL: likely moderate to severe CHF 12 Critical Result LACT:2.1 Called to [id number] at: 18:47:35 by:[id number] Read back by:[id number] CHELLY Severe Sepsis and Septic Shock Management Bundle Measure requires all lactic acids initially measuring >2.0 mmol/L be repeated. 13 Interpretive information available on [facility] Lab Test Catalog at [email or web address] 14 Because ethnic data is not always [...] Procedures Date CPT Code Description Status 01/13/2018 35875 EKG Tracing & Interpretation Completed 01/05/2018 22915 EKG, Interpretation Only Completed 01/02/2018 11704 ECHO Transthorasic Realtime 2D W Doppler & Color Flow Completed Hosp 10/13/2017 22049 Interrogation Implant Cardiovasc Monitor System Incl Completed Analysis Int 10/13/2017 30457 Interrogation Implant Cardiovasc Monitor System Incl Completed Analysis Int 10/13/2017 89349 Icd Eval W/Iterative Adjustmnt Single Lead Icd Completed 10/13/2017 84035 Icd Eval W/Iterative Adjustmnt Single Lead Icd Completed 09/20/2017 68347 Interrogation Device Eval In Person W/DR Completed Analysis,Single,Dual,Mul 09/20/2017 15799 EKG, Interpretation Only Completed 09/19/2017 46537 EKG, Interpretation Only Completed 09/19/2017 68758 Insert/Replace Icd W/Generator Completed 09/15/2017 53300 ECHO Transthorasic Realtime 2D W Doppler & Color Flow Completed Hosp 09/15/2017 36750 EKG, Interpretation Only Completed 08/10/2017 16414 EKG Tracing & Interpretation Completed 07/31/2017 45864 Echocardiogram, Limited Study Completed 07/31/2017 59176 Echocardiogram, Limited Study Completed 07/30/2017 52399 EKG, Interpretation Only Completed 07/29/2017 96147 ECHO Transthorasic Realtime 2D W Doppler & Color Flow Completed Hosp 07/28/2017 93236 Left Heart Cath. Incl S/I Coronaries, Angio S/I V Gram Completed If Done 07/28/2017 32980 Revascularization Acute Total/Subtotal Occlusion Completed 07/06/2017 65751 ECHO Transthorasic Realtime 2D W Doppler & Color Flow Completed Hosp 10/21/2016 51246 EKG Tracing & Interpretation Completed 10/12/2016 89533 Diffusing Capacity Completed 10/12/2016 92255 Plethysmography Determination Lung Volumes & Per Airway Completed Resist 10/12/2016 63888 Spirometry Incl Graphic Record, Timed Expiratory Flow Completed Rate 09/07/2016 10583 Spirometry Incl Graphic Record Completed 08/25/2016 61745 Treadmill Interp/Report Only Completed 08/25/2016 38705 Stress Test Supervsn W/Out I/R Completed 08/24/2016 11600 ECHO Transthorasic Realtime 2D W Doppler & Color Flow Completed Hosp 08/24/2016 13773 EKG, Interpretation Only Completed 09/17/2015 96153 ECHO Transthorasic Realtime 2D W Doppler & Color Flow Completed Hosp Encounters Type Date Location Provider CPT E/M Dx Office Visit 03/28/2018 [facility] Vikram Decker, 19643 I25.5 1:15p Laboratory Chemist AT [facility] M.D. I25.119 Z95.810 Office Visit 02/28/2018 1:00p [facility] Vikrammonae Decker, 78090 I25.5 Laboratory Chemist AT [facility] M.D. I25.119 Z95.810 I25.2 Office Visit 02/07/2018 1:00p [facility] Vikram Decker, 69061 I25.5 Laboratory Chemist AT [facility] M.D. I25.119 Z95.810 Office Visit 01/13/2018 9:15a [facility] iVkram Decker, 64504 I25.119 [facility] M.D. I25.5 Z95.810 R94.31 Office Visit 01/04/2018 12:57p [facility], Tip Gregory, 39498 I21.4 Hospitalists N.P. I25.119 I10 E11.8 Office Visit 12/16/2017 11:15a [facility] Vikram Decker, 99077 I25.5 [facility] M.D. Z95.810 I25.10 I25.2 Office Visit 09/17/2017 2:11p [facility] Vikram Decker, 33328 R06.00 [facility] M.Chris I25.5 I25.2 Office Visit 09/16/2017 11:01a [place] [place] [address] I25.10 [facility] I25.5 Office Visit 09/15/2017 10:54a [facility] [place] [address] I25.2 [facility] I25.5 I25.10 I25.2 Office Visit 09/14/2017 8:59a [facility], Tip Gregory, 55854 I21.4 Hospitalists N.P. E11.8 I25.10 I10 Office Visit 09/14/2017 9:36a [facility] Jaya Gallagher M.D., 20765 R20.0 Laboratory Chemist AT [facility] I25.10 I25.2 Office Visit 08/10/2017 1:15p [facility] Vikram Decker, 97407 I21.02 Rnai Ramsey I25.10 N18.4 Office Visit 08/03/2017 11:49a [facility] Kash Gallagher M.D., 98065 I21.02 Laboratory Chemist AT [facility], FSCAI I25.10 I25.5 Office Visit 08/02/2017 2:13p [facility] Kash Gallagher M.D., 35205 I21.3 Laboratory Chemist AT [facility], [facility] Office Visit 08/01/2017 2:10p [facility] Kash Gallagher M.D., 25258 I21.3 Laboratory Chemist AT [facility], [facility] I25.10 Office Visit 07/31/2017 3:15p [facility] Florencia Pierce, 61078 I21.3 Laboratory Chemist AT [facility] RADHA SANTANA, FSCAI N18.4 Office Visit 07/30/2017 3:14p [facility] Florencia Pierce, 34642 I21.3 Laboratory Chemist AT [facility] RADHA SANTANA, FSCAI I50.21 E87.1 Office Visit 07/29/2017 3:14p [facility] Florencia Pierce, 91097 I21.3 Laboratory Chemist AT [facility] RADHA SANTANA, FSCAI I50.21 Office Visit 07/28/2017 1:53p [facility] Florencia Pierce, 14081 I21.3 Laboratory Chemist AT [facility] , RADHA, FSCAI Office Visit 07/20/2017 12:00p [facility] Vikram Decker, 60869 R06.02 Rani Ramsey R00.0 Office Visit 07/07/2017 10:38a [facility] [place] [address] R06.00 Services Of Laboratory Chemist R07.1 J90 Office Visit 07/05/2017 10:37a [facility] [place] [address] R07.1 Services Of Laboratory Chemist R06.02 J90 Office Visit 07/02/2017 1:42p [facility], 53970 N30.00 Assoc, Hospitalists Braulio,FACP A41.50 E11.9 Z79.4 Office Visit 06/22/2017 8:45a [facility] [place] [address] R06.02 Services Of [facility] J90 J45.909 Office Visit 05/31/2017 1:30p [facility] [place] [address] R06.02 Services Of [facility] J90 J45.909 Office Visit 05/04/2017 12:00p [facility] Vikram Decker, 39677 R06.02 Laboratory Chemist M.Chris R00.0 Office Visit 04/18/2017 11:30a [facility] [place] [address] R06.02 Services Of [facility] G89.29 J45.909 J90 R06.83 R40.0 Office Visit 12/24/2016 10:22a [facility], Caryl Lux N.P. 24206 R07.1 Hospitalists J90 R06.02 E11.9 Office Visit 10/21/2016 11:15a [facility] Vikram Decker, 37217 R06.00 [facility] Braulio R94.31 R00.0 Office Visit 08/24/2016 8:52a [facility] Vikram Decker, 41015 R06.02 Rani Ramsey R00.0 Office Visit 08/23/2016 8:57a [facility], Ranjith Mccain, 12649 R00.0 Hospitalbrandin Ramsey E11.9 F32.89 Office Visit 09/19/2015 10:18a [facility] Ramón Andersen, 47925 R55 Services Of [facility] Braulio H81.10 Office Visit 09/16/2015 12:18p [facility], Darwin Fisher M.D. 11879 R55 Hospitalists E11.9 R42 I10 Plan of Care Future Appointment(s):05/02/2018 1:15 pm - Vikram Decker M.D. at [facility] AT [facility]04/28/2018 9:20 am - Ica Pacer Schedule at [facility]03/28/2018 - Vikram Decker M.D.I25.5 Ischemic cardiomyopathyNew Medication:Carvedilol 6.25 mgFollow up:1 monthRecommendations: Take 2 coreg tabs in am and pm I will call Dr Sanders about minimally invasive gxmscwlY29.119 Athscl heart disease of [place] cor art w unsp ang woyywP84.810 Presence of automatic (implantable) cardiac defibrillator
--- NOTE | 2018-04-20 16:59 | RAD ---
INDICATION: Shortness of breath. Cardiac disease. Asthma. COMPARISON: April 02, 2018 TECHNIQUE: Dual energy PA and routine lateral views of the chest were obtained. REPORT: Elevated lung volumes. No focal pulmonary lesion, compelling alveolar consolidation, pleural effusion, pneumothorax. RIGHT ventricular level pacemaker lead extends from the LEFT chest wall control device. Negative for cardiomegaly. Unremarkable central pulmonary vasculature and mediastinal contours. Gallbladder fossa level surgical clips. Unremarkable osseous structures for age. IMPRESSION: #. Stigmata of probable obstructive lung disease. No acute pulmonary or cardiac process evident.
[2018-04-20 17:11] LABS: ABS Basophils 0.1 10^3/ul (0-0.2); ABS Eosinophils 0.1 10^3/ul (0-0.6); ABS Lymphocytes 0.9 10^3/ul (1.0-4.8); ABS Monocytes 0.6 10^3/ul (0-0.8); ABS Neutrophils 8.9 10^3/ul (1.5-7.7); ABS Nucleated RBC 0 10^3/ul; Eosinophil % 0.9 % (0-6); Hematocrit 40 % (35-47); Hemoglobin 13.1 g/dl (12.0-16.0); Lymphocyte % 8.4 % (25-47); Mean Corpuscular HGB Conc 33 g/dl (31-36); Mean Corpuscular Hemoglobin 28 pg (27-31); Mean Corpuscular Volume 85 fL (80-97); Mean Platelet Volume 9.8 um3 (7.4-10.4); Nucleated Red Blood Cells % 0; Platelet Count 297 10^3/ul (150-450); Red Blood Count 4.74 10^6/ul (4.00-5.40); Red Cell Distribution Width 15 % (10.5-15); White Blood Count 10.6 10^3/ul (3.5-10.8)
[2018-04-20] MEDS ORDERED: Albuterol/Ipratropium NEB.SOL* Albuterol 2.5 MG/Ipratropium 0.5 MG 3 ML INH ONE (17:20)
[2018-04-20 17:30] LABS: EGFR Non-African American 37.1 (>60)
[2018-04-20 19:16] LABS: INR 2.56 (0.77-1.02)
[2018-04-20] MEDS ORDERED: Dextrose 50% Syringe 50 ML* 25 GM/50 ML SYRINGE IV PUSH PRN (19:40)
[2018-04-20] MEDS ORDERED: Furosemide IV* 10 MG/ML 2 ML VIAL (20 MG) IV SLOW PU ONE (19:40)
[2018-04-20] MEDS ORDERED: Insulin REGULAR(*) 1 UNITS UNIT IV PUSH ONE (19:40)
[2018-04-20] MEDS ORDERED: Ondansetron INJ* 2 MG/ML VIAL IV PRN (19:40)
[2018-04-20] MEDS ORDERED: ALPRAZolam TAB* 0.25 MG PO PRN (19:43)
[2018-04-20] MEDS ORDERED: diPHENhydraMINE PO* 25 MG PO PRN (19:43)
[2018-04-20] MEDS ORDERED: Albuterol HFA INHALER* 8 gm MDI INH PRN (19:43)
[2018-04-20] MEDS ORDERED: Insulin LISPRO* 1 UNITS UNIT SUBCUT SCH (22:00)
--- NOTE | 2018-04-20 23:36 | HP ---
CC: Dr. Perez * HISTORY AND PHYSICAL: DATE OF ADMISSION: 04/20/18 PRIMARY CARE PROVIDER: Dr. Perez. ATTENDING PHYSICIAN WHILE IN THE HOSPITAL: Dr. Go August * (report dictated by Rob Gregory NP). CHIEF COMPLAINT: 1. Shortness of breath. 2. Dyspnea on exertion. HISTORY OF PRESENT ILLNESS: Ms. Tafoya is a 72-year-old female patient with a rather extensive past medical history. She carries a history of CAD, cardiomyopathy with last EF of 20% to 25%, history of asthma, hypertension, hyperlipidemia, diabetes, AFib, hypothyroidism, history of CHF, recently admitted here a couple of weeks ago for CHF, depression, CKD, history of NH, pleural effusion, and left thrombus, on chronic anticoagulation. She says that initially being discharged home from the hospital just recently, she was doing well. Since Tuesday and throughout the week, she has noticed that even lying down or running with minimal exertion, she is having shortness of breath. She says she has been having difficulty sleeping at night because she is having a hard time lying flat. She denies any weight gain. She states she has been taking her meds as prescribed. She denies having an increase in salt. She does admit though that she has been drinking Coca-Cola over the last week. She did not take her insulin today. She says she has been taking her other medications religiously. She says that since being here in the hospital, she did go to [place], she had a cardiac MRI and she is scheduled to see a cardiothoracic surgeon I believe in [place] according to the patient for possible revascularization of her coronary arteries according to the patient, I will need to clarify that with records. Nonetheless, she says she has been having trouble with hard time breathing. She denied having any swelling. She denied having any abdominal pain. No nausea or vomiting. No fevers, no chills. She denied having any coughing or any feeling congested or rhinorrhea. She came into the ED. It was noted that her sugar was 513, her CRP was elevated at 179. There was concern for the shortness of breath and because of these findings, we are asked to evaluate for admission. She did admit to having the sensation of having a wire constriction underneath both her breasts like she was wearing a wired bra. She denied any chest heaviness or pressure now, but she did state that she was having some discomfort underneath her breast. PAST MEDICAL HISTORY: Significant for: 1. CAD. 2. Cardiomyopathy. 3. History of asthma. 4. Hypertension. 5. Hyperlipidemia. 6. Diabetes. 7. AFib. 8. Hypothyroidism. 9. CHF. 10. Depression. 11. NH. 12. CKD. 13. Pleural effusion. 14. History of left ventricular thrombus. PAST SURGICAL HISTORY: 1. She has had heart catheterization x2. 2. AICD placement. 3. Hysterectomy. HOME MEDICATIONS: According to the list provided include: 1. Benadryl 25 mg at bedtime as needed. 2. Warfarin 2.5 mg Tuesday, Tuesday, Tuesday and 5 mg on Tuesday, Tuesday, , Tuesday. 3. Effexor 150 mg daily. 4. Brilinta 90 mg p.o. b.i.d. 5. Potassium 20 mEq daily. 6. Nitro 0.4 mg sublingual every 5 minutes x3 for chest pain. 7. Synthroid 75 mcg daily. 8. Imdur 15 mg daily. 9. Insulin detemir 15 units subcu b.i.d. 10. Lasix 40 mg daily. 11. Advair 2 puffs inhaled daily. 12. Florinef 0.05 mg daily. 13. Carvedilol 6.25 mg p.o. b.i.d. 14. Wellbutrin 150 mg daily. 15. Lipitor 80 mg daily. 16. Ventolin 1 puff inhaled every 6 hours as needed. 17. Tylenol Extra Strength 1000 mg every 6 hours as needed. 18. Xanax 0.25 to 0.5 mg p.o. b.i.d. as needed. ALLERGIES TO MEDICATIONS: Include ASPIRIN, DOXYCYCLINE, NSAIDS, STATINS, and PENTAZOCINE. FAMILY HISTORY: Her mother of valvular cancer. Father had a history of NH. SOCIAL HISTORY: She does not smoke and does not drink. Surrogate decision maker is her sister. REVIEW OF SYSTEMS: There is no documented fever. She denied any significant weight change to me. There is no double vision. There is no ear discharge. She denies having any rhinorrhea. No sore throat. No thyroid enlargement. Denied having any chest pain. There was some chest discomfort per my HPI. There was orthopnea. There was nocturnal dyspnea, dyspnea on exertion. There was no abdominal pain. There was no nausea, no vomiting. No dysuria, no frequency. There was no seizure. No loss of consciousness. No pruritus and no skin ulceration. Review of 14 systems completed, all others negative. PHYSICAL EXAMINATION GENERAL: At this time, Ms. Tafoya is a 72-year-old female patient. She is sitting in the ED stretcher. She does not appear to be in any acute distress. VITAL SIGNS: Blood pressure 105/69, pulse 90, respirations 15, O2 sat 96% on room air, temperature 98.9. HEENT: Head is atraumatic and normocephalic. Eyes: EOMs are intact. Her sclerae were anicteric and not pale. Throat: Oral mucosa appears to be moist. No oropharyngeal erythema. NECK: Supple. LUNGS: She did have some crackles I could hear in the right base. She had equal diaphragmatic expansion. HEART: Sounds S1, S2. She had an irregularly irregular rate. No murmurs, rubs , or gallops. ABDOMEN: Soft, it was flat, nontender. Bowel sounds were present. EXTREMITIES: Pulses were 2+ throughout. She had no peripheral edema that I can appreciate. She had 5/5 strength. NEUROLOGICAL: The patient is awake, alert, and oriented x3. Speech is clear. She had no gross focal deficits. SKIN: Intact. LABORATORY DATA/DIAGNOSTIC STUDIES: WBC of 10.6, RBC of 4.74, hemoglobin of 13.1, hematocrit of 40, platelet count of 297. The INR was 2.56. D-dimer was 360. The sodium was 135, potassium was 4, chloride of 101, bicarb 27, BUN 26, creatinine 1.39, which is near her baseline, glucose of 513, lactate 2.2, calcium 8.6. Total bili 0.5, AST 9, ALT 13, alk phos 68. Troponin 0.02. CRP was 179. BNP was 409. Albumin 3.1. She did have a chest x-ray obtained today, which revealed stigmata of probable obstructive lung disease, no acute cardiopulmonary process evident. EKG was obtained today, showed a sinus rhythm, rate of 95, no ST elevations or T -wave versions were noted. She did have inverted T waves previously in V1, 2 and 3 along with V4, but these are now resolved. The last echo I have is from December of this year, noted EF of 25% to 30%. Old medical records were reviewed. ASSESSMENT AND PLAN: Ms. Tafoya is a 72-year-old female patient with a complex medical history coming into the hospital today with complaints of shortness of breath. She is unable to lay flat, in addition to this having dyspnea on exertion since Tuesday. We were asked to evaluate for admission. She will be admitted under observation status for: 1. Shortness of breath. Etiology is unclear at this point. She did have some crackles on exam and she may be slightly fluid overloaded. I am going to give her one-time dose of Lasix here in the emergency department and continue her home dose going forward. I would like to check her heart enzymes so I have placed her upstairs on telemetry to cycle these. I will order daily weights. She just had an echo again 4 months ago, I do not think we need to do this again. She just had a cardiac MRI and I think we will continue to follow. 2. Elevated CRP. Etiology is unclear. Do not have obvious infection. I know she was nontender on exam for abdominal exam. Her lungs, she did have those crackles, but x-ray was negative. She did not have any fever or coughing. So I will check her urine. I do think we should panculture her. I did add on a procalcitonin. I do not think we need to get the antibiotics just yet. Blood cultures are out, pending. So, I think we will continue to follow this. Should she spike a fever, then I would put her on antibiotics. At this point, I do not have an obvious source of infection. 3. Chest discomfort. Again, she did have band like a wire underneath her breasts she had, it has been nonexertional. She does not have it now. I will cycle her troponins. Her EKG looks okay. We will monitor the troponins and we will continue to follow. We do know that she has known coronary artery disease. 4. Coronary artery disease. She is on Brilinta, statin, and beta-farrah. No aspirin due to anaphylaxis. We will continue these medications. She will be placed on telemetry. 5. History of cardiomyopathy and history of congestive heart failure. Again, I am going to give her a one time dose of Lasix, but this may be a contributing factor. We will continue her medications as prescribed. 6. History of asthma. Continue her inhalers. 7. Hypertension. Continue meds as prescribed. Her blood pressure is stable. 8. History of hyperlipidemia. Continue statin therapy. 9. Diabetes. Continue her insulin detemir and sliding scale every 4 hours. She is not well controlled. She has been drinking Coca-Cola, so at this point I have advised her to stop doing that and we will try to get the sugar better controlled. 10. Atrial fibrillation. Continue her warfarin. INR is therapeutic. 11. Hypothyroidism. Continue Synthroid. 12. Depression. Continue with supportive care. 13. Chronic kidney disease. Creatinine is stable. 14. History of LV thrombus. Again, she is on warfarin with a therapeutic INR. 15. Code status. Full code. 16. Fluids, electrolytes, nutrition. She can have a consistent carb diet. 17. DVT prophylaxis. Again, she is on warfarin with a therapeutic INR. We will continue the warfarin. TIME SPENT: Time spent on the admission was 60 minutes; greater than half the time was spent [id number] with the patient obtaining my history and physical, other half the time was spent going over the plan of care with the patient and implementing plan of care. I did discuss the plan of care with my attending, Dr. August; he is in agreement. ROB GREGORY NP [id number]/CPS #: [id number] JAIMIE
[2018-04-20] MEDS: Ticagrelor* 90 MG TAB PO SCH (23:37)
[2018-04-20] MEDS: Carvedilol TAB* 6.25 MG PO SCH (23:37)
[2018-04-21] MEDS: Insulin GLARGINE(*) 1 UNITS UNIT SUBCUT SCH ×3 (00:34→19:41)
[2018-04-21 05:21] LABS: ABS Basophils 0.1 10^3/ul (0-0.2); ABS Eosinophils 0.1 10^3/ul (0-0.6); ABS Lymphocytes 1.7 10^3/ul (1.0-4.8); ABS Monocytes 0.7 10^3/ul (0-0.8); ABS Neutrophils 7.9 10^3/ul (1.5-7.7); ABS Nucleated RBC 0 10^3/ul; Eosinophil % 1.3 % (0-6); Hematocrit 39 % (35-47); Hemoglobin 12.9 g/dl (12.0-16.0); Lymphocyte % 16.6 % (25-47); Mean Corpuscular HGB Conc 33 g/dl (31-36); Mean Corpuscular Hemoglobin 28 pg (27-31); Mean Corpuscular Volume 83 fL (80-97); Mean Platelet Volume 9.3 um3 (7.4-10.4); Nucleated Red Blood Cells % 0.1; Platelet Count 337 10^3/ul (150-450); Red Blood Count 4.66 10^6/ul (4.00-5.40); Red Cell Distribution Width 16 % (10.5-15); White Blood Count 10.5 10^3/ul (3.5-10.8)
[2018-04-21 05:25] LABS: INR 2.48 (0.77-1.02)
[2018-04-21 05:37] LABS: EGFR Non-African American 40.8 (>60)
[2018-04-21] MEDS: Levothyroxine TAB* 75 MCG TAB PO SCH (06:42)
[2018-04-21] MEDS: Mometasone/Formoter 200/5 MDI INH SCH (08:23)
--- NOTE | 2018-04-21 09:01 | PN ---
Subjective - Subjective Reason for Note: Progress Note History: I obtained the presentation from Lorena Bill and also from Rob Gregory, SENIOR BIOINFORMATICS SPECIALIST's admitting history and physical. She states she has has had worsening dyspnea - she developed orthopnea and had difficulty mobilizing. She states she has not had a cough or sputum. She has not had fever, sweats or chills. She has no symptoms suggestive of a UTI. She has had no angina/chest pain. She has no other focal symptoms of infection. Her glucose was high at presentation as she had drunk a Coke. This morning she has some dyspnea, but no other new symptoms. 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 Orthostatic hypotension (Chronic) I95.1 Current Medications: Current Medications Acetaminophen (Tylenol Tab*) 650 mg PO Q4H PRN PRN Reason: FEVER/PAIN Albuterol (Ventolin Hfa Inhaler*) 1 puff INH Q6H PRN PRN Reason: SHORTNESS OF BREATH Alprazolam (Xanax Tab*) 0.25 mg PO BID PRN PRN Reason: ANXIETY Atorvastatin Calcium (Lipitor*) 80 mg PO DAILY [facility] Bupropion HCl (Wellbutrin Xl *) 150 mg PO DAILY [facility]; Protocol Carvedilol (Coreg Tab*) 6.25 mg PO BID [facility] Last Admin: 04/20/18 23:37 Dose: 6.25 mg Dextrose (D50w Syringe 50 Ml*) 12.5 gm IV PUSH .FOR FS < 60 - SS PRN PRN Reason: FS < 60 Diphenhydramine HCl (Benadryl Po*) 25 mg PO BEDTIME PRN PRN Reason: SLEEP Last Admin: 04/21/18 03:01 Dose: 25 mg Fludrocortisone Acetate (Florinef Tab*) 0.05 mg PO DAILY [facility] Furosemide (Lasix Tab*) 40 mg PO DAILY [facility] Insulin Glargine (Lantus(*)) 15 units SUBCUT BID [facility] Last Admin: 04/21/18 00:34 Dose: 15 units Insulin Human Lispro (Humalog*) 0 units SUBCUT AC [facility]; Protocol Isosorbide Mononitrate (Imdur Er Tab*) 15 mg PO DAILY [facility] Levothyroxine Sodium (Synthroid Tab*) 75 mcg PO 0600 [facility] Last Admin: 04/21/18 06:42 Dose: 75 mcg Mometasone Furoate/Formoterol Fumar (Dulera 200/5 Mdi*) 2 puff INH DAILY [facility]; Protocol Last Admin: 04/21/18 08:23 Dose: 2 puff Ondansetron HCl (Zofran Inj*) 4 mg IV Q6H PRN PRN Reason: NAUSEA Potassium Chloride (Klor Con Er Tab*) 20 meq PO DAILY [facility] Ticagrelor (Brilinta*) 90 mg PO BID [facility] Last Admin: 04/20/18 23:37 Dose: 90 mg Venlafaxine HCl (Effexor Xr Cap*) 150 mg PO DAILY [facility] Warfarin Sodium (Coumadin Tab(*)) 5 mg PO SuTuThSa@1700 [facility]; Protocol Warfarin Sodium (Coumadin Tab(*)) 2.5 mg PO MoWeFr@1700 [facility]; Protocol Home Medications: Home Medications Medication Instructions Recorded Confirmed Type ALPRAZolam TAB* [Xanax TAB*] 0.25 - 0.5 mg PO BID PRN 01/04/18 04/20/18 History Bupropion XL* [Wellbutrin XL *] 150 mg PO DAILY 01/04/18 04/20/18 History Fludrocortisone Acetate TAB* 0.05 mg PO DAILY 01/04/18 04/20/18 History [Florinef TAB*] Fluticas/Salmet 115/21 HFA(NF) 2 puff PO DAILY 01/04/18 04/20/18 History [Advair HFA 115/21 (NF)] Levothyroxine TAB* [Synthroid 75 75 mcg PO DAILY 01/04/18 04/20/18 History MCG TAB*] Ticagrelor* [Brilinta 90 MG*] 90 mg PO BID 01/04/18 04/20/18 History Venlafaxine EXT RELEASE CAP* 150 mg PO DAILY 01/04/18 04/20/18 History [Effexor Xr CAP*] Acetaminophen [Acetaminophen Extra 1,000 mg PO Q6H PRN 03/31/18 04/20/18 History Strength] Albuterol HFA INHALER* [Ventolin 1 puff INH Q6H PRN 03/31/18 04/20/18 History HFA Inhaler*] Atorvastatin* [Lipitor 80 MG*] 80 mg PO DAILY 03/31/18 04/20/18 History Carvedilol TAB* [Coreg TAB*] 6.25 mg PO BID 03/31/18 04/20/18 History Insulin Detemir [Levemir Flextouch] 15 unit SUBCUT BID 03/31/18 04/20/18 History Isosorbide Mononitrate ER TAB* 15 mg PO DAILY 03/31/18 04/20/18 History [Imdur ER TAB*] Nitroglycerin TAB 0.4 MG* 0.4 mg SL Q5M PRN 03/31/18 04/20/18 History Warfarin TAB(*) [Coumadin TAB(*)] 2.5 mg PO MOWEFR 03/31/18 04/20/18 History Warfarin TAB(*) [Coumadin TAB(*)] 5 mg PO SUTUTHSA 03/31/18 04/20/18 History diphenhydrAMINE HCl [Benadryl 25 mg PO BEDTIME PRN 03/31/18 04/20/18 History Allergy 25 MG CAP] Furosemide TAB* [Lasix TAB*] 40 mg PO DAILY #90 tab 04/03/18 04/20/18 Rx Potassium Chlor TAB* [Potassium 20 meq PO DAILY #90 tab.er 04/03/18 04/20/18 Rx Chlor TAB 20 MEQ*] Allergies: Allergies Allergy/AdvReac Type Severity Reaction Status Date / Time aspirin Allergy Anaphylatic Verified 03/31/18 14:00 Shock doxycycline Allergy Anaphylatic Verified 03/31/18 14:00 Shock NSAIDS (Non-Steroidal Allergy Bleeding Verified 03/31/18 14:00 Anti-Inflamma pentazocine Allergy Hallucinati Verified 03/31/18 14:00 ons Sulfa (Sulfonamide Allergy Anaphylatic Verified 03/31/18 14:00 Antibiotics) Shock Objective - Vital Signs Vital Signs: Vital Signs 04/20/18 04/20/18 04/20/18 16:00 16:09 16:10 Temperature 98.9 F Pulse Rate 104 95 Respiratory 15 13 22 Rate Blood Pressure 115/72 112/77 (mmHg) O2 Sat by Pulse 98 99 Oximetry 04/20/18 04/20/18 04/20/18 16:40 17:00 17:10 Temperature Pulse Rate 87 83 87 Respiratory 19 16 18 Rate Blood Pressure 114/68 110/72 (mmHg) O2 Sat by Pulse 97 97 97 Oximetry 04/20/18 04/20/18 04/20/18 17:40 17:48 18:10 Temperature Pulse Rate 88 84 87 Respiratory 22 20 20 Rate Blood Pressure 101/72 118/93 (mmHg) O2 Sat by Pulse 98 97 98 Oximetry 04/20/18 04/20/18 04/20/18 18:40 19:00 19:10 Temperature Pulse Rate 89 91 90 Respiratory 18 14 15 Rate Blood Pressure 113/66 105/69 (mmHg) O2 Sat by Pulse 96 98 96 Oximetry 04/20/18 04/20/18 04/20/18 19:40 20:00 20:10 Temperature Pulse Rate 89 94 91 Respiratory 19 19 16 Rate Blood Pressure 107/70 104/80 (mmHg) O2 Sat by Pulse 98 98 97 Oximetry 04/20/18 04/20/18 04/20/18 20:40 21:00 21:09 Temperature 98.0 F Pulse Rate 90 90 78 Respiratory 19 18 20 Rate Blood Pressure 123/80 123/78 (mmHg) O2 Sat by Pulse 98 97 96 Oximetry 04/20/18 04/21/18 04/21/18 23:08 00:16 03:01 Temperature 97.8 F 98.8 F Pulse Rate 88 82 Respiratory 16 16 22 Rate Blood Pressure 117/62 113/67 (mmHg) O2 Sat by Pulse 100 100 Oximetry 04/21/18 04/21/18 04/21/18 03:12 06:43 08:25 Temperature 98.7 F Pulse Rate 89 95 Respiratory 16 16 18 Rate Blood Pressure 95/58 (mmHg) O2 Sat by Pulse 95 98 Oximetry - Intake and Output Intake and Output: Intake & Output 04/18/18 04/19/18 04/20/18 04/21/18 11:59 11:59 11:59 11:59 Intake Total 1400 Output Total 1000 Balance 400 Weight 140 lb 8 oz Intake: Oral 1400 Output: Urine 1000 Other: Estimated Void Medium # Bowel Movements 0 # Voids 2 ADLs: Meal Record Start: 04/20/18 20: 28 Freq: DAILY@0900,1400,1800 Status: Active Protocol: Created 04/20/18 20:28 System (Rec: 04/20/18 20:28 System [id number]) Intake and Output Start: 04/20/18 16: 03 Freq: Status: Active Protocol: Created 04/20/18 16:03 System (Rec: 04/20/18 16:03 System [id number]) Intake and Output Start: 04/20/18 20: 28 Freq: DAILY@0600,1400,2200 Status: Active Protocol: Created 04/20/18 20:28 System (Rec: 04/20/18 20:28 System [id number]) Document 04/20/18 22:00 [id number] (Rec: 04/20/18 22:18 [id number]) Document 04/20/18 23:46 [id number] (Rec: 04/20/18 23:46 [id number]) Document 04/21/18 06:00 [id number] (Rec: 04/21/18 06:15 [id number]) - Physical Exam General Physical Exam Comment: No signs of infective endocarditis. No skin lesions General: No Cyanosis, No Jaundice, No Clubbing Skin: Normal: Rash Lungs and Chest: Yes: Chest Expansion Full, Chest Expansion Symetrica, Percussion Note Resonant, Vessicular Breath Sounds, Crackles - some basal crackles. No: Wheezes, Respiratory Distress, Use of Accessory Muscles Heart Rate and Rhythm: Regular Additional Cardiovascular: Yes: Normal Heart Sounds. No: Heart Murmur, Pedal Edema Abdominal Exam: Yes: Soft, Bowel Sounds Present. No: Distention, Abdominal Mass , Abdominal Tenderness - Extremities Cranial Nerves II-XII Intact: Yes Limbs: Normal Power - Neuro Orientation: A/O x3 Speech: Normal Results - Results Lab Results: Laboratory Results - last 24 hr 04/20/18 04/20/18 04/20/18 16:55 16:55 16:55 WBC 10.6 RBC 4.74 Hgb 13.1 Hct 40 MCV 85 MCH 28 MCHC 33 RDW 15 Plt Count 297 MPV 9.8 Neut % (Auto) 84.2 H Lymph % (Auto) 8.4 L Sampson % (Auto) 5.9 Eos % (Auto) 0.9 Baso % (Auto) 0.6 Absolute Neuts (auto) 8.9 H Absolute Lymphs (auto) 0.9 L Absolute Monos (auto) 0.6 Absolute Eos (auto) 0.1 Absolute Basos (auto) 0.1 Absolute Nucleated RBC 0 Nucleated RBC % 0 INR (Anticoag Therapy) D-Dimer, Quantitative Sodium 135 Potassium 4.0 Chloride 101 Carbon Dioxide 27 Anion Gap 7 BUN 26 H Creatinine 1.39 H Est GFR ( Amer) 44.8 Est GFR (Non-Af Amer) 37.1 BUN/Creatinine Ratio 18.7 Glucose 513 H* POC Glucose (mg/dL) Lactic Acid 2.2 H* Calcium 8.6 Total Bilirubin 0.50 AST 9 L ALT 13 Alkaline Phosphatase 68 Troponin I 0.02 C-Reactive Protein 179.80 H B-Natriuretic Peptide Total Protein 7.0 Albumin 3.1 L Globulin 3.9 Albumin/Globulin Ratio 0.8 L Procalcitonin 04/20/18 04/20/18 04/20/18 16:55 16:55 16:55 WBC RBC Hgb Hct MCV MCH MCHC RDW Plt Count MPV Neut % (Auto) Lymph % (Auto) Sampson % (Auto) Eos % (Auto) Baso % (Auto) Absolute Neuts (auto) Absolute Lymphs (auto) Absolute Monos (auto) Absolute Eos (auto) Absolute Basos (auto) Absolute Nucleated RBC Nucleated RBC % INR (Anticoag Therapy) 2.56 H D-Dimer, Quantitative 363 H Sodium Potassium Chloride Carbon Dioxide Anion Gap BUN Creatinine Est GFR ( Amer) Est GFR (Non-Af Amer) BUN/Creatinine Ratio Glucose POC Glucose (mg/dL) Lactic Acid Calcium Total Bilirubin AST ALT Alkaline Phosphatase Troponin I C-Reactive Protein B-Natriuretic Peptide 409 H Total Protein Albumin Globulin Albumin/Globulin Ratio Procalcitonin 0.1 04/20/18 04/20/18 04/20/18 20:55 20:55 23:27 WBC RBC Hgb Hct MCV MCH MCHC RDW Plt Count MPV Neut % (Auto) Lymph % (Auto) Sampson % (Auto) Eos % (Auto) Baso % (Auto) Absolute Neuts (auto) Absolute Lymphs (auto) Absolute Monos (auto) Absolute Eos (auto) Absolute Basos (auto) Absolute Nucleated RBC Nucleated RBC % INR (Anticoag Therapy) D-Dimer, Quantitative Sodium Potassium Chloride Carbon Dioxide Anion Gap BUN Creatinine Est GFR ( Amer) Est GFR (Non-Af Amer) BUN/Creatinine Ratio Glucose POC Glucose (mg/dL) 181 H Lactic Acid 2.0 Calcium Total Bilirubin AST ALT Alkaline Phosphatase Troponin I 0.02 C-Reactive Protein B-Natriuretic Peptide Total Protein Albumin Globulin Albumin/Globulin Ratio Procalcitonin 04/21/18 04/21/18 04/21/18 00:38 03:23 05:02 WBC 10.5 RBC 4.66 Hgb 12.9 Hct 39 MCV 83 MCH 28 MCHC 33 RDW 16 H Plt Count 337 MPV 9.3 Neut % (Auto) 75.0 Lymph % (Auto) 16.6 L Sampson % (Auto) 6.5 Eos % (Auto) 1.3 Baso % (Auto) 0.6 Absolute Neuts (auto) 7.9 H Absolute Lymphs (auto) 1.7 Absolute Monos (auto) 0.7 Absolute Eos (auto) 0.1 Absolute Basos (auto) 0.1 Absolute Nucleated RBC 0 Nucleated RBC % 0.1 INR (Anticoag Therapy) D-Dimer, Quantitative Sodium Potassium Chloride Carbon Dioxide Anion Gap BUN Creatinine Est GFR ( Amer) Est GFR (Non-Af Amer) BUN/Creatinine Ratio Glucose POC Glucose (mg/dL) 233 H Lactic Acid Calcium Total Bilirubin AST ALT Alkaline Phosphatase Troponin I 0.02 C-Reactive Protein B-Natriuretic Peptide Total Protein Albumin Globulin Albumin/Globulin Ratio Procalcitonin 04/21/18 04/21/18 04/21/18 05:02 05:02 07:33 WBC RBC Hgb Hct MCV MCH MCHC RDW Plt Count MPV Neut % (Auto) Lymph % (Auto) Sampson % (Auto) Eos % (Auto) Baso % (Auto) Absolute Neuts (auto) Absolute Lymphs (auto) Absolute Monos (auto) Absolute Eos (auto) Absolute Basos (auto) Absolute Nucleated RBC Nucleated RBC % INR (Anticoag Therapy) 2.48 H D-Dimer, Quantitative Sodium 136 Potassium 3.6 Chloride 103 Carbon Dioxide 26 Anion Gap 7 BUN 23 Creatinine 1.28 H Est GFR ( Amer) 49.3 Est GFR (Non-Af Amer) 40.8 BUN/Creatinine Ratio 18.0 Glucose 195 H POC Glucose (mg/dL) 178 H Lactic Acid Calcium 8.9 Total Bilirubin AST ALT Alkaline Phosphatase Troponin I C-Reactive Protein B-Natriuretic Peptide Total Protein Albumin Globulin Albumin/Globulin Ratio Procalcitonin Radiology Results: Patient Name: LORENA BILL Medical Record#: [id number] Ordering Physician: Jim Cruz MD Acct.#: [id number] : 1945 Age: 72 Sex: F Location: EMERGENCY DEPARTMENT Exam Date: 04/20/18 1625 ADM Status: REG ER Order Information: CHEST PA & LAT 2 VWS Accession Number: [id number] CPT: 80539 INDICATION: Shortness of breath. Cardiac disease. Asthma. COMPARISON: April 02, 2018 TECHNIQUE: Dual energy PA and routine lateral views of the chest were obtained. REPORT: Elevated lung volumes. No focal pulmonary lesion, compelling alveolar consolidation, pleural effusion, pneumothorax. RIGHT ventricular level pacemaker lead extends from the LEFT chest wall control device. Negative for cardiomegaly. Unremarkable central pulmonary vasculature and mediastinal contours. Gallbladder fossa level surgical clips. Unremarkable osseous structures for age. IMPRESSION: #. Stigmata of probable obstructive lung disease. No acute pulmonary or cardiac process evident. <Electronically signed by Evelio Tillman MD in OV> 04/20/181654 Dictated By: Evelio Tillman MD Dictated Date/Time: 04/20/181654 Transcribed Date/Time: 04/20/181652 Copy to: CC:Trey Perez MD; Jim Cruz MD Imaging - [facility] Imaging - [place] [facility] Imaging - [facility] [address] [address] ph ([phone]) ph ([phone]) ph ([phone]) This report is only to be considered final once signed by the Provider(s) as displayed in the "<Electronically Signed by >" field (s). Absence of a signature indicates the report is in a draft status and still needs to be finalized. In the event this document was created by someone other than the signing Provider, the individual initiating the document will be listed in the "Entered by:" or "Dictated by:" talley. 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) Orthostatic hypotension (Chronic) Asthma (Chronic) COPD (chronic obstructive pulmonary disease) (Chronic) Cardiomyopathy, ischemic (Chronic) Depression (Chronic) Dyspnea on exertion (Chronic) Hyperlipidemia (Chronic) Hypertension (Chronic) Hypothyroidism (Chronic) Left ventricular thrombus (Chronic) Stage 3 chronic kidney disease (Chronic) Stented coronary artery (Chronic) 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 This is likely due to CHF. It is possible she has an occult pneumonia, but there is nothing to indicate this on her CXR. I note she has no evidence of a NSTEMI Elevated C-reactive protein (Acute) This indicated an inflammatory state. I note she has a mildly elevated d-dimer - this can also indicate infection (she is on target with anticoagulation) She has no clinical evidence of infection - no fever. I will check serial blood cultures to rule out endocarditis, urinalysis, urine culture. I will check a CT chest for pneumonia. 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) Orthostatic hypotension (Chronic) ongoing Asthma (Chronic) ongoing COPD (chronic obstructive pulmonary disease) (Chronic) secondary diagnosis Depression (Chronic) secondary diagnosis Hyperlipidemia (Chronic) secondary diagnosis Hypertension (Chronic) her BP is low Hypothyroidism (Chronic) secondary diagnosis Left ventricular thrombus (Chronic) secondary diagnosis Stage 3 chronic kidney disease (Chronic) secondary diagnosis Stented coronary artery (Chronic) secondary diagnosis 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 I will not treat empirically with antibacterials - but will watch her acute phase reactants.
[2018-04-21] MEDS: Furosemide TAB* 40 MG PO SCH (09:22)
[2018-04-21] MEDS: Isosorbide Mononitrate ER TAB* 30 MG PO SCH (09:23)
[2018-04-21] MEDS: Ticagrelor* 90 MG TAB PO SCH ×2 (09:23→19:41)
[2018-04-21] MEDS: Carvedilol TAB* 6.25 MG PO SCH ×2 (09:24→19:40)
[2018-04-21] MEDS: Atorvastatin* 80 MG TAB PO SCH (09:24)
[2018-04-21] MEDS: Fludrocortisone Acetate TAB* 0.1 MG PO SCH (09:24)
[2018-04-21] MEDS: BuPROPion XL* 150 MG TAB.XL PO SCH (09:24)
[2018-04-21] MEDS: Venlafaxine EXT RELEASE CAP* 75 MG PO SCH (09:26)
[2018-04-21] MEDS: Insulin LISPRO* 1 UNITS UNIT SUBCUT SCH ×3 (09:27→18:19)
[2018-04-21] MEDS: Potassium Chlor TAB* 20 MEQ TAB.ER PO SCH (09:27)
--- NOTE | 2018-04-21 11:12 | RAD ---
INDICATION: Hyperglycemia. Shortness of breath. Assess for pneumonia. COMPARISON: April 20, 2018 chest radiograph. TECHNIQUE: Multidetector CT images were obtained from the lung apices to the upper abdomen. Evaluation of the viscera is limited without IV contrast. REPORT: Axial images 36-38 and sagittal reformatted image 57 minimal peripheral airspace consolidation noted involving the anteromedial basal segment of the LEFT lower lobe which may represent a small inflammatory infiltrate. Minimal linear atelectasis at the dependent LEFT lung base. Clear RIGHT lung. Negative for pleural effusions. Negative for pneumothorax. Normal size mediastinal lymph nodes are visualized with dominant 0.8 cm short axis RIGHT paratracheal node. Negative for thoracic lymphadenopathy. Negative for cardiomegaly. Physiologic small volume of pericardial fluid. Coronary artery calcifications and suggestion of LAD stent. RIGHT ventricular pacemaker lead. Normal diameter thoracic aorta with mild atherosclerotic plaque. Post cholecystectomy. Negative for suspicious focal osseous lesions. IMPRESSION: #. Small focus of airspace consolidation involving the anteromedial basal segment of the LEFT lower lobe which may represent a small inflammatory infiltrate. #. Negative for pleural effusion.
[2018-04-21] MEDS ORDERED: NS 0.9% 250 ML* 250 ML IV ONE ×2 (12:00→13:00)
[2018-04-21] MEDS: cefTRIAXone* 1 GM in NS 0.9% 50 ML BAG IVPB SCH (12:54)
[2018-04-21 16:27] LABS: Urine Appearance Clear; Urine Blood Negative (Negative); Urine Color Yellow; Urine Ketones Negative (Negative); Urine Protein Negative (Negative); Urine Specific Gravity 1.011 (1.010-1.030); Urine Urobilinogen Negative (Negative)
[2018-04-21] MEDS ORDERED: Warfarin TAB(*) 2.5 MG PO SCH (17:00)
[2018-04-22] MEDS: Levothyroxine TAB* 75 MCG TAB PO SCH (06:01)
[2018-04-22 07:17] LABS: ABS Basophils 0 10^3/ul (0-0.2); ABS Eosinophils 0.1 10^3/ul (0-0.6); ABS Monocytes 0.7 10^3/ul (0-0.8); ABS Neutrophils 6.1 10^3/ul (1.5-7.7); ABS Nucleated RBC 0 10^3/ul; Eosinophil % 1.6 % (0-6); Hematocrit 37 % (35-47); Hemoglobin 12.3 g/dl (12.0-16.0); Lymphocyte % 22.1 % (25-47); Mean Corpuscular HGB Conc 34 g/dl (31-36); Mean Corpuscular Hemoglobin 28 pg (27-31); Mean Corpuscular Volume 83 fL (80-97); Mean Platelet Volume 10.1 um3 (7.4-10.4); Nucleated Red Blood Cells % 0.1; Platelet Count 231 10^3/ul (150-450); Red Blood Count 4.38 10^6/ul (4.00-5.40); Red Cell Distribution Width 15 % (10.5-15); White Blood Count 8.9 10^3/ul (3.5-10.8)
[2018-04-22 07:34] LABS: EGFR Non-African American 34.2 (>60)
[2018-04-22] MEDS: Insulin LISPRO* 1 UNITS UNIT SUBCUT SCH ×3 (07:50→17:27)
[2018-04-22] MEDS: Atorvastatin* 80 MG TAB PO SCH (08:24)
[2018-04-22] MEDS: Potassium Chlor TAB* 20 MEQ TAB.ER PO SCH (08:24)
[2018-04-22] MEDS: BuPROPion XL* 150 MG TAB.XL PO SCH (08:25)
[2018-04-22] MEDS: Carvedilol TAB* 6.25 MG PO SCH ×2 (08:25→23:16)
[2018-04-22] MEDS: Furosemide TAB* 40 MG PO SCH (08:25)
[2018-04-22] MEDS: Ticagrelor* 90 MG TAB PO SCH ×2 (08:25→23:16)
[2018-04-22] MEDS: Venlafaxine EXT RELEASE CAP* 75 MG PO SCH (08:25)
[2018-04-22] MEDS: Fludrocortisone Acetate TAB* 0.1 MG PO SCH (08:25)
[2018-04-22] MEDS: Isosorbide Mononitrate ER TAB* 30 MG PO SCH (08:26)
[2018-04-22] MEDS: Insulin GLARGINE(*) 1 UNITS UNIT SUBCUT SCH ×2 (08:26→23:16)
[2018-04-22] MEDS: Mometasone/Formoter 200/5 MDI INH SCH (08:51)
--- NOTE | 2018-04-22 10:50 | PN ---
Subjective - Subjective Reason for Note: Progress Note History: Yesterday I had multiple communications with the nursing staff as she was having hypotension/hypovolemia/low cardiac output most likely caused by her infection. She had x 2 fluid boluses and I held her carvidilol - despite that her SBP was low. However, she feels she responded rapidly to the ceftriaxone. Her BP has improved overnight, she is feeling improved. Her main symptoms have been night sweats and increase dyspnea for 1 week. Her CRP/ESR are very high. She has had no chest pain. Her breathing feels better today. She is less light headed. She hasn't had any adverse effects from the ceftriaxone - she has not had a BM in the hospital. She has no paroxysmal nocturnal dyspnea or orthopnea. She has no angina or other pain. 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 Orthostatic hypotension (Chronic) I95.1 Current Medications: Current Medications Acetaminophen (Tylenol Tab*) 650 mg PO Q4H PRN PRN Reason: FEVER/PAIN Albuterol (Ventolin Hfa Inhaler*) 1 puff INH Q6H PRN PRN Reason: SHORTNESS OF BREATH Alprazolam (Xanax Tab*) 0.25 mg PO BID PRN PRN Reason: ANXIETY Atorvastatin Calcium (Lipitor*) 80 mg PO DAILY [facility] Last Admin: 04/22/18 08:24 Dose: 80 mg Bupropion HCl (Wellbutrin Xl *) 150 mg PO DAILY [facility]; Protocol Last Admin: 04/22/18 08:25 Dose: 150 mg Carvedilol (Coreg Tab*) 6.25 mg PO BID [facility] Last Admin: 04/22/18 08:25 Dose: 6.25 mg Dextrose (D50w Syringe 50 Ml*) 12.5 gm IV PUSH .FOR FS < 60 - SS PRN PRN Reason: FS < 60 Diphenhydramine HCl (Benadryl Po*) 25 mg PO BEDTIME PRN PRN Reason: SLEEP Last Admin: 04/21/18 03:01 Dose: 25 mg Fludrocortisone Acetate (Florinef Tab*) 0.05 mg PO DAILY [facility] Last Admin: 04/22/18 08:25 Dose: 0.05 mg Furosemide (Lasix Tab*) 40 mg PO DAILY [facility] Last Admin: 04/22/18 08:25 Dose: 40 mg Ceftriaxone Sodium 1 gm/ (Sodium Chloride) 50 mls @ 200 mls/hr IVPB Q24H [facility] Last Admin: 04/21/18 12:54 Dose: 200 mls/hr Insulin Glargine (Lantus(*)) 15 units SUBCUT BID [facility] Last Admin: 04/22/18 08:26 Dose: 15 units Insulin Human Lispro (Humalog*) 0 units SUBCUT AC [facility]; Protocol Last Admin: 04/22/18 07:50 Dose: Not Given Isosorbide Mononitrate (Imdur Er Tab*) 15 mg PO DAILY [facility] Last Admin: 04/22/18 08:26 Dose: 15 mg Levothyroxine Sodium (Synthroid Tab*) 75 mcg PO 0600 [facility] Last Admin: 04/22/18 06:01 Dose: 75 mcg Mometasone Furoate/Formoterol Fumar (Dulera 200/5 Mdi*) 2 puff INH DAILY [facility]; Protocol Last Admin: 04/22/18 08:51 Dose: 2 puff Ondansetron HCl (Zofran Inj*) 4 mg IV Q6H PRN PRN Reason: NAUSEA Last Admin: 04/21/18 11:35 Dose: 4 mg Potassium Chloride (Klor Con Er Tab*) 20 meq PO DAILY [facility] Last Admin: 04/22/18 08:24 Dose: 20 meq Ticagrelor (Brilinta*) 90 mg PO BID [facility] Last Admin: 04/22/18 08:25 Dose: 90 mg Venlafaxine HCl (Effexor Xr Cap*) 150 mg PO DAILY [facility] Last Admin: 04/22/18 08:25 Dose: 150 mg Warfarin Sodium (Coumadin Tab(*)) 5 mg PO SuTuThSa@1700 [facility]; Protocol Warfarin Sodium (Coumadin Tab(*)) 2.5 mg PO MoWeFr@1700 [facility]; Protocol Last Admin: 04/21/18 18:19 Dose: 2.5 mg Home Medications: Home Medications Medication Instructions Recorded Confirmed Type ALPRAZolam TAB* [Xanax TAB*] 0.25 - 0.5 mg PO BID PRN 01/04/18 04/20/18 History Bupropion XL* [Wellbutrin XL *] 150 mg PO DAILY 01/04/18 04/20/18 History Fludrocortisone Acetate TAB* 0.05 mg PO DAILY 01/04/18 04/20/18 History [Florinef TAB*] Fluticas/Salmet 115/21 HFA(NF) 2 puff PO DAILY 01/04/18 04/20/18 History [Advair HFA 115/21 (NF)] Levothyroxine TAB* [Synthroid 75 75 mcg PO DAILY 01/04/18 04/20/18 History MCG TAB*] Ticagrelor* [Brilinta 90 MG*] 90 mg PO BID 01/04/18 04/20/18 History Venlafaxine EXT RELEASE CAP* 150 mg PO DAILY 01/04/18 04/20/18 History [Effexor Xr CAP*] Acetaminophen [Acetaminophen Extra 1,000 mg PO Q6H PRN 03/31/18 04/20/18 History Strength] Albuterol HFA INHALER* [Ventolin 1 puff INH Q6H PRN 03/31/18 04/20/18 History HFA Inhaler*] Atorvastatin* [Lipitor 80 MG*] 80 mg PO DAILY 03/31/18 04/20/18 History Carvedilol TAB* [Coreg TAB*] 6.25 mg PO BID 03/31/18 04/20/18 History Insulin Detemir [Levemir Flextouch] 15 unit SUBCUT BID 03/31/18 04/20/18 History Isosorbide Mononitrate ER TAB* 15 mg PO DAILY 03/31/18 04/20/18 History [Imdur ER TAB*] Nitroglycerin TAB 0.4 MG* 0.4 mg SL Q5M PRN 03/31/18 04/20/18 History Warfarin TAB(*) [Coumadin TAB(*)] 2.5 mg PO MOWEFR 03/31/18 04/20/18 History Warfarin TAB(*) [Coumadin TAB(*)] 5 mg PO SUTUTHSA 03/31/18 04/20/18 History diphenhydrAMINE HCl [Benadryl 25 mg PO BEDTIME PRN 03/31/18 04/20/18 History Allergy 25 MG CAP] Furosemide TAB* [Lasix TAB*] 40 mg PO DAILY #90 tab 04/03/18 04/20/18 Rx Potassium Chlor TAB* [Potassium 20 meq PO DAILY #90 tab.er 04/03/18 04/20/18 Rx Chlor TAB 20 MEQ*] Allergies: Allergies Allergy/AdvReac Type Severity Reaction Status Date / Time aspirin Allergy Anaphylatic Verified 03/31/18 14:00 Shock doxycycline Allergy Anaphylatic Verified 03/31/18 14:00 Shock NSAIDS (Non-Steroidal Allergy Bleeding Verified 03/31/18 14:00 Anti-Inflamma pentazocine Allergy Hallucinati Verified 03/31/18 14:00 ons Sulfa (Sulfonamide Allergy Anaphylatic Verified 03/31/18 14:00 Antibiotics) Shock Objective - Vital Signs Vital Signs: Vital Signs 04/21/18 04/21/18 04/21/18 11:00 11:04 12:04 Temperature 99.1 F Pulse Rate 94 94 86 Respiratory 22 22 16 Rate Blood Pressure 88/40 93/51 87/51 (mmHg) O2 Sat by Pulse 97 99 Oximetry 04/21/18 04/21/18 04/21/18 13:51 15:23 19:20 Temperature 98.1 F 97.9 F Pulse Rate 90 88 92 Respiratory 22 20 Rate Blood Pressure 77/49 83/51 91/55 (mmHg) O2 Sat by Pulse 95 98 Oximetry 04/21/18 04/21/18 04/22/18 20:00 23:28 03:48 Temperature 98.0 F 97.0 F Pulse Rate 86 78 Respiratory 20 20 20 Rate Blood Pressure 98/55 89/48 (mmHg) O2 Sat by Pulse 97 98 Oximetry 04/22/18 04/22/18 07:15 08:52 Temperature 98.0 F Pulse Rate 74 83 Respiratory 14 14 Rate Blood Pressure 101/54 (mmHg) O2 Sat by Pulse 97 95 Oximetry - Intake and Output Intake and Output: Intake & Output 04/19/18 04/20/18 04/21/18 04/22/18 11:59 11:59 11:59 11:59 Intake Total 1400 1727 Output Total 1000 1200 Balance 400 527 Weight 140 lb 8 oz 144 lb 1.6 oz Intake: IV Fluids 557 Oral 1400 1170 Output: Urine 1000 1200 Other: Estimated Void Medium # Bowel Movements 0 0 # Voids 2 1 ADLs: Meal Record Start: 04/20/18 20: 28 Freq: DAILY@0900,1400,1800 Status: Active Protocol: Created 04/20/18 20:28 System (Rec: 04/20/18 20:28 System [id number]) Document 04/21/18 14:00 [id number] (Rec: 04/21/18 15:17 [id number] TELE-C09) Document 04/21/18 18:00 [id number] (Rec: 04/21/18 18:43 [id number] TELE-C05) Intake and Output Start: 04/20/18 16: 03 Freq: Status: Active Protocol: Created 04/20/18 16:03 System (Rec: 04/20/18 16:03 System [id number]) Intake and Output Start: 04/20/18 20: 28 Freq: DAILY@0600,1400,2200 Status: Active Protocol: Created 04/20/18 20:28 System (Rec: 04/20/18 20:28 System TELE-C02) Document 04/20/18 22:00 [id number] (Rec: 04/20/18 22:18 [id number] TELE-C05) Document 04/20/18 23:46 [id number] (Rec: 04/20/18 23:46 [id number] TELE-M11) Document 04/21/18 06:00 [id number] (Rec: 04/21/18 06:15 [id number] TELE-C06) Document 04/21/18 14:00 [id number] (Rec: 04/21/18 15:17 [id number] TELE-C09) Document 04/21/18 22:00 [id number] (Rec: 04/21/18 22:06 [id number] TELE-C05) Document 04/22/18 06:00 [id number] (Rec: 04/22/18 06:36 [id number] TELE-C34) - Physical Exam General: No Cyanosis, Yes Anemia, No Jaundice, No Clubbing Skin: Normal: Rash Lungs and Chest: Yes: Chest Expansion Full, Chest Expansion Symetrica, Percussion Note Resonant, Vessicular Breath Sounds. No: Crackles, Wheezes, Respiratory Distress, Use of Accessory Muscles Heart Rate and Rhythm: Regular Additional Cardiovascular: Yes: Normal Heart Sounds, Heart Murmur. No: Pedal Edema Abdominal Exam: Yes: Soft, Bowel Sounds Present. No: Distention, Abdominal Tenderness Results - Results Lab Results: Laboratory Results - last 24 hr 04/21/18 04/21/18 04/21/18 10:59 13:19 13:19 WBC RBC Hgb Hct MCV MCH MCHC RDW Plt Count MPV Neut % (Auto) Lymph % (Auto) Cat[place] % (Auto) Eos % (Auto) Baso % (Auto) Absolute Neuts (auto) Absolute Lymphs (auto) Absolute Monos (auto) Absolute Eos (auto) Absolute Basos (auto) Absolute Nucleated RBC Nucleated RBC % ESR 91 H Sodium Potassium Chloride Carbon Dioxide Anion Gap BUN Creatinine Est GFR ( Amer) Est GFR (Non-Af Amer) BUN/Creatinine Ratio Glucose POC Glucose (mg/dL) 236 H Calcium Total Bilirubin Direct Bilirubin Indirect Bilirubin AST ALT Alkaline Phosphatase Troponin I 0.02 C-Reactive Protein Total Protein Albumin Globulin Albumin/Globulin Ratio Urine Color Urine Appearance Urine pH Ur Specific [place] Urine Protein Urine Ketones Urine Blood Urine Nitrate Urine Bilirubin Urine Urobilinogen Ur Leukocyte Esterase Urine Glucose 04/21/18 04/21/18 04/22/18 15:02 17:32 07:01 WBC 8.9 RBC 4.38 Hgb 12.3 Hct 37 MCV 83 MCH 28 MCHC 34 RDW 15 Plt Count 231 MPV 10.1 Neut % (Auto) 68.5 Lymph % (Auto) 22.1 L Catron % (Auto) 7.4 H Eos % (Auto) 1.6 Baso % (Auto) 0.4 Absolute Neuts (auto) 6.1 Absolute Lymphs (auto) 2.0 Absolute Monos (auto) 0.7 Absolute Eos (auto) 0.1 Absolute Basos (auto) 0 Absolute Nucleated RBC 0 Nucleated RBC % 0.1 ESR Sodium Potassium Chloride Carbon Dioxide Anion Gap BUN Creatinine Est GFR ( Amer) Est GFR (Non-Af Amer) BUN/Creatinine Ratio Glucose POC Glucose (mg/dL) 304 H Calcium Total Bilirubin Direct Bilirubin Indirect Bilirubin AST ALT Alkaline Phosphatase Troponin I C-Reactive Protein Total Protein Albumin Globulin Albumin/Globulin Ratio Urine Color Yellow Urine Appearance Clear Urine pH 5.0 Ur Specific [place] 1.011 Urine Protein Negative Urine Ketones Negative Urine Blood Negative Urine Nitrate Negative Urine Bilirubin Negative Urine Urobilinogen Negative Ur Leukocyte Esterase Negative Urine Glucose Negative 04/22/18 04/22/18 07:01 07:46 WBC RBC Hgb Hct MCV MCH MCHC RDW Plt Count MPV Neut % (Auto) Lymph % (Auto) Cat[place] % (Auto) Eos % (Auto) Baso % (Auto) Absolute Neuts (auto) Absolute Lymphs (auto) Absolute Monos (auto) Absolute Eos (auto) Absolute Basos (auto) Absolute Nucleated RBC Nucleated RBC % ESR Sodium 139 Potassium 3.8 Chloride 106 Carbon Dioxide 28 Anion Gap 5 BUN 29 H Creatinine 1.49 H Est GFR ( Amer) 41.4 Est GFR (Non-Af Amer) 34.2 BUN/Creatinine Ratio 19.5 Glucose 113 H POC Glucose (mg/dL) 118 H Calcium 8.7 Total Bilirubin 0.30 Direct Bilirubin 0.10 Indirect Bilirubin 0.2 L AST 14 ALT 13 Alkaline Phosphatase 66 Troponin I C-Reactive Protein 81.53 H Total Protein 6.6 Albumin 2.8 L Globulin 3.8 Albumin/Globulin Ratio 0.7 L Urine Color Urine Appearance Urine pH Ur Specific [place] Urine Protein Urine Ketones Urine Blood Urine Nitrate Urine Bilirubin Urine Urobilinogen Ur Leukocyte Esterase Urine Glucose Radiology Results: Patient Name: HOMERO BILL Medical Record#: [id number] Ordering Physician: Trey Perez MD Acct.#: [id number] : 1945 Age: 72 Sex: F Location: [address] [place] [address]/[place] Exam Date: 04/21/18904 ADM Status: ADM Candice Order Information: CT CHEST W/O Accession Number: [id number] CPT: 04003 INDICATION: Hyperglycemia. Shortness of breath. Assess for pneumonia. COMPARISON: April 20, 2018 chest radiograph. TECHNIQUE: Multidetector CT images were obtained from the lung apices to the upper abdomen. Evaluation of the viscera is limited without IV contrast. REPORT: Axial images 36-38 and sagittal reformatted image 57 minimal peripheral airspace consolidation noted involving the anteromedial basal segment of the LEFT lower lobe which may represent a small inflammatory infiltrate. Minimal linear atelectasis at the dependent LEFT lung base. Clear RIGHT lung. Negative for pleural effusions. Negative for pneumothorax. Normal size mediastinal lymph nodes are visualized with dominant 0.8 cm short axis RIGHT paratracheal node. Negative for thoracic lymphadenopathy. Negative for cardiomegaly. Physiologic small volume of pericardial fluid. Coronary artery calcifications and suggestion of LAD stent. RIGHT ventricular pacemaker lead. Normal diameter thoracic aorta with mild atherosclerotic plaque. Post cholecystectomy. Negative for suspicious focal osseous lesions. IMPRESSION: #. Small focus of airspace consolidation involving the anteromedial basal segment of the LEFT lower lobe which may represent a small inflammatory infiltrate. #. Negative for pleural effusion. <Electronically signed by Evelio Tillman MD in [place]> 04/21/18 110 Dictated By: Evelio Tillman MD Dictated Date/Time: 04/21/18 110 Transcribed Date/Time: 04/21/181101 Copy to: CC:Trey Perez MD; Go August MD Imaging - [facility] Imaging - [facility] [address] [place] [address] This report is only to be considered final once signed by the Provider(s) as displayed in the "<Electronically Signed by >" field (s). Absence of a signature indicates the report is in a draft status and still needs to be finalized. In the event this document was created by someone other than the signing Provider, the individual initiating the document will be listed in the "Entered by:" or "Dictated by:" talley. 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 This was causing her hypotension and hypovolemia yesterday. She has improved with ceftriaxone, and she is tolerating this well. 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 I spoke at length to the patient and explained her current illness.
[2018-04-22] MEDS ORDERED: Polyethylene Glycol 3350* 17 GM PACKET PO PRN (10:54)
[2018-04-22] MEDS: cefTRIAXone* 1 GM in NS 0.9% 50 ML BAG IVPB SCH (11:20)
[2018-04-22] MEDS ORDERED: Warfarin TAB(*) 5 MG PO SCH (17:00)
[2018-04-23] MEDS: Levothyroxine TAB* 75 MCG TAB PO SCH (06:01)
[2018-04-23 06:56] LABS: INR 1.39 (0.77-1.02)
[2018-04-23 07:08] LABS: EGFR Non-African American 37.1 (>60)
[2018-04-23] MEDS: Insulin LISPRO* 1 UNITS UNIT SUBCUT SCH ×3 (08:14→17:50)
[2018-04-23] MEDS: Mometasone/Formoter 200/5 MDI INH SCH (08:51)
--- NOTE | 2018-04-23 10:27 | PN ---
Subjective - Subjective Reason for Note: Progress Note History: She had some chest pain after walking yesterday and a little this morning. Her BP was low yesterday, but has improved. She has a runny nose - she hasn't had one for years. She is not coughing and her breathing has not been a problem at rest. She had a hypoglycemic episode. 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 Orthostatic hypotension (Chronic) I95.1 Current Medications: Current Medications Acetaminophen (Tylenol Tab*) 650 mg PO Q4H PRN PRN Reason: FEVER/PAIN Albuterol (Ventolin Hfa Inhaler*) 1 puff INH Q6H PRN PRN Reason: SHORTNESS OF BREATH Alprazolam (Xanax Tab*) 0.25 mg PO BID PRN PRN Reason: ANXIETY Atorvastatin Calcium (Lipitor*) 80 mg PO DAILY [facility] Last Admin: 04/22/18 08:24 Dose: 80 mg Bupropion HCl (Wellbutrin Xl *) 150 mg PO DAILY [facility]; Protocol Last Admin: 04/22/18 08:25 Dose: 150 mg Carvedilol (Coreg Tab*) 6.25 mg PO BID [facility] Last Admin: 04/22/18 23:16 Dose: 6.25 mg Dextrose (D50w Syringe 50 Ml*) 12.5 gm IV PUSH .FOR FS < 60 - SS PRN PRN Reason: FS < 60 Diphenhydramine HCl (Benadryl Po*) 25 mg PO BEDTIME PRN PRN Reason: SLEEP Last Admin: 04/21/18 03:01 Dose: 25 mg Fludrocortisone Acetate (Florinef Tab*) 0.05 mg PO DAILY [facility] Last Admin: 04/22/18 08:25 Dose: 0.05 mg Furosemide (Lasix Tab*) 40 mg PO DAILY [facility] Last Admin: 04/22/18 08:25 Dose: 40 mg Ceftriaxone Sodium 1 gm/ (Sodium Chloride) 50 mls @ 200 mls/hr IVPB Q24H [facility] Last Admin: 04/22/18 11:20 Dose: 200 mls/hr Insulin Glargine (Lantus(*)) 15 units SUBCUT BID [facility] Last Admin: 04/22/18 23:16 Dose: 15 units Insulin Human Lispro (Humalog*) 0 units SUBCUT AC [facility]; Protocol Last Admin: 04/23/18 08:14 Dose: Not Given Isosorbide Mononitrate (Imdur Er Tab*) 15 mg PO DAILY [facility] Last Admin: 04/22/18 08:26 Dose: 15 mg Levothyroxine Sodium (Synthroid Tab*) 75 mcg PO 0600 [facility] Last Admin: 04/23/18 06:01 Dose: 75 mcg Mometasone Furoate/Formoterol Fumar (Dulera 200/5 Mdi*) 2 puff INH DAILY [facility]; Protocol Last Admin: 04/23/18 08:51 Dose: 2 puff Ondansetron HCl (Zofran Inj*) 4 mg IV Q6H PRN PRN Reason: NAUSEA Last Admin: 04/21/18 11:35 Dose: 4 mg Polyethylene Glycol/Electrolytes (Miralax*) 17 gm PO DAILY PRN PRN Reason: CONSTIPATION Potassium Chloride (Klor Con Er Tab*) 20 meq PO DAILY [facility] Last Admin: 04/22/18 08:24 Dose: 20 meq Ticagrelor (Brilinta*) 90 mg PO BID [facility] Last Admin: 04/22/18 23:16 Dose: 90 mg Venlafaxine HCl (Effexor Xr Cap*) 150 mg PO DAILY [facility] Last Admin: 04/22/18 08:25 Dose: 150 mg Warfarin Sodium (Coumadin Tab(*)) 5 mg PO SuTuThSa@1700 [facility]; Protocol Last Admin: 04/22/18 16:55 Dose: 5 mg Warfarin Sodium (Coumadin Tab(*)) 2.5 mg PO MoWeFr@1700 [facility]; Protocol Last Admin: 04/21/18 18:19 Dose: 2.5 mg Home Medications: Home Medications Medication Instructions Recorded Confirmed Type ALPRAZolam TAB* [Xanax TAB*] 0.25 - 0.5 mg PO BID PRN 01/04/18 04/20/18 History Bupropion XL* [Wellbutrin XL *] 150 mg PO DAILY 01/04/18 04/20/18 History Fludrocortisone Acetate TAB* 0.05 mg PO DAILY 01/04/18 04/20/18 History [Florinef TAB*] Fluticas/Salmet 115/21 HFA(NF) 2 puff PO DAILY 01/04/18 04/20/18 History [Advair HFA 115/21 (NF)] Levothyroxine TAB* [Synthroid 75 75 mcg PO DAILY 01/04/18 04/20/18 History MCG TAB*] Ticagrelor* [Brilinta 90 MG*] 90 mg PO BID 01/04/18 04/20/18 History Venlafaxine EXT RELEASE CAP* 150 mg PO DAILY 01/04/18 04/20/18 History [Effexor Xr CAP*] Acetaminophen [Acetaminophen Extra 1,000 mg PO Q6H PRN 03/31/18 04/20/18 History Strength] Albuterol HFA INHALER* [Ventolin 1 puff INH Q6H PRN 03/31/18 04/20/18 History HFA Inhaler*] Atorvastatin* [Lipitor 80 MG*] 80 mg PO DAILY 03/31/18 04/20/18 History Carvedilol TAB* [Coreg TAB*] 6.25 mg PO BID 03/31/18 04/20/18 History Insulin Detemir [Levemir Flextouch] 15 unit SUBCUT BID 03/31/18 04/20/18 History Isosorbide Mononitrate ER TAB* 15 mg PO DAILY 03/31/18 04/20/18 History [Imdur ER TAB*] Nitroglycerin TAB 0.4 MG* 0.4 mg SL Q5M PRN 03/31/18 04/20/18 History Warfarin TAB(*) [Coumadin TAB(*)] 2.5 mg PO MOWEFR 03/31/18 04/20/18 History Warfarin TAB(*) [Coumadin TAB(*)] 5 mg PO SUTUTHSA 03/31/18 04/20/18 History diphenhydrAMINE HCl [Benadryl 25 mg PO BEDTIME PRN 03/31/18 04/20/18 History Allergy 25 MG CAP] Furosemide TAB* [Lasix TAB*] 40 mg PO DAILY #90 tab 04/03/18 04/20/18 Rx Potassium Chlor TAB* [Potassium 20 meq PO DAILY #90 tab.er 04/03/18 04/20/18 Rx Chlor TAB 20 MEQ*] Allergies: Allergies Allergy/AdvReac Type Severity Reaction Status Date / Time aspirin Allergy Anaphylatic Verified 03/31/18 14:00 Shock doxycycline Allergy Anaphylatic Verified 03/31/18 14:00 Shock NSAIDS (Non-Steroidal Allergy Bleeding Verified 03/31/18 14:00 Anti-Inflamma pentazocine Allergy Hallucinati Verified 03/31/18 14:00 ons Sulfa (Sulfonamide Allergy Anaphylatic Verified 03/31/18 14:00 Antibiotics) Shock Objective - Vital Signs Vital Signs: Vital Signs 04/22/18 04/22/18 04/22/18 11:12 14:45 14:52 Temperature 98.2 F 97.4 F Pulse Rate 82 80 79 Respiratory 14 22 Rate Blood Pressure 102/62 83/56 91/49 (mmHg) O2 Sat by Pulse 99 98 Oximetry 04/22/18 04/22/18 04/22/18 15:10 15:58 18:11 Temperature 97.9 F 97.8 F Pulse Rate 79 79 83 Respiratory 12 14 Rate Blood Pressure 86/50 89/55 92/65 (mmHg) O2 Sat by Pulse 97 100 Oximetry 04/22/18 04/22/18 04/22/18 19:50 20:00 23:10 Temperature 97.9 F 98.3 F Pulse Rate 85 83 Respiratory 18 18 16 Rate Blood Pressure 110/55 93/46 (mmHg) O2 Sat by Pulse 100 100 Oximetry 04/23/18 04/23/18 03:36 08:51 Temperature 97.4 F Pulse Rate 72 82 Respiratory 16 20 Rate Blood Pressure 94/43 (mmHg) O2 Sat by Pulse 99 99 Oximetry - Intake and Output Intake and Output: Intake & Output 04/20/18 04/21/18 04/22/18 04/23/18 11:59 11:59 11:59 11:59 Intake Total 1400 1847 878 Output Total 1000 1200 750 Balance 400 647 128 Weight 140 lb 8 oz 144 lb 1.6 oz 145 lb 6.4 oz Intake: IV Fluids 557 20 ABX - CEFTRIAXONE 20 IVPB 58 ABX - CEFTRIAXONE 58 Oral 1400 1290 800 Output: Urine 1000 1200 750 Other: Estimated Void Medium # Bowel Movements 0 0 0 # Voids 2 1 1 ADLs: Meal Record Start: 04/20/18 20: 28 Freq: DAILY@0900,1400,1800 Status: Active Protocol: Created 04/20/18 20:28 System (Rec: 04/20/18 20:28 System TELE-C02) Document 04/21/18 14:00 [id number] (Rec: 04/21/18 15:17 [id number] TELE-C09) Document 04/21/18 18:00 [id number] (Rec: 04/21/18 18:43 [id number] TELE-C05) Document 04/22/18 09:00 [id number] (Rec: 04/22/18 11:36 [id number] TELE-C13) Document 04/22/18 14:00 [id number] (Rec: 04/22/18 14:21 [id number] TELE-C01) Document 04/22/18 17:51 [id number] (Rec: 04/22/18 17:51 [id number] TELE-C03) Document 04/22/18 18:00 [id number] (Rec: 04/22/18 18:03 [id number] TELE-M02) Document 04/23/18 08:56 [id number] (Rec: 04/23/18 08:56 [id number] MED-C11) Intake and Output Start: 04/20/18 16: 03 Freq: Status: Active Protocol: Created 04/20/18 16:03 System (Rec: 04/20/18 16:03 System ED-C24) Intake and Output Start: 04/20/18 20: 28 Freq: DAILY@0600,1400,2200 Status: Active Protocol: Created 04/20/18 20:28 System (Rec: 04/20/18 20:28 System TELE-C02) Document 04/20/18 22:00 [id number] (Rec: 04/20/18 22:18 [id number] TELE-C05) Document 04/20/18 23:46 [id number] (Rec: 04/20/18 23:46 [id number] TELE-M11) Document 04/21/18 06:00 [id number] (Rec: 04/21/18 06:15 [id number] TELE-C06) Document 04/21/18 14:00 [id number] (Rec: 04/21/18 15:17 [id number] TELE-C09) Document 04/21/18 22:00 [id number] (Rec: 04/21/18 22:06 [id number] TELE-C05) Document 04/22/18 06:00 [id number] (Rec: 04/22/18 06:36 [id number] TELE-C34) Document 04/22/18 14:00 [id number] (Rec: 04/22/18 14:21 [id number] TELE-C01) Document 04/22/18 22:00 [id number] (Rec: 04/22/18 22:17 [id number] MED-C02) Document 04/23/18 06:00 [id number] (Rec: 04/23/18 06:16 [id number] MED-C02) - Physical Exam General: No Cyanosis, No Jaundice, No Clubbing Skin: Normal: Rash Lungs and Chest: Yes: Chest Expansion Full, Chest Expansion Symetrica, Percussion Note Resonant, Vessicular Breath Sounds. No: Crackles, Wheezes Heart Rate and Rhythm: Regular Additional Cardiovascular: Yes: Normal Heart Sounds, Heart Murmur. No: Pedal Edema Abdominal Exam: Yes: Soft. No: Distention, Abdominal Tenderness Results - Results Lab Results: Laboratory Results - last 24 hr 04/22/18 04/22/18 04/23/18 11:22 16:57 06:40 INR (Anticoag Therapy) Sodium 139 Potassium 3.9 Chloride 108 Carbon Dioxide 26 Anion Gap 5 BUN 34 H Creatinine 1.39 H Est GFR ( Amer) 44.8 Est GFR (Non-Af Amer) 37.1 BUN/Creatinine Ratio 24.5 H Glucose 125 H POC Glucose (mg/dL) 182 H 305 H Calcium 8.5 L C-Reactive Protein 44.13 H 04/23/18 04/23/18 04/23/18 06:40 08:07 08:11 INR (Anticoag Therapy) 1.39 H Sodium Potassium Chloride Carbon Dioxide Anion Gap BUN Creatinine Est GFR ( Amer) Est GFR (Non-Af Amer) BUN/Creatinine Ratio Glucose POC Glucose (mg/dL) 52 L 122 H Calcium C-Reactive Protein Assessment - Problem List Assessment: Patient Problems Acute dyspnea (Acute) Acute systolic (congestive) heart failure (Acute) Elevated C-reactive protein (Acute) Left lower lobe pneumonia (Acute) Anticoagulation goal of INR 2 to 3 (Chronic) ICD (implantable cardioverter-defibrillator) in place (Chronic) 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 This is clearly responding to her ceftriaxone therapy Chest pains: It is difficult to determine if this is cardiac. I don't want to give her NTG as she is hypotensive. Orthostatic hypotension - this impaired mobilization yesterday Hypoglycemia/T2D - I will cut back on her insulin I discussed the above with the patient and she agrees to continued acute inpatient medical management.
[2018-04-23] MEDS: Acetaminophen TAB* 325 MG PO PRN (11:06)
[2018-04-23] MEDS: Ticagrelor* 90 MG TAB PO SCH ×2 (11:08→20:10)
[2018-04-23] MEDS: Venlafaxine EXT RELEASE CAP* 75 MG PO SCH (11:08)
[2018-04-23] MEDS: Potassium Chlor TAB* 20 MEQ TAB.ER PO SCH (11:08)
[2018-04-23] MEDS: BuPROPion XL* 150 MG TAB.XL PO SCH (11:09)
[2018-04-23] MEDS: Atorvastatin* 80 MG TAB PO SCH (11:09)
[2018-04-23] MEDS: Fludrocortisone Acetate TAB* 0.1 MG PO SCH (11:09)
[2018-04-23] MEDS: Isosorbide Mononitrate ER TAB* 30 MG PO SCH (11:09)
[2018-04-23] MEDS: Furosemide TAB* 40 MG PO SCH (11:09)
[2018-04-23] MEDS: Carvedilol TAB* 6.25 MG PO SCH ×2 (11:09→20:10)
[2018-04-23] MEDS: Insulin GLARGINE(*) 1 UNITS UNIT SUBCUT SCH ×2 (11:57→20:09)
[2018-04-23] MEDS: cefTRIAXone* 1 GM in NS 0.9% 50 ML BAG IVPB SCH (12:25)
[2018-04-23] MEDS ORDERED: Fludrocortisone Acetate TAB* 0.1 MG PO SCH ×2 (16:00→21:00)
[2018-04-23] MEDS: Warfarin TAB(*) 7.5 MG PO SCH (16:26)
[2018-04-24] MEDS: Levothyroxine TAB* 75 MCG TAB PO SCH (06:26)
--- NOTE | 2018-04-24 07:31 | PN ---
Subjective - Subjective Reason for Note: Progress Note History: She is not coughing, producing sputum and is not dyspneic at rest. She is not febrile and has had no sweats or fevers. She has normal O2 saturations. She has marked dyspnea on minor exertion. She has a pattern of marked hypotension in the afternoons. Ambulation at that time is accompanied by light headedness and chest pain. 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 Orthostatic hypotension (Chronic) I95.1 Current Medications: Current Medications Acetaminophen (Tylenol Tab*) 650 mg PO Q4H PRN PRN Reason: FEVER/PAIN Last Admin: 04/23/18 11:06 Dose: 650 mg Albuterol (Ventolin Hfa Inhaler*) 1 puff INH Q6H PRN PRN Reason: SHORTNESS OF BREATH Alprazolam (Xanax Tab*) 0.25 mg PO BID PRN PRN Reason: ANXIETY Atorvastatin Calcium (Lipitor*) 80 mg PO DAILY [facility] Last Admin: 04/23/18 11:09 Dose: 80 mg Bupropion HCl (Wellbutrin Xl *) 150 mg PO DAILY [facility]; Protocol Last Admin: 04/23/18 11:09 Dose: 150 mg Carvedilol (Coreg Tab*) 6.25 mg PO BID [facility] Last Admin: 04/23/18 20:10 Dose: 6.25 mg Dextrose (D50w Syringe 50 Ml*) 12.5 gm IV PUSH .FOR FS < 60 - SS PRN PRN Reason: FS < 60 Diphenhydramine HCl (Benadryl Po*) 25 mg PO BEDTIME PRN PRN Reason: SLEEP Last Admin: 04/21/18 03:01 Dose: 25 mg Fludrocortisone Acetate (Florinef Tab*) 0.05 mg PO BID [facility] Last Admin: 04/23/18 16:26 Dose: 0.05 mg Furosemide (Lasix Tab*) 40 mg PO DAILY [facility] Last Admin: 04/23/18 11:09 Dose: 40 mg Ceftriaxone Sodium 1 gm/ (Sodium Chloride) 50 mls @ 200 mls/hr IVPB Q24H [facility] Last Admin: 04/23/18 12:25 Dose: 200 mls/hr Insulin Glargine (Lantus(*)) 10 units SUBCUT BID [facility] Last Admin: 04/23/18 20:09 Dose: 10 units Insulin Human Lispro (Humalog*) 0 units SUBCUT AC [facility]; Protocol Last Admin: 04/23/18 17:50 Dose: 2 units Isosorbide Mononitrate (Imdur Er Tab*) 15 mg PO DAILY [facility] Last Admin: 04/23/18 11:09 Dose: 15 mg Levothyroxine Sodium (Synthroid Tab*) 75 mcg PO 0600 [facility] Last Admin: 04/24/18 06:26 Dose: 75 mcg Mometasone Furoate/Formoterol Fumar (Dulera 200/5 Mdi*) 2 puff INH DAILY [facility]; Protocol Last Admin: 04/23/18 08:51 Dose: 2 puff Ondansetron HCl (Zofran Inj*) 4 mg IV Q6H PRN PRN Reason: NAUSEA Last Admin: 04/21/18 11:35 Dose: 4 mg Polyethylene Glycol/Electrolytes (Miralax*) 17 gm PO DAILY PRN PRN Reason: CONSTIPATION Potassium Chloride (Klor Con Er Tab*) 20 meq PO DAILY [facility] Last Admin: 04/23/18 11:08 Dose: 20 meq Ticagrelor (Brilinta*) 90 mg PO BID [facility] Last Admin: 04/23/18 20:10 Dose: 90 mg Venlafaxine HCl (Effexor Xr Cap*) 150 mg PO DAILY [facility] Last Admin: 04/23/18 11:08 Dose: 150 mg Warfarin Sodium (Coumadin Tab(*)) 7.5 mg PO DAILY@1700 [facility]; Protocol Last Admin: 04/23/18 16:26 Dose: 7.5 mg Home Medications: Home Medications Medication Instructions Recorded Confirmed Type ALPRAZolam TAB* [Xanax TAB*] 0.25 - 0.5 mg PO BID PRN 01/04/18 04/20/18 History Bupropion XL* [Wellbutrin XL *] 150 mg PO DAILY 01/04/18 04/20/18 History Fludrocortisone Acetate TAB* 0.05 mg PO DAILY 01/04/18 04/20/18 History [Florinef TAB*] Fluticas/Salmet 115/21 HFA(NF) 2 puff PO DAILY 01/04/18 04/20/18 History [Advair HFA 115/21 (NF)] Levothyroxine TAB* [Synthroid 75 75 mcg PO DAILY 01/04/18 04/20/18 History MCG TAB*] Ticagrelor* [Brilinta 90 MG*] 90 mg PO BID 01/04/18 04/20/18 History Venlafaxine EXT RELEASE CAP* 150 mg PO DAILY 01/04/18 04/20/18 History [Effexor Xr CAP*] Acetaminophen [Acetaminophen Extra 1,000 mg PO Q6H PRN 03/31/18 04/20/18 History Strength] Albuterol HFA INHALER* [Ventolin 1 puff INH Q6H PRN 03/31/18 04/20/18 History HFA Inhaler*] Atorvastatin* [Lipitor 80 MG*] 80 mg PO DAILY 03/31/18 04/20/18 History Carvedilol TAB* [Coreg TAB*] 6.25 mg PO BID 03/31/18 04/20/18 History Insulin Detemir [Levemir Flextouch] 15 unit SUBCUT BID 03/31/18 04/20/18 History Isosorbide Mononitrate ER TAB* 15 mg PO DAILY 03/31/18 04/20/18 History [Imdur ER TAB*] Nitroglycerin TAB 0.4 MG* 0.4 mg SL Q5M PRN 03/31/18 04/20/18 History Warfarin TAB(*) [Coumadin TAB(*)] 2.5 mg PO MOWEFR 03/31/18 04/20/18 History Warfarin TAB(*) [Coumadin TAB(*)] 5 mg PO SUTUTHSA 03/31/18 04/20/18 History diphenhydrAMINE HCl [Benadryl 25 mg PO BEDTIME PRN 03/31/18 04/20/18 History Allergy 25 MG CAP] Furosemide TAB* [Lasix TAB*] 40 mg PO DAILY #90 tab 04/03/18 04/20/18 Rx Potassium Chlor TAB* [Potassium 20 meq PO DAILY #90 tab.er 04/03/18 04/20/18 Rx Chlor TAB 20 MEQ*] Allergies: Allergies Allergy/AdvReac Type Severity Reaction Status Date / Time aspirin Allergy Anaphylatic Verified 03/31/18 14:00 Shock doxycycline Allergy Anaphylatic Verified 03/31/18 14:00 Shock NSAIDS (Non-Steroidal Allergy Bleeding Verified 03/31/18 14:00 Anti-Inflamma pentazocine Allergy Hallucinati Verified 03/31/18 14:00 ons Sulfa (Sulfonamide Allergy Anaphylatic Verified 03/31/18 14:00 Antibiotics) Shock Objective - Vital Signs Vital Signs: Vital Signs 04/23/18 04/23/18 04/23/18 08:51 10:56 11:15 Temperature 97.9 F Pulse Rate 82 81 Respiratory 20 18 18 Rate Blood Pressure 96/55 (mmHg) O2 Sat by Pulse 99 96 Oximetry 04/23/18 04/23/18 04/23/18 14:54 17:53 19:46 Temperature 97.3 F 98.1 F Pulse Rate 79 83 Respiratory 17 18 Rate Blood Pressure 76/47 100/58 101/60 (mmHg) O2 Sat by Pulse 100 100 Oximetry 04/23/18 04/23/18 04/24/18 20:00 23:14 03:14 Temperature 97.7 F 97.8 F Pulse Rate 89 74 Respiratory 188 16 18 Rate Blood Pressure 101/56 91/53 (mmHg) O2 Sat by Pulse 100 98 Oximetry - Intake and Output Intake and Output: Intake & Output 04/21/18 04/22/18 04/23/18 04/24/18 11:59 11:59 11:59 11:59 Intake Total 1400 1847 878 325 Output Total 1000 8914 430 5764 Balance 400 647 128 -675 Weight 140 lb 8 oz 144 lb 1.6 oz 145 lb 6.4 oz 153 lb 8 oz Intake: IV Fluids 557 20 25 ABX - CEFTRIAXONE 20 NS 25 IVPB 58 60 ABX - CEFTRIAXONE 58 60 Oral 1400 1290 800 240 Output: Urine 1000 0723 574 1287 Other: Estimated Void Medium # Bowel Movements 0 0 0 1 Estimated Stool Amount Small # Voids 2 1 1 ADLs: Meal Record Start: 04/20/18 20: 28 Freq: DAILY@0900,1400,1800 Status: Active Protocol: Created 04/20/18 20:28 System (Rec: 04/20/18 20:28 System TELE-C02) Document 04/21/18 14:00 [id number] (Rec: 04/21/18 15:17 [id number] TELE-C09) Document 04/21/18 18:00 [id number] (Rec: 04/21/18 18:43 [id number] TELE-C05) Document 04/22/18 09:00 [id number] (Rec: 04/22/18 11:36 [id number] TELE-C13) Document 04/22/18 14:00 [id number] (Rec: 04/22/18 14:21 [id number] TELE-C01) Document 04/22/18 17:51 [id number] (Rec: 04/22/18 17:51 [id number] TELE-C03) Document 04/22/18 18:00 [id number] (Rec: 04/22/18 18:03 [id number] TELE-M02) Document 04/23/18 08:56 [id number] (Rec: 04/23/18 08:56 [id number] MED-C11) Document 04/23/18 13:40 [id number] (Rec: 04/23/18 13:40 [id number] MED-C11) Document 04/23/18 17:54 [id number] (Rec: 04/23/18 17:55 [id number] MED-C09) Intake and Output Start: 04/20/18 16: 03 Freq: Status: Active Protocol: Created 04/20/18 16:03 System (Rec: 04/20/18 16:03 System ED-C24) Intake and Output Start: 04/20/18 20: 28 Freq: DAILY@0600,1400,2200 Status: Active Protocol: Created 04/20/18 20:28 System (Rec: 04/20/18 20:28 System TELE-C02) Document 04/20/18 22:00 [id number] (Rec: 04/20/18 22:18 [id number] TELE-C05) Document 04/20/18 23:46 [id number] (Rec: 04/20/18 23:46 [id number] TELE-M11) Document 04/21/18 06:00 [id number] (Rec: 04/21/18 06:15 [id number] TELE-C06) Document 04/21/18 14:00 [id number] (Rec: 04/21/18 15:17 [id number] TELE-C09) Document 04/21/18 22:00 [id number] (Rec: 04/21/18 22:06 [id number] TELE-C05) Document 04/22/18 06:00 [id number] (Rec: 04/22/18 06:36 [id number] TELE-C34) Document 04/22/18 14:00 [id number] (Rec: 04/22/18 14:21 [id number] TELE-C01) Document 04/22/18 22:00 [id number] (Rec: 04/22/18 22:17 [id number] MED-C02) Document 04/23/18 06:00 [id number] (Rec: 04/23/18 06:16 [id number] MED-C02) Document 04/23/18 12:41 [id number] (Rec: 04/23/18 12:41 [id number] MED-C11) Document 04/23/18 22:00 [id number] (Rec: 04/23/18 23:45 [id number] MED-C11) Document 04/24/18 05:29 [id number] (Rec: 04/24/18 05:29 [id number] MED-C09) - Physical Exam General: No Cyanosis, No Anemia, No Jaundice, No Clubbing Lungs and Chest: Yes: Chest Expansion Full, Chest Expansion Symetrica, Percussion Note Resonant, Vessicular Breath Sounds. No: Crackles, Wheezes, Respiratory Distress Heart Rate and Rhythm: Regular Additional Cardiovascular: Yes: Normal Heart Sounds. No: Heart Murmur, Pedal Edema Abdominal Exam: Yes: Soft, Bowel Sounds Present. 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 Pneumonia: She requires 1 more day of IV antibacterials 2. Orthostatic hypotension - I will increase her dose of fludrocortisone 3. Dyspnea on exertion - check O2 saturation at the time of exertion 4. Systolic CHF - she has a poor cardiac output, rather than the classic fluid retention of the heart failure syndrome. I am having to address this with mineralocorticoids 5. Coronary artery disease - she is having to postpone a cardiac surgery consultation on 04/25/18 in [place] for "minimially invasive" cardiac surgery consultation 6. Left ventricular thrombus - her INR needs to come up. 7. T2D: She has a lower requirement for insulin in the hospital, presumably because she is not eating the same diet as at home. I discussed the above with the patient and plan discharge for tomorrow
[2018-04-24] MEDS: Mometasone/Formoter 200/5 MDI INH SCH (07:58)
[2018-04-24] MEDS: Insulin LISPRO* 1 UNITS UNIT SUBCUT SCH ×3 (08:08→17:34)
[2018-04-24] MEDS: Isosorbide Mononitrate ER TAB* 30 MG PO SCH (08:26)
[2018-04-24] MEDS: Venlafaxine EXT RELEASE CAP* 75 MG PO SCH (08:28)
[2018-04-24] MEDS: Ticagrelor* 90 MG TAB PO SCH ×2 (08:28→21:58)
[2018-04-24] MEDS: Atorvastatin* 80 MG TAB PO SCH (08:28)
[2018-04-24] MEDS: Carvedilol TAB* 6.25 MG PO SCH ×2 (08:28→21:58)
[2018-04-24] MEDS: Potassium Chlor TAB* 20 MEQ TAB.ER PO SCH (08:29)
[2018-04-24] MEDS: Furosemide TAB* 40 MG PO SCH (08:29)
[2018-04-24] MEDS: Fludrocortisone Acetate TAB* 0.1 MG PO SCH ×2 (08:30→16:24)
[2018-04-24] MEDS: BuPROPion XL* 150 MG TAB.XL PO SCH (08:31)
[2018-04-24] MEDS: Insulin GLARGINE(*) 1 UNITS UNIT SUBCUT SCH ×2 (08:32→21:57)
[2018-04-24] MEDS: cefTRIAXone* 1 GM in NS 0.9% 50 ML BAG IVPB SCH (11:28)
[2018-04-24] MEDS: Acetaminophen TAB* 325 MG PO PRN (16:17)
[2018-04-24] MEDS: Warfarin TAB(*) 7.5 MG PO SCH (16:22)
[2018-04-25] MEDS: Levothyroxine TAB* 75 MCG TAB PO SCH (06:05)
[2018-04-25 07:33] LABS: ABS Basophils 0 10^3/ul (0-0.2); ABS Eosinophils 0.2 10^3/ul (0-0.6); ABS Lymphocytes 2.2 10^3/ul (1.0-4.8); ABS Monocytes 0.6 10^3/ul (0-0.8); ABS Neutrophils 8.3 10^3/ul (1.5-7.7); ABS Nucleated RBC 0 10^3/ul; Eosinophil % 1.6 % (0-6); Hematocrit 37 % (35-47); Hemoglobin 12.4 g/dl (12.0-16.0); Lymphocyte % 19.6 % (25-47); Mean Corpuscular HGB Conc 33 g/dl (31-36); Mean Corpuscular Hemoglobin 28 pg (27-31); Mean Corpuscular Volume 83 fL (80-97); Mean Platelet Volume 9.3 um3 (7.4-10.4); Nucleated Red Blood Cells % 0; Platelet Count 315 10^3/ul (150-450); Red Blood Count 4.52 10^6/ul (4.00-5.40); Red Cell Distribution Width 16 % (10.5-15); White Blood Count 11.3 10^3/ul (3.5-10.8)
[2018-04-25 07:45] LABS: INR 1.86 (0.77-1.02)
[2018-04-25 07:55] LABS: EGFR Non-African American 33.9 (>60)
--- NOTE | 2018-04-25 07:55 | PN ---
Subjective - Subjective Reason for Note: Progress Note History: She continues to have dyspnea on mild exertion. However, this morning her O2 saturation didn't go below 91%. She continues to have hypotension. She is not coughing/bring up sputum. She has had no fever or sweats. 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 Orthostatic hypotension (Chronic) I95.1 Current Medications: Current Medications Acetaminophen (Tylenol Tab*) 650 mg PO Q4H PRN PRN Reason: FEVER/PAIN Last Admin: 04/24/18 16:17 Dose: 650 mg Albuterol (Ventolin Hfa Inhaler*) 1 puff INH Q6H PRN PRN Reason: SHORTNESS OF BREATH Alprazolam (Xanax Tab*) 0.25 mg PO BID PRN PRN Reason: ANXIETY Atorvastatin Calcium (Lipitor*) 80 mg PO DAILY [facility] Last Admin: 04/24/18 08:28 Dose: 80 mg Bupropion HCl (Wellbutrin Xl *) 150 mg PO DAILY [facility]; Protocol Last Admin: 04/24/18 08:31 Dose: 150 mg Carvedilol (Coreg Tab*) 6.25 mg PO BID [facility] Last Admin: 04/24/18 21:58 Dose: 6.25 mg Dextrose (D50w Syringe 50 Ml*) 12.5 gm IV PUSH .FOR FS < 60 - SS PRN PRN Reason: FS < 60 Diphenhydramine HCl (Benadryl Po*) 25 mg PO BEDTIME PRN PRN Reason: SLEEP Last Admin: 04/21/18 03:01 Dose: 25 mg Fludrocortisone Acetate (Florinef Tab*) 0.1 mg PO 0900 [facility] Last Admin: 04/24/18 08:30 Dose: 0.1 mg Fludrocortisone Acetate (Florinef Tab*) 0.05 mg PO 1700 [facility] Last Admin: 04/24/18 16:24 Dose: 0.05 mg Furosemide (Lasix Tab*) 40 mg PO DAILY [facility] Last Admin: 04/24/18 08:29 Dose: 40 mg Ceftriaxone Sodium 1 gm/ (Sodium Chloride) 50 mls @ 200 mls/hr IVPB Q24H [facility] Last Admin: 04/24/18 11:28 Dose: 200 mls/hr Insulin Glargine (Lantus(*)) 10 units SUBCUT BID [facility] Last Admin: 04/24/18 21:57 Dose: 10 units Insulin Human Lispro (Humalog*) 0 units SUBCUT AC [facility]; Protocol Last Admin: 04/24/18 17:34 Dose: 2 units Isosorbide Mononitrate (Imdur Er Tab*) 15 mg PO DAILY [facility] Last Admin: 04/24/18 08:26 Dose: 15 mg Levothyroxine Sodium (Synthroid Tab*) 75 mcg PO 0600 [facility] Last Admin: 04/25/18 06:05 Dose: 75 mcg Mometasone Furoate/Formoterol Fumar (Dulera 200/5 Mdi*) 2 puff INH DAILY [facility]; Protocol Last Admin: 04/24/18 07:58 Dose: 2 puff Polyethylene Glycol/Electrolytes (Miralax*) 17 gm PO DAILY PRN PRN Reason: CONSTIPATION Potassium Chloride (Klor Con Er Tab*) 20 meq PO DAILY [facility] Last Admin: 04/24/18 08:29 Dose: 20 meq Ticagrelor (Brilinta*) 90 mg PO BID [facility] Last Admin: 04/24/18 21:58 Dose: 90 mg Venlafaxine HCl (Effexor Xr Cap*) 150 mg PO DAILY [facility] Last Admin: 04/24/18 08:28 Dose: 150 mg Warfarin Sodium (Coumadin Tab(*)) 7.5 mg PO DAILY@1700 [facility]; Protocol Last Admin: 04/24/18 16:22 Dose: 7.5 mg Home Medications: Home Medications Medication Instructions Recorded Confirmed Type ALPRAZolam TAB* [Xanax TAB*] 0.25 - 0.5 mg PO BID PRN 01/04/18 04/20/18 History Bupropion XL* [Wellbutrin XL *] 150 mg PO DAILY 01/04/18 04/20/18 History Fludrocortisone Acetate TAB* 0.05 mg PO DAILY 01/04/18 04/20/18 History [Florinef TAB*] Fluticas/Salmet 115/21 HFA(NF) 2 puff PO DAILY 01/04/18 04/20/18 History [Advair HFA 115/21 (NF)] Levothyroxine TAB* [Synthroid 75 75 mcg PO DAILY 01/04/18 04/20/18 History MCG TAB*] Ticagrelor* [Brilinta 90 MG*] 90 mg PO BID 01/04/18 04/20/18 History Venlafaxine EXT RELEASE CAP* 150 mg PO DAILY 01/04/18 04/20/18 History [Effexor Xr CAP*] Acetaminophen [Acetaminophen Extra 1,000 mg PO Q6H PRN 03/31/18 04/20/18 History Strength] Albuterol HFA INHALER* [Ventolin 1 puff INH Q6H PRN 03/31/18 04/20/18 History HFA Inhaler*] Atorvastatin* [Lipitor 80 MG*] 80 mg PO DAILY 03/31/18 04/20/18 History Carvedilol TAB* [Coreg TAB*] 6.25 mg PO BID 03/31/18 04/20/18 History Insulin Detemir [Levemir Flextouch] 15 unit SUBCUT BID 03/31/18 04/20/18 History Isosorbide Mononitrate ER TAB* 15 mg PO DAILY 03/31/18 04/20/18 History [Imdur ER TAB*] Nitroglycerin TAB 0.4 MG* 0.4 mg SL Q5M PRN 03/31/18 04/20/18 History Warfarin TAB(*) [Coumadin TAB(*)] 2.5 mg PO MOWEFR 03/31/18 04/20/18 History Warfarin TAB(*) [Coumadin TAB(*)] 5 mg PO SUTUTHSA 03/31/18 04/20/18 History diphenhydrAMINE HCl [Benadryl 25 mg PO BEDTIME PRN 03/31/18 04/20/18 History Allergy 25 MG CAP] Furosemide TAB* [Lasix TAB*] 40 mg PO DAILY #90 tab 04/03/18 04/20/18 Rx Potassium Chlor TAB* [Potassium 20 meq PO DAILY #90 tab.er 04/03/18 04/20/18 Rx Chlor TAB 20 MEQ*] Allergies: Allergies Allergy/AdvReac Type Severity Reaction Status Date / Time aspirin Allergy Anaphylatic Verified 03/31/18 14:00 Shock doxycycline Allergy Anaphylatic Verified 03/31/18 14:00 Shock NSAIDS (Non-Steroidal Allergy Bleeding Verified 03/31/18 14:00 Anti-Inflamma pentazocine Allergy Hallucinati Verified 03/31/18 14:00 ons Sulfa (Sulfonamide Allergy Anaphylatic Verified 03/31/18 14:00 Antibiotics) Shock Objective - Vital Signs Vital Signs: Vital Signs 04/24/18 04/24/18 04/24/18 08:00 11:10 15:08 Temperature 97.7 F 97.3 F Pulse Rate 81 72 87 Respiratory 16 18 18 Rate Blood Pressure 92/54 88/55 (mmHg) O2 Sat by Pulse 100 98 96 Oximetry 04/24/18 04/24/18 04/24/18 15:20 16:48 16:49 Temperature Pulse Rate Respiratory Rate Blood Pressure 100/80 (mmHg) O2 Sat by Pulse 98 96 Oximetry 04/24/18 04/24/18 04/24/18 17:39 19:50 20:00 Temperature 97.5 F Pulse Rate 86 Respiratory 16 16 Rate Blood Pressure 110/68 95/63 (mmHg) O2 Sat by Pulse 97 Oximetry 04/24/18 04/25/18 04/25/18 23:20 01:51 04:52 Temperature 98.3 F 97.8 F Pulse Rate 82 82 Respiratory 17 16 Rate Blood Pressure 107/64 88/56 (mmHg) O2 Sat by Pulse 99 97 96 Oximetry - Intake and Output Intake and Output: Intake & Output 04/22/18 04/23/18 04/24/18 04/25/18 11:59 11:59 11:59 11:59 Intake Total 1847 727 204 7831 Output Total 6366 185 7026 1050 Balance 647 128 -435 380 Weight 144 lb 1.6 oz 145 lb 6.4 oz 153 lb 8 oz 147 lb 1.6 oz Intake: IV Fluids 557 20 25 70 ABX - CEFTRIAXONE 20 50 NS 25 20 IVPB 58 60 ABX - CEFTRIAXONE 58 60 Oral 1290 475 254 6993 Output: Urine 7046 110 7673 1050 Other: Estimated Void Medium Date of Last Bowel 0 Movement # Bowel Movements 0 0 1 0 Estimated Stool Amount Small Medium # Voids 1 1 1 ADLs: Meal Record Start: 04/20/18 20: 28 Freq: DAILY@0900,1400,1800 Status: Active Protocol: Created 04/20/18 20:28 System (Rec: 04/20/18 20:28 System TELE-C02) Document 04/21/18 14:00 [id number] (Rec: 04/21/18 15:17 [id number] TELE-C09) Document 04/21/18 18:00 [id number] (Rec: 04/21/18 18:43 [id number] TELE-C05) Document 04/22/18 09:00 [id number] (Rec: 04/22/18 11:36 [id number] TELE-C13) Document 04/22/18 14:00 [id number] (Rec: 04/22/18 14:21 [id number] TELE-C01) Document 04/22/18 17:51 [id number] (Rec: 04/22/18 17:51 [id number] TELE-C03) Document 04/22/18 18:00 [id number] (Rec: 04/22/18 18:03 [id number] TELE-M02) Document 04/23/18 08:56 [id number] (Rec: 04/23/18 08:56 [id number] MED-C11) Document 04/23/18 13:40 [id number] (Rec: 04/23/18 13:40 [id number] MED-C11) Document 04/23/18 17:54 [id number] (Rec: 04/23/18 17:55 [id number] MED-C09) Document 04/24/18 09:00 [id number] (Rec: 04/24/18 10:35 [id number] MED-C11) Document 04/24/18 13:13 [id number] (Rec: 04/24/18 13:13 [id number] MED-C11) Document 04/24/18 18:00 [id number] (Rec: 04/24/18 18:22 [id number] MED-C11) Intake and Output Start: 04/20/18 16: 03 Freq: Status: Active Protocol: Created 04/20/18 16:03 System (Rec: 04/20/18 16:03 System ED-C24) Intake and Output Start: 04/20/18 20: 28 Freq: DAILY@0600,1400,2200 Status: Active Protocol: Created 04/20/18 20:28 System (Rec: 04/20/18 20:28 System TELE-C02) Document 04/20/18 22:00 [id number] (Rec: 04/20/18 22:18 [id number] TELE-C05) Document 04/20/18 23:46 [id number] (Rec: 04/20/18 23:46 [id number] TELE-M11) Document 04/21/18 06:00 [id number] (Rec: 04/21/18 06:15 [id number] TELE-C06) Document 04/21/18 14:00 [id number] (Rec: 04/21/18 15:17 [id number] TELE-C09) Document 04/21/18 22:00 [id number] (Rec: 04/21/18 22:06 [id number] TELE-C05) Document 04/22/18 06:00 [id number] (Rec: 04/22/18 06:36 [id number] TELE-C34) Document 04/22/18 14:00 [id number] (Rec: 04/22/18 14:21 [id number] TELE-C01) Document 04/22/18 22:00 [id number] (Rec: 04/22/18 22:17 [id number] MED-C02) Document 04/23/18 06:00 [id number] (Rec: 04/23/18 06:16 [id number] MED-C02) Document 04/23/18 12:41 [id number] (Rec: 04/23/18 12:41 [id number] MED-C11) Document 04/23/18 22:00 [id number] (Rec: 04/23/18 23:45 [id number] MED-C11) Document 04/24/18 05:29 [id number] (Rec: 04/24/18 05:29 [id number] MED-C09) Document 04/24/18 13:13 [id number] (Rec: 04/24/18 13:13 [id number] MED-C11) Document 04/24/18 22:00 [id number] (Rec: 04/24/18 22:29 [id number] MED-C11) Document 04/25/18 06:00 [id number] (Rec: 04/25/18 06:22 [id number] MED-C11) - Physical Exam General: No Cyanosis, No Jaundice, No Clubbing Lungs and Chest: Yes: Chest Expansion Full, Chest Expansion Symetrica, Percussion Note Resonant, Vessicular Breath Sounds. No: Crackles, Wheezes Heart Rate and Rhythm: Regular Additional Cardiovascular: Yes: Normal Heart Sounds, Pedal Edema - trace. No: Heart Murmur Abdominal Exam: Yes: Soft. No: Distention, Abdominal Tenderness Results - Results Lab Results: Laboratory Results - last 24 hr 04/24/18 04/24/18 04/24/18 07:47 11:34 16:22 WBC RBC Hgb Hct MCV MCH MCHC RDW Plt Count MPV Neut % (Auto) Lymph % (Auto) [place] % (Auto) Eos % (Auto) Baso % (Auto) Absolute Neuts (auto) Absolute Lymphs (auto) Absolute Monos (auto) Absolute Eos (auto) Absolute Basos (auto) Absolute Nucleated RBC Nucleated RBC % INR (Anticoag Therapy) POC Glucose (mg/dL) 124 H 150 H 180 H 04/25/18 04/25/18 07:10 07:10 WBC 11.3 H RBC 4.52 Hgb 12.4 Hct 37 MCV 83 MCH 28 MCHC 33 RDW 16 H Plt Count 315 MPV 9.3 Neut % (Auto) 73.5 Lymph % (Auto) 19.6 L [place] % (Auto) 4.9 Eos % (Auto) 1.6 Baso % (Auto) 0.4 Absolute Neuts (auto) 8.3 H Absolute Lymphs (auto) 2.2 Absolute Monos (auto) 0.6 Absolute Eos (auto) 0.2 Absolute Basos (auto) 0 Absolute Nucleated RBC 0 Nucleated RBC % 0 INR (Anticoag Therapy) 1.86 H POC Glucose (mg/dL) Assessment - Problem List Assessment: Patient Problems Acute dyspnea (Acute) Acute systolic (congestive) heart failure (Acute) Elevated C-reactive protein (Acute) Left lower lobe pneumonia (Acute) Anticoagulation goal of INR 2 to 3 (Chronic) 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 Pneumonia - I will give her 1 more day of IV antibacterials - dyspnea was the chaudhary symptom for presentation. 2. Hypotension - she has marked orthostatic hypotension. I want her to have another day of the increased dose of fludrocortisone before discharge 3. Ischemic cardiomyopathy - she has chest discomfort at times when she is dyspneic. This may be angina - she is at risk if she takes nitroglycerine from hyptension. I want her to have another day to consolidate her gains as she felt less of this this morning when she walked 4. T2D - this is controlled I dicussed the above with the patient and agreed that she needs another day to get back on her feet.
[2018-04-25] MEDS: Insulin LISPRO* 1 UNITS UNIT SUBCUT SCH ×3 (08:28→17:32)
[2018-04-25] MEDS: Mometasone/Formoter 200/5 MDI INH SCH (08:52)
[2018-04-25] MEDS: Atorvastatin* 80 MG TAB PO SCH (09:38)
[2018-04-25] MEDS: Fludrocortisone Acetate TAB* 0.1 MG PO SCH ×2 (09:39→16:36)
[2018-04-25] MEDS: Venlafaxine EXT RELEASE CAP* 75 MG PO SCH (09:39)
[2018-04-25] MEDS: Furosemide TAB* 40 MG PO SCH (09:39)
[2018-04-25] MEDS: Ticagrelor* 90 MG TAB PO SCH ×2 (09:40→21:41)
[2018-04-25] MEDS: Isosorbide Mononitrate ER TAB* 30 MG PO SCH (09:41)
[2018-04-25] MEDS: Potassium Chlor TAB* 20 MEQ TAB.ER PO SCH (09:43)
[2018-04-25] MEDS: Carvedilol TAB* 6.25 MG PO SCH ×2 (09:44→21:41)
[2018-04-25] MEDS: BuPROPion XL* 150 MG TAB.XL PO SCH (09:44)
[2018-04-25] MEDS: Insulin GLARGINE(*) 1 UNITS UNIT SUBCUT SCH ×2 (09:45→21:41)
[2018-04-25] MEDS: cefTRIAXone* 1 GM in NS 0.9% 50 ML BAG IVPB SCH (12:00)
[2018-04-25] MEDS: Warfarin TAB(*) 7.5 MG PO SCH (16:37)
[2018-04-26] MEDS: Levothyroxine TAB* 75 MCG TAB PO SCH (05:39)
--- NOTE | 2018-04-26 07:26 | PN ---
Subjective - Subjective Reason for Note: Discharge Note History: She continues to have light-headedness and some dyspnea. 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 Orthostatic hypotension (Chronic) I95.1 Current Medications: Current Medications Acetaminophen (Tylenol Tab*) 650 mg PO Q4H PRN PRN Reason: FEVER/PAIN Last Admin: 04/24/18 16:17 Dose: 650 mg Albuterol (Ventolin Hfa Inhaler*) 1 puff INH Q6H PRN PRN Reason: SHORTNESS OF BREATH Alprazolam (Xanax Tab*) 0.25 mg PO BID PRN PRN Reason: ANXIETY Atorvastatin Calcium (Lipitor*) 80 mg PO DAILY [facility] Last Admin: 04/25/18 09:38 Dose: 80 mg Bupropion HCl (Wellbutrin Xl *) 150 mg PO DAILY [facility]; Protocol Last Admin: 04/25/18 09:44 Dose: 150 mg Carvedilol (Coreg Tab*) 6.25 mg PO BID [facility] Last Admin: 04/25/18 21:41 Dose: 6.25 mg Dextrose (D50w Syringe 50 Ml*) 12.5 gm IV PUSH .FOR FS < 60 - SS PRN PRN Reason: FS < 60 Diphenhydramine HCl (Benadryl Po*) 25 mg PO BEDTIME PRN PRN Reason: SLEEP Last Admin: 04/21/18 03:01 Dose: 25 mg Fludrocortisone Acetate (Florinef Tab*) 0.1 mg PO 0900 [facility] Last Admin: 04/25/18 09:39 Dose: 0.1 mg Fludrocortisone Acetate (Florinef Tab*) 0.05 mg PO 1700 [facility] Last Admin: 04/25/18 16:36 Dose: 0.05 mg Furosemide (Lasix Tab*) 40 mg PO DAILY [facility] Last Admin: 04/25/18 09:39 Dose: 40 mg Ceftriaxone Sodium 1 gm/ (Sodium Chloride) 50 mls @ 200 mls/hr IVPB Q24H [facility] Last Admin: 04/25/18 12:00 Dose: 200 mls/hr Insulin Glargine (Lantus(*)) 10 units SUBCUT BID [facility] Last Admin: 04/25/18 21:41 Dose: 10 units Insulin Human Lispro (Humalog*) 0 units SUBCUT AC [facility]; Protocol Last Admin: 04/25/18 17:32 Dose: 2 units Isosorbide Mononitrate (Imdur Er Tab*) 15 mg PO DAILY [facility] Last Admin: 04/25/18 09:41 Dose: 15 mg Levothyroxine Sodium (Synthroid Tab*) 75 mcg PO 0600 [facility] Last Admin: 04/26/18 05:39 Dose: 75 mcg Mometasone Furoate/Formoterol Fumar (Dulera 200/5 Mdi*) 2 puff INH DAILY [facility]; Protocol Last Admin: 04/25/18 08:52 Dose: 2 puff Polyethylene Glycol/Electrolytes (Miralax*) 17 gm PO DAILY PRN PRN Reason: CONSTIPATION Potassium Chloride (Klor Con Er Tab*) 20 meq PO DAILY [facility] Last Admin: 04/25/18 09:43 Dose: 20 meq Ticagrelor (Brilinta*) 90 mg PO BID [facility] Last Admin: 04/25/18 21:41 Dose: 90 mg Venlafaxine HCl (Effexor Xr Cap*) 150 mg PO DAILY [facility] Last Admin: 04/25/18 09:39 Dose: 150 mg Warfarin Sodium (Coumadin Tab(*)) 7.5 mg PO DAILY@1700 [facility]; Protocol Last Admin: 04/25/18 16:37 Dose: 7.5 mg Home Medications: Home Medications Medication Instructions Recorded Confirmed Type ALPRAZolam TAB* [Xanax TAB*] 0.25 - 0.5 mg PO BID PRN 01/04/18 04/20/18 History Bupropion XL* [Wellbutrin XL *] 150 mg PO DAILY 01/04/18 04/20/18 History Fludrocortisone Acetate TAB* 0.05 mg PO DAILY 01/04/18 04/20/18 History [Florinef TAB*] Fluticas/Salmet 115/21 HFA(NF) 2 puff PO DAILY 01/04/18 04/20/18 History [Advair HFA 115/21 (NF)] Levothyroxine TAB* [Synthroid 75 75 mcg PO DAILY 01/04/18 04/20/18 History MCG TAB*] Ticagrelor* [Brilinta 90 MG*] 90 mg PO BID 01/04/18 04/20/18 History Venlafaxine EXT RELEASE CAP* 150 mg PO DAILY 01/04/18 04/20/18 History [Effexor Xr CAP*] Acetaminophen [Acetaminophen Extra 1,000 mg PO Q6H PRN 03/31/18 04/20/18 History Strength] Albuterol HFA INHALER* [Ventolin 1 puff INH Q6H PRN 03/31/18 04/20/18 History HFA Inhaler*] Atorvastatin* [Lipitor 80 MG*] 80 mg PO DAILY 03/31/18 04/20/18 History Carvedilol TAB* [Coreg TAB*] 6.25 mg PO BID 03/31/18 04/20/18 History Insulin Detemir [Levemir Flextouch] 15 unit SUBCUT BID 03/31/18 04/20/18 History Isosorbide Mononitrate ER TAB* 15 mg PO DAILY 03/31/18 04/20/18 History [Imdur ER TAB*] Nitroglycerin TAB 0.4 MG* 0.4 mg SL Q5M PRN 03/31/18 04/20/18 History Warfarin TAB(*) [Coumadin TAB(*)] 2.5 mg PO MOWEFR 03/31/18 04/20/18 History Warfarin TAB(*) [Coumadin TAB(*)] 5 mg PO SUTUTHSA 03/31/18 04/20/18 History diphenhydrAMINE HCl [Benadryl 25 mg PO BEDTIME PRN 03/31/18 04/20/18 History Allergy 25 MG CAP] Furosemide TAB* [Lasix TAB*] 40 mg PO DAILY #90 tab 04/03/18 04/20/18 Rx Potassium Chlor TAB* [Potassium 20 meq PO DAILY #90 tab.er 04/03/18 04/20/18 Rx Chlor TAB 20 MEQ*] Allergies: Allergies Allergy/AdvReac Type Severity Reaction Status Date / Time aspirin Allergy Anaphylatic Verified 03/31/18 14:00 Shock doxycycline Allergy Anaphylatic Verified 03/31/18 14:00 Shock NSAIDS (Non-Steroidal Allergy Bleeding Verified 03/31/18 14:00 Anti-Inflamma pentazocine Allergy Hallucinati Verified 03/31/18 14:00 ons Sulfa (Sulfonamide Allergy Anaphylatic Verified 03/31/18 14:00 Antibiotics) Shock Objective - Vital Signs Vital Signs: Vital Signs 04/25/18 04/25/18 04/25/18 07:50 08:00 08:07 Temperature 98.0 F Pulse Rate 84 Respiratory 16 16 Rate Blood Pressure 94/73 108/70 (mmHg) O2 Sat by Pulse 99 Oximetry 04/25/18 04/25/18 04/25/18 08:53 13:20 14:56 Temperature 97.5 F 97.7 F Pulse Rate 79 77 82 Respiratory 16 23 18 Rate Blood Pressure 92/58 74/55 (mmHg) O2 Sat by Pulse 98 100 100 Oximetry 04/25/18 04/25/18 04/25/18 15:05 19:18 22:23 Temperature 97.7 F Pulse Rate 82 Respiratory 16 16 Rate Blood Pressure 102/68 100/75 (mmHg) O2 Sat by Pulse 100 Oximetry 04/25/18 04/26/18 23:23 03:27 Temperature 98.5 F 98.4 F Pulse Rate 85 79 Respiratory 16 16 Rate Blood Pressure 103/62 104/69 (mmHg) O2 Sat by Pulse 98 97 Oximetry - Intake and Output Intake and Output: Intake & Output 04/23/18 04/24/18 04/25/18 04/26/18 11:59 11:59 11:59 11:59 Intake Total 877 369 9742 360 Output Total 750 1000 1050 Balance 128 -435 620 360 Weight 145 lb 6.4 oz 153 lb 8 oz 147 lb 1.6 oz 149 lb 8 oz Intake: IV Fluids 20 25 70 ABX - CEFTRIAXONE 20 50 NS 25 20 IVPB 58 60 ABX - CEFTRIAXONE 58 60 Oral 782 700 3866 360 Output: Urine 750 1000 1050 Other: Estimated Void Medium Medium Date of Last Bowel 0 Movement # Bowel Movements 0 1 0 0 Estimated Stool Amount Small Medium # Voids 1 1 1 ADLs: Meal Record Start: 04/20/18 20: 28 Freq: DAILY@0900,1400,1800 Status: Active Protocol: Created 04/20/18 20:28 System (Rec: 04/20/18 20:28 System TELE-C02) Document 04/21/18 14:00 [id number] (Rec: 04/21/18 15:17 [id number] TELE-C09) Document 04/21/18 18:00 [id number] (Rec: 04/21/18 18:43 [id number] TELE-C05) Document 04/22/18 09:00 [id number] (Rec: 04/22/18 11:36 [id number] TELE-C13) Document 04/22/18 14:00 [id number] (Rec: 04/22/18 14:21 [id number] TELE-C01) Document 04/22/18 17:51 [id number] (Rec: 04/22/18 17:51 [id number] TELE-C03) Document 04/22/18 18:00 [id number] (Rec: 04/22/18 18:03 [id number] TELE-M02) Document 04/23/18 08:56 [id number] (Rec: 04/23/18 08:56 [id number] MED-C11) Document 04/23/18 13:40 [id number] (Rec: 04/23/18 13:40 [id number] MED-C11) Document 04/23/18 17:54 [id number] (Rec: 04/23/18 17:55 [id number] MED-C09) Document 04/24/18 09:00 [id number] (Rec: 04/24/18 10:35 [id number] MED-C11) Document 04/24/18 13:13 [id number] (Rec: 04/24/18 13:13 [id number] MED-C11) Document 04/24/18 18:00 [id number] (Rec: 04/24/18 18:22 [id number] MED-C11) Document 04/25/18 09:00 [id number] (Rec: 04/25/18 09:02 [id number] MED-C09) Document 04/25/18 14:00 [id number] (Rec: 04/25/18 14:59 [id number] MED-C16) Document 04/25/18 18:00 [id number] (Rec: 04/25/18 18:02 [id number] MED-C09) Intake and Output Start: 04/20/18 16: 03 Freq: Status: Active Protocol: Created 04/20/18 16:03 System (Rec: 04/20/18 16:03 System ED-C24) Intake and Output Start: 04/20/18 20: 28 Freq: DAILY@0600,1400,2200 Status: Active Protocol: Created 04/20/18 20:28 System (Rec: 04/20/18 20:28 System TELE-C02) Document 04/20/18 22:00 [id number] (Rec: 04/20/18 22:18 [id number] TELE-C05) Document 04/20/18 23:46 [id number] (Rec: 04/20/18 23:46 [id number] TELE-M11) Document 04/21/18 06:00 [id number] (Rec: 04/21/18 06:15 [id number] TELE-C06) Document 04/21/18 14:00 [id number] (Rec: 04/21/18 15:17 [id number] TELE-C09) Document 04/21/18 22:00 [id number] (Rec: 04/21/18 22:06 [id number] TELE-C05) Document 04/22/18 06:00 VYB7433 (Rec: 04/22/18 06:36 [id number] TELE-C34) Document 04/22/18 14:00 MHA1210 (Rec: 04/22/18 14:21 MFA1700 TELE-C01) Document 04/22/18 22:00 [id number] (Rec: 04/22/18 22:17 [id number] MED-C02) Document 04/23/18 06:00 [id number] (Rec: 04/23/18 06:16 [id number] MED-C02) Document 04/23/18 12:41 [id number] (Rec: 04/23/18 12:41 [id number] MED-C11) Document 04/23/18 22:00 [id number] (Rec: 04/23/18 23:45 [id number] MED-C11) Document 04/24/18 05:29 [id number] (Rec: 04/24/18 05:29 [id number] MED-C09) Document 04/24/18 13:13 [id number] (Rec: 04/24/18 13:13 [id number] MED-C11) Document 04/24/18 22:00 [id number] (Rec: 04/24/18 22:29 [id number] MED-C11) Document 04/25/18 06:00 [id number] (Rec: 04/25/18 06:22 [id number] MED-C11) Document 04/25/18 13:41 [id number] (Rec: 04/25/18 13:42 [id number] MED-C11) Document 04/25/18 21:46 [id number] (Rec: 04/25/18 21:47 [id number] MED-C11) Document 04/26/18 05:58 [id number] (Rec: 04/26/18 05:58 [id number] MED-C11) - Physical Exam General: No Cyanosis, No Anemia, No Jaundice, No Clubbing Lungs and Chest: Yes: Chest Expansion Full, Chest Expansion Symetrica, Percussion Note Resonant, Vessicular Breath Sounds. No: Crackles, Wheezes Heart Rate and Rhythm: Regular Additional Cardiovascular: Yes: Normal Heart Sounds. No: Heart Murmur, Pedal Edema Abdominal Exam: Yes: Soft. No: Distention, Abdominal Tenderness Results - Results Lab Results: Laboratory Results - last 24 hr 04/25/18 04/25/18 04/25/18 07:10 07:10 07:10 WBC 11.3 H RBC 4.52 Hgb 12.4 Hct 37 MCV 83 MCH 28 MCHC 33 RDW 16 H Plt Count 315 MPV 9.3 Neut % (Auto) 73.5 Lymph % (Auto) 19.6 L [place] % (Auto) 4.9 Eos % (Auto) 1.6 Baso % (Auto) 0.4 Absolute Neuts (auto) 8.3 H Absolute Lymphs (auto) 2.2 Absolute Monos (auto) 0.6 Absolute Eos (auto) 0.2 Absolute Basos (auto) 0 Absolute Nucleated RBC 0 Nucleated RBC % 0 INR (Anticoag Therapy) 1.86 H Sodium 141 Potassium 4.1 Chloride 105 Carbon Dioxide 29 Anion Gap 7 BUN 46 H Creatinine 1.50 H Est GFR ( Amer) 41.1 Est GFR (Non-Af Amer) 33.9 BUN/Creatinine Ratio 30.7 H Glucose 122 H POC Glucose (mg/dL) Calcium 8.9 C-Reactive Protein 16.84 H 04/25/18 04/25/18 04/25/18 07:45 11:59 16:34 WBC RBC Hgb Hct MCV MCH MCHC RDW Plt Count MPV Neut % (Auto) Lymph % (Auto) [place] % (Auto) Eos % (Auto) Baso % (Auto) Absolute Neuts (auto) Absolute Lymphs (auto) Absolute Monos (auto) Absolute Eos (auto) Absolute Basos (auto) Absolute Nucleated RBC Nucleated RBC % INR (Anticoag Therapy) Sodium Potassium Chloride Carbon Dioxide Anion Gap BUN Creatinine Est GFR ( Amer) Est GFR (Non-Af Amer) BUN/Creatinine Ratio Glucose POC Glucose (mg/dL) 117 H 167 H 161 H Calcium C-Reactive Protein Assessment - Problem List Assessment: Patient Problems Acute dyspnea (Acute) Acute systolic (congestive) heart failure (Acute) Elevated C-reactive protein (Acute) Left lower lobe pneumonia (Acute) Anticoagulation goal of INR 2 to 3 (Chronic) ICD (implantable cardioverter-defibrillator) in place (Chronic) 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) Orthostatic hypotension (Chronic) Asthma (Chronic) COPD (chronic obstructive pulmonary disease) (Chronic) Cardiomyopathy, ischemic (Chronic) Depression (Chronic) Dyspnea on exertion (Chronic) Hyperlipidemia (Chronic) Hypertension (Chronic) Hypothyroidism (Chronic) Left ventricular thrombus (Chronic) Stage 3 chronic kidney disease (Chronic) Stented coronary artery (Chronic) 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
[2018-04-26 07:41] VITALS: BP 116/67
[2018-04-26] MEDS: Insulin LISPRO* 1 UNITS UNIT SUBCUT SCH (07:43)
[2018-04-26] MEDS: Mometasone/Formoter 200/5 MDI INH SCH (08:19)
[2018-04-26] MEDS: Isosorbide Mononitrate ER TAB* 30 MG PO SCH (09:43)
[2018-04-26] MEDS: BuPROPion XL* 150 MG TAB.XL PO SCH (09:44)
[2018-04-26] MEDS: Ticagrelor* 90 MG TAB PO SCH (09:44)
[2018-04-26] MEDS: Carvedilol TAB* 6.25 MG PO SCH (09:44)
[2018-04-26] MEDS: Venlafaxine EXT RELEASE CAP* 75 MG PO SCH (09:45)
[2018-04-26] MEDS: Potassium Chlor TAB* 20 MEQ TAB.ER PO SCH (09:45)
[2018-04-26] MEDS: Atorvastatin* 80 MG TAB PO SCH (09:45)
[2018-04-26] MEDS: Furosemide TAB* 40 MG PO SCH (09:46)
[2018-04-26] MEDS: Fludrocortisone Acetate TAB* 0.1 MG PO SCH (09:47)
[2018-04-26] MEDS: Insulin GLARGINE(*) 1 UNITS UNIT SUBCUT SCH (09:47)
--- NOTE | 2018-04-26 11:42 | DS ---
DISCHARGE SUMMARY: DATE OF ADMISSION: 04/20/18 DATE OF DISCHARGE: 04/26/18 DISCHARGE DIAGNOSES: 1. Left lower lobe pneumonia. 2. Congestive cardiac failure. COMORBIDITIES: Orthostatic hypotension, intermittent angina. SECONDARY DIAGNOSES: 1. Anticoagulation with warfarin. 2. Ischemic cardiomyopathy. 3. Systolic heart failure. 4. Type 2 diabetes mellitus. 5. Dyslipidemia. 6. Depression and anxiety. HISTORY: Lorena Tafoya is a 72-year-old white female and [facility] She has a long history of severe cardiomyopathy with an ejection fraction 20% to 25%, COPD, dyslipidemia, hypertension, diabetes, atrial fibrillation, CHF. She had had a recent admission with CHF. She developed increasing shortness of breath even when lying down, problems with sleeping at night due to dyspnea. She was due to go to the cardiac surgeon in [place] for a minimally invasive CABG on and was disappointed not to be able to go. In the emergency room, her glucose was 513 mg/dL and CRP was 179. PHYSICAL EXAMINATION: Not in any acute distress. Blood pressure 105/69, pulse 90, respirations 15, oxygen saturation 96% on room air, temperature 98.9. A few crackles in the right base, otherwise no focal findings. INITIAL INVESTIGATIONS: White count 10.6, hemoglobin 13.1, hematocrit 40, platelets 297. INR of 2.56. D-dimer 360. Chemistry was at baseline. Glucose 513, lactate 2.2, calcium 8.6. Normal LFTs. Troponin I 0.02. BNP 409. Chest x-ray showed COPD, no acute process. EKG, sinus rhythm. Inverted T waves in the anterior leads. INITIAL IMPRESSION: Shortness of breath. Concern for fluid overload given the furosemide in the emergency room. Elevated CRP was unclear as to the cause. Chest discomfort was nonexertional and the EKG looked okay. INVESTIGATIONS: Laboratory at presentation, neutrophil percent was elevated at 84%. On 04/21/18, her sed rate was 91. Her INR declined during the hospitalization and on ultimate day was 1.86. Urinalysis was negative. On , urine was 46, creatinine 1.5, glucose was 122, C-reactive protein 16.84. Microbiology: Blood cultures and sputum cultures were negative. CAT scan of chest on 04/21/18 showed a small focus of consolidation in the anteromedial basal section of the left lateral lobe. HOSPITAL COURSE: I recognized that she had a left lateral lobe pneumonia and treated with ceftriaxone. She responded nicely as noted above with C-reactive protein and neutrophil percent came down during the hospital stay. She had some improvements in her dyspnea. The chest pain improved. She had her usual orthostatic hypotension. On the day of discharge, she is feeling better and she is back to baseline. She has no chest pain. She has exertional dyspnea and also lightheadedness on standing up. PHYSICAL EXAMINATION: She is warm and well perfused, in no acute distress and well hydrated. Temperature 98.4, pulse 79, respiratory rate 16, blood pressure 104/69, oxygen saturation 97% on room air. Cardiovascular System: Pulse was regular. Heart sounds were normal. No added sounds or murmurs. She had a trace edema. Respiratory System: She has emphysematous breath sounds, but no crackles or wheezes. Abdomen: No distention, masses, tenderness, or organomegaly. Nervous System: She is alert and oriented x3. Cranial nerves II through were XII intact and she is moving her arms and legs normally. ASSESSMENT AND PLAN: 1. Left lower lobe pneumonia, this was resolved. I will give a cefuroxime 500 mg twice daily for 5 days in order to the absolutely sure this infection is cleared having to her emphysema and diabetes make it more difficult for her to clear the infection. 2. Congestive cardiac failure. She has no signs of this on the day of discharge. I am holding her furosemide for the movement and she will go home on her usual medications otherwise. 3. Orthostatic hypotension. BUN and creatinine are little high. I will hold furosemide for couple of days. She will continue on her usual dose of fludrocortisone. 4. Anticoagulation. INR is subtherapeutic. She will take higher dose of warfarin on discharge. 5. ICD. This has not caused any problems. 6. Chronic obstructive pulmonary disease. This is not exacerbated. 7. Ischemic cardiomyopathy with coronary artery disease. She is due for cardiac surgery consult in [place], which has been postponed. 8. Type 2 diabetes. She will adjust her insulin according to her blood sugars after discharge. DISCHARGE MEDICATIONS: 1. Cefuroxime 500 mg for the 5 days. 2. Warfarin 6 mg daily. 3. Ticagrelor 90 mg twice daily. 4. Fludrocortisone 0.05 mg daily. 5. Fluticasone salmeterol 115/21 two puffs every day. 6. Venlafaxine extended release 150 mg daily. 7. Levothyroxine 75 mcg a day. 8. Alprazolam 0.25 to 0.5 mg once and twice a day as needed. 9. Bupropion XL 150 mg daily. 10. Isosorbide mononitrate extended release 15 mg daily. 11. Nitroglycerin 0.4 mg sublingually every 5 minutes as needed for angina. 12. Diphenhydramine 25 mg q.h.s. as needed for sleep. 13. Atorvastatin 80 mg daily. 14. Acetaminophen 1000 mg every 6 hours as needed for pain. 15. Levemir 15 units twice daily. 16. Albuterol HFA inhaler 1 puff every 6 hours as needed. 17. Carvedilol 6.25 mg twice daily. 18. Potassium chloride 20 mEq daily. 19. She will hold furosemide for the moment. She will make an appointment to see me in 2 days. [id number]/[facility] #: [id number] JAIMIE
== END 2018-04-26 11:25 | disposition home or self-care (01) | DRG 291 ==
LOC: ED 15:57 → MEDTELE 19:37 → OBSVTOIN 04-21 13:46 → MED 04-22 18:14
PROVIDERS: ADMIT Hospitalist; ATTEND Internal Medicine
DX: I13.0 Hypertensive heart and chronic kidney disease with heart failure and stage 1 through stage 4 chronic kidney disease, or unspecified chronic kidney disease (principal); I50.23 Acute on chronic systolic (congestive) heart failure; J18.9 Pneumonia, unspecified organism; J44.0 Chronic obstructive pulmonary disease with (acute) lower respiratory infection; I25.110 Atherosclerotic heart disease of native coronary artery with unstable angina pectoris; K21.9 Gastro-esophageal reflux disease without esophagitis; N18.3 Chronic kidney disease, stage 3 (moderate); M19.90 Unspecified osteoarthritis, unspecified site; E11.36 Type 2 diabetes mellitus with diabetic cataract; E11.42 Type 2 diabetes mellitus with diabetic polyneuropathy; F32.9 Major depressive disorder, single episode, unspecified; F41.9 Anxiety disorder, unspecified; E11.65 Type 2 diabetes mellitus with hyperglycemia; E78.5 Hyperlipidemia, unspecified; E03.9 Hypothyroidism, unspecified; I48.91 Unspecified atrial fibrillation; E11.22 Type 2 diabetes mellitus with diabetic chronic kidney disease; I25.5 Ischemic cardiomyopathy; I95.1 Orthostatic hypotension; E11.21 Type 2 diabetes mellitus with diabetic nephropathy; I25.2 Old myocardial infarction; Z95.1 Presence of aortocoronary bypass graft; Z88.6 Allergy status to analgesic agent; Z88.1 Allergy status to other antibiotic agents; Z88.5 Allergy status to narcotic agent; Z88.2 Allergy status to sulfonamides; Z88.8 Allergy status to other drugs, medicaments and biological substances; Z90.49 Acquired absence of other specified parts of digestive tract; Z90.710 Acquired absence of both cervix and uterus; Z82.49 Family history of ischemic heart disease and other diseases of the circulatory system; Z95.810 Presence of automatic (implantable) cardiac defibrillator; Z80.8 Family history of malignant neoplasm of other organs or systems; Z79.01 Long term (current) use of anticoagulants; Z79.4 Long term (current) use of insulin; Z79.52 Long term (current) use of systemic steroids; Z86.73 Personal history of transient ischemic attack (TIA), and cerebral infarction without residual deficits
CPT/HCPCS: 36415; 71046; 71250; 80048; 80053; 80076; 81003; 83605; 83880; 84145; 84484; 85025; 85379; 85610; 85652; 86140; 87040; 87086; 93005; 94640; 99284; A9270-GY; G0378; J0696; J1940; J2405

== ENCOUNTER 2022-09-07 16:59 | Observation (INO) ==
[2022-09-07] MEDS ORDERED: Lactated Ringers 1000 ml BAG 1,000 ML IV ONE ×2 (18:01→20:21)
[2022-09-07 18:28] LABS: ABS Basophils 0.1 10^3/ul (0-0.2); ABS Eosinophils 0.1 10^3/ul (0-0.6); ABS Lymphocytes 1.4 10^3/ul (1.0-4.8); ABS Monocytes 0.8 10^3/ul (0-0.8); Eosinophil % 0.3 %; Hematocrit 50 % (35-47); Hemoglobin 16.5 g/dL (12.0-16.0); Lymphocyte % 8.4 %; Mean Corpuscular HGB Conc 33 g/dL (31-36); Mean Corpuscular Hemoglobin 30 pg (27-31); Mean Corpuscular Volume 89 fL (80-97); Mean Platelet Volume 9.8 fL (7.4-10.4); Nucleated Red Blood Cells % 0.1; Platelet Count 196 10^3/uL (150-450); Red Blood Count 5.58 10^6 /uL (3.70-4.87); Red Cell Distribution Width 15 % (10-15); White Blood Count 16.3 10^3/uL (3.5-10.8)
[2022-09-07 18:51] LABS: High Sens Troponin Baseline 16 pg/mL (<15)
[2022-09-07] MEDS ORDERED: Ondansetron 4 mg VIAL 2 MG/ML 2 ml VIAL IV ONE (18:56)
[2022-09-07 19:01] LABS: ALT 11 U/L (7-52); Albumin 3.1 g/dL (3.2-5.2); Alcohol, S < 13 mg/dL (<13); Alkaline Phosphatase 92 U/L (35-149); Blood Urea Nitrogen 34 mg/dL (6-24); C Reactive Protein 96.13 mg/L (<8.01); CO2 Carbon Dioxide 22 mmol/L (22-32); Calcium 8.5 mg/dL (8.6-10.3); Chloride 89 mmol/L (101-111); Creatinine, Serum 1.77 mg/dL (0.51-0.95); Globulin 3.1 g/dL (2-4); Magnesium 2.2 mg/dL (1.9-2.7); Sodium 123 mmol/L (135-145); Total Protein 6.2 g/dL (6.4-8.9); eGFR CKD-EPI 29.1 (>60)
[2022-09-07 19:08] LABS: Glucose 756 mg/dL (70-100)
[2022-09-07 19:14] LABS: TSH Ultra Thyroid Stim Horm 2.22 mcIU/mL (0.34-5.60)
[2022-09-07 19:17] LABS: Anion Gap 12 mmol/L (2-11)
[2022-09-07] MEDS ORDERED: Piperacillin/Tazobac ADVAN 3.375 GM in NS 0.9% 100 ml BAG 100 ML IV ONE (20:21)
[2022-09-07 21:05] LABS: Potassium Redraw 4.5 mmol/L (3.5-5.0)
[2022-09-07 21:59] LABS: Urine Appearance Cloudy; Urine Bilirubin Negative (Negative); Urine Blood 1+ (Negative); Urine Color Yellow; Urine Glucose 3+(>=500 mg/dL) (Negative); Urine Ketones Negative (Negative); Urine Nitrite Negative (Negative); Urine Protein Negative (Negative); Urine Specific Gravity 1.027 (1.002-1.030); Urine Urobilinogen Negative (Negative)
[2022-09-07 22:03] LABS: Urine Bacteria 1+ (Absent); Urine Red Blood Cell 3+(>10/hpf) (Absent); Urine Squamous Epithelial Cell Present (Absent); Urine White Blood Cell 3+(>20/hpf) (Absent); Urine Yeast Present (Absent)
[2022-09-07] MEDS ORDERED: Vancomycin 1,250 MG in NS 0.9% 250 ml 250 ML IVPB ONE (22:30)
[2022-09-07 22:58] LABS: Osmolality Serum 318 mOsm/kg (275-295)
[2022-09-07 23:13] LABS: Venous Bicarbonate HCO3 21.7 mmol/L (24-28)
[2022-09-08] MEDS ORDERED: Dextrose 50% Syringe 50 ml 25 GM/50 ML SYRINGE IV PUSH PRN (00:33)
[2022-09-08 03:35] LABS: Blood Urea Nitrogen 29 mg/dL (6-24); CO2 Carbon Dioxide 26 mmol/L (22-32); Chloride 99 mmol/L (101-111); Creatinine, Serum 1.53 mg/dL (0.51-0.95); Glucose 336 mg/dL (70-100); Sodium 133 mmol/L (135-145); eGFR CKD-EPI 34.6 (>60)
[2022-09-08 03:37] LABS: Anion Gap 8 mmol/L (2-11)
[2022-09-08 05:09] LABS: Calcium 8.2 mg/dL (8.6-10.3); Creatinine, Serum 1.49 mg/dL (0.51-0.95); Potassium 3.7 mmol/L (3.5-5.0); eGFR CKD-EPI 35.7 (>60)
[2022-09-08 05:39] LABS: Calcium 8.2 mg/dL (8.6-10.3); Potassium 3.9 mmol/L (3.5-5.0)
[2022-09-08 05:42] LABS: ABS Eosinophils 0.1 10^3/ul (0-0.6); ABS Lymphocytes 1.3 10^3/ul (1.0-4.8); ABS Monocytes 0.6 10^3/ul (0-0.8); ABS Neutrophils 9.9 10^3/ul (1.5-7.7); Eosinophil % 1.2 %; Hematocrit 45 % (35-47); Hemoglobin 15.2 g/dL (12.0-16.0); Lymphocyte % 10.7 %; Mean Corpuscular HGB Conc 34 g/dL (31-36); Mean Corpuscular Hemoglobin 30 pg (27-31); Mean Corpuscular Volume 87 fL (80-97); Mean Platelet Volume 8.8 fL (7.4-10.4); Nucleated Red Blood Cells % 0.1; Platelet Count 167 10^3/uL (150-450); Red Blood Count 5.14 10^6 /uL (3.70-4.87); Red Cell Distribution Width 14 % (10-15)
[2022-09-08 05:45] LABS: Creatinine, Serum 1.52 mg/dL (0.51-0.95); eGFR CKD-EPI 34.9 (>60)
[2022-09-08] MEDS ORDERED: Albuterol HFA INHALER 8 gm MDI INH PRN (05:54)
[2022-09-08] MEDS ORDERED: cefTRIAXone 1 gm/50 mL D5W 1 GM/50 ML BAG IV SCH (06:15)
[2022-09-08] MEDS ORDERED: Enoxaparin 40 MG/0.4 ML SYR SUBCUT SCH ×2 (07:30→23:15)
[2022-09-09] MEDS: cefTRIAXone 1 gm/50 mL D5W 1 GM/50 ML BAG IV SCH (06:39)
[2022-09-09 07:04] LABS: ABS Eosinophils 0.1 10^3/ul (0-0.6); ABS Lymphocytes 1.7 10^3/ul (1.0-4.8); ABS Monocytes 0.5 10^3/ul (0-0.8); Eosinophil % 1.5 %; Hematocrit 43 % (35-47); Hemoglobin 14.4 g/dL (12.0-16.0); Lymphocyte % 20.7 %; Mean Corpuscular HGB Conc 33 g/dL (31-36); Mean Corpuscular Hemoglobin 30 pg (27-31); Mean Corpuscular Volume 90 fL (80-97); Mean Platelet Volume 9.6 fL (7.4-10.4); Platelet Count 142 10^3/uL (150-450); Red Blood Count 4.81 10^6 /uL (3.70-4.87); Red Cell Distribution Width 15 % (10-15); White Blood Count 8.4 10^3/uL (3.5-10.8)
[2022-09-09 07:21] LABS: Calcium 7.9 mg/dL (8.6-10.3); Creatinine, Serum 1.82 mg/dL (0.51-0.95); Potassium 3.7 mmol/L (3.5-5.0); eGFR CKD-EPI 28.1 (>60)
[2022-09-09] MEDS ORDERED: NS 0.9% 1000 ml BAG 1,000 ML IV SCH (07:45)
[2022-09-09] MEDS: Enoxaparin 30 MG/0.3 ML SYR SUBCUT SCH (20:33)
[2022-09-09] MEDS ORDERED: Insulin GLARGINE 100 un/ml 10 ml VIAL SUBCUT SCH ×2 (21:00)
[2022-09-09 21:23] LABS: High Sensitivity Troponin 1 Hr 16 pg/mL (<15)
[2022-09-10] MEDS: cefTRIAXone 1 gm/50 mL D5W 1 GM/50 ML BAG IV SCH (06:02)
[2022-09-10] MEDS ORDERED: Al Hydrox/Mg Hydrox/Simet LIQ 30 ML UDC PO PRN (07:56)
[2022-09-10] MEDS ORDERED: NS 0.9% 1000 ml BAG 1,000 ML IV SCH (08:00)
[2022-09-10 09:01] LABS: Albumin 2.5 g/dL (3.2-5.2); Albumin/Globulin Ratio 1.1 (1-3); Calcium 7.7 mg/dL (8.6-10.3); Creatinine, Serum 1.4 mg/dL (0.51-0.95); Globulin 2.3 g/dL (2-4); Potassium 4.4 mmol/L (3.5-5.0); Total Bilirubin 0.3 mg/dL (0.2-1.0); Total Protein 4.8 g/dL (6.4-8.9); eGFR CKD-EPI 38.5 (>60)
[2022-09-10] MEDS: Venlafaxine XR 75 mg PO SCH (11:39)
[2022-09-10] MEDS: Insulin GLARGINE 100 un/ml 10 ml VIAL SUBCUT SCH (20:35)
[2022-09-10] MEDS: Enoxaparin 30 MG/0.3 ML SYR SUBCUT SCH (20:36)
[2022-09-11] MEDS: Venlafaxine XR 75 mg PO SCH (08:34)
[2022-09-11] MEDS: Mometasone/Formoter 200/5 MDI INH SCH (18:52)
[2022-09-11] MEDS: Latanoprost 0.005% 2.5 ml BTL BOTH EYES SCH (22:27)
[2022-09-11] MEDS: Insulin GLARGINE 100 un/ml 10 ml VIAL SUBCUT SCH (22:31)
[2022-09-11] MEDS: Enoxaparin 30 MG/0.3 ML SYR SUBCUT SCH (22:32)
[2022-09-12] MEDS: Mometasone/Formoter 200/5 MDI INH SCH ×2 (07:56→20:02)
[2022-09-12] MEDS: Venlafaxine XR 75 mg PO SCH (09:08)
[2022-09-12] MEDS: Insulin GLARGINE 100 un/ml 10 ml VIAL SUBCUT SCH (21:21)
[2022-09-12] MEDS: Enoxaparin 30 MG/0.3 ML SYR SUBCUT SCH (21:21)
[2022-09-12] MEDS: Latanoprost 0.005% 2.5 ml BTL BOTH EYES SCH (21:25)
[2022-09-13] MEDS: Mometasone/Formoter 200/5 MDI INH SCH ×2 (07:11→19:25)
[2022-09-13] MEDS: Venlafaxine XR 75 mg PO SCH (09:43)
[2022-09-13] MEDS: Insulin GLARGINE 100 un/ml 10 ml VIAL SUBCUT SCH (22:16)
[2022-09-13] MEDS: Enoxaparin 30 MG/0.3 ML SYR SUBCUT SCH ×2 (22:17→22:18)
[2022-09-13] MEDS: Latanoprost 0.005% 2.5 ml BTL BOTH EYES SCH (22:26)
[2022-09-14] MEDS: Venlafaxine XR 75 mg PO SCH (08:35)
[2022-09-14] MEDS: Mometasone/Formoter 200/5 MDI INH SCH ×2 (08:48→19:17)
[2022-09-14] MEDS: Enoxaparin 30 MG/0.3 ML SYR SUBCUT SCH (21:11)
[2022-09-14] MEDS: Insulin GLARGINE 100 un/ml 10 ml VIAL SUBCUT SCH (21:11)
[2022-09-14] MEDS: Latanoprost 0.005% 2.5 ml BTL BOTH EYES SCH (21:12)
[2022-09-15] MEDS: Mometasone/Formoter 200/5 MDI INH SCH ×2 (07:34→19:31)
[2022-09-15] MEDS ORDERED: Regadenoson 0.4 MG/5 ML SYRINGE ONE (10:40)
[2022-09-15] MEDS: Venlafaxine XR 75 mg PO SCH (10:46)
[2022-09-15] MEDS: Enoxaparin 30 MG/0.3 ML SYR SUBCUT SCH (21:27)
[2022-09-15] MEDS: Insulin GLARGINE 100 un/ml 10 ml VIAL SUBCUT SCH (21:27)
[2022-09-15] MEDS: Latanoprost 0.005% 2.5 ml BTL BOTH EYES SCH (21:28)
[2022-09-16 07:27] VITALS: BP 129/70
[2022-09-16] MEDS: Mometasone/Formoter 200/5 MDI INH SCH (07:50)
== END 2022-09-10 11:59 | disposition home or self-care (01) ==
LOC: ED 16:59 → SUATTDRO 09-08 00:23 → INTOOBSV 09-08 00:23 → EDHOLD 09-08 00:23 → MEDTELE 09-08 20:45 → MED 09-09 10:35 → UNDODISOB 09-16 09:40
PROVIDERS: ADMIT Internal Medicine; ATTEND Internal Medicine Hematology & Oncology

== ENCOUNTER 2022-09-10 12:00 | Inpatient (IN) ==
[2022-09-14 12:00] LABS: High Sensitivity Troponin 1 Hr 7 pg/mL (<15)
== END 2022-09-16 09:40 | disposition home or self-care (01) | DRG 303 ==
LOC: MED 12:00
PROVIDERS: ADMIT Internal Medicine Hematology & Oncology; ATTEND Internal Medicine Hematology & Oncology

== ENCOUNTER 2023-08-21 18:19 | Observation (INO) ==
[2023-08-21 19:18] LABS: ABS Basophils 0.1 10^3/uL (0.0-0.1); ABS Eosinophils 0.2 10^3/uL (0.0-0.5); ABS Lymphocytes 2.2 10^3/uL (1.0-4.8); ABS Monocytes 0.6 10^3/uL (0.0-0.9); ABS Neutrophils 10.5 10^3/uL (1.5-7.6); ABS Nucleated RBC 0.02 10^3/ul; Eosinophil % 1.2 %; Hematocrit 28.3 % (35-45); Hemoglobin 9.3 g/dL (11.5-14.3); Lymphocyte % 16.4 %; Mean Corpuscular Hemoglobin 29.4 pg (27-33); Mean Platelet Volume 9.6 fL (7.5-11.2); Nucleated Red Blood Cells % 0.1 %/100WBC (0.0-0.8); Platelet Count 238 10^3/uL (150-450); Red Blood Count 3.18 10^6/uL (3.63-4.92); Red Cell Distribution Width 15.4 % (12-17); White Blood Count 13.6 10^3/uL (3.8-11.8)
[2023-08-21 20:05] LABS: ALT 11 U/L (7-52); Albumin 3.1 g/dL (3.2-5.2); Albumin/Globulin Ratio 1.1 (1-3); Alkaline Phosphatase 69 U/L (35-149); Anion Gap 4 mmol/L (2-16); Blood Urea Nitrogen 44 mg/dL (6-24); CO2 Carbon Dioxide 25 mmol/L (22-32); Calcium 8.1 mg/dL (8.6-10.3); Chloride 107 mmol/L (101-111); Creatinine, Serum 2.36 mg/dL (0.51-0.95); Globulin 2.7 g/dL (2-4); Glucose 215 mg/dL (70-100); Sodium 136 mmol/L (135-145); Total Bilirubin 0.4 mg/dL (0.2-1.0); Total Protein 5.8 g/dL (6.4-8.9); eGFR CKD-EPI 20.5 (>60)
[2023-08-21 20:14] LABS: INR 3.59 (0.83-1.13)
[2023-08-22] MEDS ORDERED: Lorazepam PYXIS KEY PRN (00:43)
[2023-08-22] MEDS ORDERED: LORazepam 2 mg VIAL 1 ml IV PUSH ONE (00:43)
[2023-08-22 01:37] LABS: Hematocrit 29.8 % (35-45); Hemoglobin 9.8 g/dL (11.5-14.3)
[2023-08-22] MEDS ORDERED: Albuterol HFA INHALER 8 gm MDI INH PRN (02:27)
[2023-08-22] MEDS ORDERED: NS 0.9% 1000 ml BAG 1,000 ML IV SCH (03:00)
[2023-08-22] MEDS: Mometasone/Formoter 200/5 MDI INH SCH ×2 (07:45→20:21)
[2023-08-22 09:04] LABS: ABS Basophils 0.1 10^3/uL (0.0-0.1); ABS Eosinophils 0.3 10^3/uL (0.0-0.5); ABS Lymphocytes 2.6 10^3/uL (1.0-4.8); ABS Monocytes 0.6 10^3/uL (0.0-0.9); ABS Neutrophils 7.6 10^3/uL (1.5-7.6); ABS Nucleated RBC 0.01 10^3/ul; Eosinophil % 2.8 %; Hematocrit 27.1 % (35-45); Hemoglobin 9.1 g/dL (11.5-14.3); Lymphocyte % 23.5 %; Mean Corpuscular Hemoglobin 29.7 pg (27-33); Mean Corpuscular Hgb Conc 33.5 g/dL (31-36); Mean Corpuscular Volume 88.8 fL (80-97); Mean Platelet Volume 9.7 fL (7.5-11.2); Platelet Count 269 10^3/uL (150-450); Red Blood Count 3.06 10^6/uL (3.63-4.92); Red Cell Distribution Width 15.8 % (12-17); White Blood Count 11.3 10^3/uL (3.8-11.8)
[2023-08-22 09:16] LABS: INR 3.02 (0.83-1.13)
[2023-08-22 09:34] LABS: Creatine Kinase 118 U/L (10-223); Magnesium 2.1 mg/dL (1.9-2.7); Sodium 141 mmol/L (135-145)
[2023-08-22 09:35] LABS: Blood Urea Nitrogen 43 mg/dL (6-24); CO2 Carbon Dioxide 28 mmol/L (22-32); Calcium 8.4 mg/dL (8.6-10.3); Chloride 108 mmol/L (101-111); Creatinine, Serum 1.78 mg/dL (0.51-0.95); Glucose 111 mg/dL (70-100); eGFR CKD-EPI 28.7 (>60)
[2023-08-22 09:37] LABS: Anion Gap 5 mmol/L (2-16)
[2023-08-22 09:39] LABS: Folate 6.69 ng/mL (5.90-24.80)
[2023-08-22 09:40] LABS: Vitamin B12 296 pg/mL (180-914)
[2023-08-22 09:43] LABS: Vitamin D Total 25(OH) 7.7 ng/mL (20-50)
[2023-08-22] MEDS: Venlafaxine XR 75 mg PO SCH (10:08)
[2023-08-22 12:14] LABS: Potassium Redraw 4.3 mmol/L (3.5-5.0)
[2023-08-22] MEDS ORDERED: Sulfur Hexaflouride MICROSPHR 25 MG VIAL ONE (14:25)
[2023-08-22] MEDS ORDERED: NS 0.9% 500 ml BAG 500 ML IV SCH (21:00)
[2023-08-22] MEDS ORDERED: Insulin GLARGINE 100 un/ml 10 ml VIAL SUBCUT SCH (21:00)
[2023-08-22] MEDS: Latanoprost 0.005% 2.5 ml BTL BOTH EYES SCH (21:44)
[2023-08-22] MEDS: Insulin GLARGINE 100 un/ml 10 ml VIAL SUBCUT SCH (23:10)
[2023-08-23] MEDS: Mometasone/Formoter 200/5 MDI INH SCH ×2 (08:21→19:22)
[2023-08-23] MEDS: Venlafaxine XR 75 mg PO SCH (08:36)
[2023-08-23 10:17] LABS: Hematocrit 24.4 % (35-45); Mean Corpuscular Hemoglobin 29.3 pg (27-33); Mean Corpuscular Hgb Conc 32.9 g/dL (31-36); Mean Platelet Volume 10.2 fL (7.5-11.2); Platelet Count 192 10^3/uL (150-450); Red Blood Count 2.75 10^6/uL (3.63-4.92); Red Cell Distribution Width 15.3 % (12-17); White Blood Count 8.3 10^3/uL (3.8-11.8)
[2023-08-23 10:24] LABS: INR 2.11 (0.83-1.13)
[2023-08-23 11:26] LABS: Calcium 7.9 mg/dL (8.6-10.3); Creatinine, Serum 1.17 mg/dL (0.51-0.95); Potassium 4.2 mmol/L (3.5-5.0); eGFR CKD-EPI 47.5 (>60)
[2023-08-23 17:15] LABS: Hematocrit 23.9 % (35-45)
[2023-08-23] MEDS: Latanoprost 0.005% 2.5 ml BTL BOTH EYES SCH (21:06)
[2023-08-23] MEDS: Insulin GLARGINE 100 un/ml 10 ml VIAL SUBCUT SCH (21:11)
[2023-08-23] MEDS: Senna TAB 8.6 mg TAB PO SCH ×2 (23:27→23:38)
[2023-08-24 07:09] LABS: Hematocrit 23.3 % (35-45); Hemoglobin 7.9 g/dL (11.5-14.3); Mean Corpuscular Hemoglobin 29.9 pg (27-33); Mean Corpuscular Hgb Conc 33.7 g/dL (31-36); Mean Corpuscular Volume 88.8 fL (80-97); Mean Platelet Volume 9.2 fL (7.5-11.2); Platelet Count 236 10^3/uL (150-450); Red Blood Count 2.63 10^6/uL (3.63-4.92); Red Cell Distribution Width 15.1 % (12-17)
[2023-08-24 07:26] LABS: Calcium 8.4 mg/dL (8.6-10.3); Creatinine, Serum 1.07 mg/dL (0.51-0.95); Potassium 4.1 mmol/L (3.5-5.0); eGFR CKD-EPI 52.8 (>60)
[2023-08-24 07:40] VITALS: BP 97/60
[2023-08-24] MEDS: Mometasone/Formoter 200/5 MDI INH SCH (07:52)
[2023-08-24] MEDS ORDERED: Polyethylene Glycol 3350 17 GM PACKET PO SCH (09:00)
[2023-08-24] MEDS: Venlafaxine XR 75 mg PO SCH (11:17)
== END 2023-08-24 16:15 ==
LOC: ED 18:19 → EDHOLD 18:19 → SUATTDRO 08-22 01:48 → MED 08-22 11:17
PROVIDERS: ADMIT Internal Medicine; ATTEND Internal Medicine

== ENCOUNTER 2024-05-01 16:23 | Inpatient (IN) ==
[2024-05-01 17:45] LABS: Hematocrit 44.9 % (35-45); Hemoglobin 14.9 g/dL (11.5-14.3); Mean Corpuscular Hemoglobin 30.1 pg (27-33); Mean Corpuscular Hgb Conc 33.2 g/dL (31-36); Mean Corpuscular Volume 90.6 fL (80-97); Red Blood Count 4.95 10^6/uL (3.63-4.92); Red Cell Distribution Width 13.2 % (12-17); White Blood Count 19.3 10^3/uL (3.8-11.8)
[2024-05-01 18:12] LABS: Albumin 3.8 g/dL (3.2-5.2); Albumin/Globulin Ratio 1.2 (1-3); C Reactive Protein 18.58 mg/L (<8.01); Calcium 9.6 mg/dL (8.6-10.3); Creatinine, Serum 1.27 mg/dL (0.51-0.95); Globulin 3.3 g/dL (2-4); Potassium 5.9 mmol/L (3.5-5.0); Total Bilirubin 0.4 mg/dL (0.2-1.0); Total Protein 7.1 g/dL (6.4-8.9); eGFR CKD-EPI 42.8 (>60)
[2024-05-01] MEDS: Haloperidol 5 mg/ml SDV IV/IM 5 MG/ML AMP IV SLOW PU ONE (18:20)
[2024-05-01] MEDS: cefTRIAXone 1 gm/50 mL D5W 1 GM/50 ML BAG IV ONE (18:20)
[2024-05-01] MEDS ORDERED: Dextrose 50% Syringe 50 ml 25 GM/50 ML SYRINGE IV PUSH PRN (18:27)
[2024-05-01 18:41] LABS: Mean Platelet Volume 10.6 fL (7.5-11.2); Platelet Count 205 10^3/uL (150-450)
[2024-05-01 18:47] LABS: High Sensitivity Troponin 1 Hr 8 pg/mL (<15)
[2024-05-01 19:20] LABS: RBC Morphology Normal (Normal)
[2024-05-01 19:25] LABS: ABS Lymphocytes 1.7 10^3/ul (1.0-4.8); ABS Monocytes 0.2 10^3/ul (0.0-0.9); ABS Neutrophils 17.4 10^3/ul (1.5-7.6)
[2024-05-01] MEDS: Lactated Ringers 1000 ml BAG 1,000 ML IV ONE (19:36)
[2024-05-01] MEDS: Albuterol 2.5mg/3 ml (0.083%) NEB.SOLN INH ONE (21:04)
[2024-05-01] MEDS: Iodixanol (CONTRAST) 320 MG/ML 100 ML SDV IV ONE (22:31)
[2024-05-02] MEDS: Azithromycin 500 mg/250 ml NS 500 MG/250 ML BAG IVPB ONE (00:46)
[2024-05-02 01:52] LABS: Urine Appearance Turbid; Urine Bilirubin Negative (Negative); Urine Blood Negative (Negative); Urine Color Colorless; Urine Glucose 3+ (>=300 mg/dL) (Negative); Urine Ketones Negative (Negative); Urine Nitrite Negative (Negative); Urine Protein Negative (Negative); Urine Specific Gravity 1.025 (1.002-1.030); Urine Urobilinogen Negative (Negative)
[2024-05-02] MEDS: SODIUM ZIRCONIUM CYCLOSILICATE 10 GM PACKET PO ONE (02:07)
[2024-05-02 02:28] LABS: Budding Yeast Present /HPF (Absent); Urine Bacteria Absent /HPF (Absent); Urine Red Blood Cell Absent /HPF (0-Trace); Urine Squamous Epithelial Cell Present /HPF (Absent); Urine White Blood Cell 3+(>20/hpf) /HPF (0-Trace)
[2024-05-02 04:31] LABS: Anion Gap 7 mmol/L (2-16); Blood Urea Nitrogen 21 mg/dL (6-24); CO2 Carbon Dioxide 27 mmol/L (22-32); Calcium 8.5 mg/dL (8.6-10.3); Chloride 104 mmol/L (101-111); Creatinine, Serum 0.98 mg/dL (0.51-0.95); Glucose 201 mg/dL (70-100); Sodium 138 mmol/L (135-145); eGFR CKD-EPI 58.3 (>60)
[2024-05-02 06:27] LABS: ABS Basophils 0.1 10^3/uL (0.0-0.1); ABS Eosinophils 0.1 10^3/uL (0.0-0.5); ABS Lymphocytes 3.7 10^3/uL (1.0-4.8); ABS Monocytes 0.7 10^3/uL (0.0-0.9); ABS Neutrophils 12.3 10^3/uL (1.5-7.6); ABS Nucleated RBC 0.01 10^3/ul; Eosinophil % 0.6 %; Hematocrit 38.5 % (35-45); Hemoglobin 12.9 g/dL (11.5-14.3); Mean Corpuscular Hemoglobin 30.2 pg (27-33); Mean Corpuscular Hgb Conc 33.6 g/dL (31-36); Mean Corpuscular Volume 89.8 fL (80-97); Mean Platelet Volume 9.8 fL (7.5-11.2); Nucleated Red Blood Cells % 0.1 %/100WBC (0.0-0.8); Platelet Count 187 10^3/uL (150-450); Red Blood Count 4.29 10^6/uL (3.63-4.92)
[2024-05-02 08:07] LABS: Anion Gap 7 mmol/L (2-16); Blood Urea Nitrogen 20 mg/dL (6-24); CO2 Carbon Dioxide 29 mmol/L (22-32); Calcium 8.4 mg/dL (8.6-10.3); Chloride 105 mmol/L (101-111); Creatinine, Serum 0.99 mg/dL (0.51-0.95); Glucose 135 mg/dL (70-100); Magnesium 1.9 mg/dL (1.9-2.7); Sodium 141 mmol/L (135-145); eGFR CKD-EPI 57.6 (>60)
[2024-05-02] MEDS: Albuterol 2.5mg/3 ml (0.083%) NEB.SOLN INH SCH (08:20)
[2024-05-02] MEDS ORDERED: Senna/Docusate 8.6/50 mg (NF) TAB PO SCH (09:00)
[2024-05-02] MEDS: Insulin GLARGINE 100 un/ml 10 ml VIAL SUBCUT SCH (10:32)
[2024-05-02] MEDS: ASENAPINE SCH (10:35)
[2024-05-02] MEDS: Senna TAB 8.6 mg TAB PO SCH (11:31)
[2024-05-02] MEDS: cefTRIAXone 1 gm/50 mL D5W 1 GM/50 ML BAG IV SCH (17:52)
[2024-05-02] MEDS: Mometasone/Formoter 200/5 MDI INH SCH (17:54)
[2024-05-02] MEDS ORDERED: cefTRIAXone 1 gm/50 mL D5W 1 GM/50 ML BAG IV SCH (18:00)
[2024-05-02] MEDS ORDERED: Albuterol HFA INHALER 8 gm MDI INH SCH (19:00)
[2024-05-02] MEDS: Albuterol HFA INHALER 8 gm MDI INH SCH (19:33)
[2024-05-02] MEDS: Latanoprost 0.005% 2.5 ml BTL BOTH EYES SCH (21:35)
[2024-05-03] MEDS: Azithromycin 250 MG in NS 0.9% 250 ml 250 ML IVPB SCH (00:12)
[2024-05-03 06:16] LABS: ABS Basophils 0.1 10^3/uL (0.0-0.1); ABS Eosinophils 0.1 10^3/uL (0.0-0.5); ABS Lymphocytes 2.6 10^3/uL (1.0-4.8); ABS Monocytes 0.5 10^3/uL (0.0-0.9); ABS Neutrophils 7.2 10^3/uL (1.5-7.6); Eosinophil % 1.4 %; Hematocrit 41.6 % (35-45); Lymphocyte % 24.5 %; Mean Corpuscular Hemoglobin 30.6 pg (27-33); Mean Corpuscular Hgb Conc 33.7 g/dL (31-36); Mean Corpuscular Volume 90.6 fL (80-97); Mean Platelet Volume 10.1 fL (7.5-11.2); Platelet Count 174 10^3/uL (150-450); Red Blood Count 4.59 10^6/uL (3.63-4.92); Red Cell Distribution Width 13.2 % (12-17); White Blood Count 10.4 10^3/uL (3.8-11.8)
[2024-05-03 06:34] LABS: Calcium 8.6 mg/dL (8.6-10.3); Creatinine, Serum 1.19 mg/dL (0.51-0.95); eGFR CKD-EPI 46.2 (>60)
[2024-05-03] MEDS: Sulfur Hexaflouride MICROSPHR 25 MG VIAL IV ONE (10:00)
[2024-05-04 09:51] VITALS: BP 119/64
== END 2024-05-04 12:30 | DRG 194 ==
LOC: EDHOLD 16:23 → ED 16:23 → SUATTDRO 23:56 → OBSVTOIN 23:56 → MED 05-02 15:49
PROVIDERS: ADMIT Internal Medicine; ATTEND Internal Medicine